=== PATIENT | male | born 1970 | race Caucasian/White ===

== ENCOUNTER 2019-07-12 15:47 | Emergency (ER) | payer OTHER, SELFPAY ==
[2019-07-12 15:49] VITALS: BP 149/89; PULSE 68; RESP 16; TEMP 36.1; O2SAT 98; BMI 36.6
--- NOTE | 2019-07-12 16:02 | CT_ITS ---
STUDY: CT ABDOMEN AND PELVIS WITH CONTRAST REASON FOR EXAM: Male, 48 years old. RLQ pain x 3 days, nausea. No prior surgery, diabetes or hypertension. RADIATION DOSAGE (If Supplied By Facility): CTDIvol = ( 18.63 ) mGy, DLP = ( 1395.07 ) mGycm TECHNIQUE: Transaxial images were obtained from the dome of the diaphragm to the symphysis pubis without oral contrast. Oral and IV Gastrografin and 100mL Isovue-300 was administered. Sagittal and coronal images were reconstructed. Individualized dose optimization techniques were used for this CT. COMPARISON: None. FINDINGS: The visualized lung bases are unremarkable. The visualized portions of the heart are within normal limits. Normal liver. Normal gallbladder and extrahepatic biliary system. Normal spleen. Normal pancreas. Normal bilateral adrenal glands. Normal right kidney. Normal left kidney. Normal visualized stomach. Normal small intestine. There are multiple colonic diverticula consistent with diverticulosis. The appendix is visualized and appears normal. Normal abdominal aorta. Normal inferior vena cava. Normal retroperitoneum. Normal urinary bladder. Normal visualized prostate gland. There is a small umbilical hernia containing fat. Normal osseous structures. CT/Abdomen/Pelvis WITH Contrast IMPRESSION: No acute process identified. Diverticulosis. Electronically Signed: Flako Tomlin, at 19:08 EST Tel , Service support ,
--- NOTE | 2019-07-12 16:03 | ED.DCSUM_ITS ---
History of Present Illness Chief Complaint: Abd Pain Informant: Patient Onset: Days - 4 days Context: Gradual Onset Current Severity: Mild Maximum Severity: Moderate Narrative: Patient presents with a 4-day history of pain to the right lower quadrant. He is able to tolerate p.o. without difficulty. He has had increased diarrhea over the past week. He is urinating normally. He states today he feels nauseated and queasy. He has had no vomiting. He has not noted fever or chills. - Past Medical History (1) Depression Status: Chronic (2) Anxiety Status: Chronic Past Medical History - Allergies and Home Meds Allergies/Adverse Reactions: Allergies No Known Allergies Allergy (Verified 07/12/19 15:48) Primary Care Physician: Irvin Guan MD [Primary Care Provider] - Prior records reviewed: Yes Lives: Spouse/ Significant Other Smoking Status: Never smoker Review of Systems General: Denies: Chills, Fever Eyes: Denies: Visual changes - bilaterally ENT: Denies: Bilateral ear pain Cardiovascular: Denies: Chest pain Respiratory: Denies: Dyspnea Gastrointestinal: Reports: Abdominal pain, Nausea, Diarrhea. Denies: Vomiting Genitourinary: Denies: Dysuria Musculoskeletal: Denies: Myalgias Skin: Denies: Rash Neurological: Denies: Headache Physical Exam Vital Signs/Narrative: Vital Signs Temp Pulse Resp BP Pulse Ox 07/12/19 15:49 96.9 F L 68 16 149/89 H 98 Inital Vital Signs reviewed: Yes General: Well nourished, Well developed Head: Normocephalic ENT: Moist mucous membranes Neck: Supple Cardiovascular: Regular rate, Regular rhythm Respiratory: No distress, CTA bilaterally Abdomen: Soft, Tender - Focal tenderness of the right lower quadrant., Hypoactive bowel sounds. Negative for: Guarding Skin: Normal color Neurological: Alert, Oriented x3 Psychological: Normal affect Diagnostic/Tx/Re-eval Impressions Abdomen/Pelvis CT 07/12/19 16:02 IMPRESSION: No acute process identified. Diverticulosis. Electronically Signed: Flako Tomlin, at 19:08 EST Tel , Service support , 07/12/19 16:02 Abdomen/Pelvis WITH Contrast [CT] Stat Laboratory Results 0107/12/19 07/12/19 16:16 16:16 16:19 WBC 9.6 RBC 5.45 Hgb 14.8 Hct 44.3 MCV 81.3 MCH 27.2 MCHC 33.4 RDW Std Deviation 41.4 RDW Coeff of Brock 14.3 Plt Count 261 MPV 9.7 Immature Gran % (Auto) 0.300 Neut % (Auto) 59.5 Lymph % (Auto) 25.2 [place] % (Auto) 10.0 Eos % (Auto) 4.3 Baso % (Auto) 0.7 Absolute Neuts (auto) 5.7 Absolute Lymphs (auto) 2.43 Nucleated RBC % 0 Sodium 139 Potassium 4.3 Chloride 106 Carbon Dioxide 28.0 Anion Gap 5 BUN 23 H Creatinine 1.42 H Estim Creat Clear Calc 76.86 Est GFR (MDRD) Af Amer 69 Est GFR (MDRD) Non-Af 57 L BUN/Creatinine Ratio 16.2 Glucose 84 Calcium 9.0 Total Bilirubin 0.50 Direct Bilirubin 0.11 AST 14 L ALT 27 Alkaline Phosphatase 62 Total Protein 7.5 Albumin 3.9 Globulin 3.6 Urine Color Yellow Urine Clarity Clear Urine pH 7.0 Ur Specific [place] 1.010 Urine Protein Negative Urine Glucose (UA) Normal Urine Ketones Negative Urine Occult Blood Negative Urine Nitrite Negative Urine Bilirubin Negative Urine Urobilinogen Normal Ur Leukocyte Esterase Negative Urine RBC 0 SEEN Urine WBC 0 SEEN Ur Squamous Epith Cells 0 SEEN Urine Bacteria 0 SEEN Urine Mucus 0 SEEN - Medical Decision Making Patient declined anything for pain or nausea while in the emergency room. Test results are discussed with patient and at bedside. He is reassured with these findings. If symptoms worsen he is to return for repeat evaluation. ED Disposition - Plan for ED Patient: Disposition: Home or Assisted Living Diagnosis: Abdominal pain Instructions: ABDOMINAL PAIN, Unkown Cause, (Male) Referrals: Irvin Guan MD [Primary Care Provider] - 1 Week if not improving
[2019-07-12] MEDS: 0.9% Normal Saline 1,000 ML 150 ML IV (16:20)
[2019-07-12 16:26] LABS: Bacteria 0 SEEN /hpf (None Seen); Mucous, Urine 0 SEEN /hpf (<or=2+); Red Blood Cells-Urine 0 SEEN /hpf (0-5); Squamous Epithelial Cells - UA 0 SEEN /hpf (0-5); White Blood Cells 0 SEEN /hpf (0-5)
[2019-07-12 16:30] LABS: Color, Urine Yellow (Yellow); Glucose, Dipstick Normal (Normal); Ketone-Dipstick Negative (Negative); Leukocyte Esterase-Dipstick Negative /ul (Negative); Nitrite-Dipstick Negative (Negative); Occult Blood-Urine Negative /ul (Negative); Protein-Dipstick Negative (Negative); Urine Bilirubin Dipstick Negative (Negative); Urine Clarity Clear (Clear); Urine Urobilinogen Normal (Normal)
[2019-07-12 16:31] LABS: Absolute Lymphocyte Count 2.43 X10^3/uL (0.83-4.51); Absolute Neutrophil Count 5.7 X10^3/uL (2.0-7.7); Basophil# 0.07 X10^3/uL; Basophil% 0.7 % (0-1); Eosinophil# 0.41 X10^3/uL; Eosinophils% 4.3 % (0-5); Hematocrit 44.3 % (40-54); Hemoglobin 14.8 g/dL (13.0-16.5); Lymphocyte # 2.43 X10^3/ul (4.0); Lymphocyte % 25.2 % (19-41); Mean Corp Hgb Conc 33.4 g/dL (32-36); Mean Corpuscular Hgb 27.2 pg (27.0-32.0); Mean Corpuscular Volume 81.3 fL (80-94); Mean Platelet Vol. 9.7 fl (6.2-12.0); Monocyte# 0.96 X10^3/uL; NRBC Flagged by Analyzer 0 % (0-5); Neutrophil # 5.74 X10^3/uL (2.7-7.7); Neutrophil % 59.5 % (47-70); Platelet Count 261 K/mm3 (150-450); RBC Distribution Width CV 14.3 % (11.6-14.6); RBC Distribution Width SD 41.4 fl (35.1-43.9); Red Blood Count 5.45 M/mm3 (4.6-6.2); White Blood Count 9.6 K/mm3 (4.4-11.0)
[2019-07-12 16:50] LABS: AST(SGOT) 14 U/L (15-37); Alanine Aminotransfer ALT/SGPT 27 U/L (16-61); Albumin, Serum 3.9 g/dL (3.2-5.0); Alkaline Phosphatase 62 U/L (45-117); Anion Gap 5 (5-15); BUN 23 mg/dL (7-18); BUN/Creat Ratio 16.2 RATIO (10-20); Bilirubin, Direct 0.11 mg/dL (0.00-0.30); Chloride 106 mmol/L (98-107); Creatinine, Serum 1.42 mg/dL (0.70-1.30); EST Glomerular Filtration Rate 57 mL/min (>60); Est Glom Filt Rate - Afr Amer 69 mL/min (>60); Estimated Creatinine Clearance 76.86 ml/min; Globulin 3.6 g/dL (2.2-4.2); Glucose 84 mg/dL (74-106); Potassium 4.3 mmol/L (3.5-5.1); Protein, Total 7.5 g/dL (6.4-8.2); Sodium Level 139 mmol/L (136-145)
[2019-07-12 18:03] VITALS: BP 131/85; PULSE 59; RESP 16; O2SAT 97
[2019-07-12] MEDS: 0.9% Normal Saline 1,000 ML 999 ML IV (18:04)
== END 2019-07-12 19:47 | disposition home or self-care (01) ==
PROVIDERS: Emergency Provider Emergency Medicine; PCP Family Medicine
DX: R10.31 Right lower quadrant pain (principal); R19.7 Diarrhea, unspecified; R11.0 Nausea; F32.9 Major depressive disorder, single episode, unspecified; F41.9 Anxiety disorder, unspecified
CPT/HCPCS: 74177; 80048; 80076; 81001; 85025; 96360; 96361; 99283; J7030; Q9967; A4216

== ENCOUNTER 2020-01-09 21:19 | Emergency (ER) | payer OTHER, SELFPAY ==
[2020-01-09 21:20] VITALS: BP 125/62; PULSE 91; RESP 18; TEMP 36.4; O2SAT 96; BMI 37.3
--- NOTE | 2020-01-09 22:08 | CT_ITS ---
HISTORY: RLQ PAIN,FEVER,NAUSEA AND VOMITING PRIOR RECTUM SURGERY SINCE SATURDAY TECHNIQUE: Helically acquired images were obtained of the abdomen and pelvis without oral or IV contrast. A radiation dose optimization technique was used for this scan. COMPARISON: CT scan of the abdomen and pelvis from July 12, 2019 FINDINGS: # of images incl. paperwork: 548 LUNG BASES: clear. CT abdomen: Bones are unremarkable. The gallbladder remains. Hepatosplenomegaly persists. The liver measures 22.3 cm in craniocaudal dimensions. The spleen measures 17.3 cm in craniocaudal dimensions. The pancreas, and adrenal glands are normal. The kidneys are normal. Small periumbilical hernia contains only fat. The aorta is normal. There is no intra-or extrahepatic biliary ductal dilatation. CT pelvis: No ascites is present. The prostate gland is not enlarged. The appendix is normal. Series 2 image 154. The bladder is decompressed. Bowel gas pattern is normal. CT/Abdomen/Pelvis without Cont IMPRESSION: No acute intra-abdominal or pelvic disease. No change hepatosplenomegaly. Individualized dose optimization techniques were used for this CT. at 2342 Reported and signed by: Mariano Love MD Electronically Signed: Mariano Love MD at 23:41 EDT Tel , Service support ,
[2020-01-09] MEDS: Ondansetron 4 MG/2 ML Vial IV (22:23)
[2020-01-09] MEDS: 0.9% Normal Saline 1,000 ML 1000 ML IV (22:23)
[2020-01-09 22:27] LABS: Absolute Lymphocyte Count 0.34 X10^3/uL (0.83-4.51); Absolute Neutrophil Count 3.7 X10^3/uL (2.0-7.7); Basophil# 0.03 X10^3/uL; Basophil% 0.7 % (0-1); Differential Indicated SCAN CRITERIA MET; Eosinophil# 0.06 X10^3/uL; Eosinophils% 1.3 % (0-5); Hematocrit 42.4 % (40-54); Hemoglobin 14.6 g/dL (13.0-16.5); Lymphocyte # 0.34 X10^3/ul (4.0); Lymphocyte % 7.4 % (19-41); Mean Corp Hgb Conc 34.4 g/dL (32-36); Mean Corpuscular Hgb 27.7 pg (27.0-32.0); Mean Corpuscular Volume 80.5 fL (80-94); Mean Platelet Vol. 10.7 fl (6.2-12.0); Monocyte# 0.42 X10^3/uL; Monocyte% 9.2 % (0-10); NRBC Flagged by Analyzer 0 % (0-5); POSITIVE DIFFERENTIAL YES; Platelet Count 149 K/mm3 (150-450); RBC Distribution Width CV 13.8 % (11.6-14.6); RBC Distribution Width SD 40.4 fl (35.1-43.9); Red Blood Count 5.27 M/mm3 (4.6-6.2); White Blood Count 4.6 K/mm3 (4.4-11.0)
[2020-01-09 22:31] LABS: AST(SGOT) 21 U/L (15-37); Alanine Aminotransfer ALT/SGPT 28 U/L (16-61); Albumin, Serum 3.6 g/dL (3.2-5.0); Alkaline Phosphatase 61 U/L (45-117); Anion Gap 5 (5-15); BUN 18 mg/dL (7-18); BUN/Creat Ratio 14.1 RATIO (10-20); Calcium,Total 8.6 mg/dL (8.5-10.1); Chloride 108 mmol/L (98-107); Creatinine, Serum 1.28 mg/dL (0.70-1.30); EST Glomerular Filtration Rate 64 mL/min (>60); Est Glom Filt Rate - Afr Amer 77 mL/min (>60); Estimated Creatinine Clearance 84.35 ml/min; Globulin 3.7 g/dL (2.2-4.2); Glucose 120 mg/dL (74-106); Lipase 74 U/L (73-393); Potassium 3.5 mmol/L (3.5-5.1); Protein, Total 7.3 g/dL (6.4-8.2); Sodium Level 136 mmol/L (136-145)
[2020-01-09 22:59] LABS: Bacteria 0 SEEN /hpf (None Seen)
--- NOTE | 2020-01-09 22:59 | ED.VISSUMM ---
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 He reports that he has abdominal pain that began 2 days ago. Some intermittent pain lasts hours at a time. Describes it as aching. Zeta 10 at worst and 4-10 currently. Is worsened by vomiting. He does get relief after vomiting. Patient reports that he is vomited 7 times. No blood in his emesis. No diarrhea. His last bowel was today. No melena medic easy. Patient denies sick contacts. Has not been camping out of the country. No possible bad food exposure. Does not drink well water. No recent antibiotic use. Patient reports he had a fever to 103 degrees. He is had chills and sweats. He complains of bilateral ear pain. Denies any sore throat. He has mild cough that is nonproductive. Complains of a headache that is 7 out of 10 in severity. He has a history of similar headaches. He also complains of generalized weakness. Patient denies any known sick contacts. 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 He reports that he wears a shield, but no mask at work. Physical Examination: Vitals: Stable. Afebrile. General: Well-nourished and well-developed. Head: Normocephalic atraumatic. HEENT: Serous effusion behind his TMs bilaterally. No evidence of a purulent otitis media. Pharyngeal erythema. No tonsillar exudate or enlargement. No cervical lymphadenopathy. Neck: Supple, no lymphadenopathy. No JVD. Nontender. Cardiovascular: Regular rate and rhythm. No murmurs. Respiratory: No respiratory distress. Clear to auscultation bilaterally. Abdominal: Soft, mild right lower quadrant tenderness palpation, nondistended, normal bowel sounds. No guarding, rebound, or peritoneal signs. Back: Nontender. Extremities: Nontender, no edema. Skin: Normal color, no rash. Neurologic: Alert and oriented ?3. Cranial nerves II through XII are intact. Normal strength and sensation. Psych: Normal affect. Test Results: CBC shows platelets 149, segment neutrophils 81, etc. 7. Chem-7 shows a chloride of 108 and glucose 120. LFTs are normal. Lipase is normal. UA is negative. COVID is negative. Clinical Impression(s) from Imaging Studies Abdomen/Pelvis CT 01/09/20 22:08 IMPRESSION: No acute intra-abdominal or pelvic disease. No change hepatosplenomegaly. Individualized dose optimization techniques were used for this CT. at 2342 Reported and signed by: Mariano Love MD Electronically Signed: Mariano Love MD at 23:41 EDT Tel , Service support , Emergency Department Course and Treatment: Patient was given a liter of normal saline. He was given morphine and Zofran IV. He said no further vomiting while here. He is resting comfortably. Treatment Plan: Patient will be discharged with Zofran. Instructed to follow-up his primary care physician 1 to 2 days if not improving. Return to the emergency department for any worsening symptoms. Disposition: To home in improved and stable condition. Impression: 1. Abdominal pain. 2. Vomiting. This note was generated with [employer] dictation software. It may contain incorrect words, spelling, and punctuation that were not noted in review of the chart prior to signing ED Disposition - Plan for ED Patient: Disposition: Home or Assisted Living Instructions: ED Nausea Vomiting Adult Prescriptions: Ondansetron [Zofran Odt] 4 mg PO Q8H PRN PRN #10 tab PRN Reason: Nausea Prescription Printed Referrals: Irvin Guan MD [Primary Care Provider] - 1-2 Days if not improving
[2020-01-09 23:02] LABS: Color, Urine Yellow (Yellow); Glucose, Dipstick Normal (Normal); Ketone-Dipstick 15 mg/dl (Negative); Leukocyte Esterase-Dipstick 25 /ul (Negative); Nitrite-Dipstick Negative (Negative); Occult Blood-Urine 10 /ul (Negative); Protein-Dipstick 30 mg/dl (Negative); Urine Bilirubin Dipstick 1 mg/dL (Negative); Urine Clarity Sl. Cloudy (Clear); Urine Urobilinogen 1 mg/dl (Normal)
[2020-01-09 23:14] LABS: Hyaline Cast 0-5 SEEN /lpf (0-5); Mucous, Urine 3+ /hpf (<or=2+); Red Blood Cells-Urine 0-5 SEEN /hpf (0-5); Squamous Epithelial Cells - UA 0-5 SEEN /hpf (0-5); White Blood Cells 0-5 SEEN /hpf (0-5)
[2020-01-09 23:48] LABS: Red Cell Morphology NORM C+C NORMAL (NORM C&C)
[2020-01-09 23:49] LABS: Platelet Estimate SLT DEC (ADEQ)
[2020-01-10 00:20] LABS: Probe Check PASS; Specimen Processing Control PASS
[2020-01-10 00:53] VITALS: BP 116/59; PULSE 78; RESP 18; TEMP 36.8; O2SAT 98
== END 2020-01-10 00:55 | disposition home or self-care (01) ==
PROVIDERS: Emergency Provider Emergency Medicine; PCP Family Medicine
DX: R10.9 Unspecified abdominal pain (principal); R11.2 Nausea with vomiting, unspecified; H92.03 Otalgia, bilateral; R05 Cough; R51 Headache; R53.1 Weakness
CPT/HCPCS: 74176; 80053; 81001; 83690; 85025; 87635; 94799; 96361; 96374; 99282; J7030; A4216; J2405; U0003

== ENCOUNTER 2020-12-17 09:47 | Emergency (ER) | payer OTHER, SELFPAY ==
[2020-12-17 09:48] VITALS: BP 150/92; PULSE 70; RESP 18; TEMP 36.3; O2SAT 99; BMI 40.1
--- NOTE | 2020-12-17 10:23 | EDS_ITS ---
HPI History of Present Illness Chief Complaint: Back Informant: patient and spouse/S.O. Onset/Context/Timing Onset: Weeks Injury: lifting, twisting and bending Timing: Continuous Quality: Sharp Location: Lumbar Current Severity: Mild Maximum Severity: Moderate Worsened by: improves with Movement, Bending and Lifting Relieved by: Remaining Still and Medications Associated Symptoms Associated Symptoms: Negative for Numbness, Tingling, Radiation to Right Leg, Radiation to Left Leg, Fever, Dysuria, Unable to Ambulate, Urinary Retention and Urinary Incontinence Narrative Narrative: Four 10-year-old male no seen in past medical history. Currently on no medications other than ibuprofen. Said he tweaked his back 1 to 2 weeks ago. Had intermittent pain but improved with ibuprofen. Is recently began swinging golf club again and took a 2-hour car ride each way. He has developed more pain in his right lower buttock he denies any radiation to his right leg. There is no weakness. No bowel or bladder incontinence. No fever. No prior back surgery. Prior similar symptoms: Yes and With Prior Back Pain Recent Illness/Hospitalization: No PFSH PFSH no medical history Home Medications NK 12/17/20 [History Last Taken Unknown] Allergy/AdvReac Type Severity Reaction Status Date / Time No Known Allergies Allergy Verified 12/17/20 09:47 Surgical History History of orthopedic surgery Social History Smoking Status: Never smoker ROS ROS ED ROS Narrative Denies any recent illness. Review of Systems ROS Unobtainable: Denies due to encephalopathy Constitutional Constitutional ED: Denies fever(s) Eyes Eyes: Denies change in vision ENT ENT ED: Denies ear pain Cardiovascular Cardiovascular: Denies chest pain Respiratory/Chest Respiratory/Chest: Denies dyspnea Gastrointestinal Gastrointestinal: Denies abdominal pain, diarrhea or nausea Genitourinary Genitourinary ED: Denies dysuria Musculoskeletal Musculoskeletal: Denies myalgias Integumentary Denies rash Neurologic Neurologic: Denies headache(s) Psychiatric Psychiatric: Denies depression Endocrine Endocrinology: Denies polyuria Hematologic/Lymphatic Hematologic/Lymphatic: Denies easy bruising Allergic/Immunologic Allergic/Immunologic ED: Denies urticaria EXAM Physical Exam Narrative Exam Narrative: Middle-age male no acute distress. at bedside. Vital signs stable afebrile. HEENT exam normal. Lungs are clear. Heart regular rhythm. Abdomen soft. Nondistended. Normal bowel sounds. Patient does have an incidental finding in his right lower abdomen I believe he may have a abdominal wall hernia. It is currently reduced. It does appear to come out when he is bears down. I do not feel anything in his inguinal canal. His testicles are nontender nonswollen. The left side is unremarkable. He is moving all 4 extremities. Neurovascular intact. Negative straight leg raise bilaterally. Back exam spine completely nontender. Tenderness on his right SI joint. Worsening pain with straight leg raise on the right but it does not go down his leg. Neurologic exam normal. Normal strength and sensation in both lower extremities. No cauda equina Const Vital Signs: 12/17/20 09:48 Temperature 97.4 F L Temperature Source Temporal Pulse Rate 70 Respiratory Rate 18 Blood Pressure 150/92 H Blood Pressure Mean 111 Pulse Ox 99 Oxygen Delivery Method Room Air HEENT Reports moist mucous membranes Negative for trauma or tenderness Eyes PERRL and EOMs intact bilaterally Neck no lymphadenopathy, supple and no JVD General: Negative for tenderness Resp normal respiratory effort and clear to auscultation bilaterally Cardio regular rate, regular rhythm, S1 normal heart sound, S2 normal heart sound and no murmurs GI normal to inspection, nondistended, normoactive bowel sounds, soft to palpation, non-distended and no masses GI Narrative: Right lower abdominal wall hernia with bearing down. Reduces spontaneously. Back/Spine no thoracic nor lumbar tenderness Back/Spine Narrative: Tenderness right SI joint. No redness or warmth. No bruising. General Back: Negative for CVA tenderness or scar(s) Cervical Spine: Negative for cervical spine tenderness and Negative for paracervical muscle tenderness Thoracic Spine / Upper Back: Negative for paraspinal muscle tenderness Extremity normal to inspection Extremity Narrative: Both upper and lower extremities are neurovascular intact. General Extremety ED: Negative for edema or tenderness General Extremity: Negative for edema Neuro oriented x3 and no sensory deficits noted Sensorium / Orientation: alert; Negative for confused, lethargic or stuporous Motor Exam: strength 5/5 throughout Psych mental status grossly normal Skin no rashes or lesions noted and no wounds MDM MDM MDM Narrative Medical decision making narrative: Patient with what appears to be a right sciatica. He does not want any narcotics for pain. He will continue on anti- inflammatories at home. Will be given a work excuse for the next several days and light duty for a week. Follow-up with his primary care physician not improving. Also follow-up for referral to a surgeon for possible hernia repair. Discharge Plan Triage Chief Complaint: Back ED Provider: Reagan Cabrera Dx/Rx/DC Orders Clinical Impression: Acute right-sided back pain with sciatica, Abdominal wall hernia Instructions: ED Sciatica Prescriptions: No Action NK RF: 0 Primary Care Provider: Irvin Guan Referrals: Irvin Guan MD [Primary Care Provider] - 1 Week if not improving Activity Restrictions/Additional Instructions: Motrin, Advil or ibuprofen 800 mg 3 times a day with food up to 1 week. Also Tylenol for pain. Ice to the area. Hot shower warm bath to relax the muscles. Massage. This should progressively improve over the next week. Avoid aggravating acti vities such as lifting, carrying, bending or long drives. If not improving follow-up with your physician. I suspect you have a right abdominal wall hernia. You can follow-up with a general surgeon discussed with him about having that repaired. Disposition Disposition: Home, Self Care
[2020-12-17 10:37] VITALS: BP 142/67; PULSE 79; RESP 15; O2SAT 96
== END 2020-12-17 10:38 | disposition home or self-care (01) ==
LOC: ED 10:33
PROVIDERS: Emergency Provider Emergency Medicine; PCP Family Medicine
DX: M54.41 Lumbago with sciatica, right side (principal); K43.9 Ventral hernia without obstruction or gangrene
CPT/HCPCS: 99282

== ENCOUNTER → 2021-02-09 16:22 | Outpatient (CLI) | payer OTHER, SELFPAY ==
[2021-02-09 17:57] LABS: Cholesterol 162 mg/dL (200); High Density Lipoprotein 32 mg/dL; Triglycerides 156 mg/dL; Very Low Density Lipoprotein 31 mg/dL (5-40)
[2021-02-10 18:36] LABS: Absolute Lymphocyte Count 2.25 X10^3/uL (0.83-4.51); Absolute Neutrophil Count 5.8 X10^3/uL (2.0-7.7); Basophil# 0.11 X10^3/uL; Basophil% 1.2 % (0-1); Eosinophil# 0.32 X10^3/uL; Eosinophils% 3.5 % (0-5); Hematocrit 44.6 % (40-54); Hemoglobin 14.6 g/dL (13.0-16.5); Lymphocyte # 2.25 X10^3/ul (0.83-4.51); Lymphocyte % 24.4 % (19-41); Mean Corp Hgb Conc 32.7 g/dL (32-36); Mean Corpuscular Hgb 27.4 pg (27.0-32.0); Mean Corpuscular Volume 83.8 fL (80-94); Monocyte# 0.67 X10^3/uL; Monocyte% 7.3 % (0-10); NRBC Flagged by Analyzer 0 % (0-5); Neutrophil # 5.81 X10^3/uL (2.7-7.7); Neutrophil % 63.1 % (47-70); Platelet Count 324 K/mm3 (150-450); RBC Distribution Width CV 13.9 % (11.6-14.6); Red Blood Count 5.32 M/mm3 (4.6-6.2); White Blood Count 9.2 K/mm3 (4.4-11.0)
[2021-02-10 18:58] LABS: ALB/GLOB Ratio 1.1 RATIO (0.9-2.4); AST(SGOT) 22 U/L (15-37); Alanine Aminotransfer ALT/SGPT 34 U/L (16-61); Albumin, Serum 4.1 g/dL (3.2-5.0); Alkaline Phosphatase 66 U/L (45-117); Anion Gap 6 (5-15); BUN 17 mg/dL (7-18); BUN/Creat Ratio 13.6 RATIO (10-20); Calcium,Total 9.2 mg/dL (8.5-10.1); Chloride 109 mmol/L (98-107); Creatinine, Serum 1.25 mg/dL (0.70-1.30); EST Glomerular Filtration Rate 65 mL/min (>60); Est Glom Filt Rate - Afr Amer 79 mL/min (>60); Globulin 3.8 g/dL (2.2-4.2); Glucose 83 mg/dL (74-106); PSA,Total - Annual Screen 0.65 ng/mL (0.00-4.00); Potassium 4.2 mmol/L (3.5-5.1); Protein, Total 7.9 g/dL (6.4-8.2); Sodium Level 141 mmol/L (136-145); T4 Free Direct 0.79 ng/dL (0.76-1.46); Thyroid Stim Hormone (TSH) 2.03 uIU/mL (0.358-3.74)
[2021-02-10 19:03] LABS: Vitamin B12 396 pg/mL (211-911); Vitamin D,25 Hydroxy 24.1 ng/mL
== END ==
PROVIDERS: PCP Family Medicine; Visit Provider Family Medicine
DX: E66.01 Morbid (severe) obesity due to excess calories (principal); R53.83 Other fatigue; Z80.42 Family history of malignant neoplasm of prostate
CPT/HCPCS: 36415; 80053; 80061; 82306; 82607; 84153; 84439; 84443; 85025; G0103

== ENCOUNTER → 2021-02-13 17:59 | Outpatient (CLI) | payer OTHER, SELFPAY ==
--- NOTE | 2021-02-13 18:30 | US_ITS ---
INDICATION: GROIN MASS EXAMINATION: Right groin ultrasound. HISTORY: 50-year-old with a palpable lump in the right groin. TECHNIQUE: Routine and color duplex imaging of the right groin. FINDINGS: WOODS scale sonographic evaluation of the right groin region demonstrates a somewhat circumscribed area of the echogenicity similar to that of fat measuring approximately 5.7 x 1.3 cm that corresponds to the patient''s area of palpable mass, an underlying wall defect is seen measuring approximately 1.2 cm, the visualized mass demonstrates alteration in shape with compression and VALSALVA suggestive of herniated fat. US/Ext Non Vasc Limited/Soft Tiss IMPRESSION: Right groin hernia defect with herniation of peritoneal fat. Electronically Signed: Evnagelist Dykes MD at 9:32 EDT Tel , Service support ,
== END ==
PROVIDERS: PCP Family Medicine; Visit Provider Family Medicine
DX: R19.09 Other intra-abdominal and pelvic swelling, mass and lump (principal)
CPT/HCPCS: 76882

== ENCOUNTER → 2021-02-21 09:35 | Outpatient (CLI) | payer OTHER, SELFPAY ==
--- NOTE | 2021-02-21 09:40 | ECHOD_ITS ---
Reason For Study: SOB Procedure This was a 2D Doppler, Color Flow transthoracic echocardiogram. The study was technically difficult. Due to body habitus. Exam performed in department. Left Ventricle Normal LV size. Left ventricular systolic function is normal. The estimated ejection fraction is 65 %. Transmitral doppler flow suggestive of impaired relaxation of left ventricle. No regional wall motion abnormalities noted. Right Ventricle Normal RV size. Normal systolic function. Atria Normal left atrium. Normal right atrium. No doppler evidence for ASD. Mitral Valve There is no mitral annular calcification. Normal mitral valve. Trivial mitral valve insufficiency. Tricuspid Valve Normal tricuspid valve. Trivial tricuspid valve insufficiency. Unable to estimate RV systolic pressure due to insufficient tricuspid regurgitant envelope. Aortic Valve Trisinus/trileaflet aortic valve. Mild focal aortic valve calcification. Pulmonic Valve The pulmonic valve is not well visualized. Great Vessels Normal sized aortic root. Pericardium/Pleural No pericardial effusion. MMode/2D Measurements & Calculations LVIDd: 5.6 cm IVSd: 1.0 cm Ao root diam: 3.6 cm LVIDs: 3.9 cm LVPWd: 1.1 cm FS: 29.3 % LAV(MOD-bp): 55.7 ml LVAd ap4: 30.7 cm2 LVAd ap2: 32.7 cm2 LAV(MOD-bp) Indexed: 20.7 ml/m2 LVLd ap4: 8.0 cm LVLd ap2: 8.6 cm LAV(MOD-sp2): 50.8 ml EDV(MOD-sp4): 98.0 ml EDV(MOD-sp2): 106.6 ml LAV(MOD-sp4): 65.9 ml EDV(sp4-el): 99.9 ml EDV(sp2-el): 105.9 ml LVAs ap4: 17.8 cm2 LVAs ap2: 18.5 cm2 LVLs ap4: 6.8 cm LVLs ap2: 7.0 cm ESV(MOD-sp4): 41.6 ml ESV(MOD-sp2): 44.3 ml ESV(sp4-el): 39.8 ml ESV(sp2-el): 41.2 ml EF(MOD-sp4): 57.5 % EF(MOD-sp2): 58.5 % EF(sp4-el): 60.1 % SV(MOD-sp4): 56.4 ml SV(MOD-sp2): 62.3 ml SV(sp4-el): 60.1 ml LA dimension(2D): 4.3 cm LA A4 area: 21.0 cm2 Time Measurements MV dec time: 0.22 sec Doppler Measurements & Calculations MV E max david: 59.0 cm/sec Lat Peak E' David: 9.0 cm/sec Med Peak E' David: 7.5 cm/sec MV A max david: 66.8 cm/sec E/E' lat: 6.5 E/E' med: 7.9 MV E/A: 0.88 Ao V2 max: 90.8 cm/sec LV V1 max: 79.4 cm/sec PA V2 max: 114.4 cm/sec Ao max P.3 mmHg LV V1 max P.5 mmHg ECHO/Echo Complete Interpretation Summary Left ventricular systolic function is normal. The estimated ejection fraction is 65 %. Trivial mitral valve insufficiency. Trivial tricuspid valve insufficiency. Mild focal aortic valve calcification. Unable to estimate RV systolic pressure due to insufficient tricuspid regurgita nt envelope. Transmitral doppler flow suggestive of impaired relaxation of left ventricle Ordering Physician: Dewey Luis Referring Physician: Dewey Luis Performed By: Clemencia Zaragoza, KANDY, RVT
== END ==
PROVIDERS: PCP Family Medicine; Referring Provider Family Medicine; Visit Provider Family Medicine
DX: R06.02 Shortness of breath (principal)
CPT/HCPCS: 93306

== ENCOUNTER → 2021-03-01 07:47 | Outpatient (CLI) | payer OTHER, SELFPAY ==
--- NOTE | 2021-03-01 08:25 | US_ITS ---
STUDY: ABDOMINAL ULTRASOUND - RIGHT UPPER QUADRANT REASON FOR VISIT: Male, 50 years old RUQ LIVER PAIN TECHNIQUE: Ultrasound evaluation of the right upper quadrant was performed with real-time and static cruz-scale imaging. TECHNICAL QUALITY: Adequate. COMPARISON: None. FINDINGS: Liver: The liver is enlarged and measures 22 cm. There is increased echogenicity consistent with fatty infiltration. The bile ducts are within normal limits. There is hepatic color flow. The direction of portal flow is hepatopetal. There is no demonstrated mass lesion. Gallbladder: Normal distended gallbladder. The gallbladder wall measures 2.8 mm. There is a negative sonographic Ramírez''s sign. There is no pericholecystic fluid. There are no gallstones. Common Bile Duct (C.B.D.): The common bile duct measures 5.4 mm. Pancreas: Normal size of the head, body and tail of the pancreas. There is no demonstrated pancreatic mass or cyst. Right Kidney: Normal size of the right kidney. The right kidney measures 14 cm x 5.9 cm x 5.1 cm. Normal renal cortex. The right cortex measures 2.1 cm. There is no demonstrated renal mass or cyst. There is no right hydronephrosis. US/Abdomen Limited IMPRESSION: Hepatomegaly and fatty infiltration of the liver. Electronically Signed: Shaheen Garcia MD at 10:20 EDT , Service support ,
== END ==
PROVIDERS: PCP Family Medicine; Referring Provider Family Medicine; Visit Provider Family Medicine
DX: R10.11 Right upper quadrant pain (principal)
CPT/HCPCS: 76705

== ENCOUNTER → 2021-03-10 09:53 | Outpatient (CLI) | payer OTHER, SELFPAY ==
--- NOTE | 2021-03-10 09:55 | NM_ITS ---
STUDY: HEPATOBILARY SCINTGRAPHY REASON FOR EXAM: Male, 50 years old. Abdominal pain COMPARISON STUDIES : NM - None. CR - Not available for review at this time. CT - Not available for review at this time. MR - Not available for review at this time. Ultrasound 03/01/2021 Technique: After the administration of 5.2 mCi of technetium 99m Choletec intravenously, multiple scintigraphic images of the abdomen were obtained. After the administration of 8 ounces of nutritional drink orally, a gallbladder ejection fraction was capped later. Findings: Homogeneous uptake of radiopharmaceutical throughout the hepatic parenchyma. Prompt excretion into the biliary tree first seen on the 15 minute image. Prompt visualization of the gallbladder first seen on the 45 minute image. Passage of radiopharmaceutical from the biliary tree into the small bowel ensuring patency of the common bile duct. After the administration of nutritional drink orally, gallbladder ejection fraction is calculated. The gallbladder ejection fraction is 5% which is decreased consistent with chronic cholecystitis. NM/Hepatobilliary Img w/Pharm Int IMPRESSION: Chronic cholecystitis with a gallbladder ejection fraction of 5%. Electronically Signed: Twin Saldivar MD at 12:35 EDT Tel , Service support ,
== END ==
PROVIDERS: PCP Family Medicine; Referring Provider Family Medicine; Visit Provider Family Medicine
DX: K76.0 Fatty (change of) liver, not elsewhere classified (principal)
CPT/HCPCS: 78227; A9537

== ENCOUNTER → 2021-03-15 16:49 | Outpatient (CLI) | payer OTHER, SELFPAY ==
--- NOTE | 2021-03-15 16:51 | RAD_ITS ---
STUDY: X-RAY CHEST REASON FOR EXAM: Male, 50 years old. Acute bronchitis. TECHNIQUE: PA and lateral views of the chest. COMPARISON: None. FINDINGS: The lungs are clear and expanded. There is no demonstrated pleural abnormality. Normal size heart. Normal mediastinum and petrona. Normal visualized pulmonary arteries. Normal visualized aortic arch and descending thoracic aorta. Normal visualized thoracic spine. Normal visualized ribs, clavicles, and shoulders. There is no demonstrated abnormality of the visualized soft tissue structures of the upper abdomen. RAD/Chest PA and Lateral IMPRESSION: No acute cardiopulmonary disease. Electronically Signed: Kevin Cerna DO at 20:46 EDT Tel [phone], Service support ,
== END ==
PROVIDERS: PCP Family Medicine; Referring Provider Family Medicine; Visit Provider Family Medicine
DX: U07.1 COVID-19 (principal); J20.8 Acute bronchitis due to other specified organisms
CPT/HCPCS: 71046; 87635; U0005; U0003

== ENCOUNTER 2021-03-17 13:01 | Outpatient (CLI) | payer OTHER, SELFPAY ==
[2021-03-17 13:14] VITALS: BP 118/83; PULSE 69; RESP 18; TEMP 36.9; O2SAT 97; BMI 39.7
[2021-03-17] MEDS: 0.9% Saline Lock 10 ML Syringe IV (13:20)
[2021-03-17 14:00] VITALS: BP 121/73; PULSE 66; RESP 16; TEMP 37.1; O2SAT 96
[2021-03-17 15:00] VITALS: BP 119/68; PULSE 69; RESP 16; TEMP 36.8; O2SAT 97
== END 2021-03-17 15:00 | disposition home or self-care (01) ==
LOC: MS3OUT 13:01 → MS3 13:02
PROVIDERS: PCP Family Medicine; Referring Provider Nurse Practitioner Adult Health; Visit Provider Nurse Practitioner Adult Health
DX: Z23 Encounter for immunization (principal); U07.1 COVID-19
CPT/HCPCS: J7050; M0243; A4216; Q0244

== ENCOUNTER → 2021-03-28 16:33 | Outpatient (CLI) | payer OTHER, SELFPAY ==
--- NOTE | 2021-03-28 16:35 | RAD_ITS ---
STUDY: X-RAY - SACRUM/COCCYX REASON FOR EXAM: Male, 50 years old. TAILBONE PAIN TECHNIQUE: 3 view(s) of the sacrum and coccyx were obtained. COMPARISON: None. FINDINGS: There is degenerative arthrosis of the bilateral sacroiliac joints. Normal visualized sacral ala and fused sacral bodies. Normal sacrococcygeal junction with a normal angulation. Normal coccygeal segments. The presacral soft tissue structures are unremarkable. RAD/Sacrum-Coccyx min 2 Views IMPRESSION: Degenerative changes of the sacroiliac joint. Disc space narrowing at the L4-L5 and L5-S1 levels. Electronically Signed: Shaheen Garcia MD at 10:34 EDT , Service support ,
== END ==
PROVIDERS: PCP Family Medicine; Referring Provider Family Medicine; Visit Provider Family Medicine
DX: M53.3 Sacrococcygeal disorders, not elsewhere classified (principal)
CPT/HCPCS: 72220

== ENCOUNTER 2021-05-09 07:06 | Day surgery (SDC) | payer OTHER, SELFPAY ==
--- NOTE | 2021-05-05 16:04 | EKG12_ITS ---
Test Reason : PREOP Blood Pressure : / mmHG Vent. Rate : 068 BPM Atrial Rate : 068 BPM P-R Int : 168 ms QRS Dur : 098 ms QT Int : 420 ms P-R-T Axes : 025 020 013 degrees QTc Int : 446 ms Normal sinus rhythm Normal ECG No previous ECGs available Confirmed by KOBI LO, JC ([id number]), associate entertainment editor MICHELLE VYAS ([id number]) on 05/09/2021 1:27:28 PM Referred By: Lester Salamanca Confirmed By:JC PEACE MD
[2021-05-05 16:55] LABS: Hematocrit 41.9 % (40-54); Hemoglobin 14.4 g/dL (13.0-16.5); Mean Corp Hgb Conc 34.4 g/dL (32-36); Mean Corpuscular Hgb 27.9 pg (27.0-32.0); Mean Platelet Vol. 9.8 fl (6.2-12.0); Platelet Count 274 K/mm3 (150-450); RBC Distribution Width CV 14.5 % (11.6-14.6); RBC Distribution Width SD 42.3 fl (35.1-43.9); Red Blood Count 5.17 M/mm3 (4.6-6.2); White Blood Count 9.9 K/mm3 (4.4-11.0)
[2021-05-05 18:02] LABS: Anion Gap 6 (5-15); BUN 20 mg/dL (7-18); BUN/Creat Ratio 16.8 RATIO (10-20); Calcium,Total 9.4 mg/dL (8.5-10.1); Chloride 104 mmol/L (98-107); Creatinine, Serum 1.19 mg/dL (0.70-1.30); EST Glomerular Filtration Rate 69 mL/min (>60); Est Glom Filt Rate - Afr Amer 83 mL/min (>60); Glucose 79 mg/dL (74-106); Potassium 4.2 mmol/L (3.5-5.1); Sodium Level 138 mmol/L (136-145)
[2021-05-09] VITALS (8 sets, daily range): BP systolic 122–150; BP diastolic 70–94; PULSE 59–78; RESP 16; TEMP 36.1–36.6; O2SAT 93–98; BMI 40.9
--- NOTE | 2021-05-09 | HERN_PTH ---
PATIENT: JUDITH CARLTON [place] [facility] [place][id number] AGE/SX: 50/M ROOM: RE05/09/[address]: Dr. Lester Salamanca MD : 1970 BED: DIS: 05/09/2021 SPEC #: [id number] RECD: 05/09/21 11:46 STATUS: DEIRDRE WINTERS #: [id number] XIOMARA: 05/09/21 00:[address]: Lester Salamanca DEPT: SURGICAL PATHOLOGY RECD BY: Bairon Razo ENTERED: 05/09/21 11:46 SP TYPE: Hernia OTHR DR: Dr. Dewey Luis MD Tissues: A - HERNIA B - Gallbladder, NOS Procedures: Surgery Specimen Level II Surgery Specimen Level III HEADER OPERATION: Laparoscopic cholecystectomy with IOC PRE-OP DIAGNOSIS: Biliary dyskinesia, umbilical hernia TISSUE SUBMITTED: A ? Hernia sac and contents, B - Gallbladder MICROSCOPIC DIAGNOSIS .A. Hernia sac and contents: Pieces of fibroadipose and fibroconnective tissue, clinically hernia sac and contents. B. Gallbladder, cholecystectomy: Mild chronic cholecystitis. See comment. SHABBIR 05/10/21 COMMENT No stones are identified in the container or in the gallbladder. MICROSCOPIC DESCRIPTION Slides are reviewed. GROSS DESCRIPTION A - Received in fixative is one container labeled with the patient's name and designated hernia sac and contents. The specimen consists of three variable sized pieces of soft tissue measuring in aggregate 6 x 4 x 2 cm. No mass lesion is identified. Inspector Aide sections are submitted in one cassette. B -Received is one container labeled with the patient's name and designated gallbladder. The specimen consists of a gallbladder measuring 11 cm in length and up to 4 cm in diameter. The external surface is pink-donahue, smooth and glistening for the most part. Focally it is granular, hemorrhagic and contains cautery artifact. The gallbladder contains green-yellow mucoid bile. No stones are identified in the container or in the gallbladder. The mucosa is bile-stained and without any mass lesions. The gallbladder wall measures 0.1 cm in thickness. Inspector Aide sections from the gallbladder and the cystic duct are submitted in one cassette. / SJ:michelle 05/09/2021 TC:3 CPT: 86119, 39929
--- NOTE | 2021-05-09 07:40 | PCM.HP.BLA ---
History and Physical Date of Admission: 05/09/21 Intake Visit Reasons: DISCUSS GALLBLADDER SURGERY Chief Complaint: Discuss hernia and gallbladder surgery Regional Marketing Manager Required: No Is patient in pain?: No Allergies escitalopram [From Lexapro] Adverse Reaction (Intermediate, Verified 05/04/21 07:26) Other Medications zbmphdq-jhdhbwgrszmyt-syojlcsi 250 mg-250 mg-65 mg tablet 1 tab PO ONCE 03/09/21 [History Confirmed 05/04/21] [facility] Medical History (Updated 05/04/21 @ 07:[address] Lester Salamanca MD) Acute right-sided back pain with sciatica Anxiety Biliary dyskinesia BMI 39.0-39.9,adult COVID-19 Depression Inguinal hernia of right side without obstruction or gangrene Migraines Umbilical hernia without obstruction or gangrene Venous (peripheral) insufficiency Surgical History History of orthopedic surgery History of rectal surgery S/P ACL surgery Family History Mother Breast cancer Thyroid disorder Father Diabetes Cancer Social History Smoking Status: Never smoker alcohol intake: never HPI HPI HPI: JUDITH CARLTON, is a 50 M who presents to the office today for surgical consultation regarding biliary dyskinesia and umbilical hernia and right inguinal hernia and bilateral lower extremity venous insufficiency and recent COVID-19 infection. So an ultrasound of the right groin showing herniation of preperitoneal fat. Consider right upper quadrant ultrasound demonstrating steatosis of liver. February 09, 2021 he had normal liver function tests. He has been having problems with right upper quadrant flank pain. Body habitus is 326 pounds. He has bilateral lower extremity venous insufficiency stasis dermatitis. Support hose have been prescribed and recommended to him. At the time that the patient saw me in the office on March 10, 2021 I had recommended to him Covid 19 vaccination. He subsequently developed Covid-19 and underwent monoclonal antibody treatment. A hepatobiliary scan had been performed on March 10, 2021 demonstrating an ejection fraction of 5%. Considerations as to how to approach these disease processes. Considering a laparoscopic cholecystectomy. Then considering a umbilical herniorrhaphy and laparoscopic right inguinal herniorrhaphy with mesh. His medical comorbidities complicate this approach. Fortunately with his Covid-19 he did not experience respiratory problems. He is feeling well now. It is of note that when he saw me in the office he did proceed on and got the COVID-19 vaccination first dose. But he admits that already the day or 2 before he was started to feel unwell. He is wanting to get his gallbladder out and his hernia fixed this year if possible. ROS General General: Yes fatigue; No weight change, appetite, colon cancer, breast cancer or weakness HEENT HEENT: No difficulty swallowing, eye injury, eye surgery, swollen glands or hoarseness Endo Endocrine: No thyroid disease, diabetes mellitus, thyroid cancer, Hair loss, heat intolerance or cold intolerance Skin Skin: Yes rash; No changing moles Breast Breast: No left breast lump, right breast lump, nipple discharge, breast pain, abnormal mammogram, abnormal US or breast enlargement Musc Musculoskeletal: Yes back problems; No arthritis, rheumatoid arthritis, gout or joint pain Cardio Cardiovascular: No murmur, pacemaker, heart disease, atrial fibrillation, high blood pressure, heart attack, heart stent, palpitations, shortness of breat with exertion or chest pain Psych Psychiatric: Yes depression and anxiety; No hearing voices Resp Respiratory: Yes shortness of breath, Yes sleep apnea, No cough, No COPD, No asthma, No emphysema and No wheezing Gastro Gastrointestinal: No abdominal pain, No nausea or vomiting, No diarrhea, No constipation, No blood in stool, No acid reflux, No hemorrhoids, No ulcers, Yes gallbladder problem and No black,tarry stools Inder Hematologic: No blood thinners, No blood disorders, No bleeding, No anemia and No blood clots Neuro Neurologic: No system reviewed and no additional complaints, except as documented, No as per HPI, No abnormal gait, No abnormal hearing, No abnormal movements, No abnormal speech, No behavioral changes, No burning sensations, No confusion, No convulsions, No disequilibrium, No dizziness, No localized weakness, No frequent falls, No headache(s), No lack of coordination, No loss of vision, No memory loss, No numbness, No other visual disturbances, No radicular pain, No restless legs, No sensory deficit, No syncope, No tingling, No tremor(s), No weakness and No other Exam Const General: cooperative, comfortable and no acute distress Nutritional Appearance: obese Orientation: alert and awake [facility] Head: normal to inspection Chest Chest palpation & inspection: normal inspection of the chest Resp Effort & Inspection: normal respiratory effort Auscultation: clear to auscultation bilaterally Cardio Rate: regular rate Rhythm: regular rhythm GI Palpation: soft and no hepatosplenomegaly Other: Umbilical hernia slightly tender but reducible Other: Superficial lipomas right groin. More deep-seated right inguinal hernia immediately placed. Cannot exclude femoral hernia. No distinct hernia on the left Skin General: no rashes or lesions noted Neuro General: patient alert and patient awake Extrem General: no calf tenderness Psych Appearance: grossly normal Assessment and Plan Assessment and Plan (1) Sleep apnea: Status: Acute Qualifiers: Sleep apnea type: unspecified type Qualified Code(s): G47.30 - Sleep apnea, unspecified (2) COVID-19: Status: Acute (3) Inguinal hernia of right side without obstruction or gangrene: Status: Acute (4) Umbilical hernia without obstruction or gangrene: Status: Acute Plan - Dr. Lester Salamanca MD: Biliary dyskinesia. I recommend the patient laparoscopic cholecystectomy with selective angiography. He has an umbilical hernia. We would simply do a suture closure at that time. I then anticipate 3 weeks in the future pursuing a laparoscopic right inguinal hernia repair with mesh. We would also add mesh to his umbilical hernia site at that setting as well. The patient has experienced Covid-19 but appears to be making a strong recovery. He anticipates that Dr Dewey Luis will assist him with the timing of the second dosing of vaccination as the patient experienced Covid-19 essentially at the same time that he received his first vaccination His bilateral extremity venous stasis disease will need to be managed conservatively. He has newly diagnosed sleep apnea and will be pursuing medical treatment for that. He has had an opportunity to ask and have questions answered. We will try to achieve these test during the calendar year at his request. Copy: Dr Dewey Salamanca M.D., F.A.C.S. I have re-examined the patient. There are no clinical changes since date of exam.
--- NOTE | 2021-05-09 07:41 | EX.PCM.DISCH ---
Discharge Instructions Procedure General Surgery Diet Discharge Diet: Light diet - advance as tolerated (if you have questions about your diet instructions, please talk to you doctor.) Activity Discharge Activity: May Not Drive (for 3-5 days or while taking narcotic pain medicine.) May shower in (days): 1 Lifting Restrictions: 10 pounds Dressing / Incision Call your doctor if your incision/area has: Continuous Slow Oozing, Sudden Increased Bleeding, Increased Pain/ Swelling, Increased Redness and Foul Smelling Discharge Call your doctor if you observe: Fever of 101 or Higher Suture Line Care: Avoid Pulling/Pushing and Avoid Pinching/Bending Additional Dressing/Incision Instructions:: Change or remove dressing in 4 days. Leave steri-strips in place for 1 week. Follow Up Care Please Follow Up With: Lester Salamanca MD When: Call [phone] to make an appointment to be seen in about 10 days. Test Results: Test results from this visit will be discussed in further detail at your follow-up appointment, if applicable. Discharge Plan Admission Primary Reason for Your Visit: Chronic cholecystitis cholelithiasis Attending Provider: Lester Salamanca Primary Care Provider: Dewey Luis Discharge Orders/Prescriptions Prescriptions: New hydrocodone-acetaminophen 5-325 mg tablet 1 tab PO Q6H PRN (Reason: pain) 2 Days Qty: 10 RF: 0 Continued Excedrin Migraine 250-250-65 mg tablet 1 tab PO PRN PRN (Reason: Headache) RF: 0 Referrals / Follow Up: Dewey Luis MD [Primary Care Provider] - Disposition Disposition (needs filled in before D/C Order can be placed): Home, Self Care
[2021-05-09] MEDS: Lactated Ringers 1,000 ML 15 ML IV (07:45)
--- NOTE | 2021-05-09 08:30 | RAD_ITS ---
PROCEDURE: INTRAOPERATIVE CHOLANGIOGRAM DATE OF EXAMINATION: 05/09/2021 INDICATION: Male, 50 years old. Following a laparoscopic cholecystectomy an intraoperative cholangiogram was performed by the surgeon. 133 fluoroscopic images. 19.7 seconds of fluoroscopy time. TECHNIQUE: Under fluoroscopic guidance an intraoperative cholangiogram was performed with serial digital images obtained. FINDINGS: There is normal opacification of the common bile duct, hepatic duct, right and left hepatic ducts. The ducts are normal in size. There is no mucosal irregularity or intraluminal filling defects. The contrast flows into the second portion of the duodenum. RAD/Cholangiogram/ O R,Initial IMPRESSION: Normal intraoperative cholangiogram. Electronically Signed: Dmitriy Quintana MD ([place]) at 14:55 EST , Service support ,
[2021-05-09] MEDS: Bupivacaine Mpf 0.5% 30 ML VIAL (09:48)
--- NOTE | 2021-05-09 09:49 | OP.PCM_ITS ---
Problems Associated Problem List Diagnoses (1) Biliary dyskinesia: Report of Operation Date of Procedure: 05/09/21 Pre-Operative Diagnosis: Biliary dyskinesia Post-Operative Diagnosis: Same Surgery/Procedure Performed:: Laparoscopic cholecystectomy with cholangiograms Description of Surgical Findings:: Timeout informed consent was obtained. 50-year-old gentleman was taken to the operating place to find the table underwent general endotracheal intubation esthesia Ancef 3 g were given intravenously preoperatively the abdomen was sterilely prepped and draped. 0.5% Marcaine was used as a local anesthetic. Throughout the procedure a total of 30 cc was used. Skin sites were preanesthetized. A curvilinear incision was made at the inferior portion of the umbilicus sharp dissection carried down through the subtenons tissue the hernia sac was identified it was dissected free electrocautery was used to transected some preperitoneal fatty tissue was additionally taken. Then I placed a 10 mm trocar and the abdomen was insufflated with CO2 to a pressure of 12 mmHg pressure. The abdomen is inspected the right inguinal hernia was identified significant amount of fatty tissue was abundant the gallbladder was encased in fibrofatty tissue. 5 mm trocar was placed in the epigastrium midabdomen and right upper quadrant. The gallbladder was distracted tedious dissection was used to dissect free the abundant fibrofatty adherence. There was an unusual amount of fibrofatty vascularity. Electrocautery dissection was performed hemolock clips were placed. The cystic duct lymph node area was somewhat inflamed it was dissected free. The cystic artery was clearly identified and was clipped proximally and distally prior to transecting it. The cystic duct and critical view was achieved with extensive blunt dissection. Having clearly identified the cystic duct and incision was made on the cystic duct and then a through a 14-gauge Angiocath a cholangiogram catheter was inserted and inserted in the cystic duct and fluoroscopically controlled cholangiograms were obtained demonstrating normal ductal anatomy and free flow into the small bowel. The cholangiogram catheter was removed and additional hemolock clip was placed on the cystic duct stump prior to transecting it. A posterior cystic artery was secured with hemolock clip. The gallbladder was then tediously dissected free from the liver bed. No spillage. The gallbladder was completely released. A piece of fibrillar was placed in the liver bed to further assist with hemostasis. The right upper quadrant was irrigated and aspirated free of excess fluid. The gallbladder was placed in a retrieval bag and exited the umbilicus after the pneumoperitoneum was deflated through an antiviral valve. The umbilical area was approximated with a hacoyc-tg-scyih 0 Vicryl. It is anticipated the patient will undergo a repeat operation for a laparoscopic right inguinal hernia repair and at that point anticipate likely a mesh repair at the umbilical area because of the hernia found today. The wounds were closed with interrupted 4-0 Monocryl subdermal stitches. Steri- Strips Telfa OpSite dressings applied. Sponge and instrument and needle counts were reported to the surgeon be correct. Specimen hernia sac and contents. Gallbladder. Drains none. Blood loss 50 cc. The patient was taken to the recovery room in satisfactory addition without apparent complication Lester Salamanca M.D., F.A.C.S. Surgeon: Lester Salamanca Type of Anesthesia: General and Local Anesthesiologist: Diego Mcdonald
[2021-05-09] MEDS: HYDROcodone Bitartrate/Apap 5/325 Tablet PO (11:29)
== END 2021-05-09 12:29 | disposition home or self-care (01) ==
LOC: SDC 07:06 → AC 07:06
PROVIDERS: Anesthesiology; PCP Family Medicine; Referring Provider Surgery; Visit Provider Surgery
PROC: (CPT 47610; principal; 2021-05-09 08:10)
DX: K81.1 Chronic cholecystitis (principal); K42.9 Umbilical hernia without obstruction or gangrene; K40.90 Unilateral inguinal hernia, without obstruction or gangrene, not specified as recurrent; G47.30 Sleep apnea, unspecified; Z86.16 Personal history of COVID-19
CPT/HCPCS: 47563; 49585; 36415; 74300; 76000; 80048; 85027; 88302; 88304; 93005; J7120; J2405

== ENCOUNTER → 2021-05-15 09:27 | Outpatient (CLI) | payer OTHER, SELFPAY ==
--- NOTE | 2021-05-15 09:30 | VDLE_ITS ---
Reason For Study: Pain RIGHT LEFT GSV is normal. GSV is normal. CFV is compressible, spontaneous, phasic, CFV is compressible, spontaneous, phasic, competent and demonstrates normal competent, and demonstrates normal augmentation. augmentation. FV is compressible, spontaneous, phasic, FV is compressible, spontaneous, phasic, competent and demonstrates normal competent and demonstrates normal augmentation. augmentation. POP V is compressible, spontaneous, phasic, POP V is compressible, spontaneous, phasic, competent and demonstrates normal competent and demonstrates normal augmentation. augmentation. T/P Trunk is compressible. T/P Trunk is compressible. PTV is compressible. PTV is compressible. RT PerV is compressible. LT PerV is compressible. Procedure This is a venous duplex using B-mode, color flow and spectral Doppler. Exam performed in department. A preliminary report was called and/or faxed to Shira OLVERA. VL/Venous Duplex US - Anupam Extrem Interpretation Summary No evidence for acute deep venous thrombosis bilateral lower extremities with p atent and compressible bilateral great saphenous veins. Ordering Physician: Shira Calero Referring Physician: Dewey Luis Performed By: Patricia Xie, KANDY, RVT
== END ==
PROVIDERS: PCP Family Medicine; Referring Provider Physician Assistant; Visit Provider Physician Assistant
DX: M79.605 Pain in left leg (principal); M79.604 Pain in right leg
CPT/HCPCS: 93970

== ENCOUNTER 2021-06-14 08:06 | Day surgery (SDC) | payer OTHER, SELFPAY ==
[2021-06-14] VITALS (10 sets, daily range): BP systolic 108–128; BP diastolic 72–93; PULSE 64–77; RESP 16–17; TEMP 36.1–36.7; O2SAT 92–98; BMI 39.0
[2021-06-14] MEDS: Lactated Ringers 1,000 ML 15 ML IV (08:20)
--- NOTE | 2021-06-14 09:51 | PCM.HP.BLA ---
History and Physical Date of Admission: 06/14/21 [facility] Complaint: Discuss hernia and gallbladder surgery Allergies escitalopram [From Lexapro] Adverse Reaction (Intermediate, Verified 05/19/21 14:44) Other Medications wxwbrkn-mnibcuahnqaqu-wrgxeqpc 250 mg-250 mg-65 mg tablet 1 tab PO PRN PRN 03/09/21 [History Confirmed 05/19/21] PFS Medical History Acute right-sided back pain with sciatica Alcohol use Anxiety Back pain Bilateral leg pain Biliary dyskinesia BMI 39.0-39.9,adult COVID-19 CPAP (continuous positive airway pressure) dependence Depression History of echocardiogram History of pain when walking History of ulceration Inguinal hernia of right side without obstruction or gangrene Migraines Non-smoker Restless legs Shortness of breath on exertion Umbilical hernia without obstruction or gangrene Wears glasses Surgical History History of laparoscopic cholecystectomy History of lateral meniscus repair of left knee History of rectal surgery Hx of hemorrhoidectomy Hx of thumb surgery S/P ACL surgery Family History Mother Breast cancer Thyroid disorder Father Diabetes Cancer Social History Smoking Status: Never smoker alcohol intake: never HPI HPI HPI: JUDITH CARLTON, is a 50 M who presents to the office today for ongoing surgical consultation. He presented with a symptomatic right inguinal hernia and a umbilical hernia and biliary dyskinesia. On May 09, 2021 I performed a laparoscopic cholecystectomy with cholangiograms. His body habitus did make this challenging. Cholangiograms were normal. Pathology demonstrated some pieces of fibroadipose and fibroconnective tissue from the umbilical hernia sac which I resected at the time of his cholecystectomy. It showed mild chronic cholecystitis as well. The patient was seen back on May 15, 2021 complaining of bilateral leg pain. He was seen by physician assistant paralegal Shira Calero and his concerns at that time of bilateral calf discomfort. He had bilateral extremity venous duplex imaging which was negative for DVT. In addition to his current findings he has a symptomatic right inguinal hernia. The anticipated plan is to do a laparoscopic repair of that hernia and at that time bolster the umbilical hernia repair with mesh. He states that his leg problem is dramatically improved. He is wearing support hose now. As noted his DVT study was negative. He has really no particular complaints regarding his gallbladder surgery. He is feeling improved Exam Const General: cooperative, comfortable and no acute distress Nutritional Appearance: obese HENMT Head: normal to inspection Eyes General: appearance normal, both eyes and all related structures Resp Effort & Inspection: normal respiratory effort Auscultation: clear to auscultation bilaterally Cardio Rate: regular rate Rhythm: regular rhythm GI Palpation: soft Other: Healing curvilinear umbilical incision Other: Deep-seated right groin hernia palpable. Superficial lipomas noted right groin as well. Skin Other: Abdomen is healing laparoscopic port site incisions Neuro General: patient alert and patient awake Extrem General: no calf tenderness Psych Appearance: grossly normal Assessment and Plan Assessment and Plan (1) Inguinal hernia of right side without obstruction or gangrene: Status: Acute (2) Umbilical hernia without obstruction or gangrene: Status: Acute Plan - Dr. Lester Salamanca MD: Plan to proceed with reopening the umbilical incision and then laparoscopically with mesh repairing his right inguinal hernia. He is aware of the technique, benefit, risk of alternatives. I anticipate then supported the umbilical site with mesh prior to completion. He has had an opportunity to ask and have questions answered. We will schedule and proceed at his discretion. Copy: Dr Dewey Salamanca M.D., F.A.C.S. The patient has recently had some increased discomfort in the right groin. He took yesterday off of work to allow for the discomfort to improve. Otherwise his presentation remains unchanged. Plan to proceed with the Gao approach to the umbilicus will repair with subsequent mesh repair at the completion as well as a laparoscopic right inguinal hernia repair. He has had an opportunity to ask and have questions answered. We will proceed as noted. Lester Salamanca M.D., F.A.C.S.
--- NOTE | 2021-06-14 10:32 | EX.PCM.DISCH ---
Discharge Instructions Procedure General Surgery Diet Discharge Diet: Light diet - advance as tolerated (if you have questions about your diet instructions, please talk to you doctor.) Activity Discharge Activity: May Not Drive (for 3-5 days or while taking narcotic pain medicine.) May shower in (days): 1 Lifting Restrictions: 10 pounds Dressing / Incision Call your doctor if your incision/area has: Continuous Slow Oozing, Sudden Increased Bleeding, Increased Pain/ Swelling, Increased Redness and Foul Smelling Discharge Call your doctor if you observe: Fever of 101 or Higher Suture Line Care: Avoid Pulling/Pushing and Avoid Pinching/Bending Additional Dressing/Incision Instructions:: Change or remove dressing in 4 days. Leave steri-strips in place for 1 week. Follow Up Care Please Follow Up With: Lester Salamanca MD When: Call [phone] to make an appointment to be seen in about 10 days. Test Results: Test results from this visit will be discussed in further detail at your follow-up appointment, if applicable. Discharge Plan Admission Primary Reason for Your Visit: Right inguinal hernia and umbilical hernia Attending Provider: Lester Salamanca Primary Care Provider: Dewey Luis Discharge Orders/Prescriptions Prescriptions: Continued Excedrin Migraine 250-250-65 mg tablet 1 tab PO PRN PRN (Reason: Headache) RF: 0 ibuprofen 200 mg Tablet 200 mg PO Q6H PRN (Reason: Pain) RF: 0 cholecalciferol (vitamin D3) [Vitamin D3] 25 mcg (1,000 unit) Capsule 25 mcg PO DAILY RF: 0 seeyktbsilkk-yuityhjr-vkdqyt Tablet 1 tab PO DAILY RF: 0 Referrals / Follow Up: Dewey Luis MD [Primary Care Provider] - Disposition Disposition (needs filled in before D/C Order can be placed): Home, Self Care
[2021-06-14] MEDS: Lidocaine 1% (30 ml sdv) 30 ML Vial (11:30)
[2021-06-14] MEDS: Bupivacaine Mpf 0.5% 30 ML VIAL (11:30)
--- NOTE | 2021-06-14 12:23 | PCM.OPRPT ---
Problems Associated Problem List Diagnoses (1) Umbilical hernia without obstruction or gangrene: (2) Inguinal hernia of right side without obstruction or gangrene: Report of Operation Date of Procedure: 06/14/21 Pre-Operative Diagnosis: Symptomatic indirect right inguinal hernia, suture repaired umbilical hernia Post-Operative Diagnosis: Same Surgery/Procedure Performed:: Laparoscopic right inguinal herniorrhaphy; Bard 3D max extra-large mesh, lot [id number], reference [id number], expiry date 01/11/2026 Bolstering of the previous umbilical hernia repair with 6.[address] hernia patch. Lot number [id number], reference [id number], expiry date 02/11/2023 Description of Surgical Findings:: Timeout informed consent was obtained. 50-year-old gentleman was taken to the operating placed on the table underwent general tracheal ovation esthesia. Based upon body weight he received 3 g of Ancef intravenously. The abdomen was sterilely prepped and draped. 0.5% Marcaine 30 cc and 1% lidocaine 30 cc was used throughout the procedure. Local was instilled at the umbilicus a curvilinear incision was made in the inferior portion like us at the site of the previous incision sharp dissection carried down through the subcutaneous tissue. His previous hernia at the time was laparoscopic cholecystectomy was closed with 0 Vicryl. Unfortunately could not find the exact opening. So then in the left periumbilical area I used a 5 mm Visiport technology to gain access to the abdomen. The abdomen was insufflated with CO2 to a pressure of 12 mmHg pressure. At the umbilicus then a 10 mm trocar was inserted. A 5 mm trocar was placed in the right lower quadrant. Inspection revealed multiple adhesions of colon in the left lower quadrant precluding any view to the left groin. I did not release those adhesions. There is evidence of an indirect right inguinal hernia. I did an ilioinguinal nerve block on the right with the Marcaine. The peritoneum superior lateral to the internal ring was incised carried medially. The peritoneum was completely dissected free until I had view of the direct indirect and femoral space. A Bard 3D max extra-large right mesh was placed so as to cover the defect area as well as the direct and indirect area. It was secured in place laterally superiorly and medially with secure strap. Excellent positioning and coverage was felt to have been achieved. The peritoneum was then approximated to itself using secure strap and several Hem-o-charleen clips. Complete obliteration to the mesh was achieved. The abdomen was then deflated. A 6.4 cm Ventralex mesh was placed in the umbilicus and then the tails were secured in place with 0 Nurolon. The fascia was approximated with simple sutures of 0 nylon. Repeat laparoscopy demonstrated the mesh was in good position I was able to place a single secure strap staple. I made sure the omentum was lying low in the abdomen. The abdomen was then again deflated of the CO2. Skin edges were approximated opted for Monocryl subdermal stitches and then Dermabond. Telfa OpSite dressings were applied. Sponge and instrument and needle counts were reported to the surgeon be correct. Specimens none. Drains none. Blood loss minimal. The patient was taken to the recovery area in satisfactory addition without apparent complication Letser Salamanca M.D., F.A.C.S. Type of Anesthesia: General and Local Anesthesiologist: Jn Cervantes
[2021-06-14] MEDS: HYDROcodone Bitartrate/Apap 5/325 Tablet PO (14:10)
[2021-06-14] MEDS: Ketorolac 30 MG/ML Syringe IV (15:57)
== END 2021-06-14 16:37 | disposition home or self-care (01) ==
LOC: SDC 08:07 → AC 08:09
PROVIDERS: PCP Family Medicine; Referring Provider Surgery; Visit Provider Surgery
PROC: (CPT 49650; principal; 2021-06-14 10:10)
DX: K42.9 Umbilical hernia without obstruction or gangrene (principal); K40.90 Unilateral inguinal hernia, without obstruction or gangrene, not specified as recurrent; Z20.822 Contact with and (suspected) exposure to COVID-19; G47.30 Sleep apnea, unspecified; F32.A Depression, unspecified; Z86.16 Personal history of COVID-19
CPT/HCPCS: 49585; 49650; 87426; C1781; J7120; J2405

== ENCOUNTER 2021-07-04 16:25 | Outpatient (CLI) | payer OTHER, SELFPAY ==
[2021-07-04 17:32] LABS: Absolute Lymphocyte Count 2.33 X10^3/uL (0.83-4.51); Absolute Neutrophil Count 7.1 X10^3/uL (2.0-7.7); Basophil# 0.11 X10^3/uL; Eosinophil# 0.35 X10^3/uL; Eosinophils% 3.2 % (0-5); Hemoglobin 14.2 g/dL (13.0-16.5); Lymphocyte # 2.33 X10^3/ul (0.83-4.51); Lymphocyte % 21.3 % (19-41); Mean Corp Hgb Conc 34.6 g/dL (32-36); Mean Corpuscular Hgb 27.7 pg (27.0-32.0); Mean Corpuscular Volume 80.1 fL (80-94); Mean Platelet Vol. 9.9 fl (6.2-12.0); Monocyte# 0.93 X10^3/uL; Monocyte% 8.5 % (0-10); NRBC Flagged by Analyzer 0 % (0-5); Neutrophil # 7.09 X10^3/uL (2.7-7.7); Neutrophil % 64.7 % (47-70); Platelet Count 321 K/mm3 (150-450); RBC Distribution Width CV 14.2 % (11.6-14.6); RBC Distribution Width SD 40.6 fl (35.1-43.9); Red Blood Count 5.12 M/mm3 (4.6-6.2)
[2021-07-04 18:42] LABS: Vitamin D,25 Hydroxy 24.4 ng/mL
[2021-07-04 18:43] LABS: AST(SGOT) 15 U/L (15-37); Alanine Aminotransfer ALT/SGPT 30 U/L (16-61); Albumin, Serum 3.7 g/dL (3.2-5.0); Alkaline Phosphatase 72 U/L (45-117); Anion Gap 7 (5-15); BUN 22 mg/dL (7-18); BUN/Creat Ratio 19.5 RATIO (10-20); Calcium,Total 8.9 mg/dL (8.5-10.1); Chloride 103 mmol/L (98-107); Cholesterol 146 mg/dL (200); Creatinine, Serum 1.13 mg/dL (0.70-1.30); EST Glomerular Filtration Rate 73 mL/min (>60); Est Glom Filt Rate - Afr Amer 89 mL/min (>60); Globulin 3.8 g/dL (2.2-4.2); Glucose 116 mg/dL (74-106); High Density Lipoprotein 23 mg/dL; Potassium 3.8 mmol/L (3.5-5.1); Protein, Total 7.5 g/dL (6.4-8.2); Sodium Level 137 mmol/L (136-145); Triglycerides 640 mg/dL
== END 2021-07-04 23:59 | disposition short-term general hospital (02) ==
LOC: MFPLAB 16:28
PROVIDERS: PCP Family Medicine; Referring Provider Family Medicine; Visit Provider Family Medicine
DX: E66.01 Morbid (severe) obesity due to excess calories (principal); E55.9 Vitamin D deficiency, unspecified
CPT/HCPCS: 36415; 80053; 80061; 82306; 85025

== ENCOUNTER 2021-07-11 10:54 | Outpatient (CLI) | payer OTHER, SELFPAY ==
--- NOTE | 2021-07-11 10:54 | RAD_ITS ---
STUDY: X-RAY - LUMBAR SPINE REASON FOR EXAM: Male, 50 years old. Pain TECHNIQUE: 2 view(s) of the lumbar spine were obtained. COMPARISON: None FINDINGS: Normal lumbar lordosis. There is no substantial scoliosis. There is a normal alignment of the vertebrae. Mild degree of the anterior spondylosis at the T11-T12, T12-L1 and L1-L2 levels. Normal disc space heights. The soft tissue structures are unremarkable. RAD/Lumbar Spine 2 or 3 Views IMPRESSION: Degenerative changes of the spine, as detailed above. Electronically Signed: Shaheen Garcia MD at 14:32 EST ,
[2021-07-11 13:05] LABS: Cholesterol 154 mg/dL (200); High Density Lipoprotein 28 mg/dL; Triglycerides 368 mg/dL; Very Low Density Lipoprotein 74 mg/dL (5-40)
[2021-07-11 14:29] LABS: Hemoglobin A1c 5.3 % (3.8-5.6)
== END 2021-07-11 23:59 | disposition short-term general hospital (02) ==
LOC: MTRAD 10:54
PROVIDERS: PCP Family Medicine; Referring Provider Family Medicine; Visit Provider Family Medicine
DX: M47.814 Spondylosis without myelopathy or radiculopathy, thoracic region (principal); M47.815 Spondylosis without myelopathy or radiculopathy, thoracolumbar region; E78.1 Pure hyperglyceridemia; R73.09 Other abnormal glucose
CPT/HCPCS: 36415; 72100; 80061; 83036

== ENCOUNTER 2021-07-17 09:08 | Outpatient (CLI) | payer OTHER, SELFPAY ==
--- NOTE | 2021-07-17 09:11 | BI_ITS ---
MAMMOGRAPHY - BILATERAL DIAGNOSTIC REASON FOR EXAM: Male, 50 years old. Left breast lump. PERTINENT HISTORY: Non-contributory. TECHNIQUE: Digital bilateral breast jazzy (3D mammographic acquisition) in the CC and MLO projections. 2-D mediolateral oblique (MLO) and craniocaudad (CC) views of both breasts were obtained. CAD: Full Field Digital Mammography with Computer Added Detection was performed. COMPARISON: None. FINDINGS: Breast Composition: The breasts are almost entirely fatty. There are no dominant masses or suspicious calcifications. No other significant abnormalities are identified. BI/DIAG MAMM W/CAD, BILAT IMPRESSION: Negative diagnostic mammogram. With the patient''s history of a left breast lump, correlation with ultrasound is recommended. ASSESSMENT CATEGORY: BIRADS Category 0: Incomplete. Need additional imaging evaluation. A letter regarding these results will be sent to the patient by the facility within 30 days. Approximately 10% of breast cancers are not detected by mammography. A normal mammogram should not delay biopsy of a clinically suspicious abnormality. Electronically Signed: Shaheen Garcia MD at 10:56 EST ,
--- NOTE | 2021-07-17 09:11 | US_ITS ---
STUDY: ULTRASOUND BREAST - LEFT REASON FOR EXAM: Male, 50 years old. Palpable lump left breast. TECHNIQUE: Axial and longitudinal images of the LEFT breast were performed with a high resolution ultrasound transducer. # OF IMAGES: 13 COMPARISON: Comparison is made with prior mammogram done earlier in the day. Comparison is also made with prior outside sonogram dated 07/02/2018. FINDINGS: LEFT Breast: The palpable abnormality corresponds to a 1.1 cm by 1.5 cm x 0.9 cm slightly echogenic nodule at the 8 o''clock position of the breast at 5 cm from the nipple. This most likely represents a small lipoma. US/Breast Limited Unilateral IMPRESSION: The abnormality corresponds to a 1.1 cm x 1.5 cm x 0.9 cm slightly echogenic nodule at the 8 o''clock position of the breast at 5 cm from nipple. This has increased in size as compared to prior study. This most likely represents a lipoma although a biopsy may be indicated at this time. ASSESSMENT CATEGORY: BIRADS Category 4: Suspicious - Biopsy Should Be Considered. A letter regarding these results will be sent to the patient by the facility within 30 days. Electronically Signed: Shaheen Garcia MD at 10:35 EST ,
== END 2021-07-17 23:59 | disposition short-term general hospital (02) ==
LOC: OPBI 09:09
PROVIDERS: PCP Family Medicine; Referring Provider Family Medicine; Visit Provider Family Medicine
DX: N63.0 Unspecified lump in unspecified breast (principal)
CPT/HCPCS: 76642; 77062; 77066; G0279

== ENCOUNTER 2021-09-12 15:35 | Outpatient (CLI) | payer OTHER, SELFPAY ==
[2021-09-12 17:48] LABS: Absolute Lymphocyte Count 2.07 X10^3/uL (0.83-4.51); Absolute Neutrophil Count 7.7 X10^3/uL (2.0-7.7); Basophil# 0.08 X10^3/uL; Basophil% 0.7 % (0-1); Eosinophils% 1.8 % (0-5); Hematocrit 43.6 % (40-54); Hemoglobin 14.7 g/dL (13.0-16.5); Lymphocyte # 2.07 X10^3/ul (0.83-4.51); Lymphocyte % 18.8 % (19-41); Mean Corp Hgb Conc 33.7 g/dL (32-36); Mean Corpuscular Hgb 28.1 pg (27.0-32.0); Mean Corpuscular Volume 83.2 fL (80-94); Mean Platelet Vol. 9.6 fl (6.2-12.0); Monocyte# 0.88 X10^3/uL; NRBC Flagged by Analyzer 0 % (0-5); Neutrophil # 7.66 X10^3/uL (2.7-7.7); Neutrophil % 69.6 % (47-70); Platelet Count 293 K/mm3 (150-450); RBC Distribution Width CV 15.6 % (11.6-14.6); RBC Distribution Width SD 46.7 fl (35.1-43.9); Red Blood Count 5.24 M/mm3 (4.6-6.2)
[2021-09-12 18:01] LABS: AST(SGOT) 20 U/L (15-37); Alanine Aminotransfer ALT/SGPT 29 U/L (16-61); Albumin, Serum 3.8 g/dL (3.2-5.0); Alkaline Phosphatase 73 U/L (45-117); Anion Gap 5 (5-15); BUN 20 mg/dL (7-18); BUN/Creat Ratio 17.7 RATIO (10-20); Calcium,Total 8.8 mg/dL (8.5-10.1); Chloride 107 mmol/L (98-107); Cholesterol 167 mg/dL (200); Creatinine, Serum 1.13 mg/dL (0.70-1.30); EST Glomerular Filtration Rate 73 mL/min (>60); Est Glom Filt Rate - Afr Amer 88 mL/min (>60); Globulin 3.8 g/dL (2.2-4.2); Glucose 89 mg/dL (74-106); High Density Lipoprotein 30 mg/dL; Protein, Total 7.6 g/dL (6.4-8.2); Sodium Level 138 mmol/L (136-145); Triglycerides 246 mg/dL; Very Low Density Lipoprotein 49 mg/dL (5-40)
[2021-09-12 18:17] LABS: Vitamin D,25 Hydroxy 34.3 ng/mL
== END 2021-09-12 23:59 | disposition home or self-care (01) ==
LOC: MFPLAB 15:38
PROVIDERS: PCP Family Medicine; Referring Provider Family Medicine; Visit Provider Family Medicine
DX: E66.01 Morbid (severe) obesity due to excess calories (principal); E78.1 Pure hyperglyceridemia; E55.9 Vitamin D deficiency, unspecified
CPT/HCPCS: 36415; 80053; 80061; 82306; 85025

== ENCOUNTER → 2021-11-28 | Outpatient (CLI) | payer OTHER, SELFPAY ==
--- NOTE | 2021-11-28 09:02 | RAD_ITS ---
STUDY: X-RAY - LUMBOSACRAL SPINE REASON FOR EXAM: Male, 50 years old. Back pain and spasms. TECHNIQUE: 6 view(s) of the lumbosacral spine were obtained including oblique views and flexion and extension views.. COMPARISON: Comparison is made with prior study dated 07/11/2021. FINDINGS: Normal lumbar lordosis. There is no substantial scoliosis. There is normal alignment of the vertebrae. Endplate spondylosis at the L1-L2 and L2-L3 levels. Disc space narrowing at the L1-L2 level. Normal bilateral sacral ala, sacroiliac joints, and visualized sacrum. Normal visualized soft tissue structures. RAD/L/S Spine w Bend Min 6 Vw IMPRESSION: Degenerative changes of the spine, as detailed above. Electronically Signed: Shaheen Garcia MD at 12:41 EDT ,
== END | disposition home or self-care (01) ==
LOC: MTRAD 09:01
PROVIDERS: PCP Family Medicine; Referring Provider Family Medicine; Visit Provider Family Medicine
DX: M54.9 Dorsalgia, unspecified (principal)
CPT/HCPCS: 72114

== ENCOUNTER 2021-12-15 10:11 | Emergency (ER) | payer OTHER, SELFPAY ==
[2021-12-15 10:11] VITALS: BP 148/89; PULSE 90; RESP 18; TEMP 36.2; O2SAT 96; BMI 42.0
--- NOTE | 2021-12-15 10:56 | EDS_ITS ---
HPI History of Present Illness Chief Complaint: Back Informant: patient Onset/Context/Timing Onset: Month(s) Context: Gradual Onset Timing: Intermittent Quality: Sharp and Aching Location: Lumbar Current Severity: Mild Maximum Severity: Moderate Worsened by: improves with Movement, Bending and Lifting Relieved by: Remaining Still Associated Symptoms Associated Symptoms: Negative for Numbness, Tingling, Radiation to Right Leg, Radiation to Left Leg, Fever, Abdominal Pain, Dysuria, Unable to Ambulate, Unable to Transfer, Urinary Retention, Urinary Incontinence, Constipation or Fecal Incontinence Narrative Narrative: 51-year-old male history of back pain for last 6 months. Intermittently his primary care physician will put him on steroids and anti-inflammatories. He had plain films but no MRI. He has never had back surgery. States that it is recurred today. He did go see his chiropractor this morning. Had it adjusted. He denies any bowel or bladder incontinence. No retention. No fever. No leg weakness. No radiculopathy. No numbness. Prior similar symptoms: Yes and With Prior Back Pain Recent Illness/Hospitalization: No [facility] Medical History Acute right-sided back pain with sciatica Alcohol use Anxiety Back pain Bilateral leg pain Biliary dyskinesia BMI 39.0-39.9,adult COVID-19 CPAP (continuous positive airway pressure) dependence Depression History of echocardiogram History of pain when walking History of ulceration Inguinal hernia of right side without obstruction or gangrene Migraines Non-smoker Restless legs Shortness of breath on exertion Umbilical hernia without obstruction or gangrene Wears glasses Home Medications aqmfahm-gusmfcboberpr-qhgsevdz 250 mg-250 mg-65 mg tablet (Excedrin Migraine) 1 tab PO PRN PRN Headache 03/09/21 [History Last Taken Unknown] cholecalciferol (vitamin D3) 25 mcg (1,000 unit) capsule (Vitamin D3) 25 mcg PO DAILY 06/07/21 [History Last Taken Unknown] ibuprofen 200 mg tablet 200 mg PO Q6H PRN Pain 06/07/21 [History Last Taken Unknown] fagcznubaocs-wazgscnu-rtjihk tablet 1 tab PO DAILY 06/07/21 [History Last Taken Unknown] prednisone 20 mg tablet 40 mg PO DAILY 10 days #20 tabs 12/15/21 [Rx Last Taken Unknown] Allergy/AdvReac Type Severity Reaction Status Date / Time escitalopram [From Lexapro] AdvReac Intermediate Other Verified 12/15/21 10:12 Family History Mother Breast cancer Thyroid disorder Father Diabetes Cancer Surgical History History of hernia repair History of laparoscopic cholecystectomy History of lateral meniscus repair of left knee History of left breast biopsy (~07/2021) History of rectal surgery Hx of hemorrhoidectomy Hx of thumb surgery S/P ACL surgery Social History Smoking Status: Never smoker alcohol intake: never ROS ROS ED ROS Narrative Back pain. Review of Systems ROS Unobtainable: Denies due to encephalopathy Constitutional Constitutional ED: Denies chills Eyes Eyes: Denies blurry vision ENT ENT ED: Denies ear pain Cardiovascular Cardiovascular: Denies chest pain Respiratory/Chest Respiratory/Chest: Denies dyspnea Gastrointestinal Gastrointestinal: Denies abdominal pain or constipation Genitourinary Genitourinary ED: Denies dysuria Musculoskeletal Musculoskeletal: Reports back pain; Denies arthralgias Integumentary Denies abscess Neurologic Neurologic: Denies headache(s) Psychiatric Psychiatric: Denies anxiety Endocrine Endocrinology: Denies cold intolerance Hematologic/Lymphatic Hematologic/Lymphatic: Denies easy bleeding Allergic/Immunologic Allergic/Immunologic ED: Denies mouth swelling EXAM Physical Exam Narrative Exam Narrative: 51-year-old male no acute distress. Vital signs are stable afebrile. H EENT exam unremarkable. Neck nontender. Lungs clear to auscultation bilaterally. Heart regular rhythm no murmur. Abdomen soft nontender. Nondistended normal bowel sounds no peritoneal signs. Moving all 4 extremities. 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 Dorsi plantarflexion intact. No cauda equina. No saddle anesthesia. Back only area was tender at all in his lower lumbar spine both SI joints. Negative straight leg raise. Neurologic exam normal. No cauda equina. No saddle anesthesia. Const Vital Signs: 12/15/21 10:11 Temperature 97.1 F L Temperature Source Temporal Pulse Rate 90 Respiratory Rate 18 Blood Pressure 148/89 H Blood Pressure Mean 108 Pulse Ox 96 Oxygen Delivery Method Room Air Positive well nourished, well developed and obese; Negative for cachectic, contractures or unkempt General Appearance ED: well developed; Negative for unkempt, cachectic or contractures Nutritional Appearance: obese; Negative for cachectic HEENT Reports moist mucous membranes; Denies dry mucous membranes Negative for trauma or tenderness Mouth ED: No dry mucous membranes Mouth: No dry mucous membranes Eyes PERRL and EOMs intact bilaterally General Eye ED: Negative for pale conjunctiva Neck no lymphadenopathy, supple and no JVD General: Negative for tenderness Resp normal respiratory effort and clear to auscultation bilaterally Effort and Inspection: Negative for pain with movement Auscultation: Negative for rales, rhonchi or wheezes Cardio regular rate, regular rhythm, S1 normal heart sound, S2 normal heart sound and no murmurs Palpation: Negative for palpable S3 Rate: Negative for bradycardia Rhythm: Negative for abnormal rhythm Bruits: Negative for other GI normal to inspection, nondistended, normoactive bowel sounds, soft to palpation, non-tender, non-distended and no masses Inspection: Negative for abdominal distention Auscultation: Negative for hyperactive bowel sounds Palpation: Negative for tender, guarding, hepatomegaly, splenomegaly or mass Back/Spine normal to inspection; Negative for no thoracic nor lumbar tenderness General Back: Negative for CVA tenderness Cervical Spine: Negative for cervical spine tenderness and Negative for paracervical muscle tenderness Extremity normal to inspection and no clubbing, cyanosis or edema General Extremety ED: Negative for edema General Extremity: Negative for edema Neuro oriented x3 Sensorium / Orientation: alert; Negative for confused, lethargic or stuporous Sensory Exam: No other Motor Exam: strength 5/5 throughout; Negative for strength abnormal Psych mental status grossly normal Appearance: Negative for unkempt Skin no rashes or lesions noted and no wounds General Skin Exam: Negative for jaundice Rashes: No rashes noted Trauma: Negative for abrasion Wounds: Negative for wounds noted MDM MDM MDM Narrative Medical decision making narrative: 51-year-old with acute on chronic back pain. He and I discussed MRI explained to him that would be an outpatient test. He would have to get precertified by his insurance. He does not have any weakness or signs of cauda equina. No fever. He does not need emergent MRI but he probably will need 1 of follow-up. Will be given an IM injection of Toradol. Placed on prednisone 40 mg a day for 1 week. And follow-up with his primary care physician. I did review his most recent LS spine film done 2+ weeks ago. Showed chronic changes. No acute process. Discharge Plan Triage Chief Complaint: Back ED Provider: Reagan Cabrera Dx/Rx/DC Orders Clinical Impression: Back pain Instructions: ED Back Pain (Acute or Chronic) Prescriptions: New prednisone 20 mg tablet 40 mg PO DAILY 10 Days Qty: 20 0RF No Action Excedrin Migraine 250-250-65 mg tablet 1 tab PO PRN PRN (Reason: Headache) ibuprofen 200 mg Tablet 200 mg PO Q6H PRN (Reason: Pain) cholecalciferol (vitamin D3) [Vitamin D3] 25 mcg (1,000 unit) Capsule 25 mcg PO DAILY bcejwqkkbfqa-rjbdmghh-xdgbpz Tablet 1 tab PO DAILY Primary Care Provider: Dewey Luis Referrals: Dewey Luis MD [Primary Care Provider] - 1 Week Activity Restrictions/Additional Instructions: Prednisone daily for the next 10 days. Motrin and Tylenol for pain. Follow-up with your primary care physician this is not improving your creatinine MRI of your lumbar spine. Disposition Disposition: Home, Self Care
[2021-12-15] MEDS: Ketorolac 60 MG/2 ML Vial IM (11:02)
== END 2021-12-15 11:35 | disposition home or self-care (01) ==
PROVIDERS: Emergency Provider Emergency Medicine; PCP Family Medicine; Visit Provider Emergency Medicine
DX: M54.9 Dorsalgia, unspecified (principal); G89.29 Other chronic pain; E66.9 Obesity, unspecified
CPT/HCPCS: 96372; 99282

== ENCOUNTER → 2021-12-26 | Outpatient (CLI) | payer OTHER, SELFPAY ==
--- NOTE | 2021-12-26 12:58 | VDLE_ITS ---
Reason For Study: Pain RIGHT GSV is normal. CFV is compressible, spontaneous, phasic, competent and demonstrates normal augmentation. FV is compressible, spontaneous, phasic, competent and demonstrates normal augmentation. POP V is compressible, spontaneous, phasic, competent and demonstrates normal augmentation. T/P Trunk is compressible. PTV is compressible. RT PerV is compressible. Thrombus filled varicose veins noted in the right posterior distal thigh to prox calf. Procedure This is a venous duplex using B-mode, color flow and spectral Doppler. Exam performed in department. A preliminary report was called and/or faxed to ARABELLA and Toby. VL/Venous Duplex US, Unilateral Interpretation Summary There is no evidence of right lower extremity deep vein thrombosis. Right great saphenous vein appears patent and compressible segmentally. Superficial thrombophlebitis varic osities right posterior distal thigh to the proximal calf Ordering Physician: Vinicius Morrissey Referring Physician: Dewey Luis Performed By: Rox Monteiro RVT
== END | disposition home or self-care (01) ==
LOC: CVS 12:56
PROVIDERS: PCP Family Medicine; Referring Provider Family Medicine; Visit Provider Family Medicine
DX: M79.604 Pain in right leg (principal)
CPT/HCPCS: 93971

== ENCOUNTER 2022-01-12 15:58 | Outpatient (CLI) | payer OTHER, SELFPAY ==
[2022-01-12 18:48] LABS: PSA,Total - Annual Screen 0.67 ng/mL (0.00-4.00)
== END 2022-01-12 23:59 | disposition home or self-care (01) ==
LOC: MFPLAB 16:01
PROVIDERS: PCP Family Medicine; Referring Provider Family Medicine; Visit Provider Family Medicine
DX: Z12.5 Encounter for screening for malignant neoplasm of prostate (principal)
CPT/HCPCS: 36415; 84153; G0103

== ENCOUNTER → 2022-03-23 | Outpatient (CLI) | payer OTHER, SELFPAY ==
--- NOTE | 2022-03-23 07:14 | US_ITS ---
STUDY: SUPERFICIAL ULTRASOUND - RIGHT GROIN REASON FOR EXAM: Male, 51 years old. Right groin pain -- insurance req US, denied CT TECHNIQUE: A superficial ultrasound was performed with real-time and static cruz-scale imaging. COMPARISON: None. FINDINGS: Targeted sonographic imaging was obtained. There is a 2.6 cm x 2.5 cm x 1.2 cm hypoechoic well-defined nodule just deep to the skin surface. This corresponds to the palpable abnormality. There is also evidence of a 4.1 cm x 3.8 cm x 0.7 cm nodular density with a central fatty hilum. This may represent a lymph node. US/Ext Non Vasc Limited/Soft Tiss IMPRESSION: 2.6 cm x 2.5 cm x 1.2 cm hypoechoic well-defined solid nodule just deep to the skin surface. This corresponds to the palpable abnormality. Targeted ultrasound is recommended. Electronically Signed: Shaheen Garcia MD at 12:40 EDT ,
== END | disposition home or self-care (01) ==
PROVIDERS: PCP Family Medicine; Referring Provider Physician Assistant; Visit Provider Physician Assistant
DX: R10.31 Right lower quadrant pain (principal)
CPT/HCPCS: 76882

== ENCOUNTER → 2022-03-29 | Outpatient (CLI) | payer OTHER, SELFPAY ==
--- NOTE | 2022-03-29 12:36 | RAD_ITS ---
STUDY: X-RAY CHEST REASON FOR EXAM: Male, 51 years old. BRONCHITIS TECHNIQUE: PA or AP and lateral COMPARISON: 03/15/2021 FINDINGS: The lungs are clear and expanded. There is no demonstrated pleural abnormality. Normal size heart. Normal mediastinum and petrona. Normal visualized pulmonary arteries. Normal visualized aortic arch and descending thoracic aorta. Normal visualized thoracic spine. Normal visualized ribs, clavicles, and shoulders. There is no demonstrated abnormality of the visualized soft tissue structures of the upper abdomen. Stable exam. RAD/Chest PA and Lateral IMPRESSION: Normal x-ray examination of the chest. Electronically Signed: Yohan Bowen MD, DUNCAN at 14:09 EDT ,
== END | disposition home or self-care (01) ==
LOC: MTRAD 12:35
PROVIDERS: PCP Family Medicine; Referring Provider Family Medicine; Visit Provider Family Medicine
DX: J20.9 Acute bronchitis, unspecified (principal)
CPT/HCPCS: 71046

== ENCOUNTER → 2022-04-06 | Outpatient (CLI) | payer OTHER, SELFPAY ==
--- NOTE | 2022-04-06 06:44 | CT_ITS ---
STUDY: CT PELVIS WITH CONTRAST REASON FOR EXAM: Male, 51 years old. Groin pain s/p bilateral hernia repair in may 2021 RADIATION DOSAGE (If Supplied By Facility): CTDIvol = ( 28.21 ) mGy, DLP = ( 1273.67 ) mGycm TECHNIQUE: Transaxial imaging of the pelvis was performed without oral contrast. IV 100mL Isovue-370 was administered intravenously. Individualized dose optimization techniques were used for this CT. COMPARISON: 01/09/2020 FINDINGS: Normal urinary bladder. Normal visualized small intestine. There are multiple colonic diverticula of the sigmoid colon consistent with chronic diverticulosis. There is no pelvic fluid. There is no pelvic lymphadenopathy or mass lesion. Normal visualized pelvic arteries. There are prominent vessels within the inguinal canals, right greater than left. There are diffuse degenerative changes of the visualized lumbar spine. CT/Pelvis WITH IV Contrast IMPRESSION: Prominent vessels within the inguinal canals, right greater than left, may reflect varicoceles, consider testicular ultrasound for further characterization. Colonic diverticulosis. Electronically Signed: Katina Gaytan MD at 9:45 EDT ,
== END | disposition home or self-care (01) ==
LOC: CT 06:41
PROVIDERS: PCP Family Medicine; Referring Provider Surgery; Visit Provider Surgery
DX: R10.31 Right lower quadrant pain (principal); Z98.890 Other specified postprocedural states; Z87.19 Personal history of other diseases of the digestive system
CPT/HCPCS: 72193; Q9967

== ENCOUNTER → 2022-04-12 | Outpatient (CLI) | payer OTHER, SELFPAY ==
--- NOTE | 2022-04-12 18:15 | US_ITS ---
STUDY: SCROTUM ULTRASOUND REASON FOR EXAM: Male, 51 years old. VARICOCELE TECHNIQUE: Ultrasound evaluation of the scrotum was performed with color Doppler and static cruz-scale imaging. COMPARISON: ct Apr 06 2022 6:52am FINDINGS: Right inguinal nodule measures 35 x 23 mm. This may be a lymph node. RIGHT TESTICLE INTRATESTICULAR: There is a normal size of the right testicle. The right testicle measures 4.8 cm. There is a homogenous echotexture. There is normal arterial and normal venous vascularity. There is no demonstrated right testicular mass or cyst. EXTRATESTICULAR: The epididymis is normal in size. The epididymis head measures 1.7 cm. There is normal vascularity of the epididymis. There is no demonstrated epididymal cystic structure. There is no demonstrated hydrocele. There are prominent extratesticular veins consistent with a varicocele. There is no demonstrated extratesticular mass or cyst. LEFT TESTICLE INTRATESTICULAR: There is a normal size of the left testicle. The left testicle measures 4.5 cm. There is a homogenous echotexture. There is normal arterial and normal venous vascularity. There is no demonstrated left testicular mass or cyst. EXTRATESTICULAR: The epididymis is normal in size. The epididymis head measures 1.5 cm. There is normal vascularity of the epididymis. There is a well-defined cystic structure within the epididymis, without internal echoes, consistent with an epididymal cyst. This measures 5 mm. There is a small hydrocele. There is no demonstrated varicocele. There is no demonstrated extratesticular mass or cyst. US/Testicular with Arterial Flow IMPRESSION: Bilateral varicocele. Varicoceles are usually identified on the left side. It is abnormal to visualize a right varicocele. Pelvic adenopathy or restrictive clothing can be a cause of a right varicocele. CT of the abdomen and pelvis can investigate. There are no acute findings of the bilateral testicles without evidence for torsion. Left small hydrocele. Left small epididymal cyst. Right inguinal nodule measures 35 x 23 mm. This may be a lymph node. Electronically Signed: Christopher Thornton MD at 19:42 EDT ,
== END | disposition home or self-care (01) ==
LOC: US 18:06
PROVIDERS: PCP Family Medicine; Visit Provider Surgery
DX: I86.1 Scrotal varices (principal)
CPT/HCPCS: 76870; 93976

== ENCOUNTER → 2022-04-26 | Outpatient (CLI) | payer OTHER, SELFPAY ==
--- NOTE | 2022-04-26 06:38 | CT_ITS ---
STUDY: CT ABDOMEN AND PELVIS WITH CONTRAST REASON FOR EXAM: Male, 51 years old. Hx hernia repair, varicoceles, pain RADIATION DOSAGE (If Supplied By Facility): CTDIvol = ( 15.40 ) mGy, DLP = ( 1429.56 ) mGycm TECHNIQUE: Transaxial images were obtained from the dome of the diaphragm to the symphysis pubis with oral contrast. Oral and amp; IV Readi-CAT and amp; 100mL Isovue-300 was administered. Sagittal and coronal images were reconstructed. Individualized dose optimization techniques were used for this CT. COMPARISON: None. FINDINGS: The visualized lung bases are unremarkable. Minimal degree of anterior pericardial thickening. Coronary artery calcification. Normal liver. The patient is status post cholecystectomy. Normal spleen. Normal pancreas. Normal bilateral adrenal glands. Normal right kidney. Normal left kidney. A stent noted is made of a left retroaortic renal vein. Normal visualized stomach. Normal small intestine. There are scattered colonic diverticula consistent with diverticulosis. The appendix is visualized and appears normal. Normal abdominal aorta. Normal inferior vena cava. Normal retroperitoneum. Normal urinary bladder. Bilateral inguinal hernias containing fat more prominent on the right side. Once again, multiple vessels are seen within the inguinal canals suggestive of possible varicoceles. Disc space narrowing and spondylosis at the L1-L2 level. CT/Abdomen/Pelvis WITH Contrast IMPRESSION: Status post cholecystectomy. Bilateral inguinal hernias containing fat and vessels worse on the right side. Sigmoid diverticulosis. Electronically Signed: Shaheen Garcia MD at 9:18 EST ,
== END | disposition home or self-care (01) ==
PROVIDERS: PCP Family Medicine; Visit Provider Surgery
DX: I86.1 Scrotal varices (principal); Z87.19 Personal history of other diseases of the digestive system; Z98.890 Other specified postprocedural states
CPT/HCPCS: 74177; Q9967

== ENCOUNTER 2022-05-03 14:09 | Emergency (ER) | payer OTHER, SELFPAY ==
[2022-05-03 14:10] VITALS: BP 152/103; PULSE 87; RESP 15; TEMP 36.4; O2SAT 95; BMI 41.0
[2022-05-03 14:29] VITALS: BP 127/85; PULSE 77; RESP 16; O2SAT 97
--- NOTE | 2022-05-03 14:48 | EDS_ITS ---
HPI History of Present Illness Chief Complaint: Shortness of Breath Narrative Narrative: 51-year-old male presenting with shortness of breath. He states he was at work and walked across his job site and walked upstairs where he started to feel short of breath acutely. He states he did not have any chest pain. He felt like things were going dark and he felt weird. He states he went and sat down and rested. Somebody from his work asked him if he needed an ambulance and he stated no because he wanted to come to [place]. He had a friend pick him up and bring him here. He states he feels better now but still feels a little bit off. He still denies any chest pain. He still feels dyspneic. He denies any cardiac history. He does state that he recently was on prednisone for back pain and had discontinued this. He also states he uses NSAIDs. He states he has been eating and drinking normally. He is making normal urine and stool. He felt well up until today. [facility] Medical History Acute right-sided back pain with sciatica Alcohol use Anxiety Back pain Bilateral leg pain Biliary dyskinesia BMI 39.0-39.9,adult Clot COVID-19 CPAP (continuous positive airway pressure) dependence Depression History of echocardiogram History of pain when walking History of ulceration Inguinal hernia of right side without obstruction or gangrene Migraines Non-smoker Restless legs Shortness of breath on exertion Umbilical hernia without obstruction or gangrene Wears glasses Home Medications [id number] 250 mg-250 mg-65 mg tablet (Excedrin Migraine) 1 tab PO PRN PRN Headache 03/09/21 [History Last Taken Unknown] albuterol sulfate 90 mcg/actuation aerosol inhaler 1 inh inhalation DAILY PRN Wheezing 05/03/22 [History Last Taken Unknown] aspirin 81 mg capsule 81 mg PO DAILY 05/03/22 [History Last Taken Unknown] azithromycin 250 mg tablet 250 mg PO DAILY #4 tabs 05/03/22 [Rx Last Taken Unknown] naproxen sodium BID 05/03/22 [History Last Taken Unknown] Allergy/AdvReac Type Severity Reaction Status Date / Time escitalopram [From Lexapro] AdvReac Intermediate Other Verified 05/03/22 14:13 Family History Mother Breast cancer Thyroid disorder Father Diabetes Cancer Surgical History History of hernia repair History of laparoscopic cholecystectomy History of lateral meniscus repair of left knee History of left breast biopsy (~07/2021) History of rectal surgery Hx of hemorrhoidectomy Hx of thumb surgery S/P ACL surgery Social History Smoking Status: Never smoker alcohol intake: never ROS ROS ED Constitutional Constitutional ED: Denies chills or fever(s) Eyes Eyes: Denies change in vision or diplopia Cardiovascular Cardiovascular: Denies chest pain Respiratory/Chest Respiratory/Chest: Reports dyspnea Gastrointestinal Gastrointestinal: Denies abdominal pain, constipation, nausea or vomiting Genitourinary Genitourinary ED: Denies dysuria or hematuria Musculoskeletal Musculoskeletal: Denies arthralgias Integumentary Denies abscess Neurologic Neurologic: Denies headache(s) or paresthesias Psychiatric Psychiatric: Denies anxiety or depression EXAM Physical Exam Const Vital Signs: 05/03/22 14:10 05/03/22 14:29 05/03/22 14:30 Temperature 97.5 F L Temperature Source Temporal Pulse Rate 87 77 Respiratory Rate 15 16 Respiratory Effort Normal Non-Labored Respiratory Depth Normal Respiratory Pattern Normal Blood Pressure 152/103 H 127/85 H Blood Pressure Mean 119 99 Pulse Ox 95 97 Oxygen Delivery Method Room Air Room Air 05/03/22 15:29 Temperature Temperature Source Pulse Rate 72 Respiratory Rate 16 Respiratory Effort Respiratory Depth Respiratory Pattern Blood Pressure 128/85 H Blood Pressure Mean 99 Pulse Ox 95 Oxygen Delivery Method Room Air Positive well nourished and obese General Appearance ED: NAD; Negative for pallor Nutritional Appearance: obese HEENT Reports moist mucous membranes Eyes PERRL and EOMs intact bilaterally Resp normal respiratory effort and clear to auscultation bilaterally Auscultation: Negative for rales, rhonchi or wheezes Cardio regular rate and regular rhythm GI non-tender Neuro oriented x3 and CN's II-XII intact bilaterally Sensorium / Orientation: alert Psych mental status grossly normal Skin no wounds and skin turgor normal General Skin Exam: Negative for jaundice or pallor MDM MDM MDM Narrative Medical decision making narrative: 51-year-old male presenting with shortness of breath which started acutely. He is feeling otherwise well prior to this. He is not having any chest pain. He is describing near syncope almost with things going dark in the periphery of his vision and tingling in his hands and feet. He feels improved now. Has not had fever or chills. EKG was obtained and on my interpretation shows a normal sinus rhythm with a ventricular rate of 73 bpm without sign of ischemic change or dysrhythmia. Chest x-ray on my interpretation shows a right lower lobe infiltrate. Patient CBC shows a leukocytosis of 17,000. Hemoglobin hematocrit are stable. High-sensitivity troponin is normal at 6. I will suspect this is cardiac in nature. Patient will be treated for community-acquired pneumonia. He started on azithromycin. First dose was given in the ED. Return precautions discussed. Impression: 1. Community-acquired pneumonia 2. Generalized weakness 3. Leukocytosis Lab Data Labs: Laboratory Results - last 24 hr 05/03/22 05/03/22 14:30 14:30 WBC 17.0 H RBC 5.68 Hgb 15.7 Hct 46.9 MCV 82.6 MCH 27.6 MCHC 33.5 RDW Std Deviation 43.2 RDW Coeff of Brock 14.4 Plt Count 307 MPV 9.5 Immature Gran % (Auto) 1.500 H Neut % (Auto) 75.6 H Lymph % (Auto) 12.7 L [place] % (Auto) 8.5 Eos % (Auto) 1.3 Baso % (Auto) 0.4 Absolute Neuts (auto) 12.8 H Absolute Lymphs (auto) 2.16 Nucleated RBC % 0 Sodium 138 Potassium 4.3 Chloride 105 Carbon Dioxide 25.0 Anion Gap 8 BUN 27 H Creatinine 1.29 Estim Creat Clear Calc 81.88 Est GFR (MDRD) Af Amer 76 Est GFR (MDRD) Non-Af 63 BUN/Creatinine Ratio 20.9 H Glucose 102 Calcium 9.2 Troponin I High Sens 6 Radiography Diagnostic Testing: Clinical Impression(s) from Imaging Studies Chest X-Ray 05/03/22 14:50 IMPRESSION: Mild increased markings at the right lung base suggestive of either linear atelectasis and/or early infiltrate. Electronically Signed: Shaheen Garcia MD at 15:10 EST , Discharge Plan Triage Chief Complaint: Shortness of Breath ED Provider: Scot Moore Dx/Rx/DC Orders Instructions: ED Pneumonia (Adult) Prescriptions: New azithromycin 250 mg tablet 250 mg PO DAILY Qty: 4 0RF No Action Excedrin Migraine 250-250-65 mg tablet 1 tab PO PRN PRN (Reason: Headache) albuterol sulfate 90 mcg/actuation HFA aerosol inhaler 1 inh INHALATION DAILY PRN (Reason: Wheezing) Label Comments: inhale 2 puffs by mouth and INTO THE LUNGS every 4 hours if neede... (REFER TO PRESCRIPTION NOTES). aspirin 81 mg Capsule 81 mg PO DAILY naproxen sodium BID Primary Care Provider: Dewey Luis Referrals: Dewey Luis MD [Primary Care Provider] - Disposition Disposition: Home, Self Care
--- NOTE | 2022-05-03 14:50 | RAD_ITS ---
STUDY: X-RAY CHEST REASON FOR EXAM: Male, 51 years old. Chest pain and tachycardia. TECHNIQUE: Single AP portable view of the chest. COMPARISON: Comparison is made with prior study 03/29/2022. FINDINGS: EKG electrodes are seen. Mild increased markings at the right lung base suggestive of either early infiltrate and/or atelectasis. There is no demonstrated pleural abnormality. Normal size heart. Normal mediastinum and petrona. Normal visualized pulmonary arteries. Normal visualized aortic arch and descending thoracic aorta. Normal visualized thoracic spine. Normal visualized ribs, clavicles, and shoulders. There is no demonstrated abnormality of the visualized soft tissue structures of the upper abdomen. RAD/Chest 1 View (Portable) IMPRESSION: Mild increased markings at the right lung base suggestive of either linear atelectasis and/or early infiltrate. Electronically Signed: Shaheen Garcia MD at 15:10 EST ,
[2022-05-03] MEDS: 0.9% Normal Saline 1,000 ML 1000 ML IV (14:52)
[2022-05-03 14:58] LABS: Absolute Lymphocyte Count 2.16 X10^3/uL (0.83-4.51); Absolute Neutrophil Count 12.8 X10^3/uL (2.0-7.7); Basophil# 0.06 X10^3/uL; Basophil% 0.4 % (0-1); Eosinophil# 0.22 X10^3/uL; Eosinophils% 1.3 % (0-5); Hematocrit 46.9 % (40-54); Hemoglobin 15.7 g/dL (13.0-16.5); Lymphocyte # 2.16 X10^3/ul (0.83-4.51); Lymphocyte % 12.7 % (19-41); Mean Corp Hgb Conc 33.5 g/dL (32-36); Mean Corpuscular Hgb 27.6 pg (27.0-32.0); Mean Corpuscular Volume 82.6 fL (80-94); Mean Platelet Vol. 9.5 fl (6.2-12.0); Monocyte# 1.45 X10^3/uL; Monocyte% 8.5 % (0-10); NRBC Flagged by Analyzer 0 % (0-5); Neutrophil # 12.81 X10^3/uL (2.7-7.7); Neutrophil % 75.6 % (47-70); Platelet Count 307 K/mm3 (150-450); RBC Distribution Width CV 14.4 % (11.6-14.6); RBC Distribution Width SD 43.2 fl (35.1-43.9); Red Blood Count 5.68 M/mm3 (4.6-6.2)
[2022-05-03 15:17] LABS: Anion Gap 8 (5-15); BUN 27 mg/dL (7-18); BUN/Creat Ratio 20.9 RATIO (10-20); Calcium,Total 9.2 mg/dL (8.5-10.1); Chloride 105 mmol/L (98-107); Creatinine, Serum 1.29 mg/dL (0.70-1.30); EST Glomerular Filtration Rate 63 mL/min (>60); Est Glom Filt Rate - Afr Amer 76 mL/min (>60); Estimated Creatinine Clearance 81.88 ml/min; Glucose 102 mg/dL (74-106); Potassium 4.3 mmol/L (3.5-5.1); Sodium Level 138 mmol/L (136-145); Troponin-I HS 6 pg/mL (3.0-78.0)
[2022-05-03 15:29] VITALS: BP 128/85; PULSE 72; RESP 16; O2SAT 95
[2022-05-03] MEDS: Azithromycin 250 MG Tablet 500 MG PO (15:35)
[2022-05-03 15:36] VITALS: BP 128/85; PULSE 63; RESP 14; O2SAT 97
== END 2022-05-03 15:41 | disposition home or self-care (01) ==
PROVIDERS: Emergency Provider Student in an Organized Health Care Education/Training Program; PCP Family Medicine; Visit Provider Student in an Organized Health Care Education/Training Program
DX: J18.9 Pneumonia, unspecified organism (principal); Z79.82 Long term (current) use of aspirin; Z79.899 Other long term (current) drug therapy; D72.829 Elevated white blood cell count, unspecified; R53.1 Weakness
CPT/HCPCS: 71045; 80048; 84484; 85025; 93005; 99285; J7030; A4216

== ENCOUNTER → 2022-06-05 | Outpatient (CLI) | payer OTHER, SELFPAY ==
--- NOTE | 2022-06-05 10:45 | RAD_ITS ---
STUDY: X-RAY CHEST REASON FOR EXAM: Male, 51 years old. Shortness of breath. TECHNIQUE: Frontal and lateral views of the chest. COMPARISON: May 03, 2022. FINDINGS: Stable low volume inspiration. There is no demonstrated pleural abnormality. Normal size heart. Normal mediastinum and petrona. Normal visualized pulmonary arteries. Normal visualized aortic arch and descending thoracic aorta. Normal visualized thoracic spine. Normal visualized ribs, clavicles, and shoulders. There is no demonstrated abnormality of the visualized soft tissue structures of the upper abdomen. RAD/Chest PA and Lateral IMPRESSION: No active or acute cardiopulmonary disease. Electronically Signed: Sukh Stewart, at 13:57 EST ,
== END | disposition home or self-care (01) ==
LOC: MTRAD 10:40
PROVIDERS: PCP Family Medicine; Referring Provider Family Medicine; Visit Provider Family Medicine
DX: R06.02 Shortness of breath (principal)
CPT/HCPCS: 71046

== ENCOUNTER → 2022-06-06 | Outpatient (CLI) | payer OTHER, SELFPAY ==
--- NOTE | 2022-06-06 10:25 | STRESSREP ---
Stress Test Report Date: 06-06-2022 Procedure: Exercise tolerance test Indications: Chest pain Consent: Per the patient Procedure: The patient exercised on a Hector protocol for 6 minutes completing 155 achieving a peak heart rate of 91 bpm (91% predicted maximal heart rate) with a resting blood pressure of 138/88 mmHg and a peak blood pressure 220/92 mmHg and a peak MET capacity of approximately 7 MET's. The baseline ECG demonstrated normal sinus rhythm. The peak exercise ECG demonstrated no obvious ECG change. There were no cardiac dysrhythmias pretest, during exercise, or recovery. The blood pressure response: Resting hypertension: Exaggerated response The functional capacity was considered average. The patient had no complaint of chest discomfort during exercise or recovery. The examination was discontinued secondary to dyspnea and exaggerated blood pressure response. Impression: 1. Technically adequate (percent predicted maximal heart rate greater than 85%) exercise tolerance test 2. Peak exercise ECG with with no obvious ECG changes 3. There were no cardiac dysrhythmias during exercise or recovery 4. The blood pressure response: Resting hypertension: Exaggerated response This note was generated with Lelongation software. It may contain incorrect words, spelling, and punctuation that were not noted in checking the note before signing.
== END | disposition home or self-care (01) ==
LOC: CVS 09:02
PROVIDERS: PCP Family Medicine; Visit Provider Family Medicine
DX: R07.89 Other chest pain (principal); R06.00 Dyspnea, unspecified
CPT/HCPCS: 93017

== ENCOUNTER → 2022-07-10 | Outpatient (CLI) | payer OTHER, SELFPAY ==
[2022-07-10 17:58] LABS: Absolute Lymphocyte Count 2.51 X10^3/uL (0.83-4.51); Basophil% 0.8 % (0-1); Eosinophil# 0.27 X10^3/uL; Eosinophils% 2.1 % (0-5); Hemoglobin 15.4 g/dL (13.0-16.5); Lymphocyte # 2.51 X10^3/ul (0.83-4.51); Lymphocyte % 19.3 % (19-41); Mean Corp Hgb Conc 32.8 g/dL (32-36); Mean Corpuscular Hgb 27.1 pg (27.0-32.0); Mean Corpuscular Volume 82.6 fL (80-94); Mean Platelet Vol. 9.9 fl (6.2-12.0); Monocyte# 0.97 X10^3/uL; Monocyte% 7.5 % (0-10); NRBC Flagged by Analyzer 0 % (0-5); Neutrophil # 9.02 X10^3/uL (2.7-7.7); Neutrophil % 69.4 % (47-70); Platelet Count 334 K/mm3 (150-450); RBC Distribution Width CV 14.6 % (11.6-14.6); RBC Distribution Width SD 43.2 fl (35.1-43.9); Red Blood Count 5.69 M/mm3 (4.6-6.2)
[2022-07-10 18:46] LABS: ALB/GLOB Ratio 1.1 RATIO (0.9-2.4); AST(SGOT) 12 U/L (15-37); Alanine Aminotransfer ALT/SGPT 24 U/L (16-61); Alkaline Phosphatase 73 U/L (45-117); Anion Gap 9 (5-15); BUN 20 mg/dL (7-18); BUN/Creat Ratio 17.1 RATIO (10-20); Calcium,Total 9.1 mg/dL (8.5-10.1); Chloride 104 mmol/L (98-107); Cholesterol 190 mg/dL (200); Creatinine, Serum 1.17 mg/dL (0.70-1.30); EST Glomerular Filtration Rate 70 mL/min (>60); Est Glom Filt Rate - Afr Amer 85 mL/min (>60); Globulin 3.5 g/dL (2.2-4.2); Glucose 79 mg/dL (74-106); High Density Lipoprotein 36 mg/dL; Potassium 4.3 mmol/L (3.5-5.1); Protein, Total 7.5 g/dL (6.4-8.2); Sodium Level 139 mmol/L (136-145); Triglycerides 249 mg/dL; Very Low Density Lipoprotein 50 mg/dL (5-40)
[2022-07-10 18:59] LABS: Vitamin D,25 Hydroxy 23.2 ng/mL
== END | disposition home or self-care (01) ==
LOC: MFPLAB 16:16
PROVIDERS: PCP Family Medicine; Referring Provider Family Medicine; Visit Provider Family Medicine
DX: E66.01 Morbid (severe) obesity due to excess calories (principal); E55.9 Vitamin D deficiency, unspecified
CPT/HCPCS: 36415; 80053; 80061; 82306; 85025

== ENCOUNTER → 2022-08-16 | Outpatient (CLI) | payer OTHER, SELFPAY ==
--- NOTE | 2022-08-16 15:10 | VDLE_ITS ---
Reason For Study: Hx DVT bilateral lower extremity RIGHT LEFT GSV is normal. GSV is normal. CFV is compressible, spontaneous, phasic, CFV is compressible, spontaneous, phasic, competent and demonstrates normal competent, and demonstrates normal augmentation. augmentation. FV is compressible, spontaneous, phasic, FV is compressible, spontaneous, phasic, competent and demonstrates normal competent and demonstrates normal augmentation. augmentation. POP V is compressible, spontaneous, phasic, POP V is compressible, spontaneous, phasic, competent and demonstrates normal competent and demonstrates normal augmentation. augmentation. T/P Trunk is compressible. T/P Trunk is compressible. PTV is compressible. PTV is compressible. RT PerV is compressible. LT PerV is compressible. Procedure This is a venous duplex using B-mode, color flow and spectral Doppler. Exam performed in department. A preliminary report was called and/or faxed to [facility]. VL/Venous Duplex US - Anupam Extrem Interpretation Summary Deep veins of the lower extremities are bilaterally patent and compressible seg mentally. There is no evidence of deep vein thrombosis on either side. Valvular competence appears in tact within the proximal deep venous systems bilaterally. The great saphenous veins appear bila terally patent and compressible segmentally. Ordering Physician: Lester Witt V Referring Physician: Dewey Luis Performed By: Rox Monteiro RVT
== END | disposition home or self-care (01) ==
PROVIDERS: PCP Family Medicine; Visit Provider Internal Medicine Pulmonary Disease
DX: R06.00 Dyspnea, unspecified (principal); R06.02 Shortness of breath; Z86.718 Personal history of other venous thrombosis and embolism
CPT/HCPCS: 93970

== ENCOUNTER → 2023-01-15 | Outpatient (CLI) | payer OTHER, SELFPAY ==
[2023-01-15 18:18] LABS: ALB/GLOB Ratio 0.9 RATIO (0.9-2.4); AST(SGOT) 20 U/L (15-37); Alanine Aminotransfer ALT/SGPT 27 U/L (16-61); Albumin, Serum 3.5 g/dL (3.2-5.0); Alkaline Phosphatase 71 U/L (45-117); Anion Gap 5 (5-15); BUN 17 mg/dL (7-18); BUN/Creat Ratio 14.9 RATIO (10-20); Calcium,Total 8.5 mg/dL (8.5-10.1); Chloride 108 mmol/L (98-107); Creatinine, Serum 1.14 mg/dL (0.70-1.30); EST Glomerular Filtration Rate 72 mL/min (>60); Est Glom Filt Rate - Afr Amer 87 mL/min (>60); Globulin 3.8 g/dL (2.2-4.2); Glucose 88 mg/dL (74-106); PSA,Total - Annual Screen 0.83 ng/mL (0.00-4.00); Potassium 4.1 mmol/L (3.5-5.1); Protein, Total 7.3 g/dL (6.4-8.2); Sodium Level 136 mmol/L (136-145)
[2023-01-15 18:20] LABS: Vitamin D,25 Hydroxy 32.7 ng/mL
== END | disposition home or self-care (01) ==
PROVIDERS: PCP Family Medicine; Visit Provider Family Medicine
DX: E55.9 Vitamin D deficiency, unspecified (principal); Z80.42 Family history of malignant neoplasm of prostate
CPT/HCPCS: 36415; 80053; 82306; 84153; G0103

== ENCOUNTER → 2023-02-27 | Outpatient (CLI) | payer OTHER, SELFPAY ==
[2023-02-27 10:48] LABS: Cholesterol 146 mg/dL (200); High Density Lipoprotein 25 mg/dL; Triglycerides 230 mg/dL; Very Low Density Lipoprotein 46 mg/dL (5-40)
== END | disposition home or self-care (01) ==
LOC: MFPLAB 08:20
PROVIDERS: PCP Family Medicine; Visit Provider Family Medicine
DX: E78.1 Pure hyperglyceridemia (principal)
CPT/HCPCS: 36415; 80061

== ENCOUNTER 2023-08-16 08:31 | Emergency (ER) | payer OTHER, SELFPAY ==
[2023-08-16 08:32] VITALS: BP 169/106; PULSE 74; RESP 14; TEMP 36.2; O2SAT 96; BMI 39.9
--- NOTE | 2023-08-16 08:35 | EKG12_ITS ---
Test Reason : CP Blood Pressure : / mmHG Vent. Rate : 071 BPM Atrial Rate : 071 BPM P-R Int : 144 ms QRS Dur : 094 ms QT Int : 398 ms P-R-T Axes : 030 041 020 degrees QTc Int : 432 ms Normal sinus rhythm Normal ECG Confirmed by YSABEL LO, KELVIN ([id number]), medical transcription editor HANNA SCHMIDT ([id number]) on 08/19/2023 7:02:29 AM Referred By: Confirmed By:TISHA GRADY MD
[2023-08-16 08:44] VITALS: BP 150/105; PULSE 70; RESP 16; O2SAT 97
--- NOTE | 2023-08-16 08:44 | ED.VIS.CHEST ---
HPI History of Present Illness Chief Complaint: Chest Pain Informant: patient Onset/Context/Timing Onset: Yesterday Quality: Positive for Dull Location: Left Chest Current Severity: Mild Maximum Severity: Mild Worsened By: Nothing Relieved By: Nothing Associated Symptoms: Negative for Nausea, Vomiting, Diaphoresis, Dyspnea, Cough, Fever, Lightheadedness, Acid Reflux or Palpitations Narrative Narrative: 52-year-old male no prior cardiac history. States yesterday while seated at work at his desk he got dull left-sided chest discomfort. Denies any nausea, diaphoresis or shortness of breath. It did radiate Into his left shoulder blade area. He has had no recent exertional dyspnea nor any exertional shortness of breath. No pleuritic pain. No hemoptysis. No recent travel, surgery or immobilization. He had a negative stress test little over a year ago. In 2021. Prior Similar Symptoms: Yes Recent Illness/Hospitalization: No CVD Risk Factors: Negative for Hypertension, Diabetes, Hypercholesterolemia, Family History 1' </=55 or Smoking PE Risk Factors: Negative for Recent Travel/Surgery, Recent Immobilization, Prior DVT or PE, Cancer or OCP + Smoking + >/=35 TAD Risk Factors: Negative for Marfan's Syndrome, Hypertension or Family History [facility] Medical History Acute right-sided back pain with sciatica Alcohol use Anxiety Back pain Bilateral leg pain Biliary dyskinesia BMI 39.0-39.9,adult Clot COVID-19 CPAP (continuous positive airway pressure) dependence Depression History of echocardiogram History of pain when walking History of ulceration Inguinal hernia of right side without obstruction or gangrene Migraines Non-smoker Restless legs Shortness of breath on exertion Umbilical hernia without obstruction or gangrene Wears glasses Home Medications [id number] 250 mg-250 mg-65 mg tablet (Excedrin Migraine) 1 tab PO PRN PRN Headache 03/09/21 [History Last Taken Unknown] aspirin 81 mg capsule 81 mg PO DAILY 05/03/22 [History Last Taken Unknown] naproxen sodium BID 05/03/22 [History Last Taken Unknown] Allergy/AdvReac Type Severity Reaction Status Date / Time escitalopram [From Lexapro] AdvReac Intermediate Other Verified 08/16/23 08:32 Family History Mother Breast cancer Thyroid disorder Father Diabetes Cancer Surgical History History of hernia repair History of laparoscopic cholecystectomy History of lateral meniscus repair of left knee History of left breast biopsy (~07/2021) History of rectal surgery Hx of hemorrhoidectomy Hx of thumb surgery S/P ACL surgery Social History Smoking Status: Never smoker alcohol intake: never ROS ROS ED ROS Narrative Denies recent illness. Review of Systems ROS Unobtainable: Denies due to encephalopathy Constitutional Constitutional ED: Reports fever(s); Denies chills Eyes Eyes: Reports none ENT ENT ED: Denies ear pain Cardiovascular Cardiovascular: Reports as per HPI and chest pain; Denies palpitations or racing heartbeat Respiratory/Chest Respiratory/Chest: Denies cough or dyspnea Gastrointestinal Gastrointestinal: Denies abdominal pain, constipation, diarrhea, melena, nausea or vomiting Genitourinary Genitourinary ED: Denies dysuria or hematuria Musculoskeletal Musculoskeletal: Denies arthralgias Integumentary Denies abscess Neurologic Neurologic: Denies headache(s) Psychiatric Psychiatric: Denies anxiety or depression Endocrine Endocrinology: Denies cold intolerance Hematologic/Lymphatic Hematologic/Lymphatic: Denies easy bleeding, easy bruising or lymphadenopathy Allergic/Immunologic Allergic/Immunologic ED: Denies mouth swelling, tongue swelling or urticaria EXAM Physical Exam Narrative Exam Narrative: Well-appearing 52-year-old male. Vital signs are stable afebrile. Pulse ox 96% on room air no signs hypoxia. HEENT exam normal. Neck nontender no lymphadenopathy. Lungs clear to auscultation bilaterally. Heart regular rhythm no murmur. Chest wall nontender. No reproducible pain. Abdomen soft nontender. Patient is moving all 4 extremities. Calves are nontender without edema or cords. Is equal symmetrical radial pulses. 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 Dorsi plantarflexion intact. Back nontender. Neurologically is awake and alert with no focal motor deficits. Const Vital Signs: 08/16/23 08:32 08/16/23 08:44 08/16/23 08:44 Temperature 97.2 F L Temperature Source Temporal Pulse Rate 74 70 Respiratory Rate 14 16 Respiratory Effort Normal Respiratory Pattern Normal Blood Pressure 169/106 H 150/105 H Blood Pressure Mean 127 120 Pulse Ox 96 97 Oxygen Delivery Method Room Air Room Air 08/16/23 08:45 Temperature Temperature Source Pulse Rate Respiratory Rate Respiratory Effort Respiratory Pattern Blood Pressure Blood Pressure Mean Pulse Ox 97 Oxygen Delivery Method Room Air Positive well nourished and well developed; Negative for cachectic, contractures or unkempt General Appearance ED: well developed and NAD; Negative for unkempt, cachectic, contractures or pallor Nutritional Appearance: Negative for cachectic HEENT Reports moist mucous membranes normocephalic and atraumatic; Negative for trauma or tenderness Eyes PERRL General Eye ED: Negative for pale conjunctiva or scleral icterus Neck no lymphadenopathy, supple and no JVD General: Negative for tenderness Chest Wall inspection of chest normal and palpation of chest normal Chest: Negative for tenderness Resp normal respiratory effort and clear to auscultation bilaterally Effort and Inspection: Negative for respiratory distress Auscultation: Negative for rales, rhonchi or wheezes Cardio regular rate, regular rhythm, S1 normal heart sound, S2 normal heart sound and no murmurs Rate: Negative for bradycardia Rhythm: Negative for abnormal rhythm Peripheral Pulses: Negative for radial pulses present GI normal to inspection, nondistended, normoactive bowel sounds, soft to palpation, non-tender, non-distended and no masses Back/Spine no CVA tenderness and no thoracic nor lumbar tenderness General Back: Negative for CVA tenderness Cervical Spine: Negative for cervical spine tenderness Extremity normal to inspection General Extremety ED: Negative for edema, pulses abnormal or tenderness General Extremity: Negative for edema or pulses abnormal Neuro oriented x3, CN's II-XII intact bilaterally, no sensory deficits noted and gait normal Sensorium / Orientation: awake, alert, oriented to person, oriented to place and oriented to time; Negative for confused, lethargic or stuporous Motor Exam: strength 5/5 throughout Psych mental status grossly normal Appearance: Negative for unkempt Attitude: No agitated Mood & Affect: Negative for depressed, anxious or tearful Skin no rashes or lesions noted and no wounds General Skin Exam: Negative for jaundice or pallor Rashes: No rashes noted Trauma: Negative for abrasion, laceration or puncture Heart Score History: Slightly/Non-Suspicious ECG: Normal Age: >45 - <65 years Risk Factors: No Risk Factors Troponin: </= Normal Limit Score: 1 MDM MDM MDM Narrative Medical decision making narrative: 52-year-old male with atypical chest discomfort. He has a completely normal exam. EKG and is unremarkable. Patient had a stress test in late 2021 that was normal. Repeat exam patient is doing well at 10:12 AM. We discussed all his test results. He is not having any back pain. No interscapular pain. He is comfortable being discharged home with outpatient follow-up. Patient is comfortable being discharged home. History & Record Review Discussion w/independent historian: Patient Additional record(s) reviewed:: Prior inpatient record, Prior outpatient record, Prior ED visit and Prior labs Lab Data Attestation: I reviewed the patient's lab results. Lab results narrative: CBC normal. White count 8. H&H of 15 and 45. Chemistries normal gap 3. Normal BUN and creatinine. Glucose 105. Troponin is 5. Patient's had this pain since yesterday at noon. I do not think he needs a second troponin. Chest x-ray normal. Normal mediastinum. Labs: Laboratory Results - last 24 hr 08/16/23 08:55 WBC 8.3 RBC 5.60 Hgb 15.6 Hct 45.4 MCV 81.1 MCH 27.9 MCHC 34.4 RDW Std Deviation 42.1 RDW Coeff of Brock 14.6 Plt Count 265 MPV 9.5 Immature Gran % (Auto) 0.500 Neut % (Auto) 63.5 Lymph % (Auto) 23.5 [place] % (Auto) 8.3 Eos % (Auto) 3.2 Baso % (Auto) 1.0 Absolute Neuts (auto) 5.3 Absolute Lymphs (auto) 1.96 Nucleated RBC % 0 Sodium 138 Potassium 4.1 Chloride 107 Carbon Dioxide 28.0 Anion Gap 3 L BUN 16 Creatinine 1.13 Estim Creat Clear Calc 118.78 Est GFR (MDRD) Af Amer 88 Est GFR (MDRD) Non-Af 73 BUN/Creatinine Ratio 14.2 Glucose 105 Calcium 8.9 Troponin I High Sens 5 Radiography Chest X-Ray - ED: 1 View, Read by ED Physician, Read by Radiologist, Heart, Lungs, Mediastinum, Bony Structures, No Acute Disease and Chronic Changes Diagnostic Testing: Clinical Impression(s) from Imaging Studies Chest X-Ray 08/16/23 08:45 IMPRESSION: No acute abnormality is seen. Electronically Signed: Shaheen Garcia MD at 8:57 EST , Rhythm Strip Rhythm Strip: Sinus Rhythm Rate: 71 Ectopy: None EKG Initial EKG: Attestation: I personally reviewed and interpreted this EKG as follows: Interpretation: Sinus Rhythm and No Acute Injury Pattern Comments: Normal sinus rhythm rate of 71 no acute signs of ME nor ischemia. No [id number]. Discharge Plan Triage Chief Complaint: Chest Pain ED Provider: Reagan Cabrera Dx/Rx/DC Orders Clinical Impression: Chest pain Instructions: ED Chest Pain, Uncertain Cause Prescriptions: No Action Excedrin Migraine 250-250-65 mg tablet 1 tab PO PRN PRN (Reason: Headache) aspirin 81 mg Capsule 81 mg PO DAILY naproxen sodium BID Primary Care Provider: Dewey Luis Referrals: Dewey Luis MD [Primary Care Provider] - 3-5 Days if not improving Activity Restrictions/Additional Instructions: Follow-up with your primary care physician. All your labs, EKG and chest x-ray were unremarkable today. Return to the ER if you are feeling a lot worse. Disposition Disposition: Home, Self Care
[2023-08-16 08:45] VITALS: O2SAT 97
--- NOTE | 2023-08-16 08:45 | RAD_ITS ---
STUDY: X-RAY CHEST REASON FOR EXAM: Male, 52 years old. Chest pain TECHNIQUE: Single AP portable view of the chest. COMPARISON: Comparison is made with prior study dated June 05, 2022. FINDINGS: EKG electrodes are seen. The lungs are clear and expanded. There is no demonstrated pleural abnormality. Normal size heart. Normal mediastinum and petrona. Normal visualized pulmonary arteries. Normal visualized aortic arch and descending thoracic aorta. There are degenerative changes of the visualized thoracic spine. Normal visualized ribs, clavicles, and shoulders. There is no demonstrated abnormality of the visualized soft tissue structures of the upper abdomen. RAD/Chest 1 View (Portable) IMPRESSION: No acute abnormality is seen. Electronically Signed: Shaheen Garcia MD at 8:57 EST ,
[2023-08-16 09:12] LABS: Absolute Lymphocyte Count 1.96 X10^3/uL (0.83-4.51); Absolute Neutrophil Count 5.3 X10^3/uL (2.0-7.7); Basophil# 0.08 X10^3/uL; Eosinophil# 0.27 X10^3/uL; Eosinophils% 3.2 % (0-5); Hematocrit 45.4 % (40-54); Hemoglobin 15.6 g/dL (13.0-16.5); Lymphocyte # 1.96 X10^3/ul (0.83-4.51); Lymphocyte % 23.5 % (19-41); Mean Corp Hgb Conc 34.4 g/dL (32-36); Mean Corpuscular Hgb 27.9 pg (27.0-32.0); Mean Corpuscular Volume 81.1 fL (80-94); Mean Platelet Vol. 9.5 fl (6.2-12.0); Monocyte# 0.69 X10^3/uL; Monocyte% 8.3 % (0-10); NRBC Flagged by Analyzer 0 % (0-5); Neutrophil # 5.29 X10^3/uL (2.7-7.7); Neutrophil % 63.5 % (47-70); Platelet Count 265 K/mm3 (150-450); RBC Distribution Width CV 14.6 % (11.6-14.6); RBC Distribution Width SD 42.1 fl (35.1-43.9); White Blood Count 8.3 K/mm3 (4.4-11.0)
[2023-08-16 09:31] LABS: Anion Gap 3 (5-15); BUN 16 mg/dL (7-18); BUN/Creat Ratio 14.2 RATIO (10-20); Calcium,Total 8.9 mg/dL (8.5-10.1); Chloride 107 mmol/L (98-107); Creatinine, Serum 1.13 mg/dL (0.70-1.30); EST Glomerular Filtration Rate 73 mL/min (>60); Est Glom Filt Rate - Afr Amer 88 mL/min (>60); Estimated Creatinine Clearance 118.78 ml/min; Glucose 105 mg/dL (74-106); Potassium 4.1 mmol/L (3.5-5.1); Sodium Level 138 mmol/L (136-145); Troponin-I HS 5 pg/mL (3.0-78.0)
[2023-08-16 10:00] VITALS: BP 126/78; PULSE 61; RESP 12; O2SAT 99
[2023-08-16 11:00] VITALS: BP 130/85; PULSE 64; RESP 19; O2SAT 97
[2023-08-16 11:10] VITALS: BP 142/83; PULSE 63; RESP 12; TEMP 36.1; O2SAT 99
== END 2023-08-16 11:15 | disposition home or self-care (01) ==
PROVIDERS: Emergency Provider Emergency Medicine; PCP Family Medicine; Visit Provider Emergency Medicine
DX: R07.9 Chest pain, unspecified (principal); Z79.82 Long term (current) use of aspirin
CPT/HCPCS: 71045; 80048; 84484; 85025; 93005; 99283; A4216

== ENCOUNTER → 2023-08-28 | Outpatient (CLI) | payer OTHER, SELFPAY ==
[2023-08-28 17:43] LABS: Absolute Lymphocyte Count 2.32 X10^3/uL (0.83-4.51); Absolute Neutrophil Count 5.9 X10^3/uL (2.0-7.7); Basophil# 0.11 X10^3/uL; Basophil% 1.1 % (0-1); Eosinophil# 0.36 X10^3/uL; Eosinophils% 3.8 % (0-5); Hematocrit 43.9 % (40-54); Hemoglobin 14.6 g/dL (13.0-16.5); Lymphocyte # 2.32 X10^3/ul (0.83-4.51); Lymphocyte % 24.2 % (19-41); Mean Corp Hgb Conc 33.3 g/dL (32-36); Mean Corpuscular Hgb 26.8 pg (27.0-32.0); Mean Corpuscular Volume 80.7 fL (80-94); Mean Platelet Vol. 9.8 fl (6.2-12.0); Monocyte# 0.86 X10^3/uL; NRBC Flagged by Analyzer 0 % (0-5); Neutrophil # 5.89 X10^3/uL (2.7-7.7); Neutrophil % 61.3 % (47-70); Platelet Count 277 K/mm3 (150-450); RBC Distribution Width CV 14.6 % (11.6-14.6); RBC Distribution Width SD 41.9 fl (35.1-43.9); Red Blood Count 5.44 M/mm3 (4.6-6.2); White Blood Count 9.6 K/mm3 (4.4-11.0)
[2023-08-28 18:03] LABS: Vitamin D,25 Hydroxy 31.2 ng/mL
[2023-08-28 18:04] LABS: ALB/GLOB Ratio 1.1 RATIO (0.9-2.4); AST(SGOT) 19 U/L (15-37); Alanine Aminotransfer ALT/SGPT 28 U/L (16-61); Albumin, Serum 3.9 g/dL (3.2-5.0); Alkaline Phosphatase 71 U/L (45-117); Anion Gap 6 (5-15); BUN 15 mg/dL (7-18); BUN/Creat Ratio 13.3 RATIO (10-20); Chloride 105 mmol/L (98-107); Cholesterol 157 mg/dL (200); Creatinine, Serum 1.13 mg/dL (0.70-1.30); EST Glomerular Filtration Rate 73 mL/min (>60); Est Glom Filt Rate - Afr Amer 88 mL/min (>60); Globulin 3.6 g/dL (2.2-4.2); Glucose 87 mg/dL (74-106); High Density Lipoprotein 33 mg/dL; Protein, Total 7.5 g/dL (6.4-8.2); Sodium Level 136 mmol/L (136-145); Triglycerides 127 mg/dL; Very Low Density Lipoprotein 25 mg/dL (5-40)
--- OUTSIDE RECORDS SUMMARY | 2023-08-28 22:49 | XMS RPT_ITS | CCD ---
Author Name Unknown Address [id number] [place] [address] Organization [facility] Care Team Providers Care Motor Polarizer Name Role Phone AREN PENA Referring Unavailable PROVIDER, UNKNOWN Attending Unavailable PROVIDER, UNKNOWN Admitting Unavailable DIMITRIOS SINCLAIR Referring Unavailable DIMITRIOS SINCLAIR Attending Unavailable Vesta Guan MD Primary Care Provider HELEN PAUL Attending Unavailable VESTA GUAN Primary Care UnavailDANIELA Baugh Referring Unavailable VESTA GUAN Primary Care Unavailab DANIELA Padilla Referring Unavailable VESTA GUAN Primary Care Unavailab DANIELA Padilla Referring Unavailable VESTA GUAN Primary Care UnavailDANIELA Baugh Attending Unavailable VESTA GUAN Primary Care Unavailab medina Allergies Allergy Classification Reported Allergen(s) Allergy Type Date of Onset Reaction(s) Facility (2 sources) Escitalopram; Translations: [ESCITALOPRAM OXALATE] Drug Allergy 06-18-2017 Other: See Comments [facility] Work Phone: Medications Completed/Discontinued Medications Medication Drug Class(es) Dates Sig (Normalized) Sig (Original) busPIRone hydrochloride 10 mg oral tablet (1 source) Start: 08-08-2017 take 1 tablet by mouth every eight hours as needed for anxiety and anxiety busPIRone (BUSPAR) 10 mg tablet Indications: Anxiety Take 1 tablet by mouth three times daily as needed. 90 tablet 0 08/08/2017 Active Problems Active Problems Problem Classification Problem Date Documented Da te Episodic/Chronic Anxiety disorders (1 source) Anxiety; Translations: [Anxiety disorder, unspecified] 06-18-2017 Chronic Disorders of lipid metabolism (1 source) Hypertriglyceridemia; Translations: [Pure hyperglyceridemia] 06-19-2017 Chronic Noninfectious gastroenteritis (1 source) Noninfective gastroenteritis and colitis, unspecified; Translations: [Inflammatory bowel disease] Onset: 06-25-2023 Episodic Other bone disease and musculoskeletal deformities (1 source) Segmental and somatic dysfunction of lumbar region; Translations: [Segmental and somatic dysfunction of lumbar region] Onset: 03-21-2022 Episodic Other bone disease and musculoskeletal deformities (1 source) Segmental and somatic dysfunction of sacral region; Translations: [Segmental and somatic dysfunction of sacral region] Onset: 03-21-2022 Episodic Other gastrointestinal disorders (1 source) Constipation; Translations: [Constipation, unspecified] 04-30-2023 Episodic Other gastrointestinal disorders (1 source) Constipation, unspecified; Translations: [Constipation, unspecified constipation type] Onset: 06-19-2023 Episodic Other nutritional; endocrine; and metabolic disorders (1 source) Body mass index 30+ - obesity; Translations: [Obesity, unspecified] 06-18-2017 Chronic Residual codes; unclassified (1 source) Family history of prostate cancer; Translations: [Family history of malignant neoplasm of prostate] 06-18-2017 Episodic Spondylosis; intervertebral disc disorders; other back problems (3 sources) Other intervertebral disc degeneration, lumbosacral region; Translations: [Spondylosis without myelopathy or radiculopathy, lumbar region] Onset: 03-21-2022 Chronic Unclassified (1 source) Low back pain, unspecified; Translations: [Low back pain, unspecified] Onset: 05-23-2022 Past or Other Problems Problem Classification Problem Date Documented Da te Episodic/Chronic Unclassified (1 source) Low back pain, unspecified; Translations: [Low back pain, unspecified] Onset: 05-23-2022 Results Test Name Value Interpretation Reference Range Facil ity Vital Signs Date Time Vital Sign Value Performing Clinician Faci lity 04-30-2023 08:20-0500 Body height 188 cm Helen Paul MD Work Phone: [facility] 04-30-2023 08:20-0500 Body temperature 96.91 [degF] Helen Paul MD Work Phone: [facility] 04-30-2023 08:20-0500 Body weight 139.25 kg Helen Paul MD Work Phone: [facility] 04-30-2023 08:20-0500 Diastolic blood pressure 90 mm[Hg] Helen Paul MD Work Phone: [facility] 04-30-2023 08:20-0500 Heart rate 82 /min Helen Paul MD Work Phone: [facility] 04-30-2023 08:20-0500 SaO2% (BldA) [Mass fraction] 95 % Helen Paul MD Work Phone: [facility] 04-30-2023 08:20-0500 Systolic blood pressure 132 mm[Hg] Helen Paul MD Work Phone: [facility] Encounters Encounter Date Encounter Type Care Provider Facility Start: 06-25-2023 End: 06-25-2023 ambulatory [facility] Facility:[facility] Start: 06-19-2023 End: 06-20-2023 ambulatory [facility] Facility:[facility] Start: 06-19-2023 End: 06-20-2023 ambulatory [facility] Facility:[facility] Start: 04-30-2023 End: 04-30-2023 ambulatory HELEN PAUL Facility:[facility] Start: 04-30-2023 End: 04-30-2023 Patient encounter procedure Helen Paul MD Work Phone: General Surgery Procedures Date Procedure Procedure Detail Performing Clinician Start: 03-29-2020 Colonoscopy Helen Paul MD Work Phone: Start: 06-18-2017 Lipid 1996 panel - S david or Plasma Helen Paul MD Work Phone: Plan of Treatment Date Care Activity Detail Author Start: 07-10-2032 Urine microalbumin profile DTaP,Tdap,Td Vaccine (2 - Td or Tdap) [facility] Start: 03-29-2025 Colonoscopy Colonoscopy [facility] Start: 03-29-2025 Colorectal Cancer Screening Colorectal Cancer Screening [facility] Start: 02-15-2023 Covid-19 Vaccine () Covid-19 Vaccine () [facility] Start: 02-15-2023 Influenza vaccination Influ[facility] (#[facility] Start: 01-19-2023 Diabetes Screening Diabetes Screening [facility] Start: 09-04-2022 Shingrix Vaccine (2 of 2) Shingrix Vaccine (2 of 2) [facility] Start: 06-18-2022 Lipid 1996 panel - Serum or Plasma Lipid Screening [facility] Start: 06-17-2022 Depression Assessment Depression Assessment [facility] Start: 01-19-2021 Fecal Occult Blood Fecal Occult Blood [facility] Start: 12-09-2016 Cologuard (FIT-DNA) Cologuard (FIT-DNA) [facility] Start: 12-09-[address] Colonography [facility] Start: 12-09-2016 Sigmoidoscopy Sigmoidoscopy [facility] Start: 12-09-1989 Hepatitis C Screening Hepatitis C Screening [facility] Start: 12-09-1989 HIV Screening HIV Screening [facility] Start: 1970 Hepatitis B Vaccine (1 of 3 - 3-dose series) Hepatitis B Vaccine (1 of 3 - 3-dose series) [facility] End: 04-30-2024 COLONOSCOPY DIAGNOSTIC COLONOSCOPY DIAGNOSTIC Endoscopy Routine Constipation, unspecified constipation type 1 Occurrences starting 04/30/2023 until 04/30/2024 [facility] Work Phone: Immunizations Immunization Date Immunization Notes Care Provider Mariela baron 06-18-2017 influenza virus vacc ine, unspecified formulation Helen Paul MD Work Phone: [facility] Payers Date Payer Category Payer Unknown [facility] [employer] [id number] 2023-Present [phone] [address] [place] [address] PPO [id number] 2023 Unknown [id number] 2021 Unknown [id number] 1970 Unknown [id number] Social History Date Type Detail Facility Start: 06-18-2017 Tobacco smoking stat us ALIS Never smoked tobacco [facility] Start: 06-18-2017 Tobacco use and exposure Smoke less tobacco non-user [facility] Start: 04-30-2023 Alcohol intake Current drinke r of alcohol (finding) [facility] Start: 04-30-2023 History of Social function [facility] Start: 04-30-2023 Tobacco use panel [facility] National Score (1-10 0), lower number is lower risk 99 [facility] Start: 06-18-2017 Alcohol Comment rarely [facility] Start: 1970 Sex Assigned At Not on file [facility] Start: 01-25-2020 Gender identity Identifies as male gender (finding) [facility] Start: 01-25-2020 Sexual orientation Heterosexual (fin ding) [facility] Progress note 06-25-2023 Note Date & Type Note Facility 06-25-2023 Note HNO ID: [id number] Author: BAKARI ROBLEDO RT(R) Service: ? Author Type: Revival Clerk Type: Progress Notes Filed: 06/25/2023 09:53 Note Text: Radiology Service Progress Note PATIENT NAME: Aram Carlton DATE OF SERVICE: June 25, 2023 TIME: 9:52 AM PATIENT IDENTITY VERIFICATION COMPLETED USING TWO (2) IDENTIFIERS: Name and Date of confirmed by patient verbally. FALL SCREENING: Has the patient had 2 falls in the last year or 1 fall with injury or currently using an Ambulatory Assistive Device (Walker, Cane, Wheelchair, Crutches, etc.)? No PATIENT GENDER DATA: Male PATIENT RELEVANT IMPLANT DATA REVIEWED: Yes RADIOLOGY DEPARTMENT: CT; Exam(s) Completed: Abdomen/Pelvis enterography PERIPHERAL IV DATA: Site assessment: Clean,Dry and Intact, Site disposition Discontinued SIGNED BY: RT Valentina(R) June 25, 2023 9:52 AM [facility] Progress note 06-25-2023 Note Date & Type Note Facility 06-25-2023 Note HNO ID: [id number] Author: MANDO RIVERA RN Service: Nursing Author Type: Registered Nurse Type: Progress Notes Filed: 06/25/2023 08:16 Note Text: Radiology Service Progress Note DATE OF SERVICE: June 25, 2023 TIME: 8:15 AM PATIENT WEIGHT: 305LBS PATIENT IDENTITY VERIFICATION COMPLETED USING TWO (2) STANDARD IDENTIFIERS: Name and Date of confirmed by patient verbally. FALL SCREENING: Has the patient had 2 falls in the last year or 1 fall with injury or currently using an Ambulatory Assistive Device (Walker, Cane, Wheelchair, Crutches, etc.)? No PATIENT GENDER DATA: Male ALLERGIES: Reviewed and unchanged CONTRAST ALLERGY: No EXAM: CT -CONTRAST INDUCED NEPHROPATHY RISK FACTORS: Not applicable CREATININE: Creatinine Date Value Ref Range Status 06/19/2023 1.07 0.73 - 1.22 mg/dL Final 01/20/2020 0.99 0.73 - 1.22 mg/dL Final 06/18/2017 1.07 0.73 - 1.22 mg/dL Final Estimated Glomerular Filtration Rate Date Value Ref Range Status 06/19/2023 84 >=60 mL/min/1.73m? Final Comment: Estimated Glomerular Filtration Rate (eGFR) is calculated using the 2020 CKD-EPI creatinine equation. This equation utilizes serum creatinine, sex, and age as parameters. The creatinine assay has traceable calibration to isotope dilution-mass spectrometry. Refer to KDIGO guidelines for clinical interpretation. In patients with unstable renal function, e.g. those with acute kidney injury, the eGFR may not accurately reflect actual GFR. eGFR- Date Value Ref Range Status 01/20/2020 >60 Final P.O.C.T. RESULTS: POC done: Yes, See Lab Tab June 25, 2023 TREATMENT: N/A IV SITE: Ambulatory: A peripheral IV was started in the Right antecubital site with a Angio cath: 20 gauge. IV SITE APPEARANCE: Clean,Dry and Intact SIGNATURE: Mando Rivera RN PATIENT NAME: Aram Carlton DATE: June 25, 2023 TIME: 8:15 AM [facility] Progress note 06-19-2023 Note Date & Type Note Facility 06-19-2023 Note HNO ID: [id number] Author: Daniela Ugalde MD Service: ? Author Type: Physician Type: Progress Notes Filed: 06/19/2023 4:08 PM Note Text: DEPARTMENT OF GASTROENTEROLOGY - NEW PATIENT/CONSULT REASON FOR VISIT Aram Carlton is a 52 year old male who is scheduled at the request of Dr Guan for New Patient (Constipation) and Constipation. My final recommendations will be communicated back to the requesting physician by the way of the shared medical record, fax, or via US Mail HISTORY OF PRESENT ILLNESS Aram Carlton is a 52 year old male who presents today for an evaluation of constipation. PAST MEDICAL HISTORY Diagnosis Date Abnormal colonoscopy 2014 Anxiety Family history of prostate cancer Hypertriglyceridemia Obesity (BMI 30-39.9) PAST SURGICAL HISTORY Procedure Laterality Date COLONOSCOPY 2014 COLONOSCOPY FLX DX W/COLLJ SPEC WHEN PFRMD 03/29/2020 Colonoscopy HEMORRHOID;BAND LIGAT, SNGL/MUL 2011 PAST SURGICAL HISTORY OF Left ACL replair, meniscus repair REMOVAL GALLBLADDER 2020 REPAIR INCISIONAL HERNIA,REDUCIBLE 2020 Current Outpatient Medications Medication Sig Dispense Refill polyethylene glycol 3350 (MIRALAX) 17 gram/dose powder Take by mouth once daily. Dissolve dose in 4 - 8 ounces of liquid and take as directed. inulin (FIBER GUMMIES ORAL) Take by mouth. sertraline (ZOLOFT) 100 mg tablet Take 1 tablet by mouth once daily. 30 tablet 3 busPIRone (BUSPAR) 10 mg tablet Take 1 tablet by mouth three times daily as needed. 90 tablet 0 fluticasone (FLONASE) 50 mcg/actuation nasal spray Use 2 Sprays in each nostril once daily. Rinse mouth after use. 1 Bottle 1 No current facility-administered medications for this visit. ALLERGIES Allergen Reactions Lexapro [Escitalopr* Other: See Comments Worsened anxiety Social History Tobacco Use Smoking status: Never Smokeless tobacco: Never Vaping Use Vaping Use: Never used Substance Use Topics Alcohol use: Yes Comment: rarely Drug use: No PHYSICAL EXAMINATION General Appearance: Well appearing, alert, in no acute distress, well-hydrated, well nourished. RECENT LABS CBC: WBC (k/uL) Date Value 01/20/2020 7.67 06/18/2017 12.22 (H) Hematocrit (%) Date Value 01/20/2020 45.2 MCV (fL) Date Value 01/20/2020 84.8 Platelet Count (k/uL) Date Value 01/20/2020 338 Lymph% (%) Date Value 01/20/2020 21.9 Comprehensive Metabolic Panel: Glucose (mg/dL) Date Value 01/20/2020 87 BUN (mg/dL) Date Value 01/20/2020 16 Creatinine (mg/dL) Date Value 01/20/2020 0.99 Sodium (mmol/L) Date Value 01/20/2020 136 Potassium (mmol/L) Date Value 01/20/2020 4.7 Chloride (mmol/L) Date Value 01/20/2020 103 CO2 (mmol/L) Date Value 01/20/2020 22 Protein, Total (g/dL) Date Value 01/20/2020 6.9 Albumin (g/dL) Date Value 01/20/2020 4.3 Calcium (mg/dL) Date Value 01/20/2020 9.3 Alkaline Phosphatase (U/L) Date Value 01/20/2020 53 Bilirubin, Total (mg/dL) Date Value 01/20/2020 0.6 AST (U/L) Date Value 01/20/2020 22 ALT (U/L) Date Value 01/20/[address] ABD/PEL 01/09/2020 CT ABD/PEL 07/12/19 Colon 03/2020 Impression: - A single (solitary) ulcer in the terminal ileum. Biopsied. - The entire examined colon is normal. Biopsied. - Three medium polyps in the sigmoid colon and in the descending colon, removed with a cold snare. Resected and retrieved. Clip (MR conditional) was placed. - Diverticulosis in the left colon. - The distal rectum and anal verge are normal on retroflexion view. CONVERTED FINAL DIAGNOSIS 1. Terminal ileum, biopsy (A) - Active enteritis with ulcer (see comment). 2. Colon, random, biopsy (B) - Colonic mucosa with no diagnostic alteration. 3. Colon, transverse, polypectomy (C) - Tubular adenoma. 4. Colon, distal sigmoid, polypectomy (D) - Tubular adenoma. SHEKHAR/gricelda 03/30/2020 CONVERTED DIAGNOSIS COMMENT Histologic sections from the terminal ileum biopsy specimen show fragments of small bowel mucosa with acute, neutrophil-mediated epithelial injury in the form of cryptitis. This active inflammation is associated with areas of granulation tissue, consistent with ulcer. Pyloric gland metaplasia, indicative of ongoing, chronic mucosal injury, is not appreciated. Granulomas, viral inclusions and pathogenic organisms are not seen. Overall, the histologic findings demonstrate an active enteritis with ulcer. Diagnostic considerations broadly include infection, medication-induced injury (particularly NSAIDs), and ischemia. Although features of chronic injury are not appreciated, an early, evolving form of idiopathic inflammatory bowel disease (Crohn's disease) cannot be excluded. IMPRESSION The patient is a 52-year-old male seeking second opinion for constipation. The patient has had a difficult history over the last few years. He states that he was told that his gallbladder was not work (more content not included)... [facility] Progress note 04-30-2023 Note Date & Type Note Facility 04-30-2023 Note HNO ID: [id number] Author: Helen Paul MD Service: ? Author Type: Physician Type: Progress Notes Filed: 05/01/2023 2:00 PM Note Text: Aram Carlton 1970 REFERRING PHYSICIAN: No ref. provider found CHIEF COMPLAINT: Consult (constipation) HPI: The patient is a 52 year old male referred for endoscopy. Aram notes problems with constipation. He has been trying all methods - increased fiber, increased water intake, etc. He notes hard stools and straining for bowel movements. He notes occasional blood on toilet paper. He recently had a colonoscopy in 2019. Findings of tubular adenomas. He notes no colon cancer in family His main concern is his constipation, he tried to get an appointment in [place] and was unable to. PAST MEDICAL HISTORY Diagnosis Date Abnormal colonoscopy 2014 Anxiety Family history of prostate cancer Hypertriglyceridemia Obesity (BMI 30-39.9) PAST SURGICAL HISTORY Procedure Laterality Date COLONOSCOPY 2014 COLONOSCOPY FLX DX W/COLLJ SPEC WHEN PFRMD 03/29/2020 Colonoscopy HEMORRHOID;BAND LIGAT, SNGL/MUL 2011 PAST SURGICAL HISTORY OF Left ACL replair, meniscus repair REMOVAL GALLBLADDER 2020 REPAIR INCISIONAL HERNIA,REDUCIBLE 2020 Current Outpatient Medications Medication Sig polyethylene glycol 3350 (MIRALAX) 17 gram/dose powder Take by mouth once daily. Dissolve dose in 4 - 8 ounces of liquid and take as directed. inulin (FIBER GUMMIES ORAL) Take by mouth. peg 3350-Electrolytes (GOLYTELY) 236-22.74-6.74 -5.86 gram suspension Take 4,000 mL by mouth one time only for 1 dose. Refer to printed prep instructions from your provider. sertraline (ZOLOFT) 100 mg tablet Take 1 tablet by mouth once daily. busPIRone (BUSPAR) 10 mg tablet Take 1 tablet by mouth three times daily as needed. fluticasone (FLONASE) 50 mcg/actuation nasal spray Use 2 Sprays in each nostril once daily. Rinse mouth after use. No current facility-administered medications for this visit. ALLERGIES: Lexapro [Escitalopram Oxalate] PERSONAL HISTORY: Social History Tobacco Use Smoking status: Never Smokeless tobacco: Never Vaping Use Vaping Use: Never used Substance Use Topics Alcohol use: Yes Comment: rarely Drug use: No FAMILY HISTORY Problem Relation Age of Onset Breast Cancer Mother uterine as well Prostate Cancer Father age 50s Hypertension Father Prostate Cancer Brother 46 Prostate Cancer Paternal Grandfather The review of systems data was entered by the nurse and reviewed by ut Nursing Notes: Constance Garcia RN 04/30/2023 8:20 AM Signed REVIEW OF SYSTEMS: General: The patient denies fatigue, denies weight loss, denies weight gain, denies feeling hot, and denies feelings of cold. Eyes: The patient denies glaucoma, denies eye injury/surgery, wears glasses or contacts. Ear/Nose/Throat: The patient denies allergies, denies hayfever, denies ear infections, and denies bloody noses. Cardiovascular: The patient NOTES chest pain, denies heart disease, denies high blood pressure,denies cardiac stent, denies prior heart attack, denies irregular heart beat, denies high cholesterol, denies poor circulation, denies heart failure, other cardiac issues, NOTES claudication, denies cold feet, denies peripheral arterial stent. Respiratory: The patient denies tuberculosis, denies pneumonia, denies frequent cough, denies pulmonary embolism, denies shortness of breath, and denies coughing up blood. Gastrointestinal: The patient denies difficulty swallowing, denies acid reflux, denies ulcers, denies vomiting, denies jaundice/hepatitis, NOTES gallbladder problems, denies black or tarry stools, NOTES hemorrhoids, denies bleeding from rectum, denies diverticulitis, NOTES constipation, denies diarrhea, denies loss of stool control, and NOTES hernias. Kidney/Bladder: The patient denies kidney stones, denies urine infections, and denies bloody urine. Skin: The patient denies a history of skin cancer, denies bleeding/changing moles, and denies a history of skin rash. Neurologic: The patient denies a history of epilepsy/convulsions, denies headaches, denies head/spinal injuries, and denies stroke/TIA. Psychiatric: The patient denies psychiatric medications, NOTES depression, and denies voices, denies substance abuse. Endocrine: The patient denies thyroid disorders, denies diabetes, and denies hormonal problems. Hematologic: The patient denies a history of bruising, denies bleeding, and denies anemia, denies blood clots. Infections: The patient denies a history of measles and mumps, denies rheumatic fever, and denies sexually transmitted diseases. Musculoskeletal: The patient NOTES back pain/injury, NOTES back problems, denies sciatica, denies knee/foot trouble, denies arthritis, or denies gout. When was patient's last Mammogram screening? N/A Last Colonoscopy: 03/29/2020 Constance Garcia RN PHYSICAL EXAMINATION: (more content not included)... [facility] Instructions 04-30-2023 Patient Instructions Note Date & Type Note Facility 04-30-2023 Instructions Helen Paul MD - 04/30/2023 8:30 AM EST Images from the original note were not included. Bowel Preparation Instructions for: Golytely, Nulytely, Trilyte or Colyte (polyethylene glycol 3350 and electrolytes) IF YOU DO NOT FOLLOW THESE DIRECTIONS, YOUR COLONOSCOPY WILL BE CANCELLED. [place] Instructions: Your bowel must be empty so that your doctor can clearly view your colon. Follow all of the instructions in this handout EXACTLY as they are written. Do NOT eat any solid food the ENTIRE day before your colonoscopy. Drink only clear liquids. Buy your bowel preparation at least 5 days before your colonoscopy. TRANSPORTATION on the Day of Your Exam A responsible person MUST be present with you at Check In prior to your colonoscopy and REMAIN in the endoscopy area until you are discharged. You are NOT ALLOWED to drive, take a taxi or bus, or leave the Endoscopy Center ALONE. If you do not have a responsible wheelchair driver (family member or friend) with you to take you home, your exam cannot be done with sedation and will be cancelled. Please bring a list of all of your current medications, including any Over-the Counter medications with you. Medications If you take insulin, diabetic medications or blood thinners such as Coumadin (warfarin), Plavix (clopidogrel), Ticlid (ticlopidine hydrochloride), Agrylin (anagrelide), Xarelto (Rivaroxaban), Pradaxa (Dabigatran), Eliquis (Apixaban), and Effient (Prasugrel). You MUST call the doctors who orders those medicines for instructions on altering the dosage before your colonoscopy. All other medications should be taken the day of the exam with a sip of water including ASPIRIN. Five (5) Days Before Your Colonoscopy Do NOT take medicines that stop diarrhea - such as Imodium, Kaopectate, or Pepto Bismol. Do NOT take fiber supplements - such as Metamucil, Citrucel, or Perdiem. Do NOT take products that contain iron - such as multi-vitamins (the label lists what is in the products). Do NOT take Vitamin E. Buy the prescription bowel preparation solution at your local pharmacy or drugstore pharmacy. 05/2019 Bowel Preparation Instructions for: Golytely, Nulytely, Trilyte or Colyte (polyethylene glycol 3350 and electrolytes) Three (3) Days Before Your Colonoscopy Do NOT eat high-fiber foods - such as popcorn, beans, seeds (flax, sunflower, quinoa), multigrain bread, nuts, salad/vegetables, or fresh and dried fruit. One (1) Day Before Your Colonoscopy Only drink clear liquids the ENTIRE DAY before your colonoscopy. Do NOT eat any solid foods. Drink at least 8 ounces of clear liquids every hour after waking up. The clear liquids you can drink include: Clear Liquid (NO RED LIQUIDS) DO NOT DRINK Gatorade, Pedialyte or Powerade Clear broth or bouillon Coffee or tea (no milk or non-dairy creamer) Carbonated and non-carbonated soft drinks Andrew-Aid or other fruit flavored drinks Strained fruit juices (no pulp) Jell-O, popsicles, hard candy Water Alcohol Milk or non-dairy creamers Noodles or vegetables in soup Juice with pulp Liquid you cannot see through Do not use tobacco/vaping products The bowel preparation solution will be consumed in two parts. Mix the solution the evening before your colonoscopy and refrigerate before drinking. You may add the flavor pack that came with the bowel preparation. Do NOT add ice, sugar or any other flavorings to the solution. Part 1 At 6:00 PM - Evening before your colonoscopy Drink an 8-oz glass of bowel preparation every 10 minutes for a total of 8 glasses. You may continue to drink clear liquids until midnight. Part 2 On the day of your colonoscopy you may drink clear liquids up to (three) 3 hours before your procedure. 4 1/2 hours before your colonoscopy Drink an 8-oz glass of bowel preparation every 10 minutes for a total of 8 glasses. Fifteen (15) minutes later, drink an 8-oz glass of clear liquids every 15 minutes for a total of 2 glasses. You may continue to drink clear liquids up to (three) 3 hours before your exam. 2 05/2019 documented in this encounter [facility] History of Present illness Narrative 04-30-2023 Helen Paul MD - 04/30/2023 8:18 AM EST Note Date & Type Note Facility 04-30-2023 History of Presen t illness Narrative Aram Carlton 1970 REFERRING PHYSICIAN: No ref. provider found CHIEF COMPLAINT: Consult (constipation) HPI: The patient is a 52 year old male referred for endoscopy. Aram notes problems with constipation. He has been trying all methods - increased fiber, increased water intake, etc. He notes hard stools and straining for bowel movements. He notes occasional blood on toilet paper. He recently had a colonoscopy in 2019. Findings of tubular adenomas. He notes no colon cancer in family His main concern is his constipation, he tried to get an appointment in [place] and was unable to. PAST MEDICAL HISTORY Diagnosis Date Abnormal colonoscopy 2014 Anxiety Family history of prostate cancer Hypertriglyceridemia Obesity (BMI 30-39.9) PAST SURGICAL HISTORY Procedure Laterality Date COLONOSCOPY 2015 COLONOSCOPY FLX DX W/COLLJ SPEC WHEN PFRMD 03/29/2020 Colonoscopy HEMORRHOID;BAND LIGAT, SNGL/MUL 2011 PAST SURGICAL HISTORY OF Left ACL replair, meniscus repair REMOVAL GALLBLADDER 2020 REPAIR INCISIONAL HERNIA,REDUCIBLE 2020 Current Outpatient Medications Medication Sig polyethylene glycol 3350 (MIRALAX) 17 gram/dose powder Take by mouth once daily. Dissolve dose in 4 - 8 ounces of liquid and take as directed. inulin (FIBER GUMMIES ORAL) Take by mouth. peg 3350-Electrolytes (GOLYTELY) 236-22.74-6.74 -5.86 gram suspension Take 4,000 mL by mouth one time only for 1 dose. Refer to printed prep instructions from your provider. sertraline (ZOLOFT) 100 mg tablet Take 1 tablet by mouth once daily. busPIRone (BUSPAR) 10 mg tablet Take 1 tablet by mouth three times daily as needed. fluticasone (FLONASE) 50 mcg/actuation nasal spray Use 2 Sprays in each nostril once daily. Rinse mouth after use. No current facility-administered medications for this visit. ALLERGIES: Lexapro [Escitalopram Oxalate] PERSONAL HISTORY: Social History Tobacco Use Smoking status: Never Smokeless tobacco: Never Vaping Use Vaping Use: Never used Substance Use Topics Alcohol use: Yes Comment: rarely Drug use: No FAMILY HISTORY Problem Relation Age of Onset Breast Cancer Mother uterine as well Prostate Cancer Father age 50s Hypertension Father Prostate Cancer Brother 46 Prostate Cancer Paternal Grandfather The review of systems data was entered by the nurse and reviewed by ut Nursing Notes: Constance Garcia RN 04/30/2023 8:20 AM Signed REVIEW OF SYSTEMS: General: The patient denies fatigue, denies weight loss, denies weight gain, denies feeling hot, and denies feelings of cold. Eyes: The patient denies glaucoma, denies eye injury/surgery, wears glasses or contacts. Ear/Nose/Throat: The patient denies allergies, denies hayfever, denies ear infections, and denies bloody noses. Cardiovascular: The patient NOTES chest pain, denies heart disease, denies high blood pressure,denies cardiac stent, denies prior heart attack, denies irregular heart beat, denies high cholesterol, denies poor circulation, denies heart failure, other cardiac issues, NOTES claudication, denies cold feet, denies peripheral arterial stent. Respiratory: The patient denies tuberculosis, denies pneumonia, denies frequent cough, denies pulmonary embolism, denies shortness of breath, and denies coughing up blood. Gastrointestinal: The patient denies difficulty swallowing, denies acid reflux, denies ulcers, denies vomiting, denies jaundice/hepatitis, NOTES gallbladder problems, denies black or tarry stools, NOTES hemorrhoids, denies bleeding from rectum, denies diverticulitis, NOTES constipation, denies diarrhea, denies loss of stool control, and NOTES hernias. Kidney/Bladder: The patient denies kidney stones, denies urine infections, and denies bloody urine. Skin: The patient denies a history of skin cancer, denies bleeding/changing moles, and denies a history of skin rash. Neurologic: The patient denies a history of epilepsy/convulsions, denies headaches, denies head/spinal injuries, and denies stroke/TIA. Psychiatric: The patient denies psychiatric medications, NOTES depression, and denies voices, denies substance abuse. Endocrine: The patient denies thyroid disorders, denies diabetes, and denies hormonal problems. Hematologic: The patient denies a history of bruising, denies bleeding, and denies anemia, denies blood clots. Infections: The patient denies a history of measles and mumps, denies rheumatic fever, and denies sexually transmitted diseases. Musculoskeletal: The patient NOTES back pain/injury, NOTES back problems, denies sciatica, denies knee/foot trouble, denies arthritis, or denies gout. When was patient's last Mammogram screening? N/A Last Colonoscopy: 03/29/2020 Constance Garcia RN PHYSICAL EXAMINATION: General: The patient is 52 year old male, well nourished, well hydrated in no acute distress. The patient is oriented to time, place, and person. VITALS: Blood pressure 132/90, pulse 82, temperature 36.1 C (96.9 F), height 188 cm (6' 2 ), weight (!) 139.3 kg (307 lb), SpO2 95 %. Body mass index is 39.42 kg/m . Head: Normal cephalic, atraumatic Eyes: pupils are equally round, sclera are clear/anicteric Neck is supple with no tracheal deviation Respiratory: Normal respiratory excursion and pattern. Abdominal exam: benign Extremities: no clubbing, cyanosis or edema. Neuro: non focal Psych: normal mood Assessment IMPRESSION: constipation, history of colon polyps PLAN: I have offered patient evaluation with colonoscopy. However, I suspect patient will require medication treatment for his constipation, possibly Linzess. I have told patient that it is best to be seen by a water regulator and valve repairer for this. He has [employer] insurance, he will contact his health primary care physician for gastroenterology evaluation. I have counseled patient that he can return to this clinic if any worsening signs/symptoms. Patient acknowledges above. Diagnoses: (K59.00) Constipation, unspecified constipation type (primary encounter diagnosis) I have confirmed and edited as necessary, the PFSH and ROS obtained by others. Medical Decision Making: Problems: Low: Acute, uncomplicated illness or injury Medical Decision Making Level: 2 - Straightforward Helen Paul MD documented in this encounter [facility] Nurse Note 04-30-2023 Constance Garcia RN - 04/30/2023 8:18 AM EST Note Date & Type Note Facility 04-30-2023 Nurse Note REVIEW OF SYSTEMS: General: The patient denies fatigue, denies weight loss, denies weight gain, denies feeling hot, and denies feelings of cold. Eyes: The patient denies glaucoma, denies eye injury/surgery, wears glasses or contacts. Ear/Nose/Throat: The patient denies allergies, denies hayfever, denies ear infections, and denies bloody noses. Cardiovascular: The patient NOTES chest pain, denies heart disease, denies high blood pressure,denies cardiac stent, denies prior heart attack, denies irregular heart beat, denies high cholesterol, denies poor circulation, denies heart failure, other cardiac issues, NOTES claudication, denies cold feet, denies peripheral arterial stent. Respiratory: The patient denies tuberculosis, denies pneumonia, denies frequent cough, denies pulmonary embolism, denies shortness of breath, and denies coughing up blood. Gastrointestinal: The patient denies difficulty swallowing, denies acid reflux, denies ulcers, denies vomiting, denies jaundice/hepatitis, NOTES gallbladder problems, denies black or tarry stools, NOTES hemorrhoids, denies bleeding from rectum, denies diverticulitis, NOTES constipation, denies diarrhea, denies loss of stool control, and NOTES hernias. Kidney/Bladder: The patient denies kidney stones, denies urine infections, and denies bloody urine. Skin: The patient denies a history of skin cancer, denies bleeding/changing moles, and denies a history of skin rash. Neurologic: The patient denies a history of epilepsy/convulsions, denies headaches, denies head/spinal injuries, and denies stroke/TIA. Psychiatric: The patient denies psychiatric medications, NOTES depression, and denies voices, denies substance abuse. Endocrine: The patient denies thyroid disorders, denies diabetes, and denies hormonal problems. Hematologic: The patient denies a history of bruising, denies bleeding, and denies anemia, denies blood clots. Infections: The patient denies a history of measles and mumps, denies rheumatic fever, and denies sexually transmitted diseases. Musculoskeletal: The patient NOTES back pain/injury, NOTES back problems, denies sciatica, denies knee/foot trouble, denies arthritis, or denies gout. When was patient's last Mammogram screening? N/A Last Colonoscopy: 03/29/2020 Constance Garcia RN documented in this encounter [facility] Clinical Note 05-21-2022 Note Date & Type Note Facility 05-21-2022 Note Called patient and i nformed them that we received referral [facility] Evaluation note Note Date & Type Note Facility documented in this encounter [facility] Summary Purpose Family History No Family History Records FoundNo Family History Records FoundNo Family History Records Found Advance Directives No Advanced Directives Records FoundNo Advanced Directives Records FoundNo Advanced Directives Records Found Reason for Referral Specialty Diagnoses / Procedures Referred By Nadya shah Referred To Contact Gastroenterology Diagnoses Constipation, unspecified constipation type Procedures CONSULT TO GASTROENTEROLOGY OFFICE/OUTPATIENT [facility] 60-74 MINUTES Helen Paul MD [address] [place] [address] Referral ID Status Reason Start Date Expiration Date Visits Requested Visits Authorized [id number] Authorized PCP Requested Referral 3 04/29/2024 1 1 Specialty Diagnoses / Procedures Referred By Nadya shah Referred To Contact [facility] Diagnoses Constipation, unspecified constipation type Procedures COLONOSCOPY DIAGNOSTIC COLONOSCOPY FLX DX W/COLLJ SPEC WHEN PFRMD Helen Paul MD [address] [place] [address] [facility] [address] [place] [address] Referral ID Status Reason Start Date Expiration Date Visits Requested Visits Authorized [id number] Pending Review Auto-Generat ed Referral 3 04/30/2024 1 1 Additional Source Comments (unrecognized sect ion and content) No Status Records FoundNo Status Records FoundNo Status Records Found INFORMATION SOURCE (unrecogn ized section and content) DATE CREATED AUTHOR AUTHOR'S ORGANIZ ATION 05/25/2022 [facility] DATE CREATED AUTHOR AUTHOR'S ORGANIZ ATION 07/14/2023 [facility] Source Comments (unrecognize d section and content) In the event this informatio n is protected by the Federal Confidentiality of Alcohol and Drug Abuse Patient Records regulations: The Federal rules restrict any use of the information to criminally investigate or prosecute any alcohol or drug abuse patient.[facility] Reason for Visit (unrecogniz ed section and content) Care Teams (unrecognized sec tion and content) FOR RECORDS PERTAINING TO PATIENTS WHO ARE OR HAVE BEEN ENROLLED IN A CHEMICAL DEPENDENCY/SUBSTANCEABUSE PROGRAM, SOME INFORMATION MAY BE OMITTED. This clinical summary was aggregated from multiple sources. Caution should be exercised in using it in the provision of clinical care. This summary normalizes information from multiple sources, and as a consequence, information in this document may materially change the coding, format and clinical context of patient data. In addition, data may be omitted in some cases. CLINICAL DECISIONS SHOULD BE BASED ON THE PRIMARY CLINICAL RECORDS. [employer] provides no warranty or guarantee of the accuracy or completeness of information in this document.
== END | disposition home or self-care (01) ==
LOC: MFPLAB 16:47
PROVIDERS: PCP Family Medicine; Visit Provider Family Medicine
DX: E78.1 Pure hyperglyceridemia (principal); E55.9 Vitamin D deficiency, unspecified
CPT/HCPCS: 36415; 80053; 80061; 82306; 85025

== ENCOUNTER → 2024-01-10 | Outpatient (CLI) | payer OTHER, SELFPAY ==
--- NOTE | 2024-01-10 08:25 | RAD_ITS ---
STUDY: X-RAY - RIGHT FOOT CLINICAL: Male, 53 years old. heel pain TECHNIQUE: 3 view(s) of the foot. COMPARISON: None. FINDINGS: There is a plantar calcaneal spur. Normal visualized subtalar, talonavicular, calcaneocuboid, tarsal and tarsometatarsal articulations. Normal metatarsi. There is degenerative arthrosis of the metatarsophalangeal joint of the hallux . Normal tibial and fibular sesamoid bones. Normal interphalangeal joint of the great toe. Normal phalanges of the great toe. Normal second through fifth metatarsophalangeal joints. Normal interphalangeal joints and phalanges of the lesser toes. The soft tissue structures are unremarkable. RAD/Foot min 3 Views IMPRESSION: Mild degenerative changes, as above. Electronically Signed: Dmitriy Quintana MD ([place]) at 12:50 EDT ,
== END | disposition home or self-care (01) ==
LOC: MTRAD 08:25
PROVIDERS: PCP Family Medicine; Referring Provider Family Medicine; Visit Provider Family Medicine
DX: M79.673 Pain in unspecified foot (principal)
CPT/HCPCS: 73630

== ENCOUNTER 2024-02-15 14:17 | Emergency (ER) | payer OTHER, SELFPAY ==
[2024-02-15 14:18] VITALS: BP 155/96; PULSE 79; RESP 18; TEMP 35.7; O2SAT 97
[2024-02-15 14:35] VITALS: BMI 39.7
[2024-02-15 15:12] VITALS: BP 124/78; PULSE 62; RESP 18; O2SAT 98
--- NOTE | 2024-02-15 15:25 | EKG12_ITS ---
Test Reason : CP Blood Pressure : / mmHG Vent. Rate : 070 BPM Atrial Rate : 070 BPM P-R Int : 166 ms QRS Dur : 094 ms QT Int : 420 ms P-R-T Axes : 026 038 021 degrees QTc Int : 453 ms Normal sinus rhythm Normal ECG Confirmed by KOBI LO, JC ([id number]), editor magazine HANNA SCHMIDT ([id number]) on 02/18/2024 8:11:57 AM Referred By: LALITA/ONUR Confirmed By:JC PEACE MD
--- NOTE | 2024-02-15 15:32 | ED.VIS.CHEST ---
HPI History of Present Illness Chief Complaint: Chest Pain Informant: patient Onset/Context/Timing Onset: Days Timing: Intermittent Quality: Positive for Aching Location: Left Chest Current Severity: Mild Maximum Severity: Mild Worsened By: Nothing Relieved By: Nothing Associated Symptoms: Positive for Lightheadedness; Negative for Nausea, Vomiting, Diaphoresis, Cough, Fever, Acid Reflux or Palpitations Narrative Narrative: 53-year-old male prior DVT years ago when he had COVID. No history of PE. For the last week he has had atypical nonexertional chest pain. He describes it as tense pain. At times he gets short of breath with it. Is not pleuritic. He has no hemoptysis. He has no leg swelling. He denies any sweating, or nausea with it. Is not exertional. He did get lightheaded with it 1 day. Has never had any cardiac history. He did have a negative stress test 2 to 3 years ago he believes. Prior Similar Symptoms: Yes Recent Illness/Hospitalization: No CVD Risk Factors: Negative for Hypertension or Hypercholesterolemia PE Risk Factors: Positive for Prior DVT or PE; Negative for Recent Travel/Surgery, Recent Immobilization, Cancer or OCP + Smoking + >/=35 TAD Risk Factors: Negative for Marfan's Syndrome [facility] Medical History Clot Bilateral leg pain Wears glasses Alcohol use Restless legs Back pain History of ulceration Non-smoker CPAP (continuous positive airway pressure) dependence Shortness of breath on exertion History of pain when walking History of echocardiogram Biliary dyskinesia BMI 39.0-39.9,adult COVID-19 Umbilical hernia without obstruction or gangrene Inguinal hernia of right side without obstruction or gangrene Migraines Acute right-sided back pain with sciatica Anxiety Depression Home Medications ?Medication ?Instructions ?Recorded ?Last Taken ?Type blvgnkh-nscuxtrlmbwtg-rmcvpsna 250 1 tab PO PRN PRN Headache 03/09/21 Unknown History mg-250 mg-65 mg tablet (Excedrin Migraine) aspirin 81 mg capsule 81 mg PO DAILY 05/03/22 Unknown History naproxen sodium BID 05/03/22 Unknown History Allergy/AdvReac Type Severity Reaction Status Date / Time escitalopram (From Lexapro) AdvReac Intermediate Other Verified 02/15/24 14:18 Family History Mother Breast cancer Thyroid disorder Father Diabetes Cancer Surgical History History of left breast biopsy (~07/2021) History of hernia repair History of laparoscopic cholecystectomy Hx of thumb surgery History of lateral meniscus repair of left knee Hx of hemorrhoidectomy History of rectal surgery S/P ACL surgery Social History Smoking Status: Never smoker alcohol intake: never ROS ROS ED ROS Narrative Denies recent illness. Constitutional Constitutional ED: Denies chills or fever(s) Eyes Eyes: Reports none ENT ENT ED: Denies ear pain Cardiovascular Cardiovascular: Reports as per HPI and chest pain Respiratory/Chest Respiratory/Chest: Denies cough or dyspnea Gastrointestinal Gastrointestinal: Denies abdominal pain Genitourinary Genitourinary ED: Denies dysuria or hematuria Musculoskeletal Musculoskeletal: Denies arthralgias or back pain Integumentary Denies abscess or Abrasions Neurologic Neurologic: Denies headache(s) Psychiatric Psychiatric: Denies anxiety Endocrine Endocrinology: Denies cold intolerance Hematologic/Lymphatic Hematologic/Lymphatic: Denies easy bleeding, easy bruising, lymphadenopathy or other Allergic/Immunologic Allergic/Immunologic ED: Denies mouth swelling, tongue swelling or urticaria EXAM Physical Exam Narrative Exam Narrative: Well-appearing 53-year-old male. Vital signs stable afebrile. Pulse ox 97% on room air no hypoxia. He is no distress. at bedside. H EENT exam unremarkable. Lungs clear. Heart regular rate and rhythm rate about 75. Chest wall and ribs are nontender. No reproducible pain. No signs of trauma. Abdomen soft nontender. Normal bowel sounds without peritoneal signs. Moving all 4 extremities. Calves are nontender without edema or cords. Neurologically is awake alert with no focal motor deficits. Answering questions and following commands. Const Vital Signs: 02/15/24 14:18 02/15/24 14:35 02/15/24 15:12 Temperature 96.3 F L Temperature Source Temporal Pulse Rate 79 62 Respiratory Rate 18 18 Respiratory Effort Normal Non-Labored Respiratory Pattern Normal Blood Pressure 155/96 H 124/78 H Blood Pressure Mean 115 93 Pulse Ox 97 98 Oxygen Delivery Method Room Air Room Air 02/15/24 15:28 02/15/24 15:45 02/15/24 15:48 Temperature Temperature Source Pulse Rate 73 70 Respiratory Rate 20 H 18 Respiratory Effort Respiratory Pattern Blood Pressure 132/77 H 132/77 H Blood Pressure Mean 91 95 Pulse Ox 96 95 Oxygen Delivery Method Room Air Room Air 02/15/24 17:00 Temperature Temperature Source Pulse Rate 59 L Respiratory Rate 19 H Respiratory Effort Respiratory Pattern Blood Pressure 131/88 H Blood Pressure Mean 98 Pulse Ox 94 Oxygen Delivery Method Positive well nourished and well developed; Negative for cachectic, contractures or unkempt General Appearance ED: well developed and NAD; Negative for unkempt, cachectic, contractures or pallor Nutritional Appearance: Negative for cachectic HEENT Reports moist mucous membranes normocephalic and atraumatic; Negative for trauma or tenderness Eyes PERRL and EOMs intact bilaterally General Eye ED: Negative for pale conjunctiva or scleral icterus Neck no lymphadenopathy, supple and no JVD Chest Wall inspection of chest normal and palpation of chest normal Chest: Negative for tenderness Resp normal respiratory effort and clear to auscultation bilaterally Effort and Inspection: Negative for respiratory distress Auscultation: Negative for rales, rhonchi, wheezes or diminished lung sounds Cardio regular rate, regular rhythm, S1 normal heart sound, S2 normal heart sound and no murmurs Rate: Negative for bradycardia or tachycardic Rhythm: Negative for abnormal rhythm Peripheral Pulses: pulses 2+ throughout GI normal to inspection, nondistended, normoactive bowel sounds, soft to palpation, non-tender, non-distended and no masses Auscultation: Negative for hyperactive bowel sounds Palpation: Negative for splenomegaly or mass Back/Spine no CVA tenderness and no thoracic nor lumbar tenderness General Back: Negative for CVA tenderness Cervical Spine: Negative for cervical spine tenderness Extremity normal to inspection General Extremety ED: Negative for edema, pulses abnormal or tenderness General Extremity: Negative for edema or pulses abnormal Neuro oriented x3 and CN's II-XII intact bilaterally Sensorium / Orientation: awake, alert, oriented to person, oriented to place and oriented to time; Negative for confused, lethargic or stuporous Motor Exam: strength 5/5 throughout Psych mental status grossly normal Appearance: Negative for unkempt Attitude: No agitated Mood & Affect: Negative for depressed Skin no rashes or lesions noted and no wounds General Skin Exam: Negative for jaundice or pallor Rashes: No rashes noted Trauma: Negative for abrasion, laceration or puncture Heart Score History: Slightly/Non-Suspicious ECG: Normal Age: >45 - <65 years Risk Factors: 1 or 2 Risk Factors Troponin: </= Normal Limit Score: 2 MDM MDM MDM Narrative Medical decision making narrative: 53-year-old male with atypical nonexertional chest pain. He will undergo a cardiac workup. It is not really reproducible. Exam benign. He has had a prior DVT years ago. I will also do a D-dimer. But really does not sound like pulmonary emboli chest pain. Repeat exam patient is doing well at 5:10 PM. Went over all of his test results. Given he is headed for a week and I will think he needs a second troponin. His D-dimer is negative so no begets PE. Patient will follow-up with his primary care physician. Given his age range I do think it would be a good idea to have an outpatient stress test. He and his are comfortable with the plan. History & Record Review Discussion w/independent historian: Patient Additional record(s) reviewed:: Prior inpatient record, Prior outpatient record, Prior ED visit and Prior labs Lab Data Attestation: I reviewed the patient's lab results. Lab results narrative: CBC normal. Chemistries unremarkable. Gap 6. Normal BUN and creatinine. Glucose 115. Troponin normal at 5. D-dimer normal at 0.3 Chest x-ray and EKG unremarkable. Labs: Laboratory Results - last 24 hr 02/15/24 14:25 WBC 9.2 RBC 5.24 Hgb 14.6 Hct 42.7 MCV 81.5 MCH 27.9 MCHC 34.2 RDW Std Deviation 41.5 RDW Coeff of Brock 14.1 Plt Count 278 MPV 9.8 Immature Gran % (Auto) 0.400 Neut % (Auto) 62.5 Lymph % (Auto) 25.1 Todd % (Auto) 7.4 Eos % (Auto) 3.6 Baso % (Auto) 1.0 Absolute Neuts (auto) 5.7 Absolute Lymphs (auto) 2.31 Nucleated RBC % 0 D-Dimer Quant (PE/DVT) 0.33 Sodium 140 Potassium 3.9 Chloride 108 H Carbon Dioxide 26.0 Anion Gap 6 BUN 17 Creatinine 1.24 Estim Creat Clear Calc 107.20 Est GFR (MDRD) Af Amer 79 Est GFR (MDRD) Non-Af 65 BUN/Creatinine Ratio 13.7 Glucose 115 H Calcium 8.7 Troponin I High Sens 5 Radiography Chest X-Ray - ED: 1 View, Read by ED Physician, Read by Radiologist, Lungs, Mediastinum, Bony Structures, No Acute Disease and Chronic Changes Diagnostic Testing: Clinical Impression(s) from Imaging Studies Chest X-Ray 02/15/24 15:38 IMPRESSION: No acute thoracic pathology. Electronically Signed: Tyler Charles MD at 16:09 EDT , Chest x-ray portable, single view, interpreted myself shows no acute abnormality. Normal cardiac silhouette. Normal lung barreto. Also read by the radiologist and agrees. Rhythm Strip Rhythm Strip: Sinus Rhythm Rate: 70 Ectopy: None EKG Initial EKG: Attestation: I personally reviewed and interpreted this EKG as follows: Interpretation: Sinus Rhythm and No Acute Injury Pattern Comments: Normal sinus rhythm rate of 70 no acute signs of KS or ischemia. Discharge Plan Triage Chief Complaint: Chest Pain ED Provider: Reagan Cabrera Dx/Rx/DC Orders Clinical Impression: Chest pain Instructions: ED Chest Pain, Uncertain Cause Prescriptions: No Action Excedrin Migraine 250-250-65 mg tablet 1 tab PO PRN PRN (Reason: Headache) aspirin 81 mg Capsule 81 mg PO DAILY naproxen sodium BID Primary Care Provider: Dewey Luis Referrals: Dewey Luis MD [Primary Care Provider] - 3-5 Days Activity Restrictions/Additional Instructions: Your labs, chest x-ray, EKG are unremarkable. Your exam is unremarkable. You are having chest pain we do not have a specific cause. You have not had a heart attack by your labs. Call and follow-up your primary care physician. Safest thing to do would be an outpatient stress test. Return to emergency department if you are feeling worse. If you would develop exertional chest pain or shortness of breath. Print Language: Yoruba Disposition Disposition: Home, Self Care
[2024-02-15 15:36] LABS: Absolute Lymphocyte Count 2.31 X10^3/uL (0.83-4.51); Absolute Neutrophil Count 5.7 X10^3/uL (2.0-7.7); Basophil# 0.09 X10^3/uL; Eosinophil# 0.33 X10^3/uL; Eosinophils% 3.6 % (0-5); Hematocrit 42.7 % (40-54); Hemoglobin 14.6 g/dL (13.0-16.5); Lymphocyte # 2.31 X10^3/ul (0.83-4.51); Lymphocyte % 25.1 % (19-41); Mean Corp Hgb Conc 34.2 g/dL (32-36); Mean Corpuscular Hgb 27.9 pg (27.0-32.0); Mean Corpuscular Volume 81.5 fL (80-94); Mean Platelet Vol. 9.8 fl (6.2-12.0); Monocyte# 0.68 X10^3/uL; Monocyte% 7.4 % (0-10); NRBC Flagged by Analyzer 0 % (0-5); Neutrophil # 5.74 X10^3/uL (2.7-7.7); Neutrophil % 62.5 % (47-70); Platelet Count 278 K/mm3 (150-450); RBC Distribution Width CV 14.1 % (11.6-14.6); RBC Distribution Width SD 41.5 fl (35.1-43.9); Red Blood Count 5.24 M/mm3 (4.6-6.2); White Blood Count 9.2 K/mm3 (4.4-11.0)
--- NOTE | 2024-02-15 15:38 | RAD_ITS ---
STUDY: X-RAY CHEST REASON FOR EXAM: Male, 53 years old. Chest pain TECHNIQUE: Frontal view of the chest COMPARISON: 08/16/2023 FINDINGS: The lungs are clear. There are no pleural effusions. There is no pneumothorax. The heart is normal in size. The visualized osseous structures are within normal limits. RAD/Chest 1 View (Portable) IMPRESSION: No acute thoracic pathology. Electronically Signed: Tyler Charles MD at 16:09 EDT ,
[2024-02-15 15:45] VITALS: BP 132/77; PULSE 73; RESP 20; O2SAT 96
[2024-02-15 15:48] VITALS: BP 132/77; PULSE 70; RESP 18; O2SAT 95
[2024-02-15 16:01] LABS: D-Dimer Quantitative (DVT/PE) 0.33 FEU/ug/m (0.27-0.49)
[2024-02-15 16:02] LABS: Anion Gap 6 (5-15); BUN 17 mg/dL (7-18); BUN/Creat Ratio 13.7 RATIO (10-20); Calcium,Total 8.7 mg/dL (8.5-10.1); Chloride 108 mmol/L (98-107); Creatinine, Serum 1.24 mg/dL (0.70-1.30); EST Glomerular Filtration Rate 65 mL/min (>60); Est Glom Filt Rate - Afr Amer 79 mL/min (>60); Glucose 115 mg/dL (74-106); Potassium 3.9 mmol/L (3.5-5.1); Sodium Level 140 mmol/L (136-145); Troponin-I HS (w/2H Reflex) 5 pg/mL (3.0-78.0)
[2024-02-15 17:00] VITALS: BP 131/88; PULSE 59; RESP 19; O2SAT 94
[2024-02-15 17:21] VITALS: BP 125/86; PULSE 65; RESP 14; TEMP 36.9; O2SAT 99
[2024-02-15 17:33] LABS: Reflex Troponin-HS? (from REC) Y
== END 2024-02-15 17:22 | disposition home or self-care (01) ==
PROVIDERS: Emergency Provider Emergency Medicine; PCP Family Medicine; Visit Provider Emergency Medicine
DX: R07.89 Other chest pain (principal); R42 Dizziness and giddiness; Z79.82 Long term (current) use of aspirin; Z86.718 Personal history of other venous thrombosis and embolism; Z86.16 Personal history of COVID-19
CPT/HCPCS: 71045; 80048; 84484; 85025; 85379; 93005; 99284; A4216

== ENCOUNTER → 2024-06-29 | Outpatient (CLI) | payer OTHER, SELFPAY ==
--- NOTE | 2024-06-29 08:36 | US_ITS ---
STUDY: ULTRASOUND BREAST - LEFT REASON FOR EXAM: Male, 53 years old. Palpable lump left breast. TECHNIQUE: Axial and longitudinal images of the LEFT breast were performed with a high resolution ultrasound transducer. # OF IMAGES: 28 COMPARISON: Comparison is made with prior mammogram done earlier today as well as prior sonogram of the left breast dated July 17, 2021. FINDINGS: LEFT Breast: The upper-outer quadrant of the left breast was examined with ultrasound. No sonographic abnormality is seen. US/Breast Limited Unilateral IMPRESSION: No sonographic abnormality is seen. ASSESSMENT CATEGORY: BIRADS Category 1: Negative. A letter regarding these results will be sent to the patient by the facility within 30 days. Electronically Signed: Shaheen Garcia MD at 10:50 EST ,
--- NOTE | 2024-06-29 08:36 | BI_ITS ---
MAMMOGRAPHY - BILATERAL DIAGNOSTIC REASON FOR EXAM: Male, 53 years old. Left breast lump. Gynecomastia. PERTINENT HISTORY: Mother with breast cancer. TECHNIQUE: Digital bilateral breast jazzy (3D mammographic acquisition) in the CC and MLO projections. 2-D mediolateral oblique (MLO) and craniocaudad (CC) views of both breasts were obtained. CAD: Full Field Digital Mammography with Computer Added Detection was performed. COMPARISON: Comparison made with prior study dated July 17, 2021. FINDINGS: Breast Composition: The breasts are almost entirely fatty. There are no dominant masses or suspicious calcifications. Stable Fat-containing bilateral axillary lymph nodes. No other significant abnormalities are identified. There has been no significant change since the prior study. BI/DIAG MAMM W/CAD, BILAT IMPRESSION: Negative diagnostic mammogram. With the patient''s history of a palpable lump in the left breast, targeted sonographic correlation recommended. ASSESSMENT CATEGORY: BIRADS Category 0: Incomplete. Need additional imaging evaluation. A letter regarding these results will be sent to the patient by the facility within 30 days. Approximately 10% of breast cancers are not detected by mammography. A normal mammogram should not delay biopsy of a clinically suspicious abnormality. Electronically Signed: Shaheen Garcia MD at 9:58 EST ,
== END | disposition home or self-care (01) ==
PROVIDERS: PCP Family Medicine
DX: N62 Hypertrophy of breast (principal)
CPT/HCPCS: 76642; 77062; 77066; G0279

== ENCOUNTER → 2024-07-17 | Outpatient (CLI) | payer OTHER, SELFPAY ==
[2024-07-17 18:03] LABS: Absolute Lymphocyte Count 2.46 X10^3/uL (0.83-4.51); Absolute Neutrophil Count 5.9 X10^3/uL (2.0-7.7); Basophil# 0.12 X10^3/uL; Basophil% 1.2 % (0-1); Eosinophil# 0.33 X10^3/uL; Eosinophils% 3.4 % (0-5); Hematocrit 43.3 % (40-54); Lymphocyte # 2.46 X10^3/ul (0.83-4.51); Lymphocyte % 25.1 % (19-41); Mean Corp Hgb Conc 34.6 g/dL (32-36); Mean Corpuscular Hgb 27.8 pg (27.0-32.0); Mean Corpuscular Volume 80.3 fL (80-94); Mean Platelet Vol. 9.8 fl (6.2-12.0); Monocyte# 0.87 X10^3/uL; Monocyte% 8.9 % (0-10); NRBC Flagged by Analyzer 0 % (0-5); Neutrophil # 5.93 X10^3/uL (2.7-7.7); Neutrophil % 60.6 % (47-70); Platelet Count 270 K/mm3 (150-450); RBC Distribution Width CV 14.6 % (11.6-14.6); Red Blood Count 5.39 M/mm3 (4.6-6.2); White Blood Count 9.8 K/mm3 (4.4-11.0)
[2024-07-17 18:39] LABS: AST(SGOT) 21 U/L (15-37); Alanine Aminotransfer ALT/SGPT 42 U/L (16-61); Albumin, Serum 3.8 g/dL (3.2-5.0); Alkaline Phosphatase 70 U/L (45-117); Anion Gap 8 (5-15); BUN 20 mg/dL (7-18); Calcium,Total 9.3 mg/dL (8.5-10.1); Chloride 105 mmol/L (98-107); Cholesterol 149 mg/dL (200); Creatinine, Serum 1.11 mg/dL (0.70-1.30); EST Glomerular Filtration Rate 74 mL/min (>60); Est Glom Filt Rate - Afr Amer 89 mL/min (>60); Globulin 3.9 g/dL (2.2-4.2); Glucose 86 mg/dL (74-106); High Density Lipoprotein 31 mg/dL; PSA,Total - Annual Screen 0.84 ng/mL (0.00-4.00); Protein, Total 7.7 g/dL (6.4-8.2); Sodium Level 136 mmol/L (136-145); Triglycerides 184 mg/dL; Very Low Density Lipoprotein 37 mg/dL (5-40)
== END | disposition home or self-care (01) ==
LOC: MFPLAB 16:43
PROVIDERS: PCP Family Medicine; Referring Provider Family Medicine; Visit Provider Family Medicine
DX: R07.9 Chest pain, unspecified (principal); Z12.5 Encounter for screening for malignant neoplasm of prostate; Z80.42 Family history of malignant neoplasm of prostate
CPT/HCPCS: 36415; 80053; 80061; 84153; 85025; G0103

== ENCOUNTER → 2024-10-13 | Outpatient (CLI) | payer OTHER, SELFPAY ==
[2024-10-13 18:00] LABS: Absolute Lymphocyte Count 2.25 X10^3/uL (0.83-4.51); Absolute Neutrophil Count 6.3 X10^3/uL (2.0-7.7); Basophil# 0.08 X10^3/uL; Basophil% 0.8 % (0-1); Eosinophil# 0.25 X10^3/uL; Eosinophils% 2.6 % (0-5); Hematocrit 43.7 % (40-54); Hemoglobin 15.1 g/dL (13.0-16.5); Lymphocyte # 2.25 X10^3/ul (0.83-4.51); Lymphocyte % 23.1 % (19-41); Mean Corp Hgb Conc 34.6 g/dL (32-36); Mean Corpuscular Hgb 28.1 pg (27.0-32.0); Mean Corpuscular Volume 81.2 fL (80-94); Mean Platelet Vol. 9.8 fl (6.2-12.0); Monocyte# 0.77 X10^3/uL; Monocyte% 7.9 % (0-10); NRBC Flagged by Analyzer 0 % (0-5); Neutrophil # 6.34 X10^3/uL (2.7-7.7); Neutrophil % 65.1 % (47-70); Platelet Count 291 K/mm3 (150-450); RBC Distribution Width CV 14.4 % (11.6-14.6); RBC Distribution Width SD 42.3 fl (35.1-43.9); Red Blood Count 5.38 M/mm3 (4.6-6.2); White Blood Count 9.7 K/mm3 (4.4-11.0)
[2024-10-13 18:34] LABS: ALB/GLOB Ratio 1.4 RATIO (0.9-2.4); AST(SGOT) 19 U/L (<=37); Alanine Aminotransfer ALT/SGPT 21 U/L (<=46); Albumin, Serum 4.4 g/dL (3.5-5.0); Alkaline Phosphatase 73 U/L (40-129); Anion Gap 12 (5-15); BUN 18 mg/dL (4-19); BUN/Creat Ratio 15.3 RATIO (10-20); Calcium,Total 9.4 mg/dL (7.6-11.0); Carbon Dioxide 22.3 mmol/L (21.0-32.0); Chloride 104 mmol/L (98-108); EST Glomerular Filtration Rate 73 (>60); Glucose 90 mg/dL (70-99); Potassium 4.1 mmol/L (3.3-5.1); Protein, Total 7.4 g/dL (5.9-8.4); Sodium Level 139 mmol/L (133-145); Total Bilirubin 0.68 mg/dL (0.00-1.30)
[2024-10-13 18:36] LABS: Vitamin D,25 Hydroxy 16.7 ng/mL (30-100)
== END | disposition home or self-care (01) ==
LOC: MFPLAB 16:37
PROVIDERS: PCP Family Medicine; Referring Provider Family Medicine; Visit Provider Family Medicine
DX: E55.9 Vitamin D deficiency, unspecified (principal)
CPT/HCPCS: 36415; 80053; 82306; 85025

== ENCOUNTER → 2024-11-16 | Outpatient (CLI) | payer OTHER, SELFPAY ==
--- NOTE | 2024-11-16 15:13 | RAD_ITS ---
PROCEDURE: LUMBAR SPINE 2 OR 3 VIEWS 11/16/2024 REASON FOR EXAM: SPONDYLOSIS WITHOUT MYELOPATHY OR RADICULOPATHY, LUMBAR REGION TECHNIQUE: 3 view(s) of the lumbar spine COMPARISON: Lumbar spine radiographs on 07/11/2021 FINDINGS: There are 5 eel-shu-[id number] lumbar-type vertebral bodies. Lumbar vertebral body heights and alignment are maintained. There is anterior calcification at the L1-2 disc space with mild disc space narrowing at this level. Mild facet arthrosis which is worst in the lower lumbar spine. Visualized bowel gas pattern is nonobstructive. RAD/Lumbar Spine 2 or 3 Views IMPRESSION: Mild degenerative changes of the lumbar spine are worst at L1-2 and L5-S1. Reading Location: [facility]
== END | disposition home or self-care (01) ==
PROVIDERS: PCP Family Medicine; Referring Provider Anesthesiology Pain Medicine; Visit Provider Anesthesiology Pain Medicine
DX: M47.816 Spondylosis without myelopathy or radiculopathy, lumbar region (principal)
CPT/HCPCS: 72100

== ENCOUNTER → 2025-03-11 | Outpatient (CLI) | payer OTHER, SELFPAY ==
--- NOTE | 2025-03-11 08:51 | VDLE_ITS ---
Reason For Study Reason For Study: Right leg pain RIGHT LEFT GSV is normal. CFV is compressible, spontaneous, phasic, competent, CFV is compressible, spontaneous, phasic, competent and demonstrates normal augmentation. and demonstrates normal augmentation. FV is compressible, spontaneous, phasic, competent and demonstrates normal augmentation. POP V is compressible, spontaneous, phasic, competent and demonstrates normal augmentation. T/P Trunk is compressible. PTV is compressible. RT PerV is compressible. Procedure This is a venous duplex using B-mode, color flow and spectral Doppler. Exam performed in department. A preliminary report was called and/or faxed to Dr. Luis. VL/Venous Duplex US, Unilateral Interpretation Summary Deep veins of the right lower extremity are patent and compressible segmentally . There is no evidence of right lower extremity deep vein thrombosis. Valvular competence appears intact within the p roximal deep venous system on the right . The right great saphenous vein appears patent and compressible segmentally. The left common femoral vein is patent and compressible . Ordering Physician: Dewey Lusi Referring Physician: Dewey Luis Performed By: Rox Monteiro RVT
--- NOTE | 2025-03-11 08:51 | RAD_ITS ---
PROCEDURE: ANKLE MIN 3 VIEWS 03/11/2025 REASON FOR EXAM: PAIN TECHNIQUE: Procedure Code: RADANK Modality: DX Procedure: ANKLE MIN 3 VIEWS Laterality: Right COMPARISON: Right foot series of 01/10/2024. RAD/Ankle min 3 Views IMPRESSION: Stable inferior and posterior calcaneal spurring. Normal contour of the Achilles tendon is seen in the lateral view. No ankle joint effusion is noted. Mature nonunited ossicle seen of the tip of the medial malleolus. Satisfactory alignment of the ankle mortise. No evidence of talar dome osteonecrosis or osteochondral fracture. No acute fracture or dislocation is seen. Reading Location: [id number]
== END | disposition home or self-care (01) ==
LOC: CVS 08:50
PROVIDERS: PCP Family Medicine; Referring Provider Family Medicine; Visit Provider Family Medicine
DX: M79.605 Pain in left leg (principal); M77.31 Calcaneal spur, right foot
CPT/HCPCS: 73610; 93971

== ENCOUNTER 2025-04-15 08:06 | Outpatient (CLI) | payer OTHER, SELFPAY ==
[2025-04-15 10:27] LABS: Hematocrit 42.5 % (40-54); Hemoglobin 14.6 g/dL (13.0-16.5); Immature Granulocytes Count 0.080 X10^3/uL (0.0-0.0); Mean Corp Hgb Conc 34.4 g/dL (32-36); Mean Corpuscular Volume 81.0 fL (80-94); Mean Platelet Vol. 9.3 fl (6.2-12.0); NRBC Flagged by Analyzer 0 % (0-5); Platelet Count 237 K/mm3 (150-450); RBC Distribution Width CV 15.0 % (11.6-14.6); RBC Distribution Width SD 43.9 fl (35.1-43.9); Red Blood Count 5.25 M/mm3 (4.6-6.2); White Blood Count 8.6 K/mm3 (4.4-11.0)
[2025-04-15 11:11] LABS: AST(SGOT) 18 U/L (<=37); Alanine Aminotransfer ALT/SGPT 16 U/L (<=46); Albumin, Serum 4.1 g/dL (3.5-5.0); Alkaline Phosphatase 62 U/L (40-129); Anion Gap 11 (5-15); BUN 22 mg/dL (4-19); BUN/Creat Ratio 20.4 RATIO (10-20); Calcium,Total 9.1 mg/dL (7.6-11.0); Carbon Dioxide 23.4 mmol/L (21.0-32.0); Chloride 105 mmol/L (98-108); Cholesterol 169 mg/dL (<=200); Globulin 2.9 g/dL (2.2-4.2); Glucose 91 mg/dL (70-99); Low Density Lipoprotein Calc. 107 mg/dL; Potassium 4.2 mmol/L (3.3-5.1); Triglycerides 182 mg/dL; Very Low Density Lipoprotein 36 mg/dL (5-40); Vitamin D,25 Hydroxy 33.6 ng/mL (30-100); cholesterol:hdl ratio screen 5.56
== END 2025-04-15 23:59 | disposition home or self-care (01) ==
LOC: MTLAB 08:07
PROVIDERS: PCP Family Medicine; Referring Provider Family Medicine; Visit Provider Family Medicine
DX: E87.1 Hypo-osmolality and hyponatremia (principal)
CPT/HCPCS: 36415; 80053; 80061; 82306; 85025

== ENCOUNTER 2025-04-28 18:50 | Emergency (ER) | payer OTHER, SELFPAY ==
[2025-04-28 18:51] VITALS: BP 166/94; PULSE 79; RESP 16; TEMP 36.4; O2SAT 98; BMI 42.5
--- NOTE | 2025-04-28 18:52 | EKG12_ITS ---
Test Reason : CP Blood Pressure : */* mmHG Vent. Rate : 75 BPM Atrial Rate : 75 BPM P-R Int : 158 ms QRS Dur : 96 ms QT Int : 390 ms P-R-T Axes : 44 16 10 degrees QTcB Int : 435 ms Normal sinus rhythm Normal ECG Confirmed by YSABEL LO, KELVIN ([id number]), copy editor HANNA SCHMIDT ([id number]) on 05/03/2025 8:26:23 AM Referred By: Confirmed By: KELVIN GRADY MD
--- NOTE | 2025-04-28 19:04 | ED.VIS.CHEST ---
HPI History of Present Illness Chief Complaint: Chest Pain Narrative Narrative: 54-year-old male who denies significant past medical history presents as with his because of chest pain and left arm tightness that he has had for the last week or longer but worse over the last 4 days. He states previously has been intermittent. He attributes his chest discomfort from being out of shape. He thought it was weight related. There are times when he becomes more flushed but denies diaphoresis, no nausea or vomiting. No leg swelling. He denies any DVT or PE risk factors. Non-smoker. States his grandmother had a heart attack at age 68. He became concerned because it is worsening over the last 4 days. He states that today at work the left side of his neck was painful, and he always feels tightness in his left arm. No exacerbating or alleviating factors otherwise. No recent fevers or chills or cough. [facility] Medical History Clot Bilateral leg pain Wears glasses Alcohol use Restless legs Back pain History of ulceration Non-smoker CPAP (continuous positive airway pressure) dependence Shortness of breath on exertion History of pain when walking History of echocardiogram Biliary dyskinesia BMI 39.0-39.9,adult COVID-19 Umbilical hernia without obstruction or gangrene Inguinal hernia of right side without obstruction or gangrene Migraines Acute right-sided back pain with sciatica Anxiety Depression Home Medications Medication Instructions Recorded Last Taken Type frxobft-iueeohjpsskvo-yuemwbtm 250 1 tab PO PRN PRN Headache 03/09/21 Unknown History mg-250 mg-65 mg tablet (Excedrin Migraine) aspirin 81 mg capsule 81 mg PO DAILY 05/03/22 Unknown History naproxen sodium BID 05/03/22 Unknown History Allergy/AdvReac Type Severity Reaction Status Date / Time escitalopram (From Lexapro) AdvReac Intermediate Other Verified 04/28/25 18:51 Family History Mother Breast cancer Thyroid disorder Father Diabetes Cancer Surgical History History of left breast biopsy (~07/2021) History of hernia repair History of laparoscopic cholecystectomy Hx of thumb surgery History of lateral meniscus repair of left knee Hx of hemorrhoidectomy History of rectal surgery S/P ACL surgery Social History Smoking Status: Never smoker alcohol intake: never ROS ROS ED ROS Narrative Review of systems positive for chest discomfort, midsternal, left arm tightness. Today experienced left neck pain. No nausea or vomiting, no diaphoresis. Denies DVT or PE risk factors, no leg swelling. Non-smoker. EXAM Physical Exam Narrative Exam Narrative: Afebrile. Vital signs noted. Nontoxic-appearing. Cardiovascular examination feels regular rate and rhythm. Lungs are clear to auscultation bilaterally. Abdomen is soft and nontender with positive bowel sounds. No guarding or rebound. Neurological examination nonfocal, nonlateralizing. Awake, alert, oriented. No pedal edema appreciated. Const Vital Signs: 04/28/25 18:51 04/28/25 19:08 04/28/25 19:18 Temperature 97.5 F L Temperature Source Oral Pulse Rate 79 71 Respiratory Rate 16 17 Respiratory Effort Blood Pressure 166/94 H 144/74 H Blood Pressure Mean 118 97 Pulse Ox 98 96 Oxygen Delivery Method Room Air Room Air 04/28/25 19:18 04/28/25 20:00 04/28/25 21:00 Temperature Temperature Source Pulse Rate 67 66 Respiratory Rate 20 H 15 Respiratory Effort Normal Non-Labored Blood Pressure 123/76 H 121/76 H Blood Pressure Mean 89 88 Pulse Ox 94 96 Oxygen Delivery Method MDM MDM MDM Narrative Medical decision making narrative: The differential diagnosis includes but not limited to ACS versus pulmonary embolism versus aortic dissection versus pneumonia versus pneumothorax. History and physical does not support aortic dissection. He has low risk factors for pulmonary embolism. He is not hypoxic, nor is he tachycardic. Chest pain workup was pursued per protocol. I did add a D-dimer as well as aspirin prophylactically. EKG was obtained and interpreted by myself independently as normal sinus rhythm at 75 bpm without ectopy or acute ST changes. No STEMI. I reviewed his laboratory work and he has normal white count at 10.3 with hemoglobin 14.6, hematocrit 42.7, platelet count normal at 254. BMP is grossly unremarkable with a normal BUN of 14 and creatinine 1.15, glucose slightly elevated at 121 but normal anion gap of 11. D-dimer is negative at less than 0.27, when compared to prior, it was slightly higher in the 30s. However, I still doubt pulmonary embolism and do not find CTA indicated. Initial high-sensitivity troponin is 13. Chest x-ray interpreted by myself independently shows no evidence of pneumonia or pneumothorax. I do not feel antibiotics are indicated. I reviewed the radiology report which confirms my independent interpretation. Upon repeat examination, he states he feels the same, but his blood pressure has lowered to 132 systolic on the monitor. As well as his repeat troponin shows an acceptable delta troponin, I do feel that he could be discharged to follow-up with his primary care provider. I do not feel that he requires an aerosol treatment as he had no overt wheezing and was moving a good amount of air and had normal pulse ox. Repeat troponin at 2 hours is 14 for a negative delta troponin. Repeat examination at approximately 2130 shows he may be slightly improved. At this point in time given his negative workup, I do feel that he can be discharged to follow-up with his primary care provider. He was told he may need outpatient stress testing. Return instructions to the emergency department were reviewed. Disposition is discharged home in stable condition. History & Record Review Discussion w/independent historian: Patient Lab Data Attestation: I reviewed the patient's lab results. Labs: Laboratory Results - last 24 hr 04/28/25 04/28/25 18:58 20:55 WBC 10.3 RBC 5.25 Hgb 14.6 Hct 42.7 MCV 81.3 MCH 27.8 MCHC 34.2 RDW Std Deviation 43.2 RDW Coeff of Brock 14.9 H Plt Count 254 MPV 9.8 Immature Gran % (Auto) 0.500 Neut % (Auto) 66.0 Lymph % (Auto) 23.2 Meade % (Auto) 6.7 Eos % (Auto) 2.8 Baso % (Auto) 0.8 Absolute Neuts (auto) 6.8 Absolute Lymphs (auto) 2.39 Nucleated RBC % 0 D-Dimer Quant (PE/DVT) < 0.27 L Sodium 138 Potassium 4.3 Chloride 104 Carbon Dioxide 23.5 Anion Gap 11 BUN 14 Creatinine 1.15 Estim Creat Clear Calc 114.96 Est GFR (MDRD) Non-Af 76 BUN/Creatinine Ratio 12.0 Glucose 121 H Calcium 9.3 Troponin T High Sens 13 Troponin T Hi Sens 2 Hr 14 Radiography Diagnostic Testing: Clinical Impression(s) from Imaging Studies Chest X-Ray 04/28/25 19:05 IMPRESSION: No acute cardiopulmonary process. [facility] T[facility] Chief Complaint: Chest Pain ED Provider: Eulalio Adams Dx/Rx/DC Orders Clinical Impression: Chest discomfort, Arm pain, Neck pain Instructions: ED Chest Pain, Uncertain Cause, ED Neck Pain Prescriptions: No Action Excedrin Migraine 250-250-65 mg tablet 1 tab PO PRN PRN (Reason: Headache) aspirin 81 mg Capsule 81 mg PO DAILY naproxen sodium BID Primary Care Provider: Dewey Luis Referrals: Dewey Luis MD [Primary Care Provider, Family Practice] - 3-5 Days Activity Restrictions/Additional Instructions: Your workup was negative today in the emergency department. Follow-up with your primary care provider in the next 3 to 5 days. You may require outpatient stress testing. Return with increased chest discomfort, new or worsening symptoms. Keep a track of your blood pressure as well. Print Language: Turkmen Disposition Disposition: Home, Self Care
--- NOTE | 2025-04-28 19:05 | RAD_ITS ---
EXAM: XR Chest, 1 View CLINICAL INDICATION: CHEST PAIN TECHNIQUE: Frontal view of the chest. COMPARISON: No relevant prior studies available. FINDINGS: LUNGS AND PLEURAL SPACES: Unremarkable. No consolidation. No pneumothorax. HEART: Unremarkable. No cardiomegaly. MEDIASTINUM: Unremarkable. Normal mediastinal contour. BONES/JOINTS: Unremarkable. No acute fracture. RAD/Chest PA and Lateral IMPRESSION: No acute cardiopulmonary process. Reading Location: [id number]
[2025-04-28 19:12] LABS: Hematocrit 42.7 % (40-54); Hemoglobin 14.6 g/dL (13.0-16.5); Immature Granulocytes Count 0.050 X10^3/uL (0.0-0.0); Mean Corp Hgb Conc 34.2 g/dL (32-36); Mean Corpuscular Volume 81.3 fL (80-94); Mean Platelet Vol. 9.8 fl (6.2-12.0); NRBC Flagged by Analyzer 0 % (0-5); Platelet Count 254 K/mm3 (150-450); RBC Distribution Width CV 14.9 % (11.6-14.6); RBC Distribution Width SD 43.2 fl (35.1-43.9); Red Blood Count 5.25 M/mm3 (4.6-6.2); White Blood Count 10.3 K/mm3 (4.4-11.0)
[2025-04-28 19:18] VITALS: BP 144/74; PULSE 71; RESP 17; O2SAT 96
[2025-04-28 19:30] LABS: Anion Gap 11 (5-15); BUN 14 mg/dL (4-19); BUN/Creat Ratio 12.0 RATIO (10-20); Calcium,Total 9.3 mg/dL (7.6-11.0); Carbon Dioxide 23.5 mmol/L (21.0-32.0); Chloride 104 mmol/L (98-108); Estimated Creatinine Clearance 114.96 ml/min (50-250); Glucose 121 mg/dL (70-99); Potassium 4.3 mmol/L (3.3-5.1); Troponin T High Sensitivity 13 ng/L (<=22)
[2025-04-28 19:44] LABS: D-Dimer Quantitative (DVT/PE) < 0.27 FEU/ug/m (0.27-0.49)
[2025-04-28 20:00] VITALS: BP 123/76; PULSE 67; RESP 20; O2SAT 94
--- OUTSIDE RECORDS SUMMARY | 2025-04-28 20:19 | XMS RPT_ITS | CCD ---
Author Organization [facility] Care Team Providers Care Pipeline Controller Name Role Phone Dr. Janay Luis Primary Care Provider [phone] Dr. Aren Salamanca Attending Provider Dr. Aren Salamanca Referring Provider Dr. Aren Salamanca Other Provider Dr. Janay Luis Referring Provider MARY ALICE Eduardo Attending Provider Dr. Janay Luis Primary Care Provider Dr. Aren Salamanca Attending Provider AREN PENA Referring Unavailable PROVIDER, UNKNOWN Attending Unavailable PROVIDER, UNKNOWN Admitting Unavailable Dr. Vinicius Morrissey Referring Provider Dr. Janay Luis Referring Provider MARY ALICE Eduardo Attending Provider Dr. Janay Luis Primary Care Provider Dr. Janay Luis Referring Provider MARY ALICE Eduardo Attending Provider DIMITRIOS SINCLAIR Referring Unavailable DIMITRIOS SINCLAIR Attending Unavailable Dr. Janay Luis Other Provider Dr. Vinicius Oconnell Attending Provider Dr. Janay Luis Primary Care Provider [phone] Andrey Guan MD Primary Care Provider Andrey Guan MD Primary Care Provider Toby LO, Janay Blandon Primary Care Provider MATILDE LOVE Attending Unavailable JANAY LUIS Primary Care Unavailabl JANAY Gonzalez Primary Care Unavailabl e HUMA PATRICIA Attending Unavailable Bagdustintt, Jaswinder Referring Unavailable BURSLEY, CHRISTOPHER B Primary Care Unavailab le Baggott, Jaswinder Referring Unavailable AKIL, CHRISTOPHER B Primary Care Unavailab le BURSLEY, CHRISTOPHER B Primary Care Unavailab le Baggott, Jaswinder Attending Unavailable Baggott, Jaswinder Referring Unavailable Jaron CUELLAR Attending Unavailable MELVIN GUANER B Primary Care Unavailab le Baggott, Jaswinder Referring Unavailable Baggott, Jaswinder Attending Unavailable SHARLEY, ANDRESOPHER B Primary Care Unavailab le Baggott, Jaswinder Referring Unavailable SYLVIA CALVERT Attending Unavailabl e AKIL, MELVINER B Primary Care Unavailab le Baggott, Jaswinder Referring Unavailable SHARLEY, CHRISTOPHER B Primary Care Unavailab le Podlogar PARTY DIRECTOR.PUBLIC TRANSPORTATION INSPECTOR, Sophia Unavailable Dr. Janay Luis MD Primary Care Provider Toby LO, Dr. Janay Alvarado Attending Provider Dr. Janay Luis MD Referring Provider [phone] Dr. Surjit Cervantes MD Attending Provider Dr. Surjit Cervantes MD Referring Provider Dr. Aren Victor MD Attending Provider Dr. Janay Luis MD Primary Care Physician Dr. Aren Victor MD Attending Physician Dr. Veronika Villanueva MD Referring Provider Dr. Janay Luis MD Attending Physician [phone] Dr. Janay Luis MD Referring Provider [phone] Janay Luis Attending Unavailable Janay Luis Referring Unavailable Janay Luis Primary Care Unavailable Janay Luis Attending Unavailable Janay Luis Referring Unavailable Janay Luis Primary Care Unavailable Janay Luis Primary Care Unavailable Surjit Cervantes Attending Unavailable Surjit Cervantes Referring Unavailable Janay Luis Primary Care Unavailable Janay Luis Attending Unavailable Janay Luis Referring Unavailable Aren Victor Attending Unavailable Veronika Villanueva Referring Unavailable Janay Luis Primary Care Unavailable Janay Luis Primary Care Unavailable Janay Luis Attending Unavailable Janay Luis Referring Unavailable Sherrie MAIL SORTING SUPERVISORDevika Attending Unavailable Sherrie MAIL SORTING SUPERVISOR, Devika Referring Unavailable Janay Luis Primary Care Unavailable Allergies Allergy Classification Reported Allergen(s) Allergy Type Date of Onset Reaction(s) Facility (20 sources) Escitalopram; Translations: [ESCITALOPRAM] Drug Allergy 1 Other [facility] (14 sources) Escitalopram; Translations: [ESCITALOPRAM OXALATE] Drug Allergy 8 Other: See Comments [facility] Work Phone: (1 source) Escitalopram Drug Allergy 5 [facility] Repository Medications Current Medications Medication Drug Class(es) Dates Sig (Normalized) Sig (Original) acetaminophen 250 mg / aspirin 250 mg / caffeine 65 mg oral tablet (18 sources) Platelet Aggregation Inhibitor, Nonsteroidal Anti-inflammatory Drug, Central Nervous System Stimulant, Methylxanthine Start: 03-09-2021 aspirin 81 mg oral tablet (11 sources) Platelet Aggregation Inhibitor, Nonsteroidal Anti-inflammatory Drug Start: 05-03-2022 take 1 capsule by mouth once daily busPIRone hydrochloride 10 mg oral tablet (13 sources) Start: 08-08-2017 take 1 tablet by mouth every eight hours as needed for anxiety and anxiety busPIRone (BUSPAR) 10 mg tablet Indications: Anxiety Take 1 tablet by mouth three times daily as needed. 90 tablet 08/08/2017 Active Comment on above: Take 1 tablet by paulino three times daily as needed. cefadroxil 500 mg oral capsule (1 source) Cephalosporin Antibacterial Start: 04-02-2024 cefadroxil (Duricef) 500 mg capsule Indications: Cellulitis, unspecified cellulitis site Take 2 cap(s) orally to start, then 1 capsule 2 times a day x 10 days. Take with a meal. 21 capsule 04/02/2024 Active cholecalciferol 0.025 mg oral capsule (7 sources) Vitamin D Start: 06-07-2021 take 1 capsule by mouth once daily Cholecalciferol (Vitamin D3) (Vitamin D3) 25 mcg (1,000 unit) Capsule Active 25 MCG PO DAILY June 07, 2021 1:00am famotidine 20 mg oral tablet (12 sources) Histamine-2 Receptor Antagonist take 1 tablet by mouth twice daily famotidine (PEPCID) 20 mg tablet Take 20 mg by mouth two times a day. Active Comment on above: Take 20 mg by mouth two times a day. fluticasone propionate 0.05 mg/actuat metered dose nasal spray (13 sources) Corticosteroid Start: 08-08-2017 take 2 spray(s) by mouth once daily fluticasone (FLONASE) 50 mcg/actuation nasal spray Indications: Acute otitis media, unspecified otitis media type Use 2 Sprays in each nostril once daily. Rinse mouth after use. 1 Bottle 1 08/08/2017 Active Comment on above: Use 2 Sprays in each nostril once daily. Rinse mouth after use. ibuprofen 200 mg oral tablet (7 sources) Nonsteroidal Anti-inflammatory Drug Start: 06-07-2021 take 200 mg by mouth every six hours Ibuprofen Active 200 MG PO EVERY 6 HOURS June 07, 2021 1:00am Inulin (13 sources) inulin (FIBER GUMMIES ORAL) Take by mouth. Active inulin (FIBER MMIES ORAL) Take by mouth. 0 Active Comment on above: Take by mouth. Multivitamin-Mineral s-Lutein (7 sources) Start: 06-07-2021 take 1 tablet by mouth once daily Multivitamin-Mineral s-Lutein Active 1 TABLET PO DAILY June 07, 2021 9:49am Start: 06-07-2021 take 1 tablet by paulino th once daily Qgksgiphpxtl-Uriotile-Hbhsbs Active 1 TA BLET PO DAILY June 07, 2021 1:00am Naproxen (11 sources) Nonsteroidal Anti-inflammatory Drug Start: 05-03-2022 Start: 05-03-2022 naproxen sodiu m Active TWICE A DAY May 03, 2022 1:00am Start: 05-03-2022 naproxen sodiu m Active TWICE A DAY May 03, 2022 12:00am polyethylene glycol 3350 82124 mg powder for oral solution (13 sources) Osmotic Laxative polyethylene gl ycol 3350 (MIRALAX) 17 gram/dose powder Take by mouth once daily. Dissolve dose in 4 - 8 ounces of liquid and take as directed. Active Comment on above: Take by mouth once d aily. Dissolve dose in 4 - 8 ounces of liquid and take as directed. predniSONE 20 mg oral tablet (6 sources) Start: 2 take 40 mg by mouth once daily Prednisone Active 40 MG PO DAILY 20 December 15, 2021 12:00am sertraline 100 mg oral tablet (13 sources) Serotonin Reuptake Inhibitor Start: 8 take 1 tablet by mouth once daily sertraline (ZOLOFT) 100 mg tablet Indications: Anxiety Take 1 tablet by mouth once daily. 30 tablet 3 08/08/2017 Active Comment on above: Take 1 tablet by paulino th once daily. Completed/Discontinued Medications Medication Drug Class(es) Dates Sig (Normalized) Sig (Original) acetaminophen 325 mg / HYDROcodone bitartrate 5 mg oral tablet (18 sources) Opioid Agonist Start: 05-09-2021 End: 05-19-2021 Hydrocodone-Acetami nophen 5-325 mg tablet Discontinued 1 {tbl} PO EVERY 6 HOURS as needed for pain 10 2 0 May 09, 2021 May 19, 2021 3:44pm Biliary dyskinesia Other specified diseases of gallbladder Start: 05-09-2021 End: 05-19-2021 take 1 tablet by mouth every six hours Hydrocodone-Acetaminophen Discontinued 1 TABLET PO EVERY 6 HOURS 10 2 May 09, 2021 May 19, 2021 3:44pm [id number] 200 actuat albuterol 0.09 mg/actuat metered dose inhaler (11 sources) beta2-Adrenergic Agonist Start: 05-03-2022 End: 08-16-2023 Albuterol Sulfate 90 mcg/actuation HFA aerosol inhaler Discontinued 1 NMA INHALATION DAILY as needed for Wheezing May 03, 2022 1:00am August 16, 2023 9:46am Start: 05-03-2022 End: 08-16-2023 Albuterol Sulfate Discontinu ed 1 INH INHALATION DAILY May 03, 2022 1:00am August 16, 2023 9:46am azithromycin 250 mg oral tablet (11 sources) Macrolide Antimicrobial Start: 05-03-2022 End: 08-16-2023 take 1 tablet by mouth once daily Azithromycin 250 mg tablet Discontinued 250 mg PO DAILY 4 0 May 03, 2022 1:00am August 16, 2023 9:46am ondansetron 4 mg oral tablet (18 sources) Serotonin-3 Receptor Antagonist Start: 05-09-2021 End: 05-12-2021 take 1 tablet by mouth every eight hours as needed for nausea and vomiting Ondansetron Hcl (Zofran) 4 mg tablet Discontinued 4 mg PO Q8H as needed for nausea and vomiting 9 3 0 May 09, 2021 1:00am May 11, 2021 1:00am May 12, 2021 1:01am polyethylene glycol 3350 [id number] mg / potassium chloride 2970 mg / sodium bicarbonate 6740 mg / sodium chloride 5860 mg / sodium sulfate 37878 mg powder for oral solution (1 source) Osmotic Laxative Start: 04-30-2023 End: 04-30-2023 peg 3350-Electrolytes (GOLYTELY) 236-22.74-6.74 -5.86 gram suspension Indications: Constipation, unspecified constipation type Take 4,000 mL by mouth one time only for 1 dose. Refer to printed prep instructions from your provider. 4000 mL 0 04/30/2023 04/30/2023 Comment on above: Take 4,000 mL by paulino th one time only for 1 dose. Refer to printed prep instructions from your provider. Problems Active Problems Problem Classification Problem Date Documented Da te Episodic/Chronic Abdominal hernia (20 sources) Umbilical hernia; Translations: [Umbilical hernia without obstruction or gangrene] Episodic Abdominal pain (20 sources) Abdominal pain; Translations: [Unspecified abdominal pain] Episodic Anxiety disorders (20 sources) Anxiety; Translations: [Anxiety disorder, unspecified] 05-04-2021 Chronic Biliary tract disease (18 sources) Biliary dyskinesia; Translations: [Other specified diseases of gallbladder] 05-04-2021 Episodic Disorders of lipid metabolism (14 sources) Hypertriglyceridemia ; Translations: [Pure hyperglyceridemia] Onset: 04-24-2025 06-19-2017 Chronic Headache; including migraine (18 sources) Migraine; Translations: [Migraine, unspecified, not intractable, without status migrainosus] 05-04-2021 Chronic Mood disorders (18 sources) Depressive disorder; Translations: [Depression] 05-04-2021 Chronic Nutritional deficiencies (1 source) Vitamin D deficiency, unspecified; Translations: [Vitamin D deficiency, unspecified] Onset: 10-19-2024 Chronic Open wounds of extremities (1 source) Laceration of finger without foreign body; Translations: [Laceration without foreign body of right index finger without damage to nail, initial encounter] 03-19-2024 Episodic Other aftercare (1 source) Removal of sutures done; Translations: [Encounter for removal of sutures] 04-02-2024 Episodic Other aftercare (2 sources) Encounter for removal of sutures; Translations: [Encounter for removal of sutures] Onset: 04-02-2024 Episodic Other and unspecified benign neoplasm (18 sources) Lipoma of breast; Translations: [Benign lipomatous neoplasm of skin and subcutaneous tissue of trunk] 07-24-2021 Episodic Other and unspecified benign neoplasm (1 source) Benign lipomatous neoplasm of skin and subcutaneous tissue of trunk; Translations: [Lipoma of other specified sites] Episodic Other and unspecified benign neoplasm (1 source) History of polyp of colon; Translations: [Personal history of colonic polyps] 12-18-2023 Episodic Other bone disease and musculoskeletal deformities (1 source) Segmental and somatic dysfunction of lumbar region; Translations: [Segmental and somatic dysfunction of lumbar region] Onset: 03-21-2022 Episodic Other bone disease and musculoskeletal deformities (1 source) Segmental and somatic dysfunction of sacral region; Translations: [Segmental and somatic dysfunction of sacral region] Onset: 03-21-2022 Episodic Other connective tissue disease (18 sources) Neuralgia; Translations: [Neuralgia and neuritis, unspecified] 07-24-2021 Episodic Other connective tissue disease (17 sources) Pain in lower limb; Translations: [Pain in right leg] 05-15-2021 Episodic Other connective tissue disease (6 sources) Neuralgia and neuritis, unspecified; Translations: [Neuralgia, neuritis, and radiculitis, unspecified] Episodic Other connective tissue disease (1 source) Pain in bilateral legs; Translations: [Pain in right leg] 05-15-2021 Episodic Other connective tissue disease (1 source) Pain in left leg; Translations: [Pain in left leg] Onset: 03-16-2025 Episodic Other diseases of veins and lymphatics (18 sources) Peripheral venous insufficiency; Translations: [Venous insufficiency (chronic) (peripheral)] 05-15-2021 Episodic Other diseases of veins and lymphatics (13 sources) Varicocele; Translations: [Scrotal varices] 04-13-2022 Episodic Other eye disorders (2 sources) Xanthoma of bilateral eyelids; Translations: [Xanthelasma of right eye, unspecified eyelid] 11-21-2024 Episodic Other gastrointestinal disorders (2 sources) Constipation; Translations: [Constipation, unspecified] 04-30-2023 Episodic Other gastrointestinal disorders (1 source) Diarrhea; Translations: [Diarrhea, unspecified] 02-28-2024 Episodic Other gastrointestinal disorders (2 sources) Ulceration of colon; Translations: [Ulcer of intestine] 02-28-2024 Episodic Other gastrointestinal disorders (1 source) Diarrhea, unspecified; Translations: [Diarrhea, unspecified type] Onset: 02-28-2024 Episodic Other gastrointestinal disorders (1 source) Ulcer of intestine; Translations: [Ulceration of colon] Onset: 02-28-2024 Episodic Other injuries and conditions due to external causes (2 sources) Laceration - injury; Translations: [Laceration] Onset: 03-19-2024 Episodic Other nutritional; endocrine; and metabolic disorders (20 sources) Body mass index 30+ - obesity; Translations: [Body mass index (BMI) 39.0-39.9, adult] 05-04-2021 Chronic Residual codes; unclassified (18 sources) Sleep apnea; Translations: [Sleep apnea, unspecified] 05-04-2021 Chronic Residual codes; unclassified (14 sources) History of hernia repair; Translations: [Other specified postprocedural states] 03-26-2022 Episodic Residual codes; unclassified (13 sources) Family history of prostate cancer; Translations: [Family history of malignant neoplasm of prostate] 06-18-2017 Episodic Skin and subcutaneous tissue infections (3 sources) Cellulitis; Translations: [Cellulitis, unspecified] Onset: 04-02-2024 04-02-2024 Episodic Spondylosis; intervertebral disc disorders; other back problems (4 sources) Other intervertebral disc degeneration, lumbosacral region; Translations: [Spondylosis without myelopathy or radiculopathy, lumbar region] Onset: 03-21-2022 Chronic Spondylosis; intervertebral disc disorders; other back problems (20 sources) Acute back pain with sciatica; Translations: [Lumbago with sciatica, right side] 12-23-2021 Episodic Unclassified (1 source) Low back pain, unspecified; Translations: [Low back pain, unspecified] Onset: 05-23-2022 Viral infection (18 sources) Disease caused by 2019-nCoV; Translations: [COVID-19] 05-05-2021 Episodic Comment on above: 03/13/21 Past or Other Problems Problem Classification Problem Date Documented Da te Episodic/Chronic Noninfectious gastroenteritis (3 sources) Inflammatory bowel disease; Translations: [Noninfective gastroenteritis and colitis, unspecified] Onset: 06-19-2023 09-06-2023 Episodic Nonmalignant breast conditions (1 source) Hypertrophy of breast; Translations: [Hypertrophy of breast] Onset: 07-20-2024 Episodic Nonspecific chest pain (9 sources) Chest pain; Translations: [Chest pain, unspecified] Onset: 08-02-2024 08-16-2023 Episodic Other eye disorders (1 source) Xanthelasma of right eye, unspecified eyelid; Translations: [Xanthelasma of right eye, unspecified eyelid] Onset: 12-25-2024 Episodic Other eye disorders (1 source) Xanthelasma of left eye, unspecified eyelid; Translations: [Xanthelasma of left eye, unspecified eyelid] Onset: 12-25-2024 Episodic Other gastrointestinal disorders (1 source) Constipation, unspecified; Translations: [Constipation, unspecified constipation type] Onset: 06-19-2023 Episodic Other screening for suspected conditions (not mental disorders or infectious disease) (2 sources) Patient encounter status; Translations: [Encounter for screening for malignant neoplasm of colon] Onset: 09-06-2023 09-06-2023 Episodic Unclassified (1 source) Low back pain, unspecified; Translations: [Low back pain, unspecified] Onset: 05-23-2022 Results Test Name Value Interpretation Reference Range Facility CBC W/Diff, Automatedon 10-3 Absolute Lymph 2.32 X10 3/uL Normal 0.83-4.51 [facility] Comment on above: Order Comment: Order Date: 04/14/25 Order Info: [id number] - CBCD Performed By: #### L 500.4100, L500.4050, L100.0100 #### [facility] [address] [place], [address] Absolute Neut 5.0 X10 3/uL Normal 2.0-7.7 [facility] Comment on above: Order Comment: Order Date: 04/14/25 Order Info: [id number] - CBCD Performed By: #### L 500.4100, L500.4050, L100.0100 #### [facility] [address] [place], [address] Basophils/100 WBC (Bld) 1.1 % High 0-1 [facility] Comment on above: Order Comment: Order Date: 04/14/25 Order Info: [id number] - CBCD Performed By: #### L 500.4100, L500.4050, L100.0100 #### [facility] [address] [place], [address] Eosinophils/100 WBC (Bld) 2.7 % Normal 0-5 [facility] Comment on above: Order Comment: Order Date: 04/14/25 Order Info: [id number] - CBCD Performed By: #### L 500.4100, L500.4050, L100.0100 #### [facility] [address] [place], [address] Erythrocyte distribution width (RBC) [Ratio] 15.0 % High 11.6-14.6 [facility] Comment on above: Order Comment: Order Date: 04/14/25 Order Info: [id number] - CBCD Performed By: #### L 500.4100, L500.4050, L100.0100 #### [facility] [address] [place], [address] Hematocrit (Bld) [Volume fraction] 42.5 % Normal 40-54 [facility] Comment on above: Order Comment: Order Date: 04/14/25 Order Info: [id number]- - CBCD Performed By: #### L 500.4100, L500.4050, L100.0100 #### [facility] [address] [place], [address] Hemoglobin (Bld) [Mass/Vol] 14.6 g/dL Normal 13.0-16.5 [facility] Comment on above: Order Comment: Order Date: 04/14/25 Order Info: [id number] - CBCD Performed By: #### L 500.4100, L500.4050, L100.0100 #### [facility] [address] [place], [address] IG% 0.900 Normal 0.0-0.9 [facility] Comment on above: Order Comment: Order Date: 04/14/25 Order Info: [id number] - CBCD Result Comment: IG% - Immature Granulocytes (promyelocytes, myelocytes and metamyelocytes) > 1% indicates that a LEFT SHIFT is Present. Performed By: #### L 500.4100, L500.4050, L100.0100 #### [facility] [address] [place], [address] Lymphocytes/100 WBC (Bld) 27.1 % Normal 19-41 [facility] Comment on above: Order Comment: Order Date: 04/14/25 Order Info: [id number] - CBCD Performed By: #### L 500.4100, L500.4050, L100.0100 #### [facility] [address] [place], [address] MCH (RBC) [Entitic mass] 27.8 pg Normal 27.0-32.0 [facility] Comment on above: Order Comment: Order Date: 04/14/25 Order Info: [id number]- - CBCD Performed By: #### L 500.4100, L500.4050, L100.0100 #### [facility] [address] [place], [address] MCHC (RBC) [Mass/Vol] 34.4 g/dL Normal 32-36 [facility] Comment on above: Order Comment: Order Date: 04/14/25 Order Info: [id number] - CBCD Performed By: #### L 500.4100, L500.4050, L100.0100 #### [facility] [address] [place], [address] MCV (RBC) [Entitic vol] 81.0 fL Normal 80-94 [facility] Comment on above: Order Comment: Order Date: 04/14/25 Order Info: [id number] - CBCD Performed By: #### L 500.4100, [id number], L100.0100 #### [facility] [address] [place], [address] Monocytes/100 WBC (Bld) 9.8 % Normal 0-10 [facility] Comment on above: Order Comment: Order Date: 04/14/25 Order Info: [id number] - CBCD Performed By: #### L 500.4100, L500.4050, L100.0100 #### [facility] [address] [place], [address] Neutrophils/100 WBC (Bld) 58.4 % Normal 47-70 [facility] Comment on above: Order Comment: Order Date: 04/14/25 Order Info: [id number] - CBCD Performed By: #### L 500.4100, L500.4050, L100.0100 #### [facility] [address] [place], [address] Nucleated RBC (Bld) [#/Vol] 0 10*3/uL Normal 0-5 [facility] Comment on above: Order Comment: Order Date: 04/14/25 Order Info: [id number] - CBCD Performed By: #### L 500.4100, L500.4050, L100.0100 #### [facility] [address] [place], [address] Platelet mean volume (Bld) [Entitic vol] 9.3 fL Normal 6.2-12.0 [facility] Comment on above: Order Comment: Order Date: 04/14/25 Order Info: [id number]- - CBCD Performed By: #### L 500.4100, L500.4050, L100.0100 #### [facility] [address] [place], [address] Platelets (Bld) [#/Vol] 237 10*3/uL Normal 150-450 [facility] Comment on above: Order Comment: Order Date: 04/14/25 Order Info: [id number]- - CBCD Performed By: #### L 500.4100, L500.4050, L100.0100 #### [facility] [address] [place], [address] RBC (Bld) [#/Vol] 5.25 10*6/uL Normal 4.6-6.2 [facility] Comment on above: Order Comment: Order Date: 04/14/25 Order Info: [id number]- - CBCD Performed By: #### L 500.4100, L500.4050, L100.0100 #### [facility] [address] [place], [address] RDW SD 43.9 fl Normal 35.1-43.9 [facility] Comment on above: Order Comment: Order Date: 04/14/25 Order Info: [id number] - CBCD Performed By: #### L 500.4100, [id number], L100.0100 #### [facility] [address] [place], [address] WBC (Bld) [#/Vol] 8.6 10*3/uL Normal 4.4-11.0 [facility] Comment on above: Order Comment: Order Date: 04/14/25 Order Info: [id number] - CBCD Performed By: #### L 500.4100, L500.4050, L100.0100 #### [facility] [address] [place], [address] Comprehensive Metabolic Prof ilon 04-15-2025 Albumin [Mass/Vol] 4.1 g/dL Normal 3.5-5.0 [facility] Comment on above: Order Comment: Order Date: 04/14/25 Order Info: [id number] - CMP Order Info: [id number] - LIPID Performed By: #### L 500.4100, L500.4050, L100.0100 #### [facility] [address] [place], [address] Albumin/Globulin [Mass ratio] 1.4 {ratio} Normal 0.9-2.4 [facility] Comment on above: Order Comment: Order Date: 04/14/25 Order Info: [id number]- - CMP Order Info: [id number] - LIPID Performed By: #### L 500.4100, L500.4050, L100.0100 #### [facility] [address] [place], [address] ALK PHOS 62 U/L Normal 40-129 [facility] Comment on above: Order Comment: Order Date: 04/14/25 Order Info: [id number] - CMP Order Info: [id number] - LIPID Performed By: #### L 500.4100, L500.4050, L100.0100 #### [facility] [address] [place], [address] ALT [Catalytic activity/Vol] 16 U/L Normal <=46 [facility] Comment on above: Order Comment: Order Date: 04/14/25 Order Info: [id number] - CMP Order Info: [id number] - LIPID Performed By: #### L 500.4100, L500.4050, L100.0100 #### [facility] [address] [place], [address] AST [Catalytic activity/Vol] 18 U/L Normal <=37 [facility] [facility] Comment on above: Order Comment: Order Date: 04/14/25 Order Info: 0786-1 - CMP Order Info: [id number] - LIPID Performed By: #### L 500.4100, L500.4050, L100.0100 #### [facility] [address] [place], [address] Bilirubin [Mass/Vol] 0.68 mg/dL Normal 0.00-1.30 [facility] Comment on above: Order Comment: Order Date: 04/14/25 Order Info: 0786-1 - CMP Order Info: [id number] - LIPID Performed By: #### L 500.4100, L500.4050, L100.0100 #### [facility] [address] [place], [address] BUN/CRE 20.4 RATIO High 10-20 [facility] Comment on above: Order Comment: Order Date: 04/14/25 Order Info: 0786-1 - CMP Order Info: [id number] - LIPID Performed By: #### L 500.4100, L500.4050, L100.0100 #### [facility] [address] [place], [address] Calcium [Mass/Vol] 9.1 mg/dL Normal 7.6-11.0 [facility] Comment on above: Order Comment: Order Date: 04/14/25 Order Info: 0786-1 - CMP Order Info: [id number] - LIPID Performed By: #### L 500.4100, L500.4050, L100.0100 #### [facility] [address] [place], [address] Chloride [Moles/Vol] 105 mmol/L Normal 98-108 [facility] Comment on above: Order Comment: Order Date: 04/14/25 Order Info: 0786-1 - CMP Order Info: [id number] - LIPID Performed By: #### L 500.4100, L500.4050, L100.0100 #### [facility] [address] [place], [address] CO2 [Moles/Vol] 23.4 mmol/L Normal 21.0-32.0 [facility] Comment on above: Order Comment: Order Date: 04/14/25 Order Info: 0786-1 - CMP Order Info: [id number] - LIPID Performed By: #### L 500.4100, L500.4050, L100.0100 #### [facility] [address] [place], [address] Creatinine [Mass/Vol] 1.10 mg/dL Normal 0.70-1.20 [facility] Comment on above: Order Comment: Order Date: 04/14/25 Order Info: 0786- - CMP Order Info: [id number] - LIPID Performed By: #### L 500.4100, L500.4050, L100.0100 #### [facility] [address] [place], [address] GAP 11 Normal 5-15 [facility] Comment on above: Order Comment: Order Date: 04/14/25 Order Info: 0786- - CMP Order Info: [id number] - LIPID Performed By: #### L 500.4100, L500.4050, L100.0100 #### [facility] [address] [place], [address] GFR/1.73 sq M.predicted among non-blacks MDRD (S/P/Bld) [Vol rate/Area] 80 mL/min/{1.73_m2} Normal >60 [facility] Comment on above: Order Comment: Order Date: 04/14/25 Order Info: 0786-1 - CMP Order Info: [id number] - LIPID Result Comment: mL/m in/1.73m2 CKD-EPI Creatinine Equation (2020) Performed By: #### L 500.4100, L500.4050, L100.0100 #### [facility] [address] [place], [address] Globulin (S) [Mass/Vol] 2.9 g/dL Normal 2.2-4.2 [facility] Comment on above: Order Comment: Order Date: 04/14/25 Order Info: 0786- - CMP Order Info: [id number] - LIPID Performed By: #### L 500.4100, L500.4050, L100.0100 #### [facility] [address] [place], [address] Glucose [Mass/Vol] 91 mg/dL Normal 70-99 [facility] Comment on above: Order Comment: Order Date: 04/14/25 Order Info: 0786- - CMP Order Info: [id number] - LIPID Performed By: #### L 500.4100, L500.4050, L100.0100 #### [facility] [address] [place], [address] Potassium [Moles/Vol] 4.2 mmol/L Normal 3.3-5.1 [facility] Comment on above: Order Comment: Order Date: 04/14/25 Order Info: 0786- - CMP Order Info: [id number] - LIPID Performed By: #### L 500.4100, L500.4050, L100.0100 #### [facility] [address] [place], [address] Sodium [Moles/Vol] 139 mmol/L Normal 133-145 [facility] Comment on above: Order Comment: Order Date: 04/14/25 Order Info: 0786-1 - CMP Order Info: [id number] - LIPID Performed By: #### L 500.4100, L500.4050, L100.0100 #### [facility] [address] [place], [address] T PROT 7.0 g/dL Normal 5.9-8.4 [facility] Comment on above: Order Comment: Order Date: 04/14/25 Order Info: 0786-1 - CMP Order Info: [id number] - LIPID Performed By: #### L 500.4100, L500.4050, L100.0100 #### [facility] [address] [place], [address] Urea nitrogen [Mass/Vol] 22 mg/dL High 4-19 [facility] Comment on above: Order Comment: Order Date: 04/14/25 Order Info: 0786- - CMP Order Info: [id number] - LIPID Performed By: #### L 500.4100, L500.4050, L100.0100 #### [facility] [address] [place], [address] Lipid Profileon 04-15-2025 CHOL:HDL 5.56 Normal [facility] Comment on above: Order Comment: Order Date: 04/14/25 Order Info: 0786- - CMP Order Info: [id number] - LIPID Performed By: #### L 500.4100, L500.4050, L100.0100 #### [facility] [address] [place], [address] Cholesterol [Mass/Vol] 169 mg/dL Normal <=200 [facility] Comment on above: Order Comment: Order Date: 04/14/25 Order Info: 0786-1 - CMP Order Info: [id number] - LIPID Result Comment: Chol esterol level, Desirable <200 mg/dL Borderline high cholesterol 200-239 mg/dL High cholesterol >=240 mg/dL Recommendations of the NCEP Adult Treatment Panel for the following risk-cutoff thresholds for the [place] population. Performed By: #### L 500.4100, L500.4050, L100.0100 #### [facility] [address] [place], [address] Cholesterol in HDL [Mass/Vol] 30 mg/dL Low [facility] Comment on above: Order Comment: Order Date: 04/14/25 Order Info: 0786-1 - CMP Order Info: [id number] - LIPID Result Comment: [place] onal Cholesterol Education Program (NCEP) guidelines: <40 mg/dL: Low HDL-cholesterol (major risk factor for CHD) >= 60 mg/dL: High HDL-cholesterol (negative risk factor for CHD) HDL-cholesterol is affected by a number of factors, e.g. smoking, exercise, hormones, sex and age. Performed By: #### L 500.4100, L500.4050, L100.0100 #### [facility] [address] [place], [address] Cholesterol in LDL [Mass/Vol] 107 mg/dL Normal [facility] Comment on above: Order Comment: Order Date: 04/14/25 Order Info: 0786- - CMP Order Info: [id number] - LIPID Result Comment: Bord xcbdep=071-159 mg/dL Higher Wues=946 mg/dL or greater Simms Equation 2020 for LDL-C Performed By: #### L 500.4100, L500.4050, L100.0100 #### [facility] [address] [place], [address] Cholesterol in VLDL [Mass/Vol] 36 mg/dL Normal 5-40 [facility] Comment on above: Order Comment: Order Date: 04/14/25 Order Info: 0786-1 - CMP Order Info: [id number] - LIPID Performed By: #### L 500.4100, L500.4050, L100.0100 #### [facility] [address] [place], [address] Triglyceride [Mass/Vol] 182 mg/dL Normal [facility] Comment on above: Order Comment: Order Date: 04/14/25 Order Info: 0786- - CMP Order Info: [id number] - LIPID Result Comment: The drugs N-Acetylcysteine and Metamizole may falsely depress this assay. Normal range: <150 mg/dL Borderline High: 150-199 mg/dL High: 200-499 mg/dL Very High: >500 mg/dL Performed By: #### L 500.4100, L500.4050, L100.0100 #### [facility] [address] [place], [address] Vitamin D,25 Hydroxyon 04-15 Vitamin D 25-OH 33.6 ng/mL Normal 30-100 [facility] Comment on above: Order Comment: Order Date: 04/14/25 Order Info: 0786-1 - CMP Order Info: [id number] - LIPID Result Comment: Chelsie min D Status Deficiency: <20 ng/mL (50nmol/L) Insufficiency: 20-30 ng/mL (50-75 nmol/L) Sufficiency: 30-100 ng/mL (75-250 nmol/L) Toxicity: >100 ng/mL (>250 nmol/L) Performed By: #### L 500.4100, L500.4050, L100.0100 #### [facility] [address] [place], [address] Ankle min 3 Viewson 03-11-20 Ankle min 3 Views [facility] Imaging Services [address] [place] [address] Ankle min 3 Views MR#: [id number] Acct: [id number] Name: ARAM CARLTON Rep #: [id number] : 1970 M 54 From: Kermit Westbrook PCP: Dr. Janay Luis MD Status: REG CLI Study: Ankle min 3 Views Date of Exam: 03/11/25 Exam# [id number] Ordering Dr: Janay Luis MD PROCEDURE: ANKLE MIN 3 VIEWS 03/11/2025 REASON FOR EXAM: PAIN TECHNIQUE: Procedure Code: RADANK Modality: DX Procedure: ANKLE MIN 3 VIEWS Laterality: Right COMPARISON: Right foot series of 01/10/2024. RAD/Ankle min 3 Views IMPRESSION: Stable inferior and posterior calcaneal spurring. Normal contour of the Achilles tendon is seen in the lateral view. No ankle joint effusion is noted. Mature nonunited ossicle seen of the tip of the medial malleolus. Satisfactory alignment of the ankle mortise. No evidence of talar dome osteonecrosis or osteochondral fracture. No acute fracture or dislocation is seen. Reading Location: [id number] CC: Dr. Janay Luis MD Combination Technician: Signed Normal [facility] Venous Duplex US, Unilateral on 03-11-2025 Venous Duplex US, Unilateral [facility] [address] [place] [address] Venous Duplex US, Unilateral 03/11/25 09 MR#: [id number] Acct: [id number] Name: ARAM CARLTON Rep #: [id number] : 1970 54 From: Garrett Crook MD Attending Dr: Dr. Janay Luis MD Status: R EG I Ordering Dr: Janay Luis MD Date: 03/11/25 Location: [facility] Sex: M C Admitted: Reason For Study Reason For Study: Right leg pain RIGHT LEFT GSV is normal. CFV is compressible, spontaneous, phasic, competent, CFV is compressible, spontaneous, phasic, competent and demonstrates normal augmentation. and demonstrates normal augmentation. FV is compressible, spontaneous, phasic, competent and demonstrates normal augmentation. POP V is compressible, spontaneous, phasic, competent and demonstrates normal augmentation. T/P Trunk is compressible. PTV is compressible. RT PerV is compressible. Procedure This is a venous duplex using B-mode, color flow and spectral Doppler. Exam performed in department. A preliminary report was called and/or faxed to Dr. Luis. VL/Venous Duplex US, Unilateral Interpretation Summary Deep veins of the right lower extremity are patent and compressible segmentally. There is no evidence of right lower extremity deep vein thrombosis. Valvular competence appears intact within the proximal deep venous system on the right . The right great saphenous vein appears patent and compressible segmentally. The left common femoral vein is patent and compressible . Ordering Physician: Janay Luis Referring Physician: Janay Luis Performed By: Rxo Monteiro RVT 03/11/251922 Date Garrett Crook MD CC: Dr. Janay Luis MD Date Dictated: 03/11/25904 Date Transcribed: 03/11/251922 Combination Technician: Signed Normal [facility] Venous duplex ultrasound rep ortOrdered By: Garrett Crook on 03-11-[address] [facility] [address] [place] [address] Venous Duplex US, Unilateral 03/11/25904 MR#: [id number] Acct: [id number] Name: ARAM CARLTON Rep #:[id number] : 1970 54 From: Garrett Crook MD Attending Dr: Dr. Janay Luis MD Status: REG CLI Ordering Dr: Janay Luis MD Date: 03/11/25 Location: [facility] Sex: M C Admitted: Reason For Study Reason For Study: Right leg pain RIGHT LEFT GSV is normal. CFV is compressible, spontaneous, phasic, competent, CFV is compressible, spontaneous, phasic, competent and demonstrates normal augmentation. and demonstrates normal augmentation. FV is compressible, spontaneous, phasic, competent and demonstrates normal augmentation. POP V is compressible, spontaneous, phasic, competent and demonstrates normal augmentation. T/P Trunk is compressible. PTV is compressible. RT PerV is compressible. Procedure This is a venous duplex using B-mode, color flow and spectral Doppler. Exam performed in department. A preliminary report was called and/or faxed to Dr. Luis. VL/Venous Duplex US, Unilateral Interpretation Summary Deep veins of the right lower extremity are patent and compressible segmentally.There is no evidence of right lower extremity deep vein thrombosis. Valvular competence appears intact within the proximal deep venous system on the right . The right great saphenous vein appears patent and compressible segmentally. The left common femoral vein is patent and compressible . Ordering Physician: Janay Luis Referring Physician: Janay Luis Performed By: Rox Monteiro RVT 03/11/251922 Date _ Garrett Crook MD CC: Dr. Janay Luis MD ~ Date Dictated: 03/11/25904 Date Transcribed: 03/11/251922 Combination Technician: Signed [facility] Other Plastic Surgery Visit Report on 11-20-2024 Plastic Surgery Visit Report [facility] Plastic Reconstructive Surgery [address] [place] [address], [address] [place], [place] [address] OFFICE VISIT Date of Service: 11/20/24 MR#: [id number] Acct: [id number] Name: ARAM CARLTON LILYFLAKO Rep #: [id number] : 1970 Provider: Dr. Aren Victor MD Age/Sex: 53/M Location: [facility] Status: Signed Intake Vital Signs 3 02/15/24 14:18 11/20/24 09:10 Height 6 ft 3 in 6 ft 2 in Weight: 320 lb BMI 41.1 BP 145/84 H Blood Pressure Location Rt brachial Position Sitting Respiration 18 Pulse 84 Pulse Source Monitor Pulse Oximetry (%) 96 Oxygen Delivery Method room air Intake Visit Reasons: EYE LESIONS Chief Complaint: Eye lesions Is patient in pain?: No Allergies escitalopram (From Lexapro) Adverse Reaction (Intermediate, Verified 11/20/24 09:10) Other Medications 3 ???Medication ???Instructions ???Recorded ???Confirmed ???Type aspirin-acetaminophen -caffeine 250 1 tab PO PRN PRN Headache 11/20/24 History mg-250 mg-65 mg tablet (Excedrin Migraine) aspirin 81 mg capsule 81 mg PO DAILY 05/03/22 11/20/24 H istory naproxen sodium BID 05/03/22 11/20/24 History PFSH Medical History Clot Bilateral leg pain Wears glasses Alcohol use Restless legs Back pain History of ulceration Non-smoker CPAP (continuous positive airway pressure) dependence Shortness of breath on exertion History of pain when walking History of echocardiogram Biliary dyskinesia BMI 39.0-39.9,adult COVID-19 Umbilical hernia without obstruction or gangrene Inguinal hernia of right side without obstruction or gangrene Migraines Acute right-sided back pain with sciatica Anxiety Depression Surgical History History of left breast biopsy ( 07/2021) History of hernia repair History of laparoscopic cholecystectomy Hx of thumb surgery History of lateral meniscus repair of left knee Hx of hemorrhoidectomy History of rectal surgery S/P ACL surgery Family History Mother Breast cancer Thyroid disorder Father Diabetes Cancer Social History Smoking Status: Never smoker alcohol intake: never HPI EYE LESIONS Details: Aram Carlton is a delightful 53-year-old male who presents for eyelid xanthelasmas. He was referred here by [facility] dermatology. He reports that he has been worked up for high cholesterol recently by his primary care physician, and his cholesterol levels have not been very high. He also reports that he has visual field obstruction especially in the morning, when he attempts to look up and outward, as he sees some skin from the upper eyelid. Patient is not a smoker. He does not have any personal or family history of bleeding or clotting problems ROS General General: Yes good health; No fatigue, fever(s) or weight loss HENMT HENMT: No rhinitis, sore throat/mouth sore, nasal congestion, contacts or glaucoma Endo Endocrine: No thyroid disease, polydipsia, heat intolerance, cold intolerance, hepatitis or excessive urine Skin Skin: No Bleeding, bruising, changing moles or suspicious lesion Musc Musculoskeletal: No joint pain, joint stiffness, muscle weakness, back pain, osteoarthritis or Muscle aches/ myalgia Neuro Neurological: No headache(s), No lightheadedness and No numbness Cardio Cardiovascular: No chest pain, pacemaker, fatigue or shortness of breat with exertion Psych Psychiatric: Yes depression; No claustrophobia or anxiety Resp Respiratory: No spitting up, shortness of breath, sleep apnea, asthma, emphysema, TB, Cough or Smoker Gastro Gastrointestinal: Yes constipation; No diarrhea, blood in stool, nausea, vomiting or abdominal bloating Inder Hematologic: No anemia, No bleeding and No abnormal bleeding Genitourinary: No urinary frequency, blood in urine or incontinence Exam Details Pupils: PERRL EOM: EOM intact bilaterally Forehead: No chronic frontalis use to overcome dermatochalasis/brow ptosis. Eyebrows: Eyebrows are at the orbital rim bilaterally Eyelids: * MRD 1 was 4 mm * Good levator function (approximately 14 mm) * No lagophthalmos * Snap back test: Slow, greater than 1 cm distraction * Upper lid dermatochalasis bilaterally. * There are yellow lesions consistent with xanthelasmas medially on the upper and lower eyelids which past the puncta and are also on the nasal sidewall Coding Level of Care Code Off vis,new,level 3 Diagnoses Xanthelasma of eyelid, bilateral H02.63; H02.66 Assessment and Plan (No Qualifiers) Assessment and Plan (1) Xanthelasma of eyelid, bilateral: S (more content not included)... Normal [facility] Lumbar Spine 2 or 3 Viewson 11-16-2024 Lumbar Spine 2 or 3 Views [facility] Imaging Services [address] [place] [address] Lumbar Spine 2 or 3 Views MR#: [id number] Acct: [id number] Name: ARAM CARLTON Rep #: [id number] : 1970 M 53 From: Mariano Melendrez MD PCP: Dr. Janay Luis MD Status: REG CLI Study: Lumbar Spine 2 or 3 Views Date of Exam: Exam# [id number] Ordering Dr: Surjit Cervantes MD PROCEDURE: LUMBAR SPINE 2 OR 3 VIEWS 11/16/2024 REASON FOR EXAM: SPONDYLOSIS WITHOUT MYELOPATHY OR RADICULOPATHY, LUMBAR REGION TECHNIQUE: 3 view(s) of the lumbar spine COMPARISON: Lumbar spine radiographs on 07/11/2021 FINDINGS: There are 5 yqk-vuv-kdtojot lumbar-type vertebral bodies. Lumbar vertebral body heights and alignment are maintained. There is anterior calcification at the L1-2 disc space with mild disc space narrowing at this level. Mild facet arthrosis which is worst in the lower lumbar spine. Visualized bowel gas pattern is nonobstructive. RAD/Lumbar Spine 2 or 3 Views IMPRESSION: Mild degenerative changes of the lumbar spine are worst at L1-2 and L5-S1. Reading Location: [facility] CC: Dr. Surjit Cervantes MD; Dr. Janay Luis MD Combination Technician: Signed Normal [facility] Absolute lymphocyte countOrd ered By: Janay Luis on 10-13-2024 Lymphocytes Auto (Unsp spec) [#/Vol] 2.25 10*3/uL 0.83-4.51 [facility] Absolute neutrophil countOrd ered By: Janay Luis on 10-13-2024 Neutrophils (Bld) [#/Vol] 6.3 10*3/uL 2.0-7.7 [facility] Anion gap in Serum or Plasma Ordered By: Janay Luis on 10-13-2024 Anion gap [Moles/Vol] 12 mmol/L 5-15 [facility] Automated blood erythrocyte countOrdered By: Janay Luis on 10-13-2024 RBC (Bld) [#/Vol] 5.38 10*6/uL Normal 4.6-6.2 [facility] Comment on above: Order Comment: Order Date: 04/14/25 Order Info: [id number] - CMP Order Info: [id number] - LIPID Performed By: #### L 500.4100, L500.4050, L100.0100 #### [facility] [address] [place], [place], [address] Automated blood hematocrit ( percentage)Ordered By: Janay Luis on 10-13-2024 Hematocrit (Bld) [Volume fraction] 43.7 % Normal 40-54 [facility] Comment on above: Order Comment: Order Date: 04/14/25 Order Info: 0786- - CMP Order Info: [id number] - LIPID Performed By: #### L 500.4100, L500.4050, L100.0100 #### [facility] [address] [place], [address] Automated lymphocyte count a s percentage of total leukocytesOrdered By: Janay Luis on 10-13-2024 Lymphocytes/100 WBC Auto (Unsp spec) 23.1 % 19- [facility] BUN/creatinine ratioOrdered By: Janay Luis on 10-13-2024 Urea nitrogen/Creatinine [Mass ratio] 15.3 mg/mg 10- [facility] Basophil percentageOrdered B y: Janay Luis on 10-13-2024 Basophils/100 WBC (Bld) 0.8 % Normal 0-1 [facility] Comment on above: Order Comment: Order Date: 04/14/25 Order Info: 0786 - CMP Order Info: [id number] - LIPID Performed By: #### L 500.4100, L500.4050, L100.0100 #### [facility] [address] [place], [place], [address] Bilirubin, totalOrdered By: Janay Luis on 10-13-2024 Bilirubin [Mass/Vol] 0.68 mg/dL 0.00-1.30 [facility] CBC W/Diff, Automatedon 09-16 Absolute Lymph 2.25 X10 3/uL Normal 0.83-4.51 [facility] Comment on above: Order Comment: Order Date: 04/14/25 Order Info: 0786- - CMP Order Info: [id number] - LIPID Performed By: #### L 500.4100, L500.4050, L100.0100 #### [facility] [address] [place], [address] Absolute Neut 6.3 X10 3/uL Normal 2.0-7.7 [facility] Comment on above: Order Comment: Order Date: 04/14/25 Order Info: 07 - CMP Order Info: [id number] - LIPID Performed By: #### L 500.4100, L500.4050, L100.0100 #### [facility] [address] [place], [address] IG% 0.500 Normal 0.0-0.9 [facility] Comment on above: Order Comment: Order Date: 04/14/25 Order Info: [id number] - CMP Order Info: [id number] - LIPID Result Comment: IG% - Immature Granulocytes (promyelocytes, myelocytes and metamyelocytes) > 1% indicates that a LEFT SHIFT is Present. Performed By: #### L 500.4100, L500.4050, L100.0100 #### [facility] [address] [place], [address] Lymphocytes/100 WBC (Bld) 23.1 % Normal 19-41 [facility] Comment on above: Order Comment: Order Date: 04/14/25 Order Info: 0786 - CMP Order Info: [id number] - LIPID Performed By: #### L 500.4100, L500.4050, L100.0100 #### [facility] [address] [place], [address] Nucleated RBC (Bld) [#/Vol] 0 10*3/uL Normal 0-5 [facility] Comment on above: Order Comment: Order Date: 04/14/25 Order Info: 0786 - CMP Order Info: [id number] - LIPID Performed By: #### L 500.4100, L500.4050, L100.0100 #### [facility] [address] [place], [address] RDW SD 42.3 fl Normal 35.1-43.9 [facility] Comment on above: Order Comment: Order Date: 04/14/25 Order Info: 0786-1 - CMP Order Info: [id number] - LIPID Performed By: #### L 500.4100, L500.4050, L100.0100 #### [facility] [address] [place], [address] Carbon dioxide, total [Moles /volume] in Central venous bloodOrdered By: Janay Luis on 10-13-2024 CO2 [Moles/Vol] 22.3 mmol/L 21.0-32.0 [facility] Chloride assayOrdered By: Moriah Luis on 10-13-2024 Chloride [Moles/Vol] 104 mmol/L 98-108 [facility] Comprehensive Metabolic Prof ilon 10-13-2024 Albumin [Mass/Vol] 4.4 g/dL Normal 3.5-5.0 [facility] Comment on above: Order Comment: Order Date: 04/14/25 Order Info: 0786- - CMP Order Info: [id number] - LIPID Performed By: #### L 500.4100, L500.4050, L100.0100 #### [facility] [address] [place], [address] Albumin/Globulin [Mass ratio] 1.4 {ratio} Normal 0.9-2.4 [facility] Comment on above: Order Comment: Order Date: 04/14/25 Order Info: [id number] - CMP Order Info: [id number] - LIPID Performed By: #### L 500.4100, L500.4050, L100.0100 #### [facility] [address] [place], [address] ALK PHOS 73 U/L Normal 40-129 [facility] Comment on above: Order Comment: Order Date: 04/14/25 Order Info: [id number] - CMP Order Info: [id number] - LIPID Performed By: #### L 500.4100, L500.4050, L100.0100 #### [facility] [address] [place], [address] ALT [Catalytic activity/Vol] 21 U/L Normal <=46 [facility] Comment on above: Order Comment: Order Date: 04/14/25 Order Info: 0786- - CMP Order Info: [id number] - LIPID Performed By: #### L 500.4100, L500.4050, L100.0100 #### [facility] [address] [place], [address] AST [Catalytic activity/Vol] 19 U/L Normal <=37 [facility] Comment on above: Order Comment: Order Date: 04/14/25 Order Info: 07- - CMP Order Info: [id number] - LIPID Performed By: #### L 500.4100, L500.4050, L100.0100 #### [facility] [address] [place], [address] Bilirubin [Mass/Vol] 0.68 mg/dL Normal 0.00-1.30 [facility] Comment on above: Order Comment: Order Date: 04/14/25 Order Info: 0786- - CMP Order Info: [id number] - LIPID Performed By: #### L 500.4100, L500.4050, L100.0100 #### [facility] [address] [place], [address] BUN/CRE 15.3 RATIO Normal 10-20 [facility] Comment on above: Order Comment: Order Date: 04/14/25 Order Info: [id number] - CMP Order Info: [id number] - LIPID Performed By: #### L 500.4100, L500.4050, L100.0100 #### [facility] [address] [place], [address] Calcium [Mass/Vol] 9.4 mg/dL Normal 7.6-11.0 [facility] Comment on above: Order Comment: Order Date: 04/14/25 Order Info: [id number] - CMP Order Info: [id number] - LIPID Performed By: #### L 500.4100, L500.4050, L100.0100 #### [facility] [address] [place], [address] Chloride [Moles/Vol] 104 mmol/L Normal 98-108 [facility] Comment on above: Order Comment: Order Date: 04/14/25 Order Info: 07-1 - CMP Order Info: [id number] - LIPID Performed By: #### L 500.4100, L500.4050, L100.0100 #### [facility] [address] [place], [address] CO2 [Moles/Vol] 22.3 mmol/L Normal 21.0-32.0 [facility] Comment on above: Order Comment: Order Date: 04/14/25 Order Info: 07- - CMP Order Info: [id number] - LIPID Performed By: #### L 500.4100, L500.4050, L100.0100 #### [facility] [address] [place], [address] Creatinine [Mass/Vol] 1.20 mg/dL Normal 0.70-1.20 [facility] Comment on above: Order Comment: Order Date: 04/14/25 Order Info: 0786- - CMP Order Info: [id number] - LIPID Performed By: #### L 500.4100, L500.4050, L100.0100 #### [facility] [address] [place], [address] GAP 12 Normal 5-15 [facility] Comment on above: Order Comment: Order Date: 04/14/25 Order Info: [id number] - CMP Order Info: [id number] - LIPID Performed By: #### L 500.4100, L500.4050, L100.0100 #### [facility] [address] [place], [address] GFR/1.73 sq M.predicted among non-blacks MDRD (S/P/Bld) [Vol rate/Area] 73 mL/min/{1.73_m2} Normal >60 [facility] Comment on above: Order Comment: Order Date: 04/14/25 Order Info: [id number] - CMP Order Info: [id number] - LIPID Result Comment: mL/m in/1.73m2 CKD-EPI Creatinine Equation (2020) Performed By: #### L 500.4100, L500.4050, L100.0100 #### [facility] [address] [place], [address] Globulin (S) [Mass/Vol] 3.0 g/dL Normal 2.2-4.2 [facility] Comment on above: Order Comment: Order Date: 04/14/25 Order Info: 0786- - CMP Order Info: [id number] - LIPID Performed By: #### L 500.4100, L500.4050, L100.0100 #### [facility] [address] [place], [address] Glucose [Mass/Vol] 90 mg/dL Normal 70-99 [facility] Comment on above: Order Comment: Order Date: 04/14/25 Order Info: 0786-1 - CMP Order Info: [id number] - LIPID Performed By: #### L 500.4100, L500.4050, L100.0100 #### [facility] [address] [place], [address] Potassium [Moles/Vol] 4.1 mmol/L Normal 3.3-5.1 [facility] Comment on above: Order Comment: Order Date: 04/14/25 Order Info: [id number] - CMP Order Info: [id number] - LIPID Performed By: #### L 500.4100, L500.4050, L100.0100 #### [facility] [address] [place], [address] Sodium [Moles/Vol] 139 mmol/L Normal 133-145 [facility] Comment on above: Order Comment: Order Date: 04/14/25 Order Info: 0786-1 - CMP Order Info: [id number] - LIPID Performed By: #### L 500.4100, L500.4050, L100.0100 #### [facility] [address] [place], [address] T PROT 7.4 g/dL Normal 5.9-8.4 [facility] Comment on above: Order Comment: Order Date: 04/14/25 Order Info: 07- - CMP Order Info: [id number] - LIPID Performed By: #### L 500.4100, L500.4050, L100.0100 #### [facility] [address] [place], [address] Urea nitrogen [Mass/Vol] 18 mg/dL Normal 4-19 [facility] Comment on above: Order Comment: Order Date: 04/14/25 Order Info: 0786 - CMP Order Info: [id number] - LIPID Performed By: #### L 500.4100, L500.4050, L100.0100 #### [facility] [address] [place], [address] Eosinophil percentageOrdered By: Janay Luis on 10-13-2024 Eosinophils/100 WBC (Bld) 2.6 % Normal 0-5 [facility] Comment on above: Order Comment: Order Date: 04/14/25 Order Info: [id number] - CMP Order Info: [id number] - LIPID Performed By: #### L 500.4100, L500.4050, L100.0100 #### [facility] [address] [place], [address] Erythrocyte distribution wid th ratioOrdered By: Janay Luis on 10-13-2024 Erythrocyte distribution width (RBC) [Ratio] 14.4 % Normal 11.6-14.6 [facility] Comment on above: Order Comment: Order Date: 04/14/25 Order Info: [id number] - CMP Order Info: [id number] - LIPID Performed By: #### L 500.4100, L500.4050, L100.0100 #### [facility] [address] [place], [place], [id number] Erythrocyte distribution wid th standard deviationOrdered By: Janay Luis on 10-13-2024 Erythrocyte distribution width (RBC) [Ratio] 42.3 fl 35.1-43.9 [facility] Glomerular filtration rate ( GFR) estimation/1.73 sq m using serum, plasma, or whole bOrdered By: Janay Luis on 10-13-2024 GFR/1.73 sq M.predicted among non-blacks MDRD (S/P/Bld) [Vol rate/Area] 73 mL/min/{1.73_m2} >60 [facility] Comment on above: mL/min/1.73m2 CKD-EP I Creatinine Equation (2020) Hemoglobin measurementOrdere d By: Janay Luis on 10-13-2024 Hemoglobin (Bld) [Mass/Vol] 15.1 g/dL Normal 13.0-16.5 [facility] Comment on above: Order Comment: Order Date: 04/14/25 Order Info: 0786-1 - CMP Order Info: [id number] - LIPID Performed By: #### L 500.4100, L500.4050, L100.0100 #### [facility] [address] [place], [place], [address] Immature granulocytes/100 WB C Auto (Bld)Ordered By: Janay Luis on 10-13-2024 Immature granulocytes/100 WBC (Bld) 0.500 % 0.0-0.9 [facility] Comment on above: IG% - Immature Granu locytes (promyelocytes, myelocytes and metamyelocytes) > 1% indicates that a LEFT SHIFT is Present. Laboratory - Chemistry and C hemistry - challengeOrdered By: Janay Luis on 10-13-2024 AST [Catalytic activity/Vol] 19 U/L <38 [facility] MCV (mean corpuscular volume ) determinationOrdered By: Janay Luis on 10-13-2024 MCV (RBC) [Entitic vol] 81.2 fL Normal 80-94 [facility] Comment on above: Order Comment: Order Date: 04/14/25 Order Info: 0786-1 - CMP Order Info: [id number] - LIPID Performed By: #### L 500.4100, L500.4050, L100.0100 #### [facility] [address] [place], [address] Mean corpuscular hemoglobin (MCH) determinationOrdered By: Janay Luis on 10-13-2024 MCH (RBC) [Entitic mass] 28.1 pg Normal 27.0-32.0 [facility] Comment on above: Order Comment: Order Date: 04/14/25 Order Info: 0786-1 - CMP Order Info: [id number] - LIPID Performed By: #### L 500.4100, L500.4050, L100.0100 #### [facility] [address] [place], [address] Mean corpuscular hemoglobin concentration (MCHC) determinationOrdered By: Janay Luis on 10-13-2024 MCHC (RBC) [Mass/Vol] 34.6 g/dL Normal 32-36 [facility] Comment on above: Order Comment: Order Date: 04/14/25 Order Info: 0786-1 - CMP Order Info: [id number] - LIPID Performed By: #### L 500.4100, L500.4050, L100.0100 #### [facility] [address] [place], [address] Mean platelet volume determi nationOrdered By: Janay Luis on 10-13-2024 Platelet mean volume (Bld) [Entitic vol] 9.8 fL Normal 6.2-12.0 [facility] Comment on above: Order Comment: Order Date: 04/14/25 Order Info: 0786-1 - CMP Order Info: [id number] - LIPID Performed By: #### L 500.4100, L500.4050, L100.0100 #### [facility] [address] [place], [address] Monocyte percentageOrdered B y: Janay Luis on 10-13-2024 Monocytes/100 WBC (Bld) 7.9 % Normal 0-10 [facility] Comment on above: Order Comment: Order Date: 04/14/25 Order Info: 0786-1 - CMP Order Info: [id number] - LIPID Performed By: #### L 500.4100, L500.4050, L100.0100 #### [facility] [address] [place], [address] Neutrophil percentageOrdered By: Janay Luis on 10-13-2024 Neutrophils/100 WBC (Bld) 65.1 % Normal 47-70 [facility] Comment on above: Order Comment: Order Date: 04/14/25 Order Info: 0786-1 - CMP Order Info: [id number] - LIPID Performed By: #### L 500.4100, L500.4050, L100.0100 #### [facility] [address] [place], [address] Nucleated red blood cell per centageOrdered By: Janay Luis on 10-13-2024 Nucleated RBC/100 WBC (Bld) [Ratio] 0 % 0-5 [facility] Platelet countOrdered By: Moriah Luis on 10-13-2024 Platelets (Bld) [#/Vol] 291 10*3/uL Normal 150-450 [facility] Comment on above: Order Comment: Order Date: 04/14/25 Order Info: 0786-1 - CMP Order Info: [id number] - LIPID Performed By: #### L 500.4100, L500.4050, L100.0100 #### [facility] [address] [place], [address] Potassium measurement (mass/ volume)Ordered By: Janay Luis on 10-13-2024 Potassium (Unsp spec) [Mass/Vol] 4.1 mmol/L 3.3-5.1 [facility] Serum creatinine measurement (mass/volume)Ordered By: Janay Luis on 10-13-2024 Creatinine [Mass/Vol] 1.20 mg/dL 0.70-1.20 [facility] Serum globulin measurementOr dered By: Janay Luis on 10-13-2024 Globulin (S) [Mass/Vol] 3.0 g/dL 2.2-4.2 [facility] Serum glucose measurement (m ass/volume)Ordered By: Janay Luis on 10-13-2024 Glucose [Mass/Vol] 90 mg/dL 70-99 [facility] Serum or plasma alanine aiken otransferase (ALT) measurementOrdered By: Janay Luis on 10-13-2024 ALT [Catalytic activity/Vol] 21 U/L <47 [facility] Serum or plasma albumin maryann urement (mass/volume)Ordered By: Janay Luis on 10-13-2024 Albumin [Mass/Vol] 4.4 g/dL 3.5-5.0 [facility] Serum or plasma albumin/glob ulin mass ratioOrdered By: Janay Luis on 10-13-2024 Albumin/Globulin [Mass ratio] 1.4 {ratio} 0.9-2.4 [facility] Serum or plasma alkaline zuly sphatase measurementOrdered By: Janay Luis on 10-13-2024 ALP [Catalytic activity/Vol] 73 U/L 40-129 [facility] Serum or plasma calcium maryann urement (mass/volume)Ordered By: Janay Luis on 10-13-2024 Calcium [Mass/Vol] 9.4 mg/dL 7.6-11.0 [facility] Serum or plasma urea nitroge n measurement (mass/volume)Ordered By: Janay Luis on 10-13-2024 Urea nitrogen [Mass/Vol] 18 mg/dL 4-19 [facility] Sodium levelOrdered By: Janay Luis on 10-13-2024 Sodium [Moles/Vol] 139 mmol/L 133-145 [facility] Total proteinOrdered By: Román Luis on 10-13-2024 Protein [Mass/Vol] 7.4 g/dL 5.9-8.4 [facility] Vitamin D,25 Hydroxyon 10-13 Vitamin D 25-OH 16.7 ng/mL Low 30-100 [facility] Comment on above: Order Comment: Order Date: 10/13/24 Order Info: [id number] - CMP Result Comment: Chelsie min D Status Deficiency: <20 ng/mL (50nmol/L) Insufficiency: 20-30 ng/mL (50-75 nmol/L) Sufficiency: 30-100 ng/mL (75-250 nmol/L) Toxicity: >100 ng/mL (>250 nmol/L) Performed By: #### L 506.1001 #### [facility] [address] [place], [address] White blood cell (WBC) count Ordered By: Janay Luis on 10-13-2024 WBC (Bld) [#/Vol] 9.7 10*3/uL Normal 4.4-11.0 [facility] Comment on above: Order Comment: Order Date: 04/14/25 Order Info: [id number] - CMP Order Info: [id number] - LIPID Performed By: #### L 500.4100, L500.4050, L100.0100 #### [facility] [address] [place], [address] CBC W/Diff, Automatedon 01-3 Absolute Lymph 2.46 X10 3/uL Normal 0.83-4.51 [facility] Comment on above: Order Comment: Order Date: 04/14/25 Order Info: [id number] - CMP Order Info: [id number] - LIPID Performed By: #### L 500.4100, L500.4050, L100.0100 #### [facility] [address] [place], [address] Absolute Neut 5.9 X10 3/uL Normal 2.0-7.7 [facility] Comment on above: Order Comment: Order Date: 04/14/25 Order Info: [id number] - CMP Order Info: [id number] - LIPID Performed By: #### L 500.4100, L500.4050, L100.0100 #### [facility] [address] [place], [address] Basophils/100 WBC (Bld) 1.2 % High 0-1 [facility] Comment on above: Order Comment: Order Date: 04/14/25 Order Info: 07- - CMP Order Info: [id number] - LIPID Performed By: #### L 500.4100, L500.4050, L100.0100 #### [facility] [address] [place], [address] Eosinophils/100 WBC (Bld) 3.4 % Normal 0-5 [facility] Comment on above: Order Comment: Order Date: 04/14/25 Order Info: [id number] - CMP Order Info: [id number] - LIPID Performed By: #### L 500.4100, L500.4050, L100.0100 #### [facility] [address] [place], [address] Erythrocyte distribution width (RBC) [Ratio] 14.6 % Normal 11.6-14.6 [facility] Comment on above: Order Comment: Order Date: 04/14/25 Order Info: 0786- - CMP Order Info: [id number] - LIPID Performed By: #### L 500.4100, L500.4050, L100.0100 #### [facility] [address] [place], [address] Hematocrit (Bld) [Volume fraction] 43.3 % Normal 40-54 [facility] Comment on above: Order Comment: Order Date: 04/14/25 Order Info: [id number] - CMP Order Info: [id number] - LIPID Performed By: #### L 500.4100, L500.4050, L100.0100 #### [facility] [address] [place], [address] Hemoglobin (Bld) [Mass/Vol] 15.0 g/dL Normal 13.0-16.5 [facility] Comment on above: Order Comment: Order Date: 04/14/25 Order Info: 0786- - CMP Order Info: [id number] - LIPID Performed By: #### L 500.4100, L500.4050, L100.0100 #### [facility] [address] [place], [address] IG% 0.800 Normal 0.0-0.9 [facility] Comment on above: Order Comment: Order Date: 04/14/25 Order Info: 0786 - CMP Order Info: [id number] - LIPID Result Comment: IG% - Immature Granulocytes (promyelocytes, myelocytes and metamyelocytes) > 1% indicates that a LEFT SHIFT is Present. Performed By: #### L 500.4100, L500.4050, L100.0100 #### [facility] [address] [place], [address] Lymphocytes/100 WBC (Bld) 25.1 % Normal 19-41 [facility] Comment on above: Order Comment: Order Date: 04/14/25 Order Info: 0786- - CMP Order Info: [id number] - LIPID Performed By: #### L 500.4100, L500.4050, L100.0100 #### [facility] [address] [place], [address] MCH (RBC) [Entitic mass] 27.8 pg Normal 27.0-32.0 [facility] Comment on above: Order Comment: Order Date: 04/14/25 Order Info: 0786- - CMP Order Info: [id number] - LIPID Performed By: #### L 500.4100, L500.4050, L100.0100 #### [facility] [address] [place], [address] MCHC (RBC) [Mass/Vol] 34.6 g/dL Normal 32-36 [facility] Comment on above: Order Comment: Order Date: 04/14/25 Order Info: 0786-1 - CMP Order Info: [id number] - LIPID Performed By: #### L 500.4100, L500.4050, L100.0100 #### [facility] [address] [place], [address] MCV (RBC) [Entitic vol] 80.3 fL Normal 80-94 [facility] Comment on above: Order Comment: Order Date: 04/14/25 Order Info: 0786- - CMP Order Info: [id number] - LIPID Performed By: #### L 500.4100, L500.4050, L100.0100 #### [facility] [address] [place], [address] Monocytes/100 WBC (Bld) 8.9 % Normal 0-10 [facility] Comment on above: Order Comment: Order Date: 04/14/25 Order Info: 0786- - CMP Order Info: [id number] - LIPID Performed By: #### L 500.4100, L500.4050, L100.0100 #### [facility] [address] [place], [address] Neutrophils/100 WBC (Bld) 60.6 % Normal 47-70 [facility] Comment on above: Order Comment: Order Date: 04/14/25 Order Info: 0786- - CMP Order Info: [id number] - LIPID Performed By: #### L 500.4100, L500.4050, L100.0100 #### [facility] [address] [place], [address] Nucleated RBC (Bld) [#/Vol] 0 10*3/uL Normal 0-5 [facility] Comment on above: Order Comment: Order Date: 04/14/25 Order Info: [id number] - CMP Order Info: [id number] - LIPID Performed By: #### L 500.4100, L500.4050, L100.0100 #### [facility] [address] [place], [address] Platelet mean volume (Bld) [Entitic vol] 9.8 fL Normal 6.2-12.0 [facility] Comment on above: Order Comment: Order Date: 04/14/25 Order Info: 0786 - CMP Order Info: [id number] - LIPID Performed By: #### L 500.4100, L500.4050, L100.0100 #### [facility] [address] [place], [address] Platelets (Bld) [#/Vol] 270 10*3/uL Normal 150-450 [facility] Comment on above: Order Comment: Order Date: 04/14/25 Order Info: [id number] - CMP Order Info: [id number] - LIPID Performed By: #### L 500.4100, L500.4050, L100.0100 #### [facility] [address] [place], [address] RBC (Bld) [#/Vol] 5.39 10*6/uL Normal 4.6-6.2 [facility] Comment on above: Order Comment: Order Date: 04/14/25 Order Info: 0786 - CMP Order Info: [id number] - LIPID Performed By: #### L 500.4100, L500.4050, L100.0100 #### [facility] [address] [place], [address] RDW SD 42.0 fl Normal 35.1-43.9 [facility] Comment on above: Order Comment: Order Date: 04/14/25 Order Info: 0786 - CMP Order Info: [id number] - LIPID Performed By: #### L 500.4100, L500.4050, L100.0100 #### [facility] [address] [place], [address] WBC (Bld) [#/Vol] 9.8 10*3/uL Normal 4.4-11.0 [facility] Comment on above: Order Comment: Order Date: 04/14/25 Order Info: 0786-1 - CMP Order Info: [id number] - LIPID Performed By: #### L 500.4100, L500.4050, L100.0100 #### [facility] [address] [place], [address] Comprehensive Metabolic Prof ilon 07-17-2024 Albumin [Mass/Vol] 3.8 g/dL Normal 3.2-5.0 [facility] Comment on above: Order Comment: Order Date: 04/14/25 Order Info: 0786- - CMP Order Info: [id number] - LIPID Performed By: #### L 500.4100, L500.4050, L100.0100 #### [facility] [address] [place], [address] Albumin/Globulin [Mass ratio] 1.0 {ratio} Normal 0.9-2.4 [facility] Comment on above: Order Comment: Order Date: 04/14/25 Order Info: 0786- - CMP Order Info: [id number] - LIPID Performed By: #### L 500.4100, L500.4050, L100.0100 #### [facility] [address] [place], [address] ALK P 70 U/L Normal 45-117 [facility] Comment on above: Order Comment: Order Date: 04/14/25 Order Info: 0786-1 - CMP Order Info: [id number] - LIPID Performed By: #### L 500.4100, L500.4050, L100.0100 #### [facility] [address] [place], [address] ALT [Catalytic activity/Vol] 42 U/L Normal 16-61 [facility] Comment on above: Order Comment: Order Date: 04/14/25 Order Info: 0786-1 - CMP Order Info: [id number] - LIPID Performed By: #### L 500.4100, L500.4050, L100.0100 #### [facility] [address] [place], [address] AST [Catalytic activity/Vol] 21 U/L Normal 15-37 [facility] Comment on above: Order Comment: Order Date: 04/14/25 Order Info: [id number] - CMP Order Info: [id number] - LIPID Performed By: #### L 500.4100, L500.4050, L100.0100 #### [facility] [address] [place], [address] Bilirubin [Mass/Vol] 0.70 mg/dL Normal 0.20-1.00 [facility] Comment on above: Order Comment: Order Date: 04/14/25 Order Info: [id number] - CMP Order Info: [id number] - LIPID Result Comment: For patients on eltrombopag therapy, use of Dimension [place] TBIL is not recommended. Performed By: #### L 500.4100, L500.4050, L100.0100 #### [facility] [address] [place], [address] BUN/CRE 18.0 RATIO Normal 10-20 [facility] Comment on above: Order Comment: Order Date: 04/14/25 Order Info: 07 - CMP Order Info: [id number] - LIPID Performed By: #### L 500.4100, L500.4050, L100.0100 #### [facility] [address] [place], [address] CA,Total 9.3 mg/dL Normal 8.5-10.1 [facility] Comment on above: Order Comment: Order Date: 04/14/25 Order Info: 07 - CMP Order Info: [id number] - LIPID Performed By: #### L 500.4100, L500.4050, L100.0100 #### [facility] [address] [place], [address] Chloride [Moles/Vol] 105 mmol/L Normal 98-107 [facility] Comment on above: Order Comment: Order Date: 04/14/25 Order Info: 0786- - CMP Order Info: [id number] - LIPID Performed By: #### L 500.4100, L500.4050, L100.0100 #### [facility] [address] [place], [address] CO2 [Moles/Vol] 23.0 mmol/L Normal 21.0-32.0 [facility] Comment on above: Order Comment: Order Date: 04/14/25 Order Info: 07 - CMP Order Info: [id number] - LIPID Performed By: #### L 500.4100, L500.4050, L100.0100 #### [facility] [address] [place], [address] Creatinine [Mass/Vol] 1.11 mg/dL Normal 0.70-1.30 [facility] Comment on above: Order Comment: Order Date: 04/14/25 Order Info: 0786 - CMP Order Info: [id number] - LIPID Result Comment: The validity of the calculated GFR GFRAA in patients over 70 years has not been determined. Clinical correlation is essential. Performed By: #### L 500.4100, L500.4050, L100.0100 #### [facility] [address] [place], [address] EST GFR - AA 89 mL/min Normal >60 [facility] Comment on above: Order Comment: Order Date: 04/14/25 Order Info: 0786 - CMP Order Info: [id number] - LIPID Result Comment: Afri can [place] GFR Calc Performed By: #### L 500.4100, L500.4050, L100.0100 #### [facility] [address] [place], [address] GAP 8 Normal 5-15 [facility] Comment on above: Order Comment: Order Date: 04/14/25 Order Info: [id number] - CMP Order Info: [id number] - LIPID Performed By: #### L 500.4100, L500.4050, L100.0100 #### [facility] [address] [place], [address] GFR/1.73 sq M.predicted among non-blacks MDRD (S/P/Bld) [Vol rate/Area] 74 mL/min/{1.73_m2} Normal >60 [facility] Comment on above: Order Comment: Order Date: 04/14/25 Order Info: 0786- - CMP Order Info: [id number] - LIPID Result Comment: Non- GFR Calc Performed By: #### L 500.4100, L500.4050, L100.0100 #### [facility] [address] [place], [address] Globulin (S) [Mass/Vol] 3.9 g/dL Normal 2.2-4.2 [facility] Comment on above: Order Comment: Order Date: 04/14/25 Order Info: 0786- - CMP Order Info: [id number] - LIPID Performed By: #### L 500.4100, L500.4050, L100.0100 #### [facility] [address] [place], [address] Glucose [Mass/Vol] 86 mg/dL Normal 74-106 [facility] Comment on above: Order Comment: Order Date: 04/14/25 Order Info: 0786-1 - CMP Order Info: [id number] - LIPID Performed By: #### L 500.4100, L500.4050, L100.0100 #### [facility] [address] [place], [address] Potassium [Moles/Vol] 4.0 mmol/L Normal 3.5-5.1 [facility] Comment on above: Order Comment: Order Date: 04/14/25 Order Info: 0786-1 - CMP Order Info: [id number] - LIPID Performed By: #### L 500.4100, L500.4050, L100.0100 #### [facility] [address] [place], [address] Sodium [Moles/Vol] 136 mmol/L Normal 136-145 [facility] Comment on above: Order Comment: Order Date: 04/14/25 Order Info: 0786- - CMP Order Info: [id number] - LIPID Performed By: #### L 500.4100, L500.4050, L100.0100 #### [facility] [address] [place], [address] T PROT 7.7 g/dL Normal 6.4-8.2 [facility] Comment on above: Order Comment: Order Date: 04/14/25 Order Info: 0786- - CMP Order Info: [id number] - LIPID Performed By: #### L 500.4100, L500.4050, L100.0100 #### [facility] [address] [place], [address] Urea nitrogen [Mass/Vol] 20 mg/dL High 7-18 [facility] Comment on above: Order Comment: Order Date: 04/14/25 Order Info: 0786- - CMP Order Info: [id number] - LIPID Performed By: #### L 500.4100, L500.4050, L100.0100 #### [facility] [address] [place], [address] Lipid Profileon 07-17-2024 Cholesterol [Mass/Vol] 149 mg/dL Normal 200 [facility] Comment on above: Order Comment: Order Date: 04/14/25 Order Info: 0786-1 - CMP Order Info: [id number] - LIPID Result Comment: <200 mg/dL Desirable 200-240 mg/dL Borderline >240 mg/dL High Risk Performed By: #### L 500.4100, L500.4050, L100.0100 #### [facility] [address] [place], [address] Cholesterol in HDL [Mass/Vol] 31 mg/dL Low [facility] Comment on above: Order Comment: Order Date: 04/14/25 Order Info: 0786- - CMP Order Info: [id number] - LIPID Result Comment: The drugs N-Acetylcysteine and Metamizole may falsely depress this assay. Reference Range HDL <40 mg/dL Low HDL Cholesterol HDL >or= 60 mg/dL High HDL Cholesterol Performed By: #### L 500.4100, L500.4050, L100.0100 #### [facility] [address] [place], [address] Cholesterol in LDL [Mass/Vol] 81 mg/dL Normal 0-130 [facility] Comment on above: Order Comment: Order Date: 04/14/25 Order Info: 0786 - CMP Order Info: [id number] - LIPID Performed By: #### L 500.4100, L500.4050, L100.0100 #### [facility] [address] [place], [address] Cholesterol in VLDL [Mass/Vol] 37 mg/dL Normal 5-40 [facility] Comment on above: Order Comment: Order Date: 04/14/25 Order Info: 0786- - CMP Order Info: [id number] - LIPID Performed By: #### L 500.4100, L500.4050, L100.0100 #### [facility] [address] [place], [address] Triglyceride [Mass/Vol] 184 mg/dL Normal [facility] Comment on above: Order Comment: Order Date: 04/14/25 Order Info: 0786- - CMP Order Info: [id number] - LIPID Result Comment: The drugs N-Acetylcysteine and Metamizole may falsely depress this assay. Serum Triglycerides Reference Interval Normal <150 mg/dL Borderline high 150 - 199 mg/dL High 200 - 499 mg/dL Very High > or = 500 mg/dL Performed By: #### L 500.4100, L500.4050, L100.0100 #### [facility] [address] [place], [address] PSA,Total - Annual Screenon 07-17-2024 PSA,TOT SCREEN 0.84 ng/mL Normal 0.00-4.00 [facility] Comment on above: Order Comment: Order Date: 04/14/25 Order Info: 0786-1 - CMP Order Info: [id number] - LIPID Result Comment: This test was performed using the TPSA assay method for the [employer] chemistry system. Values obtained with different assay methods cannot be used interchangably. When changing PSA assays in the course of monitoring a patient, additional sequential testing should be carried out to confirm baseline values. Performed By: #### L 500.4100, L500.4050, L100.0100 #### [facility] [address] [facility] [place], [address] Breast Limited Unilateralon 06-29-2024 Breast Limited Unilateral [facility] Imaging Services [address] [place] [address] Breast Limited Unilateral MR#: [id number] Acct: [id number] Name: ARAM CARLTON Rep #: [id number] : 1970 M 53 From: Shaheen swenson MD PCP: Dr. 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 Palpable lump left breast. TECHNIQUE: Axial and longitudinal images of the LEFT breast were performed with a high resolution ultrasound transducer. # OF IMAGES: 28 COMPARISON: Comparison is made with prior mammogram done earlier today as well as prior sonogram of the left breast dated July 17, 2021. FINDINGS: LEFT Breast: The upper-outer quadrant of the left breast was examined with ultrasound. No sonographic abnormality is seen. US/Breast Limited Unilateral IMPRESSION: No sonographic abnormality is seen. ASSESSMENT CATEGORY: BIRADS Category 1: Negative. A letter regarding these results will be sent to the patient by the facility within 30 days. Electronically Signed: Shaheen Garcia MD at 10:50 EST Reading Location ID and State: [facility] / [place] , Service support , CC: Devika Balderas; Dr. Janay Luis MD Combination Technician: Signed [facility] DIAG MAMM W/CAD, BILATon DIAG MAMM W/CAD, [facility] Imaging Services [address] [place], [place] [id number] DIAG MAMM W/CAD, BILAT MR#: [id number] Acct: [id number] Name: ARAM CARLTON Rep #: [id number] : 1970 M 53 From: Shaheen swenson MD PCP: Dr. Janay Luis MD Status: [facility] Study: DIAG MAMM W/CAD, BILAT Date of Exam: 06/29/24 Exam# [id number] Ordering Dr: Devika Balderas NP, [place] [id number] MAMMOGRAPHY - BILATERAL DIAGNOSTIC REASON FOR EXAM: Male, 53 years old. Left breast lump. Gynecomastia. PERTINENT HISTORY: Mother with breast cancer. TECHNIQUE: Digital bilateral breast jazzy (3D mammographic acquisition) in the CC and MLO projections. 2-D mediolateral oblique (MLO) and craniocaudad (CC) views of both breasts were obtained. CAD: Full Field Digital Mammography with Computer Added Detection was performed. COMPARISON: Comparison made with prior study dated July 17, 2021. FINDINGS: Breast Composition: The breasts are almost entirely fatty. There are no dominant masses or suspicious calcifications. Stable Fat-containing bilateral axillary lymph nodes. No other significant abnormalities are identified. There has been no significant change since the prior study. BI/DIAG MAMM W/CAD, BILAT IMPRESSION: Negative diagnostic mammogram. With the patient''s history of a palpable lump in the left breast, targeted sonographic correlation recommended. ASSESSMENT CATEGORY: BIRADS Category 0: Incomplete. Need additional imaging evaluation. A letter regarding these results will be sent to the patient by the facility within 30 days. Approximately 10% of breast cancers are not detected by mammography. A normal mammogram should not delay biopsy of a clinically suspicious abnormality. Electronically Signed: Shaheen Garcia MD at 9:58 EST , CC: Devika Balderas; Dr. Janay Luis MD Combination Technician: Signed Normal [facility] ANES POSTPROC EVALon 024 ANES POSTPROC EVAL HNO ID: [id number] Author: Jaron CUELLAR MD Service: ? Author Type: Anesthesiologist Type: Anesthesia Postprocedure Evaluation Filed: 02/28/2024 08:35 Note Text: POST ANESTHESIA EVALUATION NOTE : 1970 Procedure Summary Date: 02/28/24 Room / Location: Gastroenterology Anesthesia Start: 738 Anesthesia Stop: 08 Procedure: SIGMOIDOSCOPY Diagnosis: Ulceration of colon (Follow-up for history of inflammatory polyps in the colon) Scheduled Providers: Jaswinder Ugalde MD; Erma Thapa APRN.CRNA; Jaron Cuellar MD Responsible Provider: Jaron Cuellar MD Anesthesia Type: general, MAC ASA Status: 3 Anesthesia Type: general, MAC Airway Type: supplemental O2 Last Vitals Vitals Value Taken Time BP 141/88 02/28/24 0830 Temp 36.1 ?C (97 ?F) 02/28/24 0802 Pulse 66 02/28/24 0833 Resp 16 02/28/24 0830 SpO2 96 % 02/28/24 08 Vitals shown include unfiled device data. Post Anesthesia Patient Status Patient Evaluation: bedside. Neurological Status: aware and responsive. Pulmonary Status: breathing comfortably on supplemental oxygen Airway Control: returned to baseline unsupported. Cardiovascular Status: stable. Pain Management: clinically adequate Postoperative Hydration: acceptable. Intraoperative Events: no significant anesthesia events Post Operative Nausea/Vomiting Status: no significant post operative nausea or vomiting Recommendation: continue current plan of care. Anesthesia Observations No Documentation SIGNATURE: Jaron Cuellar MD PATIENT NAME: Aram Carlton DATE: February 28, 2024 TIME: 8:35 AM CSN: [id number] Normal [facility] ANES PRE-OPon 02-28-2024 ANES PRE-OP HNO ID: [id number] Author: Jaron CUELLAR MD Service: ? Author Type: Anesthesiologist Type: Anesthesia Preprocedure Evaluation Filed: 02/28/2024 07:34 Note Text: ANESTHESIOLOGY DAY OF SURGERY NOTE : 1970 Procedure Information Date/Time: 02/28/2430 Scheduled providers: Jaswinder Ugalde MD; Erma Thapa APRN.SOFTWARE DEVELOPER MANAGER; Jaron Cuellar MD Procedure: SIGMOIDOSCOPY Location: Gastroenterology Estimated body mass index is 40 kg/m? as calculated from the following: Height as of this encounter: 190.5 cm (6' 3"). Weight as of this encounter: 145.2 kg (320 lb). Most recent hematocrit and potassium results: Hematocrit 45.7 06/19/2023 Potassium 4.6 06/19/2023 Relevant Problems No relevant active problems I - PHYSICAL EVALUATION AIRWAY Patient intubated: No. Tracheostomy tube not present Mallampati: III. TM distance: >3 FB. Neck ROM: full ROM without neurological symptoms. Mouth opening: adequate. Short neck: no. Thick neck: no II - ANESTHESIA PLAN ASA Score: 3 Anesthetic Plan: general and MAC Airway type: supplemental O2 NPO Status: adequate Beta Salo Monitoring Plan Monitoring plan: standard ASA. Post Procedure Analgesic Plan Postoperative analgesic plan: multimodal analgesia. Informed Consent Anesthetic risks, benefits, alternatives, personnel and consent discussed: yes. Patient / Responsible Constitution Party agrees to proceed: yes Patient / Surrogate agrees to blood products: Yes Significant changes in the patient condition since the History and Physical, not otherwise documented in primary service progress note: no. Potential Anesthesia issues that may suggest increased risk of complications or contraindication to planned procedure: none. Vitals Value Taken Time BP 154/98 02/28/24725 Pulse 70 02/28/24725 Resp 18 02/28/24725 Temp 36.5 ?C (97.7 ?F) 02/28/24725 SpO2 97 % 02/28/24725 Outpatient Medications as of 02/28/2024 Medication Sig famotidine (PEPCID) 20 mg tablet Take 20 mg by mouth two times a day. polyethylene glycol 3350 (MIRALAX) 17 gram/dose powder [...] mouth after use. No current facility-administered medications on file as of 02/28/2024. I have interviewed and examined the patient. I have reviewed the medical record and/or the pre-anesthesia evaluation, pertinent labs, and test results. This contains updated information obtained within 48 hours of Surgery/Procedure. SIGNATURE: Jaron Cuellar MD PATIENT NAME: Aram Carlton DATE: February 28, 2024 TIME: 7:33 AM CSN: [id number] Normal [facility] Flexible Sigmoidoscopyon Flexible sigmoidoscopy A31 Gastrointestinal Endoscopy Patient Name: Aram Carlton Procedure Date: 02/28/2024 7:23 AM Date of : 1970 Admit Type: Outpatient Age: 53 Room: [address] Gender: Male Note Status: Finalized Attending MD: Jaswinder Ugalde MD, [id number] Procedure: Flexible Sigmoidoscopy Indications: Follow-up for history of inflammatory polyps in the colon Providers: Jaswinder Ugalde MD Referring Physician: Jaswinder Ugalde MD (Referring MD) Medicines: Propofol per Anesthesia Complications: No immediate complications. Requesting Provider: Procedure: Pre-Anesthesia Assessment: - Prior to the procedure, a History and Physical was performed, and patient medications and allergies were reviewed. The patient is competent. The risks and benefits of the procedure and the sedation options and risks were discussed with the patient. All questions were answered and informed consent was obtained. Patient identification and proposed procedure were verified by the physician in the procedure room. Mental Status Examination: alert and oriented. Airway Examination: normal oropharyngeal airway and neck mobility. Respiratory Examination: clear to auscultation. CV Examination: normal. Prophylactic Antibiotics: The patient does not require prophylactic antibiotics. Prior Anticoagulants: The patient has taken Brilinta (ticagrelor), last dose was 6 days prior to procedure. ASA Grade Assessment: II - A patient with mild systemic disease. After reviewing the risks and benefits, the patient was deemed in satisfactory condition to undergo the procedure. The anesthesia plan was to use moderate sedation / analgesia (conscious sedation). Immediately prior to administration of medications, the patient was re-assessed for adequacy to receive sedatives. The heart rate, respiratory rate, oxygen saturations, blood pressure, adequacy of pulmonary ventilation, and response to care were monitored throughout the procedure. The physical status of the patient was re-assessed after the procedure. After obtaining informed consent, the scope was passed under direct vision. The Endoscope was introduced through the anus and advanced to 50 cm from the anal verge. The flexible sigmoidoscopy was accomplished without difficulty. The patient tolerated the procedure well. The quality of the bowel preparation was good. Moderate Sedation: The administration of moderate sedation was initiated at 07:23 AM. Moderate (conscious) sedation was administered by the nurse and supervised by the endoscopist. The following parameters were monitored: oxygen saturation, heart rate, blood pressure, and response to care. Findings: Two sessile polyps were found at 30 cm and 25cm proximal to the anus. The polyps were 10 mm in size. These were biopsied with a cold forceps for histology. These are in the middle of multiple diverticulum and are right on the cusp of the diverticulum. They endoscopically appear to be inflammatory. Impression: - No specimens collected. Estimated Blood Loss: Estimated blood loss: none. Estimated blood loss: none. Recommendation: - Discharge patient to home (ambulatory). - Resume previous diet. - Continue present medications. - Await pathology results. - Return to primary care physician PRN. - Telephone GI clinic for pathology results in 1 week. Procedure Code(s): --- Professional --- 28190, Sigmoidoscopy, flexible; diagnostic, including collection of specimen(s) by brushing or washing, when performed (separate procedure) CPT copyright 2020 [employer]. All rights reserved. The codes documented in this report are preliminary and upon imaging system administrator review may be revised to meet current compliance requirements. Attending Participation: I personally performed the entire procedure. Scope In: 7:47:22 AM Scope Out: 7:55:41 AM MD Jaswinder Maloney MD 02/28/2024 8:00:40 AM This report has been signed electronically by Jaswinder Ugalde MD Number of Addenda: 0 Note Initiated On: 02/28/2024 7:23 AM Normal [facility] Flexible sigmoidoscopy study on 02-28-2024 A31 Gastrointestinal Endoscopy Patient Name: Aram Carlton Procedure Date: 02/28/2024 7:23 AM Date of : 1970 Admit Type: Outpatient Age: 53 Room: [address] Gender: Male Note Status: Finalized Attending MD: Jaswinder Ugalde MD, [id number] Procedure: Flexible Sigmoidoscopy Indications: Follow-up for history of inflammatory polyps in the colon Providers: Jaswinder Ugalde MD Referring Physician: Jaswinder Ugalde MD (Referring MD) Medicines: Propofol per Anesthesia Complications: No immediate complications. Requesting Provider: Procedure: Pre-Anesthesia Assessment: - Prior to the procedure, a History and Physical was performed, and patient medications and allergies were reviewed. The patient is competent. The risks and benefits of the procedure and the sedation options and risks were discussed with the patient. All questions were answered and informed consent was obtained. Patient identification and proposed procedure were verified by the physician in the procedure room. Mental Status Examination: alert and oriented. Airway Examination: normal oropharyngeal airway and neck mobility. Respiratory Examination: clear to auscultation. CV Examination: normal. Prophylactic Antibiotics: The patient does not require prophylactic antibiotics. Prior Anticoagulants: The patient has taken Brilinta (ticagrelor), last dose was 6 days prior to procedure. ASA Grade Assessment: II - A patient with mild systemic disease. After reviewing the risks and benefits, the patient was deemed in satisfactory condition to undergo the procedure. The anesthesia plan was to use moderate sedation / analgesia (conscious sedation). Immediately prior to administration of medications, the patient was re-assessed for adequacy to receive sedatives. The heart rate, respiratory rate, oxygen saturations, blood pressure, adequacy of pulmonary ventilation, and response to care were monitored throughout the procedure. The physical status of the patient was re-assessed after the procedure. After obtaining informed consent, the scope was passed under direct vision. The Endoscope was introduced through the anus and advanced to 50 cm from the anal verge. The flexible sigmoidoscopy was accomplished without difficulty. The patient tolerated the procedure well. The quality of the bowel preparation was good. Moderate Sedation: The administration of moderate sedation was initiated at 07:23 AM. Moderate (conscious) sedation was administered by the nurse and supervised by the endoscopist. The following parameters were monitored: oxygen saturation, heart rate, blood pressure, and response to care. Findings: Two sessile polyps were found at 30 cm and 25cm proximal to the anus. The polyps were 10 mm in size. These were biopsied with a cold forceps for histology. These are in the middle of multiple diverticulum and are right on the cusp of the diverticulum. They endoscopically appear to be inflammatory. Impression: - No specimens collected. Estimated Blood Loss: Estimated blood loss: none. Estimated blood loss: none. Recommendation: - Discharge patient to home (ambulatory). - Resume previous diet. - Continue present medications. - Await pathology results. - Return to primary care physician PRN. - Telephone GI clinic for pathology results in 1 week. Procedure Code(s): --- Professional --- 28371, Sigmoidoscopy, flexible; diagnostic, including collection of specimen(s) by brushing or washing, when performed (separate procedure) CPT copyright 2020 [employer]. All rights reserved. The codes documented in this report are preliminary and upon imaging system administrator review may be revised to meet current compliance requirements. Attending P (more content not included)... [facility] Radiology [facility]ative[facility] 02-28-2024 NURSING PROG HNO ID: [id number] Author: JANAY WHITE RN Service: ? Author Type: Registered Nurse Type: Nursing Progress Note Filed: 02/28/2024 08:13 Note Text: AMBULATORY PATIENT EDUCATION NOTE TOPIC: GI PROCEDURES: sigmoidoscopy READINESS TO LEARN INSTRUCTION PROVIDED TO: Patient and family member COGNITIVE ABILITY: Alert and oriented PTED MOTIVATION TO LEARN: Interested FAMILY SUPPORT: High - Very involved in pt care IPATIENT LEARNS BEST BY: Individual Instruction Written Instruction - Hand-outs Verbal Instruction FACTORS AFFECTING LEARNING: None PHYSICAL LIMITATIONS AFFECTING LEARNING: None LEARNING RESPONSE METHOD OF INSTRUCTION: Individual instruction PATIENT / FAMILY RESPONSE: Verbalizes understanding of: WORSENING CONDITION-Signs and symptoms of a worsening condition that warrant a call to the physician FOLLOW-UP PLAN: Patient instructed to call with any further issues SUPPLEMENTAL MATERIAL: Procedure Discharge Instructions REFERRAL (RECOMMENDATION): None Electronically Signed By: Janay White RN [facility] NURSING PROG HNO ID: [id number] Author: AMANDA MENDEZ RN Service: ? Author Type: Registered Nurse Type: Nursing Progress Note Filed: 02/28/2024 07:20 Note Text: PRE OP LEARNING ASSESSMENT PROCEDURE/SURGERY: GI PROCEDURES: Flex Sigmoidoscopy READINESS TO LEARN COGNITIVE ABILITY: Alert and oriented MOTIVATION TO LEARN: Interested FAMILY SUPPORT: None - Unavailable/disintere sted PATIENT LEARNS BEST BY: Individual Instruction FACTORS AFFECTING LEARNING: None PHYSICAL LIMITATIONS AFFECTING LEARNING: None Electronically Signed By: Amanda Mendez RN In Department: GASTROENTEROLOGY Normal [facility] SURGICAL PATHOLOGYon 024 ADDENDUM 1: Normal [facility] Comment on above: Order Comment: Speci men Type: TISSUE SPECIMENOrdering Facility: [facility] Address: [address] [place] [address] Result Comment: Due to the presence of ulceration, a CMV immunostain was performed on block B1 and is negative for viral inclusions. Laboratory Developed Test (LDT) Disclaimer: Performance characteristics of immunohistochemical, immunofluorescent and chromogenic in-situ hybridization tests have been determined by the performing laboratory within [facility]'s [facility] Pathology and Laboratory Medicine [place] ([facility], [facility], [facility], [facility], [facility], [facility], or [facility]) in a manner consistent with CLIA requirements. One or more of these tests have not been cleared or approved by the FDA. [facility] is regulated under CLIA as qualified to perform high-complexity testing. These tests are used for clinical purposes. They should not be regarded as investigational or for research. Positive and negative controls stain appropriately. Addendum electronically signed by Oksana Joshua MD on 03/03/2024 at 5:05 PM Performed By: #### S ####[facility] [id number] [place] [address] [place] CASE REPORT Normal [facility] Comment on above: Order Comment: Speci men Type: TISSUE SPECIMENOrdering Facility: [facility] Address: [address] [place] [address] Result Comment: Surg [facility] Pathology Report Case: [id number] Authorizing Provider: Jaswinder Ugalde MD Collected: 02/28/2024 07:54 AM Ordering Location: Gastroenterology Received: 02/28/2024 12:14 PM Pathologist: Oksana Joshua MD Specimens: A) - Colon, Sigmoid, Biopsy, 30 cm, r/o adenoma B) - Colon, Sigmoid, Biopsy, 25 cm, r/o adenoma Performed By: #### S ####[facility] [id number] [place] [address] [place] FINAL DIAGNOSIS Normal [facility] Comment on above: Order Comment: Speci men Type: TISSUE SPECIMENOrdering Facility: [facility] Address: [address] [place] [address] Result Comment: A. S igmoid colon, polyp at 30 cm, biopsy: - Ulcerated inflammatory polyp. - Negative for dysplasia. B. Sigmoid colon, polyp at 25 cm, biopsy: - Fragments of ulcerated inflammatory polyp. - Negative for dysplasia. Performed By: #### S ####[facility] [id number] [address] [place] FINAL PERFORMING LAB Normal [facility] Comment on above: Order Comment: Speci men Type: TISSUE SPECIMENOrdering Facility: [facility] Address: [address] [place] [address] Result Comment: Diag nostic interpretation performed at [facility], [address] [place] [address] CLIA# [id number] Blow Mold Operator: Ike Calderon M.D. Performed By: #### S ####[facility] [id number] [address] [place] GROSS DESCRIPTION Normal [facility] Comment on above: Order Comment: Speci men Type: TISSUE SPECIMENOrdering Facility: [facility] Address: [address] [place] [address] Result Comment: A. C olon, Sigmoid, Biopsy Received in formalin are multiple pieces of donahue, soft tissue aggregating to 1.1 x 0.2 x 0.2 cm. Totally submitted in one cassette. B. Colon, Sigmoid, Biopsy Received in formalin are two pieces of donahue, soft tissue aggregating to 0.5 x 0.2 x 0.2 cm. Totally submitted in one cassette. [facility] February 28, 2024 1:28 PM Gross examination performed at [facility], [address] [place] [address] Performed By: #### S ####[facility] LAB[facility]IA [id number] [address] [place] CNPSheyla 02-21-2024 CNPN Telephone (GAPRA3) ARAM CARLTON ([id number]) 1970 M Date Time Provider Department 02/21/24 SARAY VASQUEZ GAPRA3 During your visit today, we recorded the following information about you: Saray Vasquez, RN 02/21/2024 12:22 PM Signed GI Pre-Procedure Spoke with patient: Yes Confirmed date scheduled and patient report time: Yes Procedure Planned:Percutaneous procedures traversing into an organ or cavity around an organ Is the patient on blood thinners?no Procedure Instructions given to patient: Yes, and they verbalized their understanding of instructions given Patient instructed to take prescribed preparation prior to procedure:Yes, and they verbalized their understanding of instructions given Patient instructed to have family/friend present for procedure 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 and They verbalized their understanding and agree to have a responsible adult accompany the patient to their procedure and remain in the endoscopy area. Any barriers to Patient learning: Patient/Patient Manager Pool responded appropriately on phone. Type of instruction given: Verbal by telephone contact. Saray Vasquez RN Allergies As of Date: 02/21/2024 Noted Allergy Reaction LEXAPRO (ESCITALOPRAM OXALATE) 06/18/2017 14 - Other: See Comments Comments: Worsened anxiety Date Reviewed: 09/06/2023 Reviewed by: Rosie Swift, ARABELLA - Fully Assessed Reason for Visit: Appointment [186] Prescriptions as of 02/21/2024 - famotidine (PEPCID) 20 mg tablet Take 20 mg by mouth two times a day. - polyethylene glycol 3350 (MIRALAX) 17 gram/dose powder Take by mouth once daily. Dissolve dose in 4 - 8 ounces of liquid and take as directed. - inulin (FIBER GUMMIES ORAL) Take by mouth. - sertraline (ZOLOFT) 100 mg tablet Take 1 tablet by mouth once daily. - busPIRone (BUSPAR) 10 mg tablet Take 1 tablet by mouth three times daily as needed. - fluticasone (FLONASE) 50 mcg/actuation nasal spray Use 2 Sprays in each nostril once daily. Rinse mouth after use. Problem List As Of Date 02/21/2024 Noted Resolved Obesity (BMI 30-39.9) [E66.9] Family history of prostate cancer [Z80.42] Anxiety [F41.9] Hypertriglyceridemia [E78.1] Encounter Status:Closed by SARAY VASQUEZ on 02/21/24 Normal [facility] ANES POSTPROC EVALon 024 ANES POSTPROC EVAL HNO ID: [id number] Author: GIORGIO RIVERA MD Service: ? Author Type: Anesthesiologist Type: Anesthesia Postprocedure Evaluation Filed: 09/06/2023 10:14 Note Text: POST ANESTHESIA EVALUATION NOTE : 1970 Procedure Summary Date: 09/06/23 Room / Location: Gastroenterology Anesthesia Start: 909 Anesthesia Stop: 951 Procedure: COLONOSCOPY DIAGNOSTIC Diagnosis: Inflammatory bowel disease (Follow-up for history of adenomatous polyps in the colon) Scheduled Providers: Jaswinder Ugalde MD; Giorgio Rivera MD; Sylvia Berg APRN.SOFTWARE DEVELOPER MANAGER Responsible Provider: Giorgio Rivera MD Anesthesia Type: general ASA Status: 2 Anesthesia Type: general Airway Type: supplemental O2 Last Vitals Vitals Value Taken Time BP 132/81 09/06/23 1010 Temp 36.4 ?C (97.5 ?F) 09/06/23 0952 Pulse 75 09/06/23 1012 Resp 16 09/06/23 1000 SpO2 97 % 09/06/23 1012 Vitals shown include unfiled device data. Post Anesthesia Patient Status Patient Evaluation: bedside. Anticipated Disposition: phase 2 then home. Neurological Status: aware and responsive. Pulmonary Status: breathing comfortably on room air Airway Control: returned to baseline unsupported. Cardiovascular Status: stable. Pain Management: clinically adequate Postoperative Hydration: acceptable. Intraoperative Events: no significant anesthesia events Post Operative Nausea/Vomiting Status: no significant post operative nausea or vomiting Recommendation: continue current plan of care. Anesthesia Observations No notable events were associated with this procedure. Documented by Sylvia Berg APRN.SOFTWARE DEVELOPER MANAGER 09/06/2023 9:53 AM EDT SIGNATURE: Giorgio Grijalva MD PATIENT NAME: Aram Carlton DATE: September 06, 2023 TIME: 10:14 AM CSN: [id number] Normal [facility] ANES PRE-OPon 09-06-2023 ANES PRE-OP HNO ID: [id number] Author: GIORGIO RIVERA MD Service: ? Author Type: Anesthesiologist Type: Anesthesia Preprocedure Evaluation Filed: 09/06/2023 09:06 Note Text: ANESTHESIOLOGY DAY OF SURGERY NOTE : 1970 Procedure Information Date/Time: 09/06/23 1000 Scheduled providers: Jaswinder Ugalde MD; Giorgio Rivera MD; Sylvia Berg APRN.SOFTWARE DEVELOPER MANAGER Procedure: COLONOSCOPY DIAGNOSTIC Location: Gastroenterology Estimated body mass index is 38.38 kg/m? as calculated from the following: Height as of 06/19/23: 189.9 cm (6' 2.75"). Weight as of 06/19/23: 138.3 kg (305 lb). Most recent hematocrit and potassium results: Hematocrit 45.7 06/19/2023 Potassium 4.6 06/19/2023 Relevant Problems No relevant active problems I - PHYSICAL EVALUATION AIRWAY Patient intubated: No. Tracheostomy tube not present Mallampati: II. TM distance: >3 FB. Neck ROM: full ROM without neurological symptoms. Mouth opening: adequate. Short neck: yes. Thick neck: yes Quinn present: yes Lip Bite Test: I Microretrognathia/Sergei ronagthia/Recessed Chin: No DENTAL Dental findings: teeth intact. Additional exam findings: no II - ANESTHESIA PLAN ASA Score: 2 Anesthetic Plan: general Airway type: supplemental O2 The patient is not a current smoker. NPO Status: adequate Beta Salo Administration of chronic beta salo medication not planned. Monitoring Plan Monitoring plan: standard ASA. Post Procedure Analgesic Plan Postoperative analgesic plan: parenteral or oral opioids. Informed Consent Anesthetic risks, benefits, alternatives, personnel and consent discussed: yes. Patient / Responsible Constitution Party agrees to proceed: yes Patient / Surrogate agrees to blood products: Yes DNR status not reviewed with patient and/or family prior to surgery. Significant changes in the patient condition since the History and Physical, not otherwise documented in primary service progress note: no. Potential Anesthesia issues that may suggest increased risk of complications or contraindication to planned procedure: none. No vitals data found for the desired time range. Outpatient Medications as of 09/06/2023 Medication Sig - famotidine (PEPCID) 20 mg tablet Take 20 mg by mouth two times a day. - polyethylene glycol 3350 (MIRALAX) 17 gram/dose powder Take by mouth once daily. Dissolve dose in 4 - 8 ounces of liquid and take as directed. - inulin (FIBER GUMMIES ORAL) Take by mouth. - sertraline (ZOLOFT) 100 mg tablet Take 1 tablet by mouth once daily. - busPIRone (BUSPAR) 10 mg tablet Take 1 tablet by mouth three times daily as needed. - fluticasone (FLONASE) 50 mcg/actuation nasal spray Use 2 Sprays in each nostril once daily. Rinse mouth after use. Facility-Administered Medications as of 09/06/2023 Medication Dose Route Frequency - dextrose 5% in NaCl 0.9% iv infusion 30 mL/hr INTRAVENOUS CONTINUOUS I have interviewed and examined the patient. I have reviewed the medical record and/or the pre-anesthesia evaluation, pertinent labs, and test results. This contains updated information obtained within 48 hours of Surgery/Procedure. SIGNATURE: Giorgio Grijalva MD PATIENT NAME: Aram Carlton DATE: September 06, 2023 TIME: 9:05 AM CSN: [id number] Normal [facility] Colonoscopyon 09-06-2023 Colonoscopy A31 Gastrointestinal Endoscopy Patient Name: Aram Carlton Procedure Date: 09/06/2023 8:59 AM Date of : 1970 Admit Type: Outpatient Age: 52 Room: A3 [facility] 1 Gender: Male Note Status: Finalized Attending MD: Jaswinder Ugalde MD, [id number] Procedure: Colonoscopy Indications: Follow-up for history of adenomatous polyps in the colon//surveillance. Providers: Jaswinder Ugalde MD Patient Profile: Last Colonoscopy: 3 years ago. Referring Physician: Jaswinder Ugalde MD (Referring MD) Medicines: Propofol per Anesthesia Complications: No immediate complications. Requesting Provider: Procedure: Pre-Anesthesia Assessment: - Prior to the procedure, a History and Physical was performed, and patient medications and allergies were reviewed. The patient is competent. The risks and benefits of the procedure and the sedation options and risks were discussed with the patient. All questions were answered and informed consent was obtained. Patient identification and proposed procedure were verified by the physician in the procedure room. Mental Status Examination: alert and oriented. Airway Examination: normal oropharyngeal airway and neck mobility. Respiratory Examination: clear to auscultation. CV Examination: normal. Prophylactic Antibiotics: The patient does not require prophylactic antibiotics. Prior Anticoagulants: The patient has taken Brilinta (ticagrelor), last dose was 6 days prior to procedure. ASA Grade Assessment: II - A patient with mild systemic disease. After reviewing the risks and benefits, the patient was deemed in satisfactory condition to undergo the procedure. The anesthesia plan was to use moderate sedation / analgesia (conscious sedation). Immediately prior to administration of medications, the patient was re-assessed for adequacy to receive sedatives. The heart rate, respiratory rate, oxygen saturations, blood pressure, adequacy of pulmonary ventilation, and response to care were monitored throughout the procedure. The physical status of the patient was re-assessed after the procedure. After I obtained informed consent, the scope was passed under direct vision. Throughout the procedure, the patient's blood pressure, pulse, and oxygen saturations were monitored continuously. The Colonoscope was introduced through the anus and advanced to the terminal ileum. The colonoscopy was performed without difficulty. The patient tolerated the procedure well. The quality of the bowel preparation was fair. The quality of the bowel preparation was evaluated using the BBPS ([place] Bowel Preparation Scale) with scores of: Right Colon = 2 (minor amount of residual staining, small fragments of stool and/or opaque liquid, but mucosa seen well), Transverse Colon = 2 (minor amount of residual staining, small fragments of stool and/or opaque liquid, but mucosa seen well) and Left Colon = 2 (minor amount of residual staining, small fragments of stool and/or opaque liquid, but mucosa seen well). The total BBPS score equals 6. The terminal ileum, ileocecal valve, appendiceal orifice, and rectum were photographed. Moderate Sedation: The administration of moderate sedation was initiated at 09:19 AM. Moderate (conscious) sedation was administered by the nurse and supervised by the endoscopist. The following parameters were monitored: oxygen saturation, heart rate, blood pressure, and response to care. Findings: Multiple large-mouthed diverticula were found in the sigmoid colon and descending colon. A 10 mm polyp was found in the descending colon. The polyp was sessile. The polyp was removed with a cold snare. Resection and retrieval were complete. A 3 mm polyp was found in the proximal ascending colon. The polyp was sessile. The polyp was removed with a cold biopsy forceps. Resection and retrieval were complete. A 25 mm polypoid lesion was found at 25 cm proximal to the anus. The lesion was sessile. This had a broad base. No bleeding was present. Biopsies were taken with a cold forceps for histology. Area was tattooed with an injection of 2 mL of Kerry ink. Check histology, may need ESD. The terminal ileum contained a few four mm ulcers. No bleeding was present. Biopsies were taken with a cold forceps for histology. Impression: - Preparation of the colon was fair. - Diverticulosis in the sigmoid colon and in the descending colon. - One 10 mm polyp in the descending colon, removed with a cold snare. Resected and retrieved. - One 3 mm polyp in the proximal ascending colon, removed with a cold biopsy forceps. Resected and retrieved. - Likely benign polypoid lesion at 25 cm proximal to the anus. Biopsied. Tattooed. - A few ulcers in the terminal ileum. Biopsied. Estimated Blood Loss: Estimated blood loss: none. Recommendation: - Discharge patient to home (ambulatory). - Resume previous diet. - Cont (more content not included)... Normal [facility] Flexible sigmoidoscopy study on 09-06-2023 [facility] NURSING PROGon 09-06-2023 NURSING PROG HNO ID: [id number] Author: ROSIE SWIFT RN Service: ? Author Type: Registered Nurse Type: Nursing Progress Note Filed: 09/06/2023 10:06 Note Text: AMBULATORY PATIENT EDUCATION NOTE TOPIC: GI PROCEDURES: Colonoscopy with or without biopsies based on clinical findings READINESS TO LEARN INSTRUCTION PROVIDED TO: Patient, readness to learn accessed prior to procedure COGNITIVE ABILITY: Alert and oriented PTED MOTIVATION TO LEARN: Eager FAMILY SUPPORT: High - Very involved in pt care IPATIENT LEARNS BEST BY: Individual Instruction FACTORS AFFECTING LEARNING: None PHYSICAL LIMITATIONS AFFECTING LEARNING: None LEARNING RESPONSE METHOD OF INSTRUCTION: Individual instruction PATIENT / FAMILY RESPONSE: Verbalizes understanding of: WORSENING CONDITION-Signs and symptoms of a worsening condition that warrant a call to the physician FOLLOW-UP PLAN: Complete - No need for follow-up SUPPLEMENTAL MATERIAL: Procedure Discharge Instructions REFERRAL (RECOMMENDATION): None Electronically Signed By: Rosie Swift RN Normal [facility] NURSING PROG HNO ID: [id number] Author: AMANDA MENDEZ RN Service: ? Author Type: Registered Nurse Type: Nursing Progress Note Filed: 09/06/2023 08:59 Note Text: PRE OP LEARNING ASSESSMENT PROCEDURE/SURGERY: GI PROCEDURES: Colonoscopy READINESS TO LEARN COGNITIVE ABILITY: Alert and oriented MOTIVATION TO LEARN: Interested FAMILY SUPPORT: None - Unavailable/disintere sted PATIENT LEARNS BEST BY: Individual Instruction FACTORS AFFECTING LEARNING: None PHYSICAL LIMITATIONS AFFECTING LEARNING: None Electronically Signed By: Amanda Mendez RN In Department: GASTROENTEROLOGY Normal [facility] SURGICAL PATHOLOGYon 024 CASE REPORT Normal [facility] Comment on above: Order Comment: Toro jolly Type: TISSUE SPECIMENOrdering Facility: [facility] Address: [address] [place] [address] Result Comment: Surg ical Pathology Report Case: [id number] Authorizing Provider: Jaswinder Ugalde MD Collected: 09/06/2023 09:23 AM Ordering Location: Gastroenterology Received: 09/06/2023 11:46 AM Pathologist: Harjeet Peterson MD Specimens: A) - DESCENDING COLON POLYP B) - TERMINAL ILEUM BIOPSY, r/o crohn's C) - ASCENDING COLON POLYP D) - COLON POLYP, at 30 cm r/o adenoma Performed By: #### S ####[facility]ORATORYIA [id number] [address] STATES OF [facility] FINAL DIAGNOSIS Normal [facility] Comment on above: Order Comment: Toro jolly Type: TISSUE SPECIMENOrdering Facility: [facility] Address: [address] [place] [address] Result Comment: A. D escending colon polyp, biopsy: - Tubular adenoma. B. Terminal ileum, biopsy: - Focal active enteritis, negative for granulomas, pyloric gland metaplasia, or dysplasia. C. Ascending colon polyp, biopsy: - Tubular adenoma. D. Colon polyp at 30 cm, biopsy: - Inflammatory-type polyp, negative for dysplasia. JEL 09/09/2023 Performed By: #### S ####[facility] [facility]ORATORYCLIA [id number] [address] OF [facility] FINAL PERFORMING LAB Normal [facility] Comment on above: Order Comment: Speci men Type: TISSUE SPECIMENOrdering Facility: [facility] Address: [address] [place] [address] Result Comment: Diag nostic interpretation performed at [facility], [address] [place] [address] CLIA# [id number] Blow Mold Operator: Yohan Muñoz M.D. Performed By: #### S ####[facility] LABORATORYCLIA [id number] [address] GROSS DESCRIPTION Normal [facility] Comment on above: Order Comment: Speci men Type: TISSUE SPECIMENOrdering Facility: [facility] Address: [address] [place] [address] Result Comment: A. D ESCENDING COLON POLYP Received in formalin is one piece of donahue, soft tissue measuring 0.3 x 0.2 x 0.2 cm. Totally submitted in one cassette. B. TERMINAL ILEUM BIOPSY Received in formalin are two pieces of donahue, soft tissue aggregating to 0.4 x 0.3 x 0.2 cm. Totally submitted in one cassette. C. ASCENDING COLON POLYP Received in formalin is one piece of donahue, soft tissue measuring 0.3 x 0.2 x 0.1 cm. Totally submitted in one cassette. D. COLON POLYP Received in formalin are two pieces of donahue, soft tissue aggregating to 0.3 x 0.2 x 0.2 cm. Totally submitted in one cassette. JTS September 06, 2023 4:48 PM Gross examination performed at [facility], [address] [place] [address] Performed By: #### S ####[facility] LABORATORYCLIA [id number] [address] [place] 08-30-2023 [facility] Telephone (GAPRA3) ARAM CARLTON ([id number]) 1970 M Date Time Provider Department 08/30/23 SANT[place] RECINOS [facility] During your visit today, we recorded the following information about you: Santa Recinos RN 08/30/2023 4:22 PM Signed GI Pre-Procedure Spoke with patient: Yes Confirmed date scheduled and patient report time: Yes Procedure Planned:Colonoscopy with or without biopsies based on clinical findings Is the patient on blood thinners?no Procedure Instructions given to patient: Yes, and they verbalized their understanding of instructions given Patient instructed to take prescribed preparation prior to procedure:Yes, and they verbalized their understanding of instructions given Patient instructed to have family/friend present for procedure 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 Any barriers to Patient learning: Patient/Patient Manager Pool responded appropriately on phone. Type of instruction given: Verbal by telephone contact. Santa Recinos RN Allergies As of Date: 08/30/2023 Noted Allergy Reaction LEXAPRO (ESCITALOPRAM OXALATE) 06/18/2017 14 - Other: See Comments Comments: Worsened anxiety Date Reviewed: 06/25/2023 Reviewed by: Mando Rivera, ARABELLA - Fully Assessed Reason for Visit: Appointment [186] Prescriptions as of 08/30/2023 - famotidine (PEPCID) 20 mg tablet Take 20 mg by mouth two times a day. - polyethylene glycol 3350 (MIRALAX) 17 gram/dose powder Take by mouth once daily. Dissolve dose in 4 - 8 ounces of liquid and take as directed. - inulin (FIBER GUMMIES ORAL) Take by mouth. - sertraline (ZOLOFT) 100 mg tablet Take 1 tablet by mouth once daily. - busPIRone (BUSPAR) 10 mg tablet Take 1 tablet by mouth three times daily as needed. - fluticasone (FLONASE) 50 mcg/actuation nasal spray Use 2 Sprays in each nostril once daily. Rinse mouth after use. Problem List As Of Date 08/30/2023 Noted Resolved Obesity (BMI 30-39.9) [E66.9] Family history of prostate cancer [Z80.42] Anxiety [F41.9] Hypertriglyceridemia [E78.1] Encounter Status:Closed by SANTA RECINOS on 08/30/23 Normal [facility] Absolute lymphocyte countOrd ered By: Janay Luis on 08-28-2023 Lymphocytes Auto (Unsp spec) [#/Vol] 2.32 10*3/uL 0.83-4.51 [facility] Automated lymphocyte count a s percentage of total leukocytesOrdered By: Janay Luis on 08-28-2023 Lymphocytes/100 WBC Auto (Unsp spec) 24.2 % 19-41 [facility] Basophil percentageOrdered B y: Janay Luis on 08-28-2023 Basophils/100 WBC (Bld) 1.1 % 0-1 [facility] Bilirubin [Mass/Vol] 1.00 mg/dL 0.20-1.00 [facility] Comment on above: For patients on eltr ombopag therapy, use of Dimension [place] TBIL is not recommended. Chloride [Moles/Vol] 105 mmol/L 98-107 [facility] Cholesterol [Mass/Vol] 157 mg/dL <200 [facility] Comment on above: <200 mg/dL Desirable 200-240 mg/dL Borderline >240 mg/dL High Risk Eosinophils/100 WBC (Bld) 3.8 % 0-5 [facility] Glucose [Mass/Vol] 87 mg/dL 74-106 [facility] Hemoglobin (Bld) [Mass/Vol] 14.6 g/dL 13.0-16.5 [facility] Monocytes/100 WBC (Bld) 9.0 % 0-10 [facility] Neutrophils (Bld) [#/Vol] 5.9 10*3/uL 2.0-7.7 [facility] Neutrophils/100 WBC (Bld) 61.3 % 47-70 [facility] Potassium [Moles/Vol] 4.0 mmol/L 3.5-5.1 [facility] Protein [Mass/Vol] 7.5 g/dL 6.4-8.2 [facility] Sodium [Moles/Vol] 136 mmol/L 136-145 [facility] Triglyceride [Mass/Vol] 127 mg/dL <199 [facility] Comment on above: The drugs N-Acetylcy steine and Metamizole may falsely depress this assay.Serum Triglycerides Reference Interval Normal <150 mg/dL Borderline high 150 - 199 mg/dL High 200 - 499 mg/dL Very High > or = 500 mg/dL WBC (Bld) [#/Vol] 9.6 10*3/uL 4.4-11.0 [facility] Determination of erythrocyte mean corpuscular volume (MCV)Ordered By: Janay Luis on 08-28-2023 MCV (RBC) [Entitic vol] 80.7 fL 80-94 [facility] Erythrocyte distribution wid th ratioOrdered By: Janay Luis on 08-28-2023 Erythrocyte distribution width (RBC) [Ratio] 14.6 % 11.6-14.6 [facility] Erythrocyte distribution wid th standard deviationOrdered By: Janay Luis on 08-28-2023 Erythrocyte distribution width (RBC) [Entitic vol] 41.9 fL 35.1-43.9 [facility] Hematocrit Auto (Bld) [Volum e fraction]Ordered By: Janay Luis on 08-28-2023 Hematocrit (Bld) [Volume fraction] 43.9 % 40-54 [facility] Immature granulocytes/100 WB C Auto (Bld)Ordered By: Janay Luis on 08-28-2023 Immature granulocytes/100 WBC (Bld) 0.600 % 0.0-0.9 [facility] Comment on above: IG% - Immature Granu locytes (promyelocytes, myelocytes and metamyelocytes) > 1% indicates that a LEFT SHIFT is Present. Laboratory - Chemistry and C hemistry - challengeOrdered By: Janay Luis on 08-28-2023 Albumin/Globulin [Mass ratio] 1.1 {ratio} 0.9-2.4 [facility] ALP [Catalytic activity/Vol] 71 U/L 45-117 [facility] ALT [Catalytic activity/Vol] 28 U/L 16-61 [facility] Cholesterol in HDL [Mass/Vol] 33 mg/dL >40 [facility] Comment on above: The drugs N-Acetylcy steine and Metamizole may falsely depress this assay. Reference Range HDL <40 mg/dL Low HDL Cholesterol HDL >or= 60 mg/dL High HDL Cholesterol Cholesterol in LDL [Mass/Vol] 99 mg/dL 0-130 [facility] CO2 [Moles/Vol] 25.0 mmol/L 21.0-32.0 [facility] Globulin (S) [Mass/Vol] 3.6 g/dL 2.2-4.2 [facility] Urea nitrogen/Creatinine [Mass ratio] 13.3 mg/mg 10-20 [facility] Laboratory - Hematology and Cell countsOrdered By: Janay Luis on 08-28-2023 MCH (RBC) [Entitic mass] 26.8 pg 27.0-32.0 [facility] MCHC (RBC) [Mass/Vol] 33.3 g/dL 32-36 [facility] Nucleated RBC/100 WBC (Bld) [Ratio] 0 % 0-5 [facility] Platelet mean volume (Bld) [Entitic vol] 9.8 fL 6.2-12.0 [facility] Platelets (Bld) [#/Vol] 277 10*3/uL 150-450 [facility] No Panel InformationOrdered By: Janay Luis on 08-28-2023 Estimated GFR (MDRD) Amer 88 mL/min >60 [facility] Comment on above: GFR Calc Estimated GFR (MDRD) Non-Af Amer 73 mL/min >60 [facility] Comment on above: Non- GFR Calc Vitamin D 25-Hydroxy 31.2 ng/mL [facility] Comment on above: Vitamin D 25(OH) Sta tus Range Deficiency <20 ng/mL (50nmol/L) Insufficiency 20 - 30 ng/mL (50 - 75 nmol/L) Sufficiency 30 - 100 ng/mL (75 - 250 nmol/L) Toxicity >100 ng/mL (>250 nmol/L) VLDL Cholesterol 25 mg/dL 5-40 [facility] RBC Auto (Bld) [#/Vol]Ordere d By: Janay Luis on 08-28-2023 RBC (Bld) [#/Vol] 5.44 10*6/uL 4.6-6.2 [facility] Serum or plasma calcium maryann urement (mass/volume)Ordered By: Janay Luis on 08-28-2023 Calcium [Mass/Vol] 9.0 mg/dL 8.5-10.1 [facility] Serum or plasma creatinine m easurement (mass/volume)Ordered By: Janay Luis on 08-28-2023 Creatinine [Mass/Vol] 1.13 mg/dL 0.70-1.30 [facility] Comment on above: The validity of the calculated GFR & GFRAA in patients over 70 years has not been determined. Clinical correlation is essential. Serum or plasma urea nitroge n measurement (mass/volume)Ordered By: Janay Luis on 08-28-2023 Urea nitrogen [Mass/Vol] 15 mg/dL 7-18 [facility] Thin prep Papanicolaou smear with manual screeningOrdered By: Janay Luis on 08-28-2023 Thin prep Papanicolaou smear with manual screening 3.9 g/dL 3.2-5.0 [facility] Thin prep Papanicolaou smear with manual screening 19 U/L 15-37 [facility] Thin prep Papanicolaou smear with manual screening 6 5-15 [facility] Absolute lymphocyte countOrd ered By: Reagan Cabrera on 08-16-2023 Lymphocytes Auto (Unsp spec) [#/Vol] 1.96 10*3/uL 0.83-4.51 [facility] Automated lymphocyte count a s percentage of total leukocytesOrdered By: Reagan Cabrera on 08-16-2023 Lymphocytes/100 WBC Auto (Unsp spec) 23.5 % 19-41 [facility] Basophil percentageOrdered B y: Reagan Cabrera on 08-16-2023 Basophils/100 WBC (Bld) 1.0 % 0-1 [facility] Chloride [Moles/Vol] 107 mmol/L 98-107 [facility] Eosinophils/100 WBC (Bld) 3.2 % 0-5 [facility] Glucose [Mass/Vol] 105 mg/dL 74-106 [facility] Comment on above: Fasting Glucose resu lt from 100 to 125 mg/dL suggests IMPAIRED HOMEOSTASIS per A.D.A. criteria. Hemoglobin (Bld) [Mass/Vol] 15.6 g/dL 13.0-16.5 [facility] Monocytes/100 WBC (Bld) 8.3 % 0-10 [facility] Neutrophils (Bld) [#/Vol] 5.3 10*3/uL 2.0-7.7 [facility] Neutrophils/100 WBC (Bld) 63.5 % 47-70 [facility] Potassium [Moles/Vol] 4.1 mmol/L 3.5-5.1 [facility] Sodium [Moles/Vol] 138 mmol/L 136-145 [facility] WBC (Bld) [#/Vol] 8.3 10*3/uL 4.4-11.0 [facility] Determination of erythrocyte mean corpuscular volume (MCV)Ordered By: Reagan Cabrera on 08-16-2023 MCV (RBC) [Entitic vol] 81.1 fL 80-94 [facility] Erythrocyte distribution wid th ratioOrdered By: Reagan Cabrera on 08-16-2023 Erythrocyte distribution width (RBC) [Ratio] 14.6 % 11.6-14.6 [facility] Erythrocyte distribution wid th standard deviationOrdered By: Reagan Cabrera on 08-16-2023 Erythrocyte distribution width (RBC) [Entitic vol] 42.1 fL 35.1-43.9 [facility] Hematocrit Auto (Bld) [Volum e fraction]Ordered By: Reagan Cabrera on 08-16-2023 Hematocrit (Bld) [Volume fraction] 45.4 % 40-54 [facility] Immature granulocytes/100 WB C Auto (Bld)Ordered By: Reagan Cabrera on 08-16-2023 Immature granulocytes/100 WBC (Bld) 0.500 % 0.0-0.9 [facility] Comment on above: IG% - Immature Granu locytes (promyelocytes, myelocytes and metamyelocytes) > 1% indicates that a LEFT SHIFT is Present. Laboratory - Chemistry and C hemistry - challengeOrdered By: Reagan Cabrera on 08-16-2023 CO2 [Moles/Vol] 28.0 mmol/L 21.0-32.0 [facility] Urea nitrogen/Creatinine [Mass ratio] 14.2 mg/mg 10-20 [facility] Laboratory - Hematology and Cell countsOrdered By: Reagan Cabrera on 08-16-2023 MCH (RBC) [Entitic mass] 27.9 pg 27.0-32.0 [facility] MCHC (RBC) [Mass/Vol] 34.4 g/dL 32-36 [facility] Nucleated RBC/100 WBC (Bld) [Ratio] 0 % 0-5 [facility] Platelet mean volume (Bld) [Entitic vol] 9.5 fL 6.2-12.0 [facility] Platelets (Bld) [#/Vol] 265 10*3/uL 150-450 [facility] No Panel InformationOrdered By: Reagan Cabrera on 08-16-2023 Estimated Creatinine Clearance Calc 118.78 ml/min [facility] Estimated GFR (MDRD) Amer 88 mL/min >60 [facility] Comment on above: GFR Calc Estimated GFR (MDRD) Non-Af Amer 73 mL/min >60 [facility] Comment on above: Non- GFR Calc Troponin I High Sensitivity 5 pg/mL 3.0-78.0 [facility] Comment on above: Please Note: New [place] t Units and Gender Specific Reference Ranges. For more information see Policy Stat Procedure [place] High Sensitivity Troponin (TNIH) and attachments. RBC Auto (Bld) [#/Vol]Ordere d By: Reagan Cabrera on 08-16-2023 RBC (Bld) [#/Vol] 5.60 10*6/uL 4.6-6.2 [facility] Serum or plasma calcium maryann urement (mass/volume)Ordered By: Reagan Cabrera on 08-16-2023 Calcium [Mass/Vol] 8.9 mg/dL 8.5-10.1 [facility] Serum or plasma creatinine m easurement (mass/volume)Ordered By: Reagan Cabrera on 08-16-2023 Creatinine [Mass/Vol] 1.13 mg/dL 0.70-1.30 [facility] Comment on above: The validity of the calculated GFR & GFRAA in patients over 70 years has not been determined. Clinical correlation is essential. Serum or plasma urea nitroge n measurement (mass/volume)Ordered By: Reagan Cabrera on 08-16-2023 Urea nitrogen [Mass/Vol] 16 mg/dL 7-18 [facility] Thin prep Papanicolaou smear with manual screeningOrdered By: Reagan Cabrera on 08-16-2023 Thin prep Papanicolaou smear with manual screening 3 5-15 [facility] CNPNon 07-12-2023 CNPN Telephone (GAPRA3) ARAM CARLTON ([id number]) 1970 M Date Time Provider Department 07/12/23 [facility] During your visit today, we recorded the following information about you: Brook Linn RN 07/12/2023 1:39 PM Signed GI Pre-Procedure Spoke with patient: Yes Confirmed date scheduled and patient report time: Yes Procedure Planned:Colonoscopy with or without biopsies based on clinical findings Is the patient on blood thinners?no Procedure Instructions given to patient: Yes, and they verbalized their understanding of instructions given Patient instructed to take prescribed preparation prior to procedure:Yes, and they verbalized their understanding of instructions given Patient instructed to have family/friend present for procedure 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 Any barriers to Patient learning: Patient/Patient Manager Pool responded appropriately on phone. All instructions also sent to [facility] per pt request. Type of instruction given: Verbal by telephone contact. Brook Linn RN Allergies As of Date: 07/12/2023 Noted Allergy Reaction LEXAPRO (ESCITALOPRAM OXALATE) 06/18/2017 14 - Other: See Comments Comments: Worsened anxiety Date Reviewed: 06/25/2023 Reviewed by: Mando Rivera RN - Fully Assessed Prescriptions as of 07/12/2023 - famotidine (PEPCID) 20 mg tablet Take 20 mg by mouth two times a day. - polyethylene glycol 3350 (MIRALAX) 17 gram/dose powder Take by mouth once daily. Dissolve dose in 4 - 8 ounces of liquid and take as directed. - inulin (FIBER GUMMIES ORAL) Take by mouth. - sertraline (ZOLOFT) 100 mg tablet Take 1 tablet by mouth once daily. - busPIRone (BUSPAR) 10 mg tablet Take 1 tablet by mouth three times daily as needed. - fluticasone (FLONASE) 50 mcg/actuation nasal spray Use 2 Sprays in each nostril once daily. Rinse mouth after use. Problem List As Of Date 07/12/2023 Noted Resolved Obesity (BMI 30-39.9) [E66.9] Family history of prostate cancer [Z80.42] Anxiety [F41.9] Hypertriglyceridemia [E78.1] Encounter Status:Closed by BROOK LINN on 07/12/23 [facility] 06-29-2023 [facility] Telephone (GASTMN) ARAM CARLTON ([id number]) 1970 M Date Time Provider Department 06/29/23 JASWINDER UGALDE GASTUT During your visit today, we recorded the following information about you: Jaswinder Ugalde MD 06/29/2023 10:22 AM Signed Please inform that the CT does not show any inflammation in the small bowel. There is mild inflammation in the right side of the colon. It will be important to get the ordered colonoscopy. Mae Gibson RN 07/01/2023 2:55 PM Signed Notified via Allergies As of Date: 06/29/2023 Noted Allergy Reaction LEXAPRO (ESCITALOPRAM OXALATE) 06/18/2017 14 - Other: See Comments Comments: Worsened anxiety Date Reviewed: 06/25/2023 Reviewed by: Mando Rivera, RN - Fully Assessed Prescriptions as of 05/06/2024 - famotidine (PEPCID) 20 mg tablet Take 20 mg by mouth two times a day. - polyethylene glycol 3350 (MIRALAX) 17 gram/dose powder Take by mouth once daily. Dissolve dose in 4 - 8 ounces of liquid and take as directed. - inulin (FIBER GUMMIES ORAL) Take by mouth. - sertraline (ZOLOFT) 100 mg tablet Take 1 tablet by mouth once daily. - busPIRone (BUSPAR) 10 mg tablet Take 1 tablet by mouth three times daily as needed. - fluticasone (FLONASE) 50 mcg/actuation nasal spray Use 2 Sprays in each nostril once daily. Rinse mouth after use. Problem List As Of Date 06/29/2023 Noted Resolved Obesity (BMI 30-39.9) [E66.9] Family history of prostate cancer [Z80.42] Anxiety [F41.9] Hypertriglyceridemia [E78.1] Encounter Status:[facility]EE [facility] (GAPRA3[facility] ARAM CARLTON ([id number]) 1970 M Date Time Provider Department 06/25/23 JASWINDER UGALDE During your visit today, we recorded the following information about you: Jaswinder Ugalde MD 06/25/2023 6:11 AM Signed Blood work looks good. Mae Gibson RN 06/27/2023 10:50 AM Signed Notified via Allergies As of Date: 06/25/2023 Noted Allergy Reaction LEXAPRO (ESCITALOPRAM OXALATE) 06/18/2017 14 - Other: See Comments Comments: Worsened anxiety Date Reviewed: 06/25/2023 Reviewed by: Mando Rivera, ARABELLA - Fully Assessed Prescriptions as of 05/06/2024 - famotidine (PEPCID) 20 mg tablet Take 20 mg by mouth two times a day. - polyethylene glycol 3350 (MIRALAX) 17 gram/dose powder Take by mouth once daily. Dissolve dose in 4 - 8 ounces of liquid and take as directed. - inulin (FIBER GUMMIES ORAL) Take by mouth. - sertraline (ZOLOFT) 100 mg tablet Take 1 tablet by mouth once daily. - busPIRone (BUSPAR) 10 mg tablet Take 1 tablet by mouth three times daily as needed. - fluticasone (FLONASE) 50 mcg/actuation nasal spray Use 2 Sprays in each nostril once daily. Rinse mouth after use. Problem List As Of Date 06/25/2023 Noted Resolved Obesity (BMI 30-39.9) [E66.9] Family history of prostate cancer [Z80.42] Anxiety [F41.9] Hypertriglyceridemia [E78.1] Encounter Status:Closed by ALE DEE on 05/06/24 Normal [facility] CT ENTEROGRAPHY W IVCONon CT ENTEROGRAPHY W IVCON * * *Final Repor t* * * DATE OF EXAM: Jun 25 2023 10:13AM [facility] [place] 0545 - CT ENTEROGRAPHY W IVCON / PROCEDURE REASON: Inflammatory bowel disease * * * * Physician Interpretation * * * * EXAMINATION: CT ABDOMEN AND PELVIS WITH INTRAVENOUS CONTRAST AND NEUTRAL ORAL CONTRAST(CT ENTEROGRAPHY) HISTORY: 52-year-old patient being evaluated for constipation. 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 TECHNIQUE: CT of the abdomen and pelvis using single phase Enterography technique CONTRAST: IV: 125 ml of Omnipaque 350 Oral: [address] Radiation dose: Integrated dose-length product (DLP) for this visit = 1354 mGy*cm. CT Dose Reduction Employed: Iterative recon and mAs-kVp adjusted using patient size-age COMPARISON: None RESULT: ... GI Tract: Small bowel: No mural hyperenhancement or wall thickening. Colon and Rectum: Mild wall thickening of the RIGHT and transverse segments of the colon, with mild submucosal fat deposition. No significant hyperemia or pericolonic fat stranding. Mild colonic diverticulosis. Strictures: None Fistulae/Sinus tracts: None Abscess: None Ancillary Findings related to chronic disease: None Abdomen: Liver: No mass. Biliary: No bile duct dilation. Cholecystectomy. Spleen: No mass. No splenomegaly. Pancreas: No mass or duct dilation. Adrenals: No mass. Kidneys: Subcentimeter lesions that are too small to characterize but likely benign. No hydronephrosis. Lymph nodes: No abdominal or pelvic lymphadenopathy. Mesentery/Peritoneum: No ascites or mass. Vasculature: The celiac axis and SMA are patent. The portal vein and branches, splenic vein, SMV, and hepatic veins are patent. No aortic or iliac artery aneurysm. Pelvis: No mass, ascites or fluid collection. Status post RIGHT inguinal hernia repair with mesh. Bones/Soft Tissues: Degenerative changes. Lung Bases: Unremarkable. IMPRESSION: No evidence of active inflammatory changes in the small bowel. Mild colonic wall thickening with submucosal fat deposition in the RIGHT and transverse segments, which could represent sequelae of colitis in the appropriate clinical setting. Colonic diverticulosis. Combination Technician: MOUNA Transcribe Date/Time: Jun 25 2023 10:20A Dictated by : SYDNEY GONCALVES MD This examination was interpreted and the report reviewed and electronically signed by: SYDNEY GONCALVES MD on Jun 25 2023 10:38AM EST [id number] Normal [facility] CT Small bowel W contrast PO and W contrast Keyla 06-25-2023 IMPRESSION: No evidence of active inflammatory changes in the small bowel. Mild colonic wall thickening with submucosal fat deposition in the RIGHT and transverse segments, which could represent sequelae of colitis in the appropriate clinical setting. Colonic diverticulosis. Combination Technician: [facility] Transcribe Date/Time: Jun 25 2023 10:20A Dictated by : SYDNEY GONCALVES MD This examination was interpreted and the report reviewed and electronically signed by: SYDNEY GONCALVES MD on Jun 25 2023 10:38AM EST DIVISION OF RADIOLOGY * * *Final Report* * * DATE OF EXAM: Jun 25 2023 10:13AM [facility] [place] 0545 - CT ENTEROGRAPHY W IVCON / PROCEDURE REASON: Inflammatory bowel disease * * * * Physician Interpretation * * * * EXAMINATION: CT ABDOMEN AND PELVIS WITH INTRAVENOUS CONTRAST AND NEUTRAL ORAL CONTRAST(CT ENTEROGRAPHY) HISTORY: 52-year-old patient being evaluated for constipation. 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 TECHNIQUE: CT of the abdomen and pelvis using single phase Enterography technique CONTRAST: IV: 125 ml of Omnipaque 350 Oral: [address] Radiation dose: Integrated dose-length product (DLP) for this visit = 1354 mGy*cm. CT Dose Reduction Employed: Iterative recon and mAs-kVp adjusted using patient size-age COMPARISON: None RESULT: ... GI Tract: Small bowel: No mural hyperenhancement or wall thickening. Colon and Rectum: Mild wall thickening of the RIGHT and transverse segments of the colon, with mild submucosal fat deposition. No significant hyperemia or pericolonic fat stranding. Mild colonic diverticulosis. Strictures: None Fistulae/Sinus tracts: None Abscess: None Ancillary Findings related to chronic disease: None Abdomen: Liver: No mass. Biliary: No bile duct dilation. Cholecystectomy. Spleen: No mass. No splenomegaly. Pancreas: No mass or duct dilation. Adrenals: No mass. Kidneys: Subcentimeter lesions that are too small to characterize but likely benign. No hydronephrosis. Lymph nodes: No abdominal or pelvic lymphadenopathy. Mesentery/Peritoneum: No ascites or mass. Vasculature: The celiac axis and SMA are patent. The portal vein and branches, splenic vein, SMV, and hepatic veins are patent. No aortic or iliac artery aneurysm. Pelvis: No mass, ascites or fluid collection. Status post RIGHT inguinal hernia repair with mesh. Bones/Soft Tissues: Degenerative changes. Lung Bases: Unremarkable. DIVISION OF RADIOLOGY Provider, [facility] - 06/25/2023 * * *Final Report* * * DATE OF EXAM: Jun 25 2023 10:13AM [facility] [place] 0545 - CT ENTEROGRAPHY W IVCON / PROCEDURE REASON: Inflammatory bowel disease * * * * Physician Interpretation * * * * EXAMINATION: CT ABDOMEN AND PELVIS WITH INTRAVENOUS CONTRAST AND NEUTRAL ORAL CONTRAST(CT ENTEROGRAPHY) HISTORY: 52-year-old patient being evaluated for constipation. 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 TECHNIQUE: CT of the abdomen and pelvis using single phase Enterography technique CONTRAST: IV: 125 ml of Omnipaque 350 Oral: [address] Radiation dose: Integrated dose-length product (DLP) for this visit = 1354 mGy*cm. CT Dose Reduction Employed: Iterative recon and mAs-kVp adjusted using patient size-age COMPARISON: None RESULT: ... GI Tract: Small bowel: No mural hyperenhancement or wall thickening. Colon and Rectum: Mild wall thickening of the RIGHT and transverse segments of the colon, with mild submucosal fat deposition. No significant hyperemia or pericolonic fat stranding. Mild colonic diverticulosis. Strictures: None Fistulae/Sinus tracts: None Abscess: None Ancillary Findings related to chronic disease: None Abdomen: Liver: No mass. Biliary: No bile duct dilation. Cholecystectomy. Spleen: No mass. No splenomegaly. Pancreas: No mass or duct dilation. Adrenals: No mass. Kidneys: Subcentimeter lesions that are too small to characterize but likely benign. No hydronephrosis. Lymph nodes: No abdominal or pelvic lymphadenopathy. Mesentery/Peritoneum: No ascites or mass. Vasculature: The celiac axis and SMA are patent. The portal vein and branches, splenic vein, SMV, and hepatic veins are patent. No aortic or iliac artery aneurysm. Pelvis: No mass, ascites or fluid collection. Status post RIGHT inguinal hernia repair with mesh. Bones/Soft Tissues: Degenerative changes. Lung Bases: Unremarkable. IMPRESSION IMPRESSION: No evidence of active inflammatory changes in the small bowel. Mild colonic wall thickening with submucosal fat deposition in the RIGHT and transverse segments, which could represent sequelae of colitis in the appropriate clinical setting. Colonic diverticulosis. Combination Technician: MOUNA Transcribe Date/Time: Jun 25 2023 10:20A Dictated by : SYDNEY GONCALVES MD This examination was interpreted and the report reviewed and electronically signed by: SYDNEY GONCALVES MD on Jun 25 2023 10:38AM EST [facility] Radiology Study observation (narrative) [facility] Small bowel W contrast PO and W contrast IVOrdered By: Ccf Provider on 06-25-2023 [facility] CBC W Auto Differential pane l (Bld)on 06-19-2023 Basophils (Bld) [#/Vol] 0.10 10*3/uL Normal <0.11 [facility] Comment on above: Order Comment: Speci men Type: BLOOD SPECIMENOrdering Facility: [facility] Address: [address] [place] [address] Performed By: #### 5 7021-8 ####[facility] LABCLIA [id number] [place] [address] [place] Basophils/100 WBC (Bld) 1.0 % Normal [facility] Comment on above: Order Comment: Speci men Type: BLOOD SPECIMENOrdering Facility: [facility] Address: [address] [place] [address] Performed By: #### 5 7021-8 ####[facility] LABCLIA [id number] [place] [address] [place] Differential cell count method Nom (Bld) Auto Normal [facility] Comment on above: Order Comment: Speci men Type: BLOOD SPECIMENOrdering Facility: [facility] Address: [address] [place] [address] Performed By: #### 5 7021-8 ####[facility] LABCLIA [id number] [place] [address] [place] Eosinophils (Bld) [#/Vol] 0.45 10*3/uL Normal <0.46 [facility] Comment on above: Order Comment: Speci men Type: BLOOD SPECIMENOrdering Facility: [facility] Address: [address] [place] [address] Performed By: #### 5 7021-8 ####[facility] LABCLIA [id number] [place] [address] [place] Eosinophils/100 WBC (Bld) 4.3 % Normal [facility] Comment on above: Order Comment: Speci men Type: BLOOD SPECIMENOrdering Facility: [facility] Address: [address] [place] [address] Performed By: #### 5 7021-8 ####[facility] LABCLIA [id number] [place] [address] [place] Erythrocyte distribution width (RBC) [Ratio] 14.6 % Normal 11.5-15.0 [facility] Comment on above: Order Comment: Speci men Type: BLOOD SPECIMENOrdering Facility: [facility] Address: [address] [place] [address] Performed By: #### 5 7021-8 ####[facility] LABCLIA [id number] [place] [address] [place] Hematocrit (Bld) [Volume fraction] 45.7 % Normal 39.0-51.0 [facility] Comment on above: Order Comment: Speci men Type: BLOOD SPECIMENOrdering Facility: [facility] Address: [address] [place] [address] Performed By: #### 5 7021-8 ####[facility] LABIA [id number] [place] [address] [place] Hemoglobin (Bld) [Mass/Vol] 15.3 g/dL Normal 13.0-17.0 [facility] Comment on above: Order Comment: Speci men Type: BLOOD SPECIMENOrdering Facility: [facility] Address: [address] [place] [address] Performed By: #### 5 7021-8 ####[facility] LABIA [id number] [place] [address] [place] Immature granulocytes (Bld) [#/Vol] 0.05 10*3/uL Normal <0.10 [facility] Comment on above: Order Comment: Speci men Type: BLOOD SPECIMENOrdering Facility: [facility] Address: [address] [place] [address] Performed By: #### 5 7021-8 ####[facility] LABCLIA [id number] [place] [address] [place] Immature granulocytes/100 WBC (Bld) 0.5 % Normal [facility] Comment on above: Order Comment: Speci men Type: BLOOD SPECIMENOrdering Facility: [facility] Address: [address] [place] [address] Performed By: #### 5 7021-8 ####[facility] LABCLIA [id number] [place] [address] [place] Lymphocytes (Bld) [#/Vol] 2.18 10*3/uL Normal 1.00-4.00 [facility] Comment on above: Order Comment: Speci men Type: BLOOD SPECIMENOrdering Facility: [facility] Address: [address] [place] [address] Performed By: #### 5 7021-8 ####[facility] LABCLIA [id number] [place] [address] [place] Lymphocytes/100 WBC (Bld) 21.0 % Normal [facility] Comment on above: Order Comment: Speci men Type: BLOOD SPECIMENOrdering Facility: [facility] Address: [address] [place] [address] Performed By: #### 5 7021-8 ####[facility] LABCLIA [id number] [place] [address] [place] MCH (RBC) [Entitic mass] 27.1 pg Normal 26.0-34.0 [facility] Comment on above: Order Comment: Speci men Type: BLOOD SPECIMENOrdering Facility: [facility] Address: [address] [place] [address] Performed By: #### 5 7021-8 ####[facility] LABCLIA [id number] [place], [place] [address] [place] MCHC (RBC) [Mass/Vol] 33.5 g/dL Normal 30.5-36.0 [facility] Comment on above: Order Comment: Speci men Type: BLOOD SPECIMENOrdering Facility: [facility] Address: [address] [place] [address] Performed By: #### 5 7021-8 ####[facility] LABCLIA [id number] [place] [address] [place] MCV (RBC) [Entitic vol] 80.9 fL Normal 80.0-100.0 [facility] Comment on above: Order Comment: Speci men Type: BLOOD SPECIMENOrdering Facility: [facility] Address: [address] [place] [address] Performed By: #### 5 7021-8 ####[facility] LABCLIA [id number] [place] [address] [place] Monocytes (Bld) [#/Vol] 0.88 10*3/uL High <0.87 [facility] Comment on above: Order Comment: Speci men Type: BLOOD SPECIMENOrdering Facility: [facility] Address: [address] [place] [address] Performed By: #### 5 7021-8 ####[facility] LABCLIA [id number] [place] [address] [place] Monocytes/100 WBC (Bld) 8.5 % Normal C [facility] Comment on above: Order Comment: Speci men Type: BLOOD SPECIMENOrdering Facility: [facility] Address: [address] [place] [address] Performed By: #### 5 7021-8 ####[facility] LABCLIA [id number] [place] [address] [place] Neutrophils (Bld) [#/Vol] 6.71 10*3/uL Normal 1.45-7.50 [facility] Comment on above: Order Comment: Speci men Type: BLOOD SPECIMENOrdering Facility: [facility] Address: [address] [place] [address] Performed By: #### 5 7021-8 ####[facility] LABCLIA [id number] [place] [address] [place] Neutrophils/100 WBC (Bld) 64.7 % Normal [facility] Comment on above: Order Comment: Speci men Type: BLOOD SPECIMENOrdering Facility: [facility] Address: [address] [place] [address] Performed By: #### 5 7021-8 ####[facility] LABCLIA [id number] [place] [address] [place] Nucleated RBC (Bld) [#/Vol] 10*3/uL Normal <0.01 [facility] Comment on above: Order Comment: Speci men Type: BLOOD SPECIMENOrdering Facility: [facility] Address: [address] [place] [address] Performed By: #### 5 7021-8 ####[facility] LABCLIA [id number] [place] [address] [place] Nucleated RBC/100 WBC (Bld) [Ratio] 0.0 /100 WBC Normal [facility] Comment on above: Order Comment: Speci men Type: BLOOD SPECIMENOrdering Facility: [facility] Address: [address] [place] [address] Performed By: #### 5 7021-8 ####[facility] LABIA [id number] [place] [address] [place] Platelet mean volume (Bld) [Entitic vol] 9.5 fL Normal 9.0-12.7 [facility] Comment on above: Order Comment: Speci men Type: BLOOD SPECIMENOrdering Facility: [facility] Address: [address] [place] [address] Performed By: #### 5 7021-8 ####[facility] LABIA [id number] [place] [address] [place] Platelets (Bld) [#/Vol] 286 10*3/uL Normal 150-400 [facility] Comment on above: Order Comment: Speci men Type: BLOOD SPECIMENOrdering Facility: [facility] Address: [address] [place] [address] Performed By: #### 5 7021-8 ####[facility] LABCLIA [id number] [place] [address] [place] RBC (Bld) [#/Vol] 5.65 10*6/uL Normal 4.20-6.00 [facility] Comment on above: Order Comment: Speci men Type: BLOOD SPECIMENOrdering Facility: [facility] Address: [address] [place] [address] Performed By: #### 5 7021-8 ####[facility] LABCLIA [id number] [place] [address] [place] WBC (Bld) [#/Vol] 10.37 10*3/uL Normal 3.70-11.00 [facility] Comment on above: Order Comment: Speci men Type: BLOOD SPECIMENOrdering Facility: [facility] Address: [address] [place] [address] Performed By: #### 5 7021-8 ####[facility] LABCLIA [id number] [place] [address] [place] Comprehensive metabolic 2000 panelon 06-19-2023 Albumin [Mass/Vol] 4.3 g/dL Normal 3.9-4.9 [facility] Comment on above: Order Comment: Speci men Type: BLOOD SPECIMENOrdering Facility: [facility] Address: [address] [place] [address] Performed By: #### 3 016-3, 10616-6 ####[facility] LABCLIA [id number] [place] [address] [place] ALP [Catalytic activity/Vol] 74 U/L Normal 38-113 [facility] Comment on above: Order Comment: Speci men Type: BLOOD SPECIMENOrdering Facility: [facility] Address: [address] [place] [address] Performed By: #### 3 016-3, 28243-9 ####[facility] LABCLIA [id number] [place] [id number] [place] ALT [Catalytic activity/Vol] 16 U/L Normal 10-54 [facility] Comment on above: Order Comment: Speci men Type: BLOOD SPECIMENOrdering Facility: [facility] Address: [address] [place] [address] Performed By: #### 3 016-3, 84129-3 ####[facility] LABCLIA [id number] [place] [address] [place] Anion gap [Moles/Vol] 12 mmol/L Normal 9-18 [facility] Comment on above: Order Comment: Speci men Type: BLOOD SPECIMENOrdering Facility: [facility] Address: [address] [place] [address] Performed By: #### 3 -3, ####[facility] LABCLIA [id number] [place] [address] [place] AST [Catalytic activity/Vol] 18 U/L Normal 14-40 [facility] Comment on above: Order Comment: Speci men Type: BLOOD SPECIMENOrdering Facility: [facility] Address: [address] [place] [address] Performed By: #### 3 3, ####[facility] LABCLIA [id number] [place] [address] [place] Bilirubin [Mass/Vol] 0.6 mg/dL Normal 0.2-1.3 [facility] Comment on above: Order Comment: Speci men Type: BLOOD SPECIMENOrdering Facility: [facility] Address: [address] [place] [address] Performed By: #### 3 016-3, ####[facility] LABCLIA [id number] [place] [address] [place] Calcium [Mass/Vol] 10.0 mg/dL Normal 8.5-10.2 [facility] Comment on above: Order Comment: Speci men Type: BLOOD SPECIMENOrdering Facility: [facility] Address: [address] [place] [address] Performed By: #### 3 016-3, 27393-4 ####[facility] LABCLIA [id number] [place] [address] [place] Chloride [Moles/Vol] 104 mmol/L Normal 97-105 [facility] Comment on above: Order Comment: Speci men Type: BLOOD SPECIMENOrdering Facility: [facility] Address: [address] [place] [address] Performed By: #### 3 016-3, 28582-5 ####[facility] LABCLIA [id number] [place] [address] [place] CO2 [Moles/Vol] 23 mmol/L Normal 22-30 [facility] Comment on above: Order Comment: Speci men Type: BLOOD SPECIMENOrdering Facility: [facility] Address: [address] [place] [address] Performed By: #### 3 016-3, 86019-0 ####[facility] LABCLIA [id number] [place] [address] [place] Creatinine [Mass/Vol] 1.07 mg/dL Normal 0.73-1.22 [facility] Comment on above: Order Comment: Speci men Type: BLOOD SPECIMENOrdering Facility: [facility] Address: [address] [place] [address] Performed By: #### 3 016-3, 63336-4 ####[facility] LABCLIA [id number] [place] [address] [place] Creatinine and Glomerular filtration rate.predicted panel (S/P/Bld) 84 mL/min/1.73m??? Normal >=60 [facility] Comment on above: Order Comment: Speci men Type: BLOOD SPECIMENOrdering Facility: [facility] Address: [address] [place] [address] Result Comment: Shira mated Glomerular Filtration Rate (eGFR) is calculated using the 2020 CKD-EPI creatinine equation. This equation utilizes serum creatinine, sex, and age as parameters. The creatinine assay has traceable calibration to isotope dilution-mass spectrometry. Refer to KDIGO guidelines for clinical interpretation. In patients with unstable renal function, e.g. those with acute kidney injury, the eGFR may not accurately reflect actual GFR. Performed By: #### 3 016-3, 76112-3 ####[facility] LABCLIA [id number] [place] [address] [place] Glucose [Mass/Vol] 103 mg/dL High 74-99 [facility] Comment on above: Order Comment: Toro jolly Type: BLOOD SPECIMENOrdering Facility: [facility] Address: [address] [place] [address] Result Comment: The [place] [employer] (ADA) provides guidance for cutoff values for fasting glucose and random glucose. The ADA defines fasting as no caloric intake for at least 8 hours. Fasting plasma glucose results between 100 to 125 mg/dL indicate increased risk for diabetes (prediabetes). Fasting plasma glucose results greater than or equal to 126 mg/dL meet the criteria for diagnosis of diabetes. In the absence of unequivocal hyperglycemia, results should be confirmed by repeat testing. In a patient with classic symptoms of hyperglycemia or hyperglycemic crisis, random plasma glucose results greater than or equal to 200 mg/dL meet the criteria for diagnosis of diabetes. Reference: Standards of Medical Care in Diabetes 2016, [place] [employer]. Diabetes Care. 2016.39(Suppl 1). Performed By: #### 3 016-3, 09133-1 ####[facility] LABCLIA [id number] [place] [address] [place] Potassium [Moles/Vol] 4.6 mmol/L Normal 3.7-5.1 [facility] Comment on above: Order Comment: Toro jolly Type: BLOOD SPECIMENOrdering Facility: [facility] Address: [address] [place] [address] Performed By: #### 3 016-3, 50404-6 ####[facility] LABIA [id number] [place] [address] [place] Protein [Mass/Vol] 7.3 g/dL Normal 6.3-8.0 [facility] Comment on above: Order Comment: Toro jolly Type: BLOOD SPECIMENOrdering Facility: [facility] Address: [address] [place] [address] Performed By: #### 3 016-3, 67072-9 ####[facility] LABCLIA [id number] [place] [address] [place] Sodium [Moles/Vol] 139 mmol/L Normal 136-144 [facility] Comment on above: Order Comment: Speci men Type: BLOOD SPECIMENOrdering Facility: [facility] Address: [address] [place] [address] Performed By: #### 3 016-3, 18753-0 ####[facility] LABCLIA [id number] [place] [address] [place] Urea nitrogen [Mass/Vol] 16 mg/dL Normal 9-24 [facility] Comment on above: Order Comment: Speci men Type: BLOOD SPECIMENOrdering Facility: [facility] Address: [address] [place] [address] Performed By: #### 3 016-3, 20224-5 ####[facility] LABCLIA [id number] [place] [address] [place] TSH SerPl-aCncon 06-19-2023 TSH Qn 2.130 m[IU]/L Normal 0.270-4.200 [facility] Comment on above: Order Comment: Speci men Type: BLOOD SPECIMENOrdering Facility: [facility] Address: [address] [place] [address] Performed By: #### 3 016-3, 36535-2 ####[facility] LABCLIA [id number] [place] [id number] [place] Basophil percentageOrdered B y: Janay Luis on 02-27-2023 Cholesterol [Mass/Vol] 146 mg/dL <200 [facility] Comment on above: <200 mg/dL Desirable 200-240 mg/dL Borderline >240 mg/dL High Risk Triglyceride [Mass/Vol] 230 mg/dL <199 [facility] Comment on above: The drugs N-Acetylcy steine and Metamizole may falsely depress this assay.Serum Triglycerides Reference Interval Normal <150 mg/dL Borderline high 150 - 199 mg/dL High 200 - 499 mg/dL Very High > or = 500 mg/dL Serum or plasma cholesterol in HDL measurement (mass/volume)Ordered By: Janay Luis on 02-27-2023 Cholesterol in HDL [Mass/Vol] 25 mg/dL >40 [facility] Comment on above: The drugs N-Acetylcy steine and Metamizole may falsely depress this assay. Reference Range HDL <40 mg/dL Low HDL Cholesterol HDL >or= 60 mg/dL High HDL Cholesterol Serum or plasma cholesterol in VLDL measurement (mass/volume)Ordered By: Janay Luis on 02-27-2023 Cholesterol in VLDL [Mass/Vol] 46 mg/dL 5-40 [facility] Serum or plasma low density lipoprotein (LDL) cholesterol measurement (mass/volume)Ordered By: Janay Luis on 02-27-2023 Cholesterol in LDL [Mass/Vol] 75 mg/dL 0-130 [facility] Basophil percentageOrdered B y: Janay Luis on 01-15-2023 Bilirubin [Mass/Vol] 0.50 mg/dL 0.20-1.00 [facility] Comment on above: For patients on eltr ombopag therapy, use of Dimension [place] TBIL is not recommended. Chloride [Moles/Vol] 108 mmol/L 98-107 [facility] Glucose [Mass/Vol] 88 mg/dL 74-106 [facility] Potassium [Moles/Vol] 4.1 mmol/L 3.5-5.1 [facility] Protein [Mass/Vol] 7.3 g/dL 6.4-8.2 [facility] Sodium [Moles/Vol] 136 mmol/L 136-145 [facility] Laboratory - Chemistry and C hemistry - challengeOrdered By: Janay Luis on 01-15-2023 ALP [Catalytic activity/Vol] 71 U/L 45-117 [facility] ALT [Catalytic activity/Vol] 27 U/L 16-61 [facility] CO2 [Moles/Vol] 23.0 mmol/L 21.0-32.0 [facility] Globulin (S) [Mass/Vol] 3.8 g/dL 2.2-4.2 [facility] Urea nitrogen/Creatinine [Mass ratio] 14.9 mg/mg 10-20 [facility] No Panel InformationOrdered By: Janay Luis on 01-15-2023 Estimated GFR (MDRD) Amer 87 mL/min >60 [facility] Comment on above: GFR Calc Estimated GFR (MDRD) Non-Af Amer 72 mL/min >60 [facility] Comment on above: Non- GFR Calc Prostate Specific Antigen Screen 0.83 ng/mL 0.00-4.00 [facility] Comment on above: This test was perfor med using the TPSA assay method for [employer] chemistry system. Values obtained with differentassay methods cannot be used interchangably.When changing PSA assays in the course of monitoring apatient, additional sequential testing should be carriedout to confirm baseline values. Vitamin D 25-Hydroxy 32.7 ng/mL [facility] Comment on above: Vitamin D 25(OH) Sta tus Range Deficiency <20 ng/mL (50nmol/L) Insufficiency 20 - 30 ng/mL (50 - 75 nmol/L) Sufficiency 30 - 100 ng/mL (75 - 250 nmol/L) Toxicity >100 ng/mL (>250 nmol/L) Serum or plasma albumin maryann urement (mass/volume)Ordered By: Janay Luis on 01-15-2023 Albumin [Mass/Vol] 3.5 g/dL 3.2-5.0 [facility] Serum or plasma albumin/glob ulin mass ratioOrdered By: Janay Luis on 01-15-2023 Albumin/Globulin [Mass ratio] 0.9 {ratio} 0.9-2.4 [facility] Serum or plasma calcium maryann urement (mass/volume)Ordered By: Janay Luis on 01-15-2023 Calcium [Mass/Vol] 8.5 mg/dL 8.5-10.1 [facility] Serum or plasma creatinine m easurement (mass/volume)Ordered By: Janay Luis on 01-15-2023 Creatinine [Mass/Vol] 1.14 mg/dL 0.70-1.30 [facility] Comment on above: The validity of the calculated GFR & GFRAA in patients over 70 years has not been determined. Clinical correlation is essential. Serum or plasma urea nitroge n measurement (mass/volume)Ordered By: Janay Luis on 01-15-2023 Urea nitrogen [Mass/Vol] 17 mg/dL 7-18 [facility] Thin prep Papanicolaou smear with manual screeningOrdered By: Jnaay Luis on 01-15-2023 Thin prep Papanicolaou smear with manual screening 20 U/L 15-37 [facility] Thin prep Papanicolaou smear with manual screening 5 5-15 [facility] Absolute lymphocyte countOrd ered By: Dr. Luis on 07-10-2022 Lymphocytes Auto (Unsp spec) [#/Vol] 2.51 10*3/uL 0.83-4.51 [facility] Basophil percentageOrdered B y: Dr. Luis on 07-10-2022 Basophils/100 WBC (Bld) 0.8 % 0-1 [facility] Bilirubin [Mass/Vol] 0.80 mg/dL 0.20-1.00 [facility] Comment on above: For patients on eltr ombopag therapy, use of Dimension [place] TBIL is not recommended. Chloride [Moles/Vol] 104 mmol/L 98-107 [facility] Cholesterol [Mass/Vol] 190 mg/dL <200 [facility] Comment on above: <200 mg/dL Desirable 200-240 mg/dL Borderline >240 mg/dL High Risk Eosinophils/100 WBC (Bld) 2.1 % 0-5 [facility] Glucose [Mass/Vol] 79 mg/dL 74-106 [facility] Neutrophils (Bld) [#/Vol] 9.0 10*3/uL 2.0-7.7 [facility] Neutrophils/100 WBC (Bld) 69.4 % 47-70 [facility] Potassium [Moles/Vol] 4.3 mmol/L 3.5-5.1 [facility] Protein [Mass/Vol] 7.5 g/dL 6.4-8.2 [facility] Sodium [Moles/Vol] 139 mmol/L 136-145 [facility] Triglyceride [Mass/Vol] 249 mg/dL <199 [facility] Comment on above: The drugs N-Acetylcy steine and Metamizole may falsely depress this assay.Serum Triglycerides Reference Interval Normal <150 mg/dL Borderline high 150 - 199 mg/dL High 200 - 499 mg/dL Very High > or = 500 mg/dL WBC (Bld) [#/Vol] 13.0 10*3/uL 4.4-11.0 [facility] Blood erythrocytes count (nu mber/volume)Ordered By: Dr. Luis on 07-10-2022 RBC (Bld) [#/Vol] 5.69 10*6/uL 4.6-6.2 [facility] Blood hemoglobin measurement (mass/volume)Ordered By: Dr. Luis on 07-10-2022 Hemoglobin (Bld) [Mass/Vol] 15.4 g/dL 13.0-16.5 [facility] Blood lymphocytes/100 leukoc ytesOrdered By: Dr. Luis on 07-10-2022 Lymphocytes/100 WBC (Bld) 19.3 % 19-41 [facility] Blood monocytes/100 leukocyt esOrdered By: Dr. Luis on 07-10-2022 Monocytes/100 WBC (Bld) 7.5 % 0-10 [facility] Blood platelet mean volumeOr dered By: Dr. Luis on 07-10-2022 Platelet mean volume (Bld) [Entitic vol] 9.9 fL 6.2-12.0 [facility] Determination of erythrocyte mean corpuscular volume (MCV)Ordered By: Dr. Luis on 07-10-2022 MCV (RBC) [Entitic vol] 82.6 fL 80-94 [facility] Hematocrit Auto (Bld) [Volum e fraction]Ordered By: Dr. Luis on 07-10-2022 Hematocrit (Bld) [Volume fraction] 47.0 % 40-54 [facility] Laboratory - Chemistry and C hemistry - challengeOrdered By: Dr. Luis on 07-10-2022 ALP [Catalytic activity/Vol] 73 U/L 45-117 [facility] ALT [Catalytic activity/Vol] 24 U/L 16-61 [facility] CO2 [Moles/Vol] 26.0 mmol/L 21.0-32.0 [facility] Globulin (S) [Mass/Vol] 3.5 g/dL 2.2-4.2 [facility] Urea nitrogen/Creatinine [Mass ratio] 17.1 mg/mg 10-20 [facility] Laboratory - Hematology and Cell countsOrdered By: Dr. Luis on 07-10-2022 Erythrocyte distribution width (RBC) [Entitic vol] 43.2 fL 35.1-43.9 [facility] Erythrocyte distribution width (RBC) [Ratio] 14.6 % 11.6-14.6 [facility] Immature granulocytes/100 WBC (Bld) 0.900 % 0.0-0.9 [facility] Comment on above: IG% - Immature Granu locytes (promyelocytes, myelocytes and metamyelocytes) > 1% indicates that a LEFT SHIFT is Present. MCH (RBC) [Entitic mass] 27.1 pg 27.0-32.0 [facility] Nucleated RBC/100 WBC (Bld) [Ratio] 0 % 0-5 [facility] MCHC Auto (RBC) [Mass/Vol]Or dered By: Dr. Luis on 07-10-2022 MCHC (RBC) [Mass/Vol] 32.8 g/dL 32-36 [facility] No Panel InformationOrdered By: Dr. Luis on 07-10-2022 Estimated GFR (MDRD) Amer 85 mL/min >60 [facility] Comment on above: GFR Calc Estimated GFR (MDRD) Non-Af Amer 70 mL/min >60 [facility] Comment on above: Non- GFR Calc Vitamin D 25-Hydroxy 23.2 ng/mL [facility] Comment on above: Vitamin D 25(OH) Sta tus Range Deficiency <20 ng/mL (50nmol/L) Insufficiency 20 - 30 ng/mL (50 - 75 nmol/L) Sufficiency 30 - 100 ng/mL (75 - 250 nmol/L) Toxicity >100 ng/mL (>250 nmol/L) Platelets bldOrdered By: Dr. Luis on 07-10-2022 Platelets (Bld) [#/Vol] 334 10*3/uL 150-450 [facility] Serum or plasma albumin maryann urement (mass/volume)Ordered By: Dr. Luis on 07-10-2022 Albumin [Mass/Vol] 4.0 g/dL 3.2-5.0 [facility] Serum or plasma albumin/glob ulin mass ratioOrdered By: Dr. Luis on 07-10-2022 Albumin/Globulin [Mass ratio] 1.1 {ratio} 0.9-2.4 [facility] Serum or plasma calcium maryann urement (mass/volume)Ordered By: Dr. Luis on 07-10-2022 Calcium [Mass/Vol] 9.1 mg/dL 8.5-10.1 [facility] Serum or plasma cholesterol in HDL measurement (mass/volume)Ordered By: Dr. Luis on 07-10-2022 Cholesterol in HDL [Mass/Vol] 36 mg/dL >40 [facility] Comment on above: The drugs N-Acetylcy steine and Metamizole may falsely depress this assay. Reference Range HDL <40 mg/dL Low HDL Cholesterol HDL >or= 60 mg/dL High HDL Cholesterol Serum or plasma cholesterol in VLDL measurement (mass/volume)Ordered By: Dr. Luis on 07-10-2022 Cholesterol in VLDL [Mass/Vol] 50 mg/dL 5-40 [facility] Serum or plasma creatinine m easurement (mass/volume)Ordered By: Dr. Luis on 07-10-2022 Creatinine [Mass/Vol] 1.17 mg/dL 0.70-1.30 [facility] Comment on above: The validity of the calculated GFR & GFRAA in patients over 70 years has not been determined. Clinical correlation is essential. Serum or plasma low density lipoprotein (LDL) cholesterol measurement (mass/volume)Ordered By: Dr. Luis on 07-10-2022 Cholesterol in LDL [Mass/Vol] 104 mg/dL 0-130 [facility] Serum or plasma urea nitroge n measurement (mass/volume)Ordered By: Dr. Luis on 07-10-2022 Urea nitrogen [Mass/Vol] 20 mg/dL 7-18 [facility] Thin prep Papanicolaou smear with manual screeningOrdered By: Dr. Luis on 07-10-2022 Thin prep Papanicolaou smear with manual screening 12 U/L 15-37 [facility] Thin prep Papanicolaou smear with manual screening 9 5-15 [facility] Office Visiton 05-23-2022 Follow-up visit [id number] Aram Carlton 1970 M Date Provider Department Center 05/23/2022 [facility]T None No family history on file Level of Service:57206 [place] OFFICE/OUTPATIENT NEW MODERATE MDM 45-59 MINUTES Reason for Visit and Comments: New Patient [542] Back Pain [12] Leg Pain [517349] Normal [facility] Progress Noteon 05-23-2022 Progress Note [facility] [address] [facility] [address] Dept: [phone] Aram Consuelo 1970 [id number] 05/23/2022 Problem List: Axial lower back pain Lumbar facet arthropathy Recent bilateral hernia surgery (back pain subsequent to this) Chief Complaint Patient presents with New Patient Back Pain Leg Pain HPI: Aram is a 51 y.o. male who is here today for evaluation of his lumbar pain. 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 No Current symptoms: Pain is located in the low back that is radiating to both hips and down both legs. Numbness tingling: legs - feet feel cold Weakness: denies Inciting Event/Trauma: Hernia sx 05/2021 Duration of Symptoms: about a year - worsening Symptoms are severely affecting their quality of life. Associated neurologic complaints: Gait/balance difficulty: denies Use of ambulatory aid?: no device Bowel/bladder dysfunction: denies Fine motor task difficulty: reports dropping things Able to walk a city block: No Aggravating factors: Walking/standing Any activity/movement Alleviating Factors: rest Medication injections Do the patient's symptoms improve while lying down or sleeping?: Yes Previous Treatment: PT: No NSAIDS: mobic Injections: Yes What Type: L4-S1 block When: getting second round soon How much relief: ~90% Opiod medications: tramadol Muscle relaxers: cyclobenzaprine (Flexeril) Oral steroids: methylprednisolone (MEDROL) Nerve medications (gabapentin/Lyrica): none Pain management: Yes Where: [place] [facility] Still going: Yes Chiropractor: Yes Smoking status: never smoked History of DVT/PE or hypercoagulable state (including history of relative): No Blood thinning medications: none Has the patient had spine surgery and/or consulted with another spine surgeon?: No Review of Systems Musculoskeletal: Positive for arthralgias, back pain and myalgias. Neurological: Positive for numbness. Allergies Allergen Reactions Escitalopram Other reaction(s): Other: See Comments Worsened anxiety Current Outpatient Medications Medication Sig Dispense Refill albuterol 108 (90 Base) MCG/ACT inhaler inhale 2 puffs by mouth and INTO THE LUNGS every 4 hours if neede... (REFER TO PRESCRIPTION NOTES). traMADol (Ultram) 50 MG tablet TAKE 1 TABLET BY MOUTH UP TO 3 TIMES DAY NEEDED FOR PAIN No current facility-administered medications for this visit. No past medical history on file. No past surgical history on file. Social History Socioeconomic History Marital status: Unknown Spouse name: Not on file Number of children: Not on file Years of education: Not on file Highest education level: Not on file Occupational History Not on file Tobacco Use Smoking status: Never Smokeless tobacco: Never Substance and Sexual Activity Alcohol use: Not on file Drug use: Not on file Sexual activity: Not on file Other Topics Concern Not on file Social History Narrative Not on file Social Determinants of Health Financial Resource Strain: Not on file Food Insecurity: Not on file Transportation Needs: Not on file Physical Activity: Not on file Stress: Not on file Social Connections: Not on file Intimate Partner Violence: Not on file Housing Stability: Not on file No family history on file. Physical Exam: Ht 1.905 m (6' 3") Wt (!) 147 kg (324 lb) BMI 40.50 kg/m? SPINE/EXTREMITY: General: No issues walking on heels and tiptoes Lower Extremity Motor: HF Q TA EHL Peroneals GSC Right 5 5 5 5 5 5 Left 5 5 5 5 5 5 Lower extremity sensation to light touch: L2 L3 L4 L5 S1 Right Intact Intact Intact Intact Intact Left Intact Intact Intact Intact Intact Lower extremity reflexes: Patellar Achilles Right 2+ 2+ Left 2+ 2+ Straight leg raise: Right Negative Left Negative Misc: Clonus Babinski Right None Absent Left None Absent Hip exam: Bilateral hip range of motion is full and symmetric without pain. -Lumbar pain worse with extension compared to flexion Radiographic findings: Radiographs: Lumbar Spine: Date of Exam: 05/23/22 Views: 4 views of the lumbar spine (AP, lateral, flexion and extension) Findings: Please see radiology report for full interpretation. Mild degenerative's disease and facet arthropathy throughout. No instability with flexion and extension. Lumbar MRI: on disc Date of exam: 03/21/22 Findings: Numbering: The most inferior fully formed disc space is designated L5-S1. Alignment: Normal. Vertebral Body Height: Normal. Bone Marrow and Discs: Mild multilevel degenerative marrow signal changes with disc dessication and height loss. Conus: Normal position and signal intensity. Paraspinal Soft Tissues: Oval T2 hyperintensity in the right kidney is m (more content not included)... Normal [facility] 36on 05-17-2022 36 Name of caller: Deon Contact phone number: [phone] Relationship to Patient: patient Provider: Lissa Practice: Ortho Chief Complaint/Reason for Call: Patient called in stating he spoke to his Pain Management office about having his records sent over and they advised him they would send them to ortho directly. Patient stated he would like a call letting him know the records are received, or if they have not been received closer to his appt so he can make sure ortho has the records needed. Patient states his spouse works close to the pain management office and will pick them up if they are not faxed to ortho in a timely manner. Best time of day caller can be reached: AM Patient advised that office/PCP has 24-48 business hours to return their call: Yes Normal [facility] Absolute lymphocyte countOrd ered By: Dr. Moore on 05-03-2022 Lymphocytes Auto (Unsp spec) [#/Vol] 2.16 10*3/uL 0.83-4.51 [facility] Basophil percentageOrdered B y: Dr. Moore on 05-03-2022 Basophils/100 WBC (Bld) 0.4 % 0-1 [facility] Chloride [Moles/Vol] 105 mmol/L 98-107 [facility] Eosinophils/100 WBC (Bld) 1.3 % 0-5 [facility] Glucose [Mass/Vol] 102 mg/dL 74-106 [facility] Comment on above: Fasting Glucose resu lt from 100 to 125 mg/dL suggests IMPAIRED HOMEOSTASIS per A.D.A. criteria. Neutrophils (Bld) [#/Vol] 12.8 10*3/uL 2.0-7.7 [facility] Neutrophils/100 WBC (Bld) 75.6 % 47-70 [facility] Potassium [Moles/Vol] 4.3 mmol/L 3.5-5.1 [facility] Sodium [Moles/Vol] 138 mmol/L 136-145 [facility] WBC (Bld) [#/Vol] 17.0 10*3/uL 4.4-11.0 [facility] Blood erythrocytes count (nu mber/volume)Ordered By: Dr. Moore on 05-03-2022 RBC (Bld) [#/Vol] 5.68 10*6/uL 4.6-6.2 [facility] Blood hemoglobin measurement (mass/volume)Ordered By: Dr. Moore on 05-03-2022 Hemoglobin (Bld) [Mass/Vol] 15.7 g/dL 13.0-16.5 [facility] Blood lymphocytes/100 leukoc ytesOrdered By: Dr. Moore on 05-03-2022 Lymphocytes/100 WBC (Bld) 12.7 % 19-41 [facility] Blood monocytes/100 leukocyt esOrdered By: Dr. Moore on 05-03-2022 Monocytes/100 WBC (Bld) 8.5 % 0-10 [facility] Blood platelet mean volumeOr dered By: Dr. Moore on 05-03-2022 Platelet mean volume (Bld) [Entitic vol] 9.5 fL 6.2-12.0 [facility] Determination of erythrocyte mean corpuscular volume (MCV)Ordered By: Dr. Moore on 05-03-2022 MCV (RBC) [Entitic vol] 82.6 fL 80-94 [facility] Hematocrit Auto (Bld) [Volum e fraction]Ordered By: Dr. Moore on 05-03-2022 Hematocrit (Bld) [Volume fraction] 46.9 % 40-54 [facility] Laboratory - Chemistry and C hemistry - challengeOrdered By: Dr. Moore on 05-03-2022 CO2 [Moles/Vol] 25.0 mmol/L 21.0-32.0 [facility] Urea nitrogen/Creatinine [Mass ratio] 20.9 mg/mg 10-20 [facility] Laboratory - Hematology and Cell countsOrdered By: Dr. Moore on 05-03-2022 Erythrocyte distribution width (RBC) [Entitic vol] 43.2 fL 35.1-43.9 [facility] Erythrocyte distribution width (RBC) [Ratio] 14.4 % 11.6-14.6 [facility] Immature granulocytes/100 WBC (Bld) 1.500 % 0.0-0.9 [facility] Comment on above: IG% - Immature Granu locytes (promyelocytes, myelocytes and metamyelocytes) > 1% indicates that a LEFT SHIFT is Present. MCH (RBC) [Entitic mass] 27.6 pg 27.0-32.0 [facility] Nucleated RBC/100 WBC (Bld) [Ratio] 0 % 0-5 [facility] MCHC Auto (RBC) [Mass/Vol]Or dered By: Dr. Moore on 05-03-2022 MCHC (RBC) [Mass/Vol] 33.5 g/dL 32-36 [facility] No Panel InformationOrdered By: Dr. Moore on 05-03-2022 Estimated Creatinine Clearance Calc 81.88 ml/min [facility] Estimated GFR (MDRD) Amer 76 mL/min >60 [facility] Comment on above: GFR Calc Estimated GFR (MDRD) Non-Af Amer 63 mL/min >60 [facility] Comment on above: Non- GFR Calc Troponin I High Sensitivity 6 pg/mL 3.0-78.0 [facility] Comment on above: Please Note: New [place] t Units and Gender Specific Reference Ranges. For more information see Policy Stat Procedure [place] High Sensitivity Troponin (TNIH) and attachments. Platelets bldOrdered By: Dr. Moore on 05-03-2022 Platelets (Bld) [#/Vol] 307 10*3/uL 150-450 [facility] Serum or plasma calcium maryann urement (mass/volume)Ordered By: Dr. Moore on 05-03-2022 Calcium [Mass/Vol] 9.2 mg/dL 8.5-10.1 [facility] Serum or plasma creatinine m easurement (mass/volume)Ordered By: Dr. Moore on 05-03-2022 Creatinine [Mass/Vol] 1.29 mg/dL 0.70-1.30 [facility] Comment on above: The validity of the calculated GFR & GFRAA in patients over 70 years has not been determined. Clinical correlation is essential. Serum or plasma urea nitroge n measurement (mass/volume)Ordered By: Dr. Moore on 05-03-2022 Urea nitrogen [Mass/Vol] 27 mg/dL 7-18 [facility] Thin prep Papanicolaou smear with manual screeningOrdered By: Dr. Moore on 05-03-2022 Thin prep Papanicolaou smear with manual screening 8 5-15 [facility] MR L-SPINE W/Oon 03-21-2022 MR L-SPINE W/O EXAMINATION: MR L-SPINE W/O 03/21/2022 03:35 PM CLINICAL HISTORY: Reason for Exam: Lumbar disc degeneration ASSOCIATED DIAGNOSIS: Segmental and somatic dysfunction of lumbar region Segmental and somatic dysfunction of sacral region Other intervertebral disc degeneration, lumbosacral region ORDERING PROVIDER: AREN [employer] NOTE: COMPARISON: None TECHNIQUE: Patient questionnaire was completed and was reviewed by MRI personnel prior to the patient entering the scanner. Multiplanar, multisequence MR imaging of the lumbar spine was performed without intravenous contrast. FINDINGS: Numbering: The most inferior fully formed disc space is designated L5-S1. Alignment: Normal. Vertebral Body Height: Normal. Bone Marrow and Discs: Mild multilevel degenerative marrow signal changes with disc dessication and height loss. Conus: Normal position and signal intensity. Paraspinal Soft Tissues: Oval T2 hyperintensity in the right kidney is most consistent with a renal cyst. T12-L1: No significant stenosis. L1-L2: Tiny disc bulge without canal or foraminal stenosis. L2-L3: No significant stenosis. L3-L4: Patent canal with mild bilateral foraminal stenosis. L4-L5: Mild right and guym-dg-yxjhmnst left neural foraminal stenosis with mild mass effect of the exiting left L4 nerve root. L5-S1: Mild diffuse disc bulge with superimposed small inferior extrusion without canal stenosis. Mild left and mild to moderate right neural foraminal stenosis with abutment upon the undersurface of the exiting right L5 nerve root. Sacrum: Within normal limits. IMPRESSION: Mild spondylosis without significant spinal canal stenosis. Mild degrees of foraminal nerve root abutment without critical narrowing. MACRO: None Normal [facility] No Panel Informationon 01-12 Prostate Specific Antigen Screen 0.67 ng/mL 0.00-4.00 [facility] Work Phone: Comment on above: This test was perfor med using the TPSA assay method [facility]. Values obtained with differentassay methods cannot be used interchangably.When changing PSA assays in the course of monitoring apatient, additional sequential testing should be carriedout to confirm baseline values. Absolute lymphocyte counton 09-12-2021 Lymphocytes Auto (Unsp spec) [#/Vol] 2.07 10*3/uL 0.83-4.51 [facility] Work Phone: Basophil percentageon 2021 Basophils/100 WBC (Bld) 0.7 % 0-1 [facility] Work Phone: Bilirubin [Mass/Vol] 0.50 mg/dL 0.20-1.00 [facility] Work Phone: Comment on above: For patients on eltr ombopag therapy, use of Dimension [place] TBIL is not recommended. Chloride [Moles/Vol] 107 mmol/L 98-107 [facility] Work Phone: Cholesterol [Mass/Vol] 167 mg/dL <200 [facility] Work Phone: Comment on above: <200 mg/dL Desirable 200-240 mg/dL Borderline >240 mg/dL High Risk Eosinophils/100 WBC (Bld) 1.8 % 0-5 [facility] Work Phone: Glucose [Mass/Vol] 89 mg/dL 74-106 [facility] Work Phone: Neutrophils (Bld) [#/Vol] 7.7 10*3/uL 2.0-7.7 [facility] Work Phone: Neutrophils/100 WBC (Bld) 69.6 % 47-70 [facility] Work Phone: Potassium [Moles/Vol] 4.0 mmol/L 3.5-5.1 [facility] Work Phone: Protein [Mass/Vol] 7.6 g/dL 6.4-8.2 [facility] Work Phone: Sodium [Moles/Vol] 138 mmol/L 136-145 [facility] Work Phone: Triglyceride [Mass/Vol] 246 mg/dL <199 [facility] Work Phone: Comment on above: The drugs N-Acetylcy steine and Metamizole may falsely depress this assay.Serum Triglycerides Reference Interval Normal <150 mg/dL Borderline high 150 - 199 mg/dL High 200 - 499 mg/dL Very High > or = 500 mg/dL WBC (Bld) [#/Vol] 11.0 10*3/uL 4.4-11.0 [facility] Work Phone: Blood erythrocytes count (nu mber/volume)on 09-12-2021 RBC (Bld) [#/Vol] 5.24 10*6/uL 4.6-6.2 [facility] Work Phone: Blood hemoglobin measurement (mass/volume)on 09-12-2021 Hemoglobin (Bld) [Mass/Vol] 14.7 g/dL 13.0-16.5 [facility] Work Phone: Blood lymphocytes/100 leukoc yteson 09-12-2021 Lymphocytes/100 WBC (Bld) 18.8 % 19-41 [facility] Work Phone: Blood monocytes/100 leukocyt eson 09-12-2021 Monocytes/100 WBC (Bld) 8.0 % 0-10 [facility] Work Phone: Blood platelet mean volumeon 09-12-2021 Platelet mean volume (Bld) [Entitic vol] 9.6 fL 6.2-12.0 [facility] Work Phone: Determination of erythrocyte mean corpuscular volume (MCV)on 09-12-2021 MCV (RBC) [Entitic vol] 83.2 fL 80-94 [facility] Work Phone: Hematocrit Auto (Bld) [Volum e fraction]on 09-12-2021 Hematocrit (Bld) [Volume fraction] 43.6 % 40-54 [facility] Work Phone: Laboratory - Chemistry and C hemistry - challengeon 09-12-2021 ALP [Catalytic activity/Vol] 73 U/L 45-117 [facility] Work Phone: ALT [Catalytic activity/Vol] 29 U/L 16-61 [facility] Work Phone: CO2 [Moles/Vol] 26.0 mmol/L 21.0-32.0 [facility] Work Phone: Globulin (S) [Mass/Vol] 3.8 g/dL 2.2-4.2 [facility] Work Phone: Urea nitrogen/Creatinine [Mass ratio] 17.7 mg/mg 10-20 [facility] Work Phone: Laboratory - Hematology and Cell countson 09-12-2021 Erythrocyte distribution width (RBC) [Entitic vol] 46.7 fL 35.1-43.9 [facility] Work Phone: Erythrocyte distribution width (RBC) [Ratio] 15.6 % 11.6-14.6 [facility] Work Phone: Immature granulocytes/100 WBC (Bld) 1.100 % 0.0-0.9 [facility] Work Phone: Comment on above: IG% - Immature Granu locytes (promyelocytes, myelocytes and metamyelocytes) > 1% indicates that a LEFT SHIFT is Present. MCH (RBC) [Entitic mass] 28.1 pg 27.0-32.0 [facility] Work Phone: Nucleated RBC/100 WBC (Bld) [Ratio] 0 % 0-5 [facility] Work Phone: MCHC Auto (RBC) [Mass/Vol]on 09-12-2021 MCHC (RBC) [Mass/Vol] 33.7 g/dL 32-36 [facility] Work [facility]: No Panel Informationon 09-12 Estimated GFR (MDRD) Amer 88 mL/min >60 [facility] Work Phone: Comment on above: GFR Calc Estimated GFR (MDRD) Non-Af Amer 73 mL/min >60 [facility] Work Phone: Comment on above: Non- GFR Calc Vitamin D 25-Hydroxy 34.3 ng/mL [facility] Work Phone: Comment on above: Vitamin D 25(OH) Sta tus Range Deficiency <20 ng/mL (50nmol/L) Insufficiency 20 - 30 ng/mL (50 - 75 nmol/L) Sufficiency 30 - 100 ng/mL (75 - 250 nmol/L) Toxicity >100 ng/mL (>250 nmol/L) Platelets bldon 09-12-2021 Platelets (Bld) [#/Vol] 293 10*3/uL 150-450 [facility] Work Phone: Serum or plasma albumin maryann urement (mass/volume)on 09-12-2021 Albumin [Mass/Vol] 3.8 g/dL 3.2-5.0 [facility] Work Phone: Serum or plasma albumin/glob ulin mass ratioon 09-12-2021 Albumin/Globulin [Mass ratio] 1.0 {ratio} 0.9-2.4 [facility] Work Phone: Serum or plasma calcium maryann urement (mass/volume)on 09-12-2021 Calcium [Mass/Vol] 8.8 mg/dL 8.5-10.1 [facility] Work Phone: Serum or plasma cholesterol in HDL measurement (mass/volume)on 09-12-2021 Cholesterol in HDL [Mass/Vol] 30 mg/dL >40 [facility] Work Phone: Comment on above: The drugs N-Acetylcy steine and Metamizole may falsely depress this assay. Reference Range HDL <40 mg/dL Low HDL Cholesterol HDL >or= 60 mg/dL High HDL Cholesterol Serum or plasma cholesterol in VLDL measurement (mass/volume)on 09-12-2021 Cholesterol in VLDL [Mass/Vol] 49 mg/dL 5-40 [facility] Work Phone: Serum or plasma creatinine m easurement (mass/volume)on 09-12-2021 Creatinine [Mass/Vol] 1.13 mg/dL 0.70-1.30 [facility] Work Phone: Comment on above: The validity of the calculated GFR & GFRAA in patients over 70 years has not been determined. Clinical correlation is essential. Serum or plasma low density lipoprotein (LDL) cholesterol measurement (mass/volume)on 09-12-2021 Cholesterol in LDL [Mass/Vol] 88 mg/dL 0-130 [facility] Work Phone: Serum or plasma urea nitroge n measurement (mass/volume)on 09-12-2021 Urea nitrogen [Mass/Vol] 20 mg/dL 7-18 [facility] Work Phone: Thin prep Papanicolaou smear with manual screeningon 09-12-2021 Thin prep Papanicolaou smear with manual screening 20 U/L 15-37 [facility] Work Phone: Thin prep Papanicolaou smear with manual screening 5 5-15 [facility] Work Phone: Basophil percentageon 2021 Cholesterol [Mass/Vol] 154 mg/dL <200 [facility] Work Phone: Comment on above: <200 mg/dL Desirable 200-240 mg/dL Borderline >240 mg/dL High Risk Triglyceride [Mass/Vol] 368 mg/dL [facility] Work Phone: Comment on above: The drugs N-Acetylcy steine and Metamizole may falsely depress this assay.Serum Triglycerides Reference Interval Normal <150 mg/dL Borderline high 150 - 199 mg/dL High 200 - 499 mg/dL Very High > or = 500 mg/dL Serum or plasma cholesterol in HDL measurement (mass/volume)on 07-11-2021 Cholesterol in HDL [Mass/Vol] 28 mg/dL [facility] Work Phone: Comment on above: The drugs N-Acetylcy steine and Metamizole may falsely depress this assay. Reference Range HDL <40 mg/dL Low HDL Cholesterol HDL >or= 60 mg/dL High HDL Cholesterol Serum or plasma cholesterol in VLDL measurement (mass/volume)on 07-11-2021 Cholesterol in VLDL [Mass/Vol] 74 mg/dL 5-40 [facility] Work Phone: Serum or plasma low density lipoprotein (LDL) cholesterol measurement (mass/volume)on 07-11-2021 Cholesterol in LDL [Mass/Vol] 52 mg/dL 0-130 [facility] Work Phone: Whole blood hemoglobin A1c/t otal hemoglobin ratio (mass fraction)on 07-11-2021 HbA1c (Bld) [Mass fraction] 5.3 % 3.8-5.6 [facility] Work Phone: Comment on above: Normal < 5.7 % Predi abetic 5.7 - 6.4 % Diabetic >or= 6.5 % Please note range changes. Absolute lymphocyte counton 07-04-2021 Lymphocytes Auto (Unsp spec) [#/Vol] 2.33 10*3/uL 0.83-4.51 [facility] Work Phone: Basophil percentageon 2021 Basophils/100 WBC (Bld) 1.0 % 0-1 [facility] Work Phone: Bilirubin [Mass/Vol] 0.30 mg/dL 0.20-1.00 [facility] Work Phone: Comment on above: For patients on eltr ombopag therapy, use of Dimension [place] TBIL is not recommended. Chloride [Moles/Vol] 103 mmol/L 98-107 [facility] Work Phone: Cholesterol [Mass/Vol] 146 mg/dL <200 [facility] Work Phone: Comment on above: <200 mg/dL Desirable 200-240 mg/dL Borderline >240 mg/dL High Risk Eosinophils/100 WBC (Bld) 3.2 % 0-5 [facility] Work Phone: Glucose [Mass/Vol] 116 mg/dL 74-106 [facility] Work Phone: Comment on above: Fasting Glucose resu lt from 100 to 125 mg/dL suggests IMPAIRED HOMEOSTASIS per A.D.A. criteria. Neutrophils (Bld) [#/Vol] 7.1 10*3/uL 2.0-7.7 [facility] Work Phone: Neutrophils/100 WBC (Bld) 64.7 % 47-70 [facility] Work Phone: Potassium [Moles/Vol] 3.8 mmol/L 3.5-5.1 [facility] Work Phone: Protein [Mass/Vol] 7.5 g/dL 6.4-8.2 [facility] Work Phone: Sodium [Moles/Vol] 137 mmol/L 136-145 [facility] Work Phone: Triglyceride [Mass/Vol] 640 mg/dL [facility] Work Phone: Comment on above: The drugs N-Acetylcy steine and Metamizole may falsely depress this assay. TRIGLYCERIDE IS GREATER THAN 400 mg/dL. LDL RESULT IS INVALID AND WILL NOT BE REPORTED.Serum Triglycerides Reference Interval Normal <150 mg/dL Borderline high 150 - 199 mg/dL High 200 - 499 mg/dL Very High > or = 500 mg/dL WBC (Bld) [#/Vol] 11.0 10*3/uL 4.4-11.0 [facility] Work Phone: Blood erythrocytes count (nu mber/volume)on 07-04-2021 RBC (Bld) [#/Vol] 5.12 10*6/uL 4.6-6.2 [facility] Work Phone: Blood hemoglobin measurement (mass/volume)on 07-04-2021 Hemoglobin (Bld) [Mass/Vol] 14.2 g/dL 13.0-16.5 [facility] Work Phone: Blood lymphocytes/100 leukoc yteson 07-04-2021 Lymphocytes/100 WBC (Bld) 21.3 % 19-41 [facility] Work Phone: Blood monocytes/100 leukocyt eson 07-04-2021 Monocytes/100 WBC (Bld) 8.5 % 0-10 [facility] Work Phone: Blood platelet mean volumeon 07-04-2021 Platelet mean volume (Bld) [Entitic vol] 9.9 fL 6.2-12.0 [facility] Work Phone: Determination of erythrocyte mean corpuscular volume (MCV)on 07-04-2021 MCV (RBC) [Entitic vol] 80.1 fL 80-94 [facility] Work Phone: Hematocrit Auto (Bld) [Volum e fraction]on 07-04-2021 Hematocrit (Bld) [Volume fraction] 41.0 % 40-54 [facility] Work Phone: Laboratory - Chemistry and C hemistry - challengeon 07-04-2021 ALP [Catalytic activity/Vol] 72 U/L 45-117 [facility] Work Phone: ALT [Catalytic activity/Vol] 30 U/L 16-61 [facility] Work Phone: CO2 [Moles/Vol] 27.0 mmol/L 21.0-32.0 [facility] Work Phone: Globulin (S) [Mass/Vol] 3.8 g/dL 2.2-4.2 [facility] Work Phone: Urea nitrogen/Creatinine [Mass ratio] 19.5 mg/mg 10-20 [facility] Work Phone: Laboratory - Hematology and Cell countson 07-04-2021 Erythrocyte distribution width (RBC) [Entitic vol] 40.6 fL 35.1-43.9 [facility] Work Phone: Erythrocyte distribution width (RBC) [Ratio] 14.2 % 11.6-14.6 [facility] Work Phone: Immature granulocytes/100 WBC (Bld) 1.300 % 0.0-0.9 [facility] Work Phone: Comment on above: IG% - Immature Granu locytes (promyelocytes, myelocytes and metamyelocytes) > 1% indicates that a LEFT SHIFT is Present. MCH (RBC) [Entitic mass] 27.7 pg 27.0-32.0 [facility] Work Phone: Nucleated RBC/100 WBC (Bld) [Ratio] 0 % 0-5 [facility] Work Phone: MCHC Auto (RBC) [Mass/Vol]on 07-04-2021 MCHC (RBC) [Mass/Vol] 34.6 g/dL 32-36 [facility] Work Phone: No Panel Informationon 07-04 Estimated GFR (MDRD) Amer 89 mL/min >60 [facility] Work Phone: Comment on above: GFR Calc Estimated GFR (MDRD) Non-Af Amer 73 mL/min >60 [facility] Work Phone: Comment on above: Non- GFR Calc Vitamin D 25-Hydroxy 24.4 ng/mL [facility] Work Phone: Comment on above: Vitamin D 25(OH) Sta tus Range Deficiency <20 ng/mL (50nmol/L) Insufficiency 20 - 30 ng/mL (50 - 75 nmol/L) Sufficiency 30 - 100 ng/mL (75 - 250 nmol/L) Toxicity >100 ng/mL (>250 nmol/L) Platelets bldon 07-04-2021 Platelets (Bld) [#/Vol] 321 10*3/uL 150-450 [facility] Work Phone: Serum or plasma albumin maryann urement (mass/volume)on 07-04-2021 Albumin [Mass/Vol] 3.7 g/dL 3.2-5.0 [facility] Work Phone: Serum or plasma albumin/glob ulin mass ratioon 07-04-2021 Albumin/Globulin [Mass ratio] 1.0 {ratio} 0.9-2.4 [facility] Work Phone: Serum or plasma calcium maryann urement (mass/volume)on 07-04-2021 Calcium [Mass/Vol] 8.9 mg/dL 8.5-10.1 [facility] Work Phone: Serum or plasma cholesterol in HDL measurement (mass/volume)on 07-04-2021 Cholesterol in HDL [Mass/Vol] 23 mg/dL [facility] Work Phone: Comment on above: The drugs N-Acetylcy steine and Metamizole may falsely depress this assay. Reference Range HDL <40 mg/dL Low HDL Cholesterol HDL >or= 60 mg/dL High HDL Cholesterol Serum or plasma cholesterol in VLDL measurement (mass/volume)on 07-04-2021 Cholesterol in VLDL [Mass/Vol] [facility] Work Phone: Comment on above: Test not performed Serum or plasma creatinine m easurement (mass/volume)on 07-04-2021 Creatinine [Mass/Vol] 1.13 mg/dL 0.70-1.30 [facility] Work Phone: Comment on above: The validity of the calculated GFR & GFRAA in patients over 70 years has not been determined. Clinical correlation is essential. Serum or plasma low density lipoprotein (LDL) cholesterol measurement (mass/volume)on 07-04-2021 Cholesterol in LDL [Mass/Vol] [facility] Work Phone: Comment on above: Test not performed Serum or plasma urea nitroge n measurement (mass/volume)on 07-04-2021 Urea nitrogen [Mass/Vol] 22 mg/dL 01-01 [facility] Work Phone: Thin prep Papanicolaou smear with manual screeningon 07-04-2021 Thin prep Papanicolaou smear with manual screening 15 U/L 15-37 [facility] Work Phone: Thin prep Papanicolaou smear with manual screening 7 5-15 [facility] Work Phone: No Panel Informationon 06-14 SARS-CoV-2 Antigen (Rapid) [facility] Work Phone: Vital Signs Date Time Vital Sign Value Performing Clinician Facility 11-20-2024 09:10-0400 Body height 187.[address] Janay Luis MD Work Phone: [facility] 11-20-2024 09:10-0400 Body mass index (BMI) [Ratio] 41.1 kg/m2 Dr. Janay Luis MD Work Phone: [facility] 11-20-2024 09:10-0400 Body weight 145.[address] Janay Luis MD Work Phone: [facility] 11-20-2024 09:10-0400 Diastolic blood pressure 84 mm[Hg] Dr. Janay Luis MD Work Phone: [facility] 11-20-2024 09:10-0400 Heart rate 84 /min Dr. Janay Luis MD Work Phone: [phone] [place] [address] 11-20-2024 09:10-0400 Respiratory rate 18 /min Dr. Janay Luis MD Work Phone: [facility] 11-20-2024 09:10-0400 SaO2% (BldA) [Mass fraction] 96 % Dr. Janay Luis MD Work Phone: [facility] 11-20-2024 09:10-0400 Systolic blood pressure 145 mm[Hg] Dr. Janay Luis MD Work Phone: [facility] 04-02-2024 16:29-0400 Body height 188 cm Huma Patricia APRN-TERESITA Work Phone: [facility] 04-02-2024 16:29-0400 Body mass index (BMI) [Ratio] 41.09 kg/m2 Huma Patricia APRN-TERESITA Work Phone: [facility] 04-02-2024 16:29-0400 Body temperature 98.4 [degF] Huma Patricia APRN-TERESITA Work Phone: [facility] 04-02-2024 16:29-0400 Body weight 145.15 kg Huma Cervantesta PARTY DIRECTOR-PUBLIC TRANSPORTATION INSPECTOR Work Phone: [facility] 04-02-2024 16:29-0400 Diastolic blood pressure 82 mm[Hg] Huma Cervantesta PARTY DIRECTOR-PUBLIC TRANSPORTATION INSPECTOR Work Phone: [facility] 04-02-2024 16:29-0400 Heart rate 65 /min Huma Cervantesta PARTY DIRECTOR-PUBLIC TRANSPORTATION INSPECTOR Work Phone: [facility] 04-02-2024 16:29-0400 Respiratory rate 16 /min Huma Terry PARTY DIRECTOR-PUBLIC TRANSPORTATION INSPECTOR Work Phone: [facility] 04-02-2024 16:29-0400 SaO2% (BldA) [Mass fraction] 95 % Huma Cervantesta PARTY DIRECTOR-PUBLIC TRANSPORTATION INSPECTOR Work Phone: [facility] 04-02-2024 16:29-0400 Systolic blood pressure 121 mm[Hg] Huma Cervantesta PARTY DIRECTOR-PUBLIC TRANSPORTATION INSPECTOR Work Phone: [facility] 03-19-2024 15:31-0400 Body height 190.5 cm Matilde Kate PA-C Work Phone: [facility] 03-19-2024 15:31-0400 Body mass index (BMI) [Ratio] 40 kg/m2 Matilde Kate PA-C Work Phone: [facility] 03-19-2024 15:31-0400 Body temperature 97.81 [degF] Matilde Kate PA-C Work Phone: [facility] 03-19-2024 15:31-0400 Body weight 145.15 kg Matilde Kate PA-C Work Phone: [facility] 03-19-2024 15:31-0400 Diastolic blood pressure 81 mm[Hg] Matilde Kate PA-C Work Phone: [facility] 03-19-2024 15:31-0400 Heart rate 58 /min Matilde Kate PA-C Work Phone: [facility] 03-19-2024 15:31-0400 Respiratory rate 16 /min Matilde Kate PA-C Work Phone: [facility] 03-19-2024 15:31-0400 SaO2% (BldA) [Mass fraction] 98 % Matilde Kate PA-C Work Phone: [facility] 03-19-2024 15:31-0400 Systolic blood pressure 151 mm[Hg] Matilde Kate PA-C Work Phone: [facility] 02-28-2024 08:30-0400 Diastolic blood pressure 88 mm[Hg] Jaswinder Ugalde MD Work Phone: [facility] 02-28-2024 08:30-0400 Heart rate 64 /min Jaswinder Ugalde MD Work Phone: [facility] 02-28-2024 08:30-0400 Respiratory rate 16 /min Jaswinder Ugalde MD Work Phone: [facility] 02-28-2024 08:30-0400 SaO2% (BldA) [Mass fraction] 96 % Jaswinder Ugalde MD Work Phone: [facility] 02-28-2024 08:30-0400 Systolic blood pressure 141 mm[Hg] Jaswinder Ugalde MD Work Phone: [facility] 02-28-2024 08:02-0400 Body temperature 97 [degF] Jaswinder Ugalde MD Work Phone: [facility] 02-28-2024 07:26-0400 Body height 190.5 cm Jaswinder Ugalde MD Work Phone: [facility] 02-28-2024 07:26-0400 Body mass index (BMI) [Ratio] 40 kg/m2 Jaswinder Ugalde MD Work Phone: [facility] 02-28-2024 07:26-0400 Body weight 145.15 kg Jaswinder Ugalde MD Work Phone: [facility] 09-06-2023 10:10-0400 Diastolic blood pressure 81 mm[Hg] Jaswinder Ugalde MD Work Phone: [facility] 09-06-2023 10:10-0400 Heart rate 71 /min Jaswinder Ugalde MD Work Phone: [facility] 09-06-2023 10:10-0400 Respiratory rate 16 /min Jaswinder Ugalde MD Work Phone: [facility] 09-06-2023 10:10-0400 SaO2% (BldA) [Mass fraction] 97 % Jaswinder Ugalde MD Work Phone: [facility] 09-06-2023 10:10-0400 Systolic blood pressure 132 mm[Hg] Jaswinder Ugalde MD Work Phone: [facility] 09-06-2023 09:52-0400 Body temperature 97.5 [degF] Jaswinder Ugalde MD Work Phone: [facility] 09-06-2023 09:06-0400 Body height 189.9 cm Jaswinder Ugalde MD Work Phone: [facility] 09-06-2023 09:06-0400 Body weight 144.7 kg Jaswinder Ugalde MD Work Phone: [facility] 08-16-2023 11:10-0500 Body temperature 96.9 [degF] [facility] 08-16-2023 11:10-0500 Diastolic blood pressure 83 mm[Hg] [facility] 08-16-2023 11:10-0500 Heart rate 63 /min [facility] 08-16-2023 11:10-0500 Respiratory rate 12 /min [facility] 08-16-2023 11:10-0500 SaO2% (BldA) [Mass fraction] 99 % [facility] 08-16-2023 11:10-0500 Systolic blood pressure 142 mm[Hg] [facility] 08-16-2023 08:32-0500 Body height 190.5 cm [facility] 08-16-2023 08:32-0500 Body mass index (BMI) [Ratio] 39.9 kg/m2 [facility] 08-16-2023 08:32-0500 Body weight 144.7 kg [facility] 04-30-2023 08:20-0500 Body height 188 cm Helen Paul MD Work Phone: [facility] 04-30-2023 08:20-0500 Body temperature 96.91 [degF] Helen Paul MD Work Phone: [facility] 04-30-2023 08:20-0500 Body weight 139.25 kg Helen Paul MD Work Phone: [facility] 04-30-2023 08:20-0500 Diastolic blood pressure 90 mm[Hg] Helen Paul MD Work Phone: [facility] 04-30-2023 08:20-0500 Heart rate 82 /min Helen Paul MD Work Phone: [facility] 04-30-2023 08:20-0500 SaO2% (BldA) [Mass fraction] 95 % Helen Paul MD Work Phone: [facility] 04-30-2023 08:20-0500 Systolic blood pressure 132 mm[Hg] Helen Paul MD Work Phone: [facility] 05-03-2022 15:36-0500 Diastolic blood pressure 85 mm[Hg] Dr. Janay Luis Work Phone: [facility] 05-03-2022 15:36-0500 Heart rate 63 /min Dr. Janay Luis Work Phone: [facility] 05-03-2022 15:36-0500 Respiratory rate 14 /min Dr. Janay Luis Work Phone: [facility] 05-03-2022 15:36-0500 SaO2% (BldA) [Mass fraction] 97 % Dr. Janay Luis Work Phone: [facility] 05-03-2022 15:36-0500 Systolic blood pressure 128 mm[Hg] Dr. Janay Luis Work Phone: [facility] 05-03-2022 14:10-0500 Body height 190.[address] Janay Luis Work Phone: [facility] 05-03-2022 14:10-0500 Body mass index (BMI) [Ratio] 41 kg/m2 Dr. Janay Luis Work Phone: [facility] 05-03-2022 14:10-0500 Body temperature 97.5 [degF] Dr. Janay Luis Work Phone: [facility] 05-03-2022 14:10-0500 Body weight 148.[address] Janay Luis Work Phone: [facility] 12-15-2021 10:11-0400 Body height 187.96 cm [facility] Work Phone: 12-15-2021 10:11-0400 Body mass index (BMI) [Ratio] 42 kg/m2 [facility] Work Phone: 12-15-2021 10:11-0400 Body temperature 97.1 [degF] [facility] Work Phone: 12-15-2021 10:11-0400 Body weight 148.32 kg [facility] Work Phone: 12-15-2021 10:11-0400 Diastolic blood pressure 89 mm[Hg] [facility] Work Phone: 12-15-2021 10:11-0400 Heart rate 90 /min [facility] Work Phone: 12-15-2021 10:11-0400 Respiratory rate 18 /min [facility] Work Phone: 12-15-2021 10:11-0400 SaO2% (BldA) [Mass fraction] 96 % [facility] Work Phone: 12-15-2021 10:11-0400 Systolic blood pressure 148 mm[Hg] [facility] Work Phone: 07-24-2021 10:55-0500 Body height 187.[address] Janay Luis Work Phone: [facility] Work Phone: 07-24-2021 10:55-0500 Body mass index (BMI) [Ratio] 41.8 kg/m2 Dr. Janay Luis Work Phone: [facility] Work Phone: 07-24-2021 10:55-0500 Body temperature 96.2 [degF] Dr. Janay Luis Work Phone: [facility] Work Phone: 07-24-2021 10:55-0500 Body weight 147.[address] Janay Luis Work Phone: [facility] Work Phone: 07-24-2021 10:55-0500 Diastolic blood pressure 74 mm[Hg] Dr. Janay Luis Work Phone: [facility] Work Phone: 07-24-2021 10:55-0500 Heart rate 86 /min Dr. Janay Luis Work Phone: [facility] Work Phone: 07-24-2021 10:55-0500 Respiratory rate 18 /min Dr. Janay Luis Work Phone: [facility] Work Phone: 07-24-2021 10:55-0500 SaO2% (BldA) [Mass fraction] 96 % Dr. Janay Luis Work Phone: [facility] Work Phone: 07-24-2021 10:55-0500 Systolic blood pressure 150 mm[Hg] Dr. Janay Luis Work Phone: [facility] Work Phone: 06-14-2021 15:00-0500 Body temperature 98 [degF] Dr. Janay Luis Work Phone: [facility] Work Phone: 06-14-2021 15:00-0500 Diastolic blood pressure 72 mm[Hg] Dr. Janay Luis Work Phone: [facility] Work Phone: 06-14-2021 15:00-0500 Heart rate 72 /min Dr. Janay Luis Work Phone: [facility] Work Phone: 06-14-2021 15:00-0500 Respiratory rate 16 /min Dr. Janay Luis Work Phone: [facility] Work Phone: 06-14-2021 15:00-0500 SaO2% (BldA) [Mass fraction] 92 % Dr. Janay Luis Work Phone: [facility] Work Phone: 06-14-2021 15:00-0500 Systolic blood pressure 108 mm[Hg] Dr. Janay Luis Work Phone: [facility] Work Phone: 06-14-2021 07:55-0500 Body mass index (BMI) [Ratio] 39 kg/m2 Dr. Janay Luis Work Phone: [facility] Work Phone: 06-14-2021 07:55-05[address] Body weight [address] Janay Luis Work Phone: [facility] Work Phone: Encounters Encounter Date Encounter Type Care Provider Facility Start: 04-15-2025 End: 04-15-2025 ambulatory Janay Luis Facility:[facility] Start: 03-11-2025 End: 03-11-[address] Janay Luis MD Work Phone: -Cardiovascular Services Start: 03-11-2025 End: 03-11-[address] Janay Luis MD -Cardiovascular Services Work Phone: Start: 03-11-2025 End: 03-11-2025 ambulatory Janay Luis Facility:[facility] Start: 11-20-2024 End: 11-20-[address] Aren Victor MD -[facility] Work Phone: Start: 11-20-2024 End: 11-20-[address] Janay Luis MD Work Phone: [facility] Work Phone: Start: 11-16-2024 End: 11-16-[address] Janay Luis MD Work Phone: [facility] Work Phone: Start: 11-16-2024 End: 11-16-[address] Surjit Cervantes MD -Radiology [facility] Work Phone: Start: 11-16-2024 End: 11-16-2024 ambulatory Janay Luis Facility:[facility] Start: 10-13-2024 End: 10-13-[address] Janay Luis MD -Laboratory [facility] Start: 10-13-2024 End: 10-13-2024 ambulatory Janay Luis Facility:[facility] Start: 07-17-2024 End: 07-17-2024 ambulatory Janay Luis Facility:[facility] Start: 06-29-2024 End: 06-29-2024 ambulatory Devika Balderas NP Facility:[facility] Start: 04-02-2024 End: 04-02-2024 Patient encounter procedure Huma Patricia APRN-PUBLIC TRANSPORTATION INSPECTOR Work Phone: [facility] Comment on above: Visit for suture rem oval (Primary Dx); Cellulitis, unspecified cellulitis site Start: 04-02-2024 End: 04-02-2024 [facility] Start: 03-19-2024 End: 03-19-2024 Office outpatient new 20 minutes Matilde Love PA-C Work Phone: [facility] Comment on above: Laceration of right index finger without foreign body without damage to nail, initial encounter (Primary Dx) Start: 03-19-2024 End: 03-19-2024 ambulatory MATILDE LOVE [facility] Start: 03-14-2024 End: 06-19-2024 Telephone encounter Jaswinder Ugalde MD Work Phone: Gastroenterology Start: 02-28-2024 End: 02-28-2024 ambulatory Jaswinder Ugalde Facility:[facility] Start: 02-28-2024 End: 02-28-2024 Subsequent hospital visit by physician Jaswinder Ugalde MD Work Phone: Gastroenterology Comment on above: Ulceration of colon [K63.3] Start: 02-21-2024 End: 02-21-2024 Telephone encounter Saray Vasquez RNasset specialist Comment on above: Appointment Start: 12-18-2023 End: 06-19-2024 Telephone encounter Jaswinder Ugalde MD Work Phone: Gastroenterology Start: 12-17-2023 End: 12-17-2023 ambulatory Jaswinder Ugalde MD Work Phone: Gastroenterology Comment on above: Constipation, unspec ified constipation type (Primary Dx); History of colonic polyps Start: 12-17-2023 End: 12-17-2023 Telemedicine consultation with patient Jaswinder Ugalde MD Work Phone: Gastroenterology Start: 09-10-2023 End: 06-19-2024 Telephone encounter Jaswinder Ugalde MD Work Phone: Gastroenterology Start: 09-06-2023 End: 09-06-2023 ambulatory Jaswinder Ugalde Facility:[facility] Start: 09-06-2023 End: 09-06-2023 Subsequent hospital visit by physician Jaswinder Ugalde MD Work Phone: Gastroenterology Comment on above: Inflammatory bowel d isease [K52.9] Start: 08-30-2023 Telephone encounter Santa beasley RN Gastroenterology Comment on above: Appointment Start: 08-28-2023 End: 08-28-2023 ambulatory [facility] Work Phone: Start: 08-28-2023 End: 08-28-2023 Patient encounter procedure [facility] Start: 08-16-2023 End: 08-16-2023 Emergency department patient visit [facility] Work Phone: Start: 06-29-2023 End: 05-06-2024 Telephone encounter Jaswinder Ugalde MD Work Phone: Gastroenterology Start: 06-25-2023 End: 05-06-2024 Telephone encounter Jaswinder Ugalde MD Work Phone: Gastroenterology Start: 06-25-2023 End: 06-25-2023 ambulatory [facility] Facility:[facility] Start: 06-25-2023 End: 06-25-2023 Subsequent hospital visit by physician [facility] Comment on above: Inflammatory bowel d isease [K52.9] Start: 06-19-2023 End: 06-19-2023 [facility] Facility:[facility] Start: 06-19-2023 End: 06-19-2023 ambulatory BLADEN Aaron [facility] Facility:[facility] Start: 04-30-2023 End: 04-30-2023 Patient encounter procedure Helen Paul MD Work Phone: General Surgery Comment on above: Constipation, unspec ified constipation type (Primary Dx) Start: 02-27-2023 End: 02-27-2023 ambulatory [facility] Work Phone: Start: 02-27-2023 End: 02-27-2023 Patient encounter procedure [facility] Start: 01-15-2023 End: 01-15-2023 ambulatory [facility] Work Phone: Start: 01-15-2023 End: 01-15-2023 Patient encounter procedure [facility] Start: 08-16-2022 End: 08-16-[address] Janay Luis Work Phone: [facility] Work Phone: Start: 08-16-2022 End: 08-16-[address] [facility] Start: 07-10-2022 End: 07-10-[address] Janay Luis Work Phone: [facility] Work Phone: Start: 07-10-2022 End: 07-10-[address] Janay Luis Work Phone: [facility] Start: 06-06-2022 Non-patient / Non-visit Dr. Janay Luis Work Phone: [facility] Start: 06-06-2022 End: 06-06-[address] Janay Luis Work Phone: [facility] Work Phone: Start: 06-06-2022 End: 06-06-[address] [facility] Start: 06-05-2022 End: 06-05-[address] Janay Luis Work Phone: [facility] Start: 05-23-2022 End: 05-24-2022 ambulatory [facility] Start: 05-03-2022 End: 05-03-2022 Emergency department patient visit Dr. Janay Luis Work Phone: [facility]Emergency Department Start: 04-26-2022 End: 04-26-[address] Janay Luis Work Phone: [facility] Start: 04-12-2022 End: 04-12-[address] Janay Luis Work Phone: [facility] Work Phone: Start: 04-12-2022 End: 04-12-[address] Janay Luis Work Phone: [facility] Start: 04-06-2022 End: 04-06-[address] Janay Luis Work Phone: [facility] Work Phone: Start: 04-06-2022 End: 04-06-[address] Janay Luis Work Phone: [facility] Start: 03-29-2022 End: 03-29-[address] Janay Luis Work Phone: [facility] Start: 03-23-2022 End: 03-23-[address] Janay Luis Work Phone: [facility] Work Phone: Start: 03-23-2022 End: 03-23-[address] Janay Luis Work Phone: [facility] Start: 03-21-2022 End: 03-22-2022 ambulatory [facility] Facility:[facility] Start: 03-08-2022 End: 03-08-[address] Janay Luis Work Phone: [facility] Start: 01-12-2022 End: 01-12-[address] Janay Luis Work Phone: [facility] Start: 12-26-2021 Non-patient / Non-visit Dr. Janay Luis Work Phone: [facility] Start: 12-26-2021 End: 12-26-[address] Janay Luis Work Phone: [facility] Start: 12-15-2021 End: 12-15-2021 Emergency department patient visit [facility] Start: 11-28-2021 End: 11-28-2021 Patient encounter procedure [facility] Start: 09-12-2021 End: 09-12-[address] Janay Luis Work Phone: [facility] Start: 07-24-2021 End: 07-24-[address] Janay Luis Work Phone: [facility] Start: 07-17-2021 End: 07-17-[address] Janay Luis Work Phone: [facility]Outpatient Breast Imaging Start: 07-11-2021 End: 07-11-[address] Janay Luis Work Phone: [facility] Start: 07-10-2021 End: 07-10-[address] Janay Luis Work Phone: [facility] Start: 07-04-2021 End: 07-04-[address] Janay Luis Work Phone: [facility] Start: 06-26-2021 End: 06-26-[address] Janay Luis Work Phone: [facility] Start: 06-14-2021 Non-patient / Non-visit Dr. Janay Luis Work Phone: [facility] Start: 06-14-2021 End: 06-14-2021 Admission to same day surgery center Dr. Janay Luis Work Phone: [facility] Day [facility] Procedures Date Procedure Procedure Detail Performing Clinician Start: 03-11-2025 Radex ankle complete minimum [address] Janay Luis MD Work Phone: Start: 11-16-2024 X-ray of lumbar spin e, two or three views Dr. Janay Luis MD Work Phone: Start: 10-13-2024 Vitamin D, 25-hydrox y measurement Dr. Janay Luis MD Work Phone: Comment on above: Vitamin D StatusDefi ciency: <20 ng/mL (50nmol/L)Insufficiency: 20-30 ng/mL (50-75 nmol/L)Sufficiency: 30-100 ng/mL (75-250 nmol/L)Toxicity: >100 ng/mL (>250 nmol/L) Start: 02-28-2024 Sigmoidoscopy flx dx w/collj spec br/wa if pfrmd Jaswinder Ugalde MD Work Phone: Start: 09-06-2023 Colonoscopy flx dx w /collj spec when pfrmd Jaswinder Ugalde MD Work Phone: Start: 09-06-2023 Colonoscopy Jaswinder lynn MD Work Phone: Start: 08-16-2023 Plain chest X-ray Start: 06-25-2023 Ct abdomen & pelvis w/contrast material Jaswinder Ugalde MD Work Phone: Start: 06-05-2022 Plain chest X-ray Dr. Yanira Luis Work Phone: Start: 05-03-2022 Plain chest X-ray Dr. Yanira Luis Work Phone: Start: 04-26-2022 Computed tomography of abdomen and pelvis with contrast Dr. Janay Luis Work Phone: Start: 04-12-2022 Ultrasound of scrotu m with Doppler and color flow imaging Dr. Janay Luis Work Phone: Start: 04-06-2022 CT of pelvis with contrast Dr. Janay Luis Work Phone: Start: 03-29-2022 Plain chest X-ray Dr. Yanira Luis Work Phone: Start: 03-23-[address] Janay Luis Work Phone: Start: 11-28-2021 Complete x-ray serie s of lumbar spine with bending views Start: 07-17-2021 Bilateral mammography D ping Luis Work Phone: Start: 07-17-[address] Janay Luis Work Phone: Start: 07-11-2021 X-ray of lumbar spin e, two or three views Dr. Janay Luis Work Phone: Start: 06-14-2021 SARS-CoV-2 Antigen (Rapid) Dr. Janay Luis Work Phone: Start: 03-29-2020 Colonoscopy Helen Paul MD Work Phone: Start: 06-18-2017 Lipid 1996 panel - S david or Plasma Helen Paul MD Work Phone: H/O: surgery History of recta l surgery Dr. Janay Luis Work Phone: Plan of Treatment Date Care Activity Detail Author Start: 03-19-2034 DTaP/Tdap/Td Vaccines (3 - Td or Tdap) DTaP/Tdap/Td Vaccines (3 - Td or Tdap) [facility] Start: 07-10-2032 Urine microalbumin profile DTaP,Tdap,Td Vaccine (2 - Td or Tdap) [facility] Start: 02-27-2029 Screening for malignant neoplasm of colon Sigmoidoscopy [facility] Start: 09-05-2028 Screening for malignant neoplasm of colon [facility] Start: 06-19-2026 Diabetes Screening Diabetes Screening [facility] Start: 03-29-2025 Colonoscopy Colonoscopy [facility] Start: 03-29-2025 Colorectal Cancer Screening Colorectal Cancer Screening [facility] Start: 03-29-2025 Screening for malignant neoplasm of colon [facility] Start: 03-19-2024 End: 03-19-2025 Laceration repair of hands, feet, genit Laceration repair of hands, feet, genit Procedures Routine Laceration of right index finger without foreign body without damage to nail, initial encounter Expected: 03/19/2024 (Approximate), Expires: 03/19/2025 [facility] Service Area Work Phone: Comment on above: Expected: 03/19/2024 (Approximate), Expi res: 03/19/2025 Start: 02-28-2024 End: 02-28-2024 Patient encounter procedure 02/28/2024 8:30 AM EDT Appointment Gastroenterology [address] [place] [address] Jaswinder Ugalde MD [address] [place], [place] [id number] Sigmoidoscopy Gastroenterology Comment on above: Sigmoidoscopy Start: 02-16-2024 COVID-19 Vaccine ( season) COVID-19 Vaccine () [facility] Start: 02-16-2024 Covid-19 Vaccine () Covid-19 Vaccine ( season) [facility] Start: 02-16-2024 COVID-19 Vaccine () COVID-19 Vaccine () [facility] Start: 02-16-2024 Influenza vaccination Influenza Vaccine (#1) [facility] Start: 08-16-2023 [facility] Start: 08-16-2023 [facility] Start: 06-17-2023 Behavioral Health Screening Behavioral Health Screening [facility] Start: 06-17-2023 Depression Assessment Depression Assessment [facility] Start: 02-15-2023 Covid-19 Vaccine () Covid-19 Vaccine () [facility] Start: 09-01-2023 Influenza vaccination Influenza Vaccine (#1) [facility] Start: 01-19-2023 Diabetes Screening Diabetes Screening [facility] Start: 09-04-2022 Shingrix Vaccine (2 of 2) Shingrix Vaccine (2 of 2) [facility] Start: 09-04-2022 Zoster Vaccines (2 of 2) Zoster Vaccines (2 of 2) [facility] Start: 06-18-2022 Lipid 1996 panel - Serum or Plasma Lipid Screening [facility] Start: 06-18-2022 Lipid panel Lipid Screening [facility] Start: 06-17-2022 Depression Assessment Depression Assessment [facility] Start: 05-03-2022 [facility] Start: 12-09-2021 Pneumococcal Vaccine: 50+ (1 of 1 - PCV) Pneumococcal Vaccine: 50+ (1 of 1 - PCV) [facility] Start: 12-09-2021 Zoster Vaccines (1 of 2) Zoster Vaccines (1 of 2) [facility] Start: 06-14-2021 Anesthesia intraperitoneal lower abd w/laps nos ANESTH SURG LOWER ABDOMEN [facility] Work Phone: Start: 06-14-2021 Laparoscopy surg rpr initial inguinal hernia LAP ING HERNIA REPAIR INIT [facility] Work Phone: Start: 06-14-2021 Rpr umbilical hrna 5 yrs/> reducible RPR UMBIL ANA LUISA REDUC > 5 YR [facility] Work Phone: Start: 01-19-2021 Fecal Occult Blood Fecal Occult Blood [facility] Start: 01-19-2021 Screening for malignant neoplasm of colon Fecal Occult Blood [facility] Start: 12-09-2016 Cologuard (FIT-DNA) Cologuard (FIT-DNA) [facility] Start: 12-09-[address] Colonography [facility] Start: 12-09-2016 Screening for malignant neoplasm of colon [facility] Start: 12-09-2016 Sigmoidoscopy Sigmoidoscopy [facility] Start: 12-09-1993 DTaP/Tdap/Td Vaccines (1 - Tdap) DTaP/Tdap/Td Vaccines (1 - Tdap) [facility] Start: 12-09-1990 Hepatitis B Vaccine (1 of 3 - 19+ 3-dose series) Hepatitis B Vaccine (1 of 3 - 19+ 3-dose series) [facility] Start: 12-09-1990 Hepatitis B Vaccines (1 of 3 - 19+ 3-dose series) Hepatitis B Vaccines (1 of 3 - 19+ 3-dose series) [facility] Start: 12-09-1989 Depression Screening Depression Screening [facility] Start: 12-09-1989 Hepatitis C Screening Hepatitis C Screening [facility] Start: 12-09-1989 Hepatitis C screening Hepatitis C Screening [facility] Start: 12-09-1989 HIV Screening HIV Screening [facility] Start: 12-09-1989 HIV screening HIV Screening [facility] Start: 12-09-1972 MMR Vaccines (1 of 1 - Standard series) MMR Vaccines (1 of 1 - Standard series) [facility] Start: 1971 Hepatitis B Vaccine (1 of 3 - 3-dose series) Hepatitis B Vaccine (1 of 3 - 3-dose series) [facility] Start: 1971 HIV screening HIV Screening [facility] Start: 1971 Lipid panel Lipid Panel [facility] Start: 1971 Screening for malignant neoplasm of colon [facility] Start: 1971 Yearly Adult Physical Yearly Adult Physical [facility] End: 04-30-2024 COLONOSCOPY DIAGNOSTIC COLONOSCOPY DIAGNOSTIC Endoscopy Routine Constipation, unspecified constipation type 1 Occurrences starting 04/30/2023 until 04/30/2024 [facility] Work Phone: Comment on above: 1 Occurrences starting 04/30/2023 until 04/30/2024 Patient Education [facility] Work Phone: Patient referral [facility] Work Phone: SURGICAL PATHOLOGY [facility] Work Phone: Comment on above: Release Upon Ordering for 1 Occurrences starting 09/06/2023, 1 completed SURGICAL PATHOLOGY [facility] Work Phone: Comment on above: Release Upon Ordering for 1 Occurrences starting 02/28/2024, 1 completed [facility] Immunizations Immunization Date Immunization Notes Care Provider Mariela baron 03-19-2024 tetanus toxoid, redu richy diphtheria toxoid, and acellular pertussis vaccine, adsorbed Matilde Love PA-C Work Phone: [facility] Work Phone: 06-18-2017 influenza virus vaccine, unspecified formulation Helen Paul MD Work Phone: [facility] Payers Date Payer Category Payer Self-pay [id number] 2024 Self-pay [id number] 2024 Unknown [id number] 2024 Worker's Compensation [facility] [id number] 2024 Unknown [id number] 2024 Unknown [id number] 2023 Unknown [id number] 2023 Unknown [id number] 2021 Unknown [id number] 1971 Unknown [id number] 32 1971 Unknown [id number] 1971 Unknown [id number] 243 Unknown [id number] 62 Unknown [id number] 62 Unknown [id number] 62 Unknown [id number] 62 Unknown [id number] 62 Unknown [id number] 62 Unknown [id number] 62 Social History Date Type Detail Facility Start: 07-24-2021 End: 08-16-2023 Tobacco smoking status TNIS Unknown if ever smoked [facility] Start: 07-12-2019 Spouse/ Significant Other [facility] Start: 1970 Sex Assigned At Male [facility] Start: 06-18-2017 End: 02-15-2024 Tobacco smoking status TNIS Never smoked tobacco [facility] Start: 06-18-2017 End: 06-19-2023 Tobacco use and exposure Smokeless tobacco non-user [facility] Start: 04-30-2023 End: 06-19-2023 Alcohol intake Current drinker of alcohol (finding) [facility] Start: 04-30-2023 End: 02-28-2024 History of Social function [facility] Start: 04-30-2023 End: 02-28-2024 Tobacco use panel [facility] National Score (1-10 0), lower number is lower risk 99 [facility] Start: 06-18-2017 Alcohol Comment rarely [facility] Start: 1970 Sex Assigned At Not on file [facility] Start: 01-25-2020 Gender identity Identifies as male gender (finding) [facility] Start: 01-25-2020 Sexual orientation Heterosexual (finding) [facility] Start: 09-06-2023 End: 02-28-2024 Alcohol intake Ex-drinker (finding) [facility] Start: 03-09-2024 End: 04-02-2024 Exposure to SARS-CoV-2 (event) Not sure [facility] Medical Equipment Procedure Code Equipment Code Equipment Original Text Equipment Identifier Dates Total cholecystectomy with exploration of common bile duct DRESSING,FIBRILLA R 1X1960 FDA Start: 05-09-2021 Total cholecystectomy with exploration of common bile duct Ligation clip, synthetic polymer, non-bioabsorbable [id number] FDA Start: 05-09-2021 Total cholecystectomy with exploration of common bile duct Ligation clip, synthetic polymer, non-bioabsorbable ()[id number] FDA Start: 05-09-2021 Total cholecystectomy with exploration of common bile duct DRESSING,FIBRILLA R 1X1960 FDA Start: 05-09-2021 Total cholecystectomy with exploration of common bile duct DRESSING,FIBRILLA R 1X2 1960 FDA Start: 05-09-2021 Total cholecystectomy with exploration of common bile duct DRESSING,FIBRILLA R 1X2 1960 FDA Start: 05-09-2021 Total cholecystectomy with exploration of common bile duct DRESSING,FIBRILLA R 1X2 1960 FDA Start: 05-09-2021 Total cholecystectomy with exploration of common bile duct DRESSING,FIBRILLA R 1X2 1960 FDA Start: 05-09-2021 Total cholecystectomy with exploration of common bile duct DRESSING,FIBRILLA R 1X2 1960 FDA Start: 05-09-2021 Total cholecystectomy with exploration of common bile duct DRESSING,FIBRILLA R 1X2 1960 FDA Start: 05-09-2021 Total cholecystectomy with exploration of common bile duct DRESSING,FIBRILLA R 1X2 1960 FDA Start: 05-09-2021 Total cholecystectomy with exploration of common bile duct DRESSING,FIBRILLA R 1X2 1960 FDA Start: 05-09-2021 Total cholecystectomy with exploration of common bile duct DRESSING,FIBRILLA R 1X2 1960 FDA Start: 05-09-2021 Total cholecystectomy with exploration of common bile duct DRESSING,FIBRILLA R 1X2 1960 FDA Start: 05-09-2021 Total cholecystectomy with exploration of common bile duct DRESSING,FIBRILLA R 1X2 1960 FDA Start: 05-09-2021 Total cholecystectomy with exploration of common bile duct DRESSING,FIBRILLA R 1X2 1960 FDA Start: 05-09-2021 Total cholecystectomy with exploration of common bile duct DRESSING,FIBRILLA R 1X2 1960 FDA Start: 05-09-2021 Total cholecystectomy with exploration of common bile duct DRESSING,FIBRILLA R 1X1960 FDA Start: 05-09-2021 Total cholecystectomy with exploration of common bile duct DRESSING,FIBRILLA R 1X1960 FDA Start: 05-09-2021 Total cholecystectomy with exploration of common bile duct DRESSING,FIBRILLA R 1X1960 FDA Start: 05-09-2021 MESH,3DMAX RIGHT XL [id number] FDA Start: 06-14-2021 MESH,VENTLEX ST MED 6.4CM FDA Start: 06-14-2021 TACKER,SECURE STRAP FDA Start: 06-14-2021 Ligation clip, synthetic polymer, non-bioabsorbable [id number] FDA Start: 06-14-2021 MESH,3DMAX RIGHT XL [id number] FDA Start: 06-14-2021 MESH,VENTLEX ST MED 6.4CM FDA Start: 06-14-2021 TACKER,SECURE STRAP FDA Start: 06-14-2021 MESH,3DMAX RIGHT XL [id number] FDA Start: 06-14-2021 MESH,VENTLEX ST MED 6.4CM FDA Start: 06-14-2021 TACKER,SECURE STRAP FDA Start: 06-14-2021 MESH,3DMAX RIGHT XL [id number] FDA Start: 06-14-2021 MESH,VENTLEX ST MED 6.4CM FDA Start: 06-14-2021 TACKER,SECURE STRAP FDA Start: 06-14-2021 MESH,3DMAX RIGHT XL [id number] FDA Start: 06-14-2021 MESH,VENTLEX ST MED 6.4CM FDA Start: 06-14-2021 TACKER,SECURE STRAP FDA Start: 06-14-2021 MESH,3DMAX RIGHT XL [id number] FDA Start: 06-14-2021 MESH,VENTLEX ST MED 6.4CM FDA Start: 06-14-2021 TACKER,SECURE STRAP FDA Start: 06-14-2021 MESH,3DMAX RIGHT XL [id number] FDA Start: 06-14-2021 MESH,VENTLEX ST MED 6.4CM FDA Start: 06-14-2021 TACKER,SECURE STRAP FDA Start: 06-14-2021 MESH,3DMAX RIGHT XL [id number] FDA Start: 06-14-2021 MESH,VENTLEX ST MED 6.4CM FDA Start: 06-14-2021 TACKER,SECURE STRAP FDA Start: 06-14-2021 MESH,3DMAX RIGHT XL [id number] FDA Start: 06-14-2021 MESH,VENTLEX ST MED 6.4CM FDA Start: 06-14-2021 TACKER,SECURE STRAP FDA Start: 06-14-2021 MESH,3DMAX RIGHT XL [id number] FDA Start: 06-14-2021 MESH,VENTLEX ST MED 6.4CM FDA Start: 06-14-2021 TACKER,SECURE STRAP FDA Start: 06-14-2021 MESH,3DMAX RIGHT XL [id number] FDA Start: 06-14-2021 MESH,VENTLEX ST MED 6.4CM FDA Start: 06-14-2021 TACKER,SECURE STRAP FDA Start: 06-14-2021 MESH,3DMAX RIGHT XL [id number] FDA Start: 06-14-2021 MESH,VENTLEX ST MED 6.4CM FDA Start: 06-14-2021 TACKER,SECURE STRAP FDA Start: 06-14-2021 MESH,3DMAX RIGHT XL [id number] FDA Start: 06-14-2021 MESH,VENTLEX ST MED 6.4CM FDA Start: 06-14-2021 TACKER,SECURE STRAP FDA Start: 06-14-2021 MESH,3DMAX RIGHT XL [id number] FDA Start: 06-14-2021 MESH,VENTLEX ST MED 6.4CM FDA Start: 06-14-2021 TACKER,SECURE STRAP FDA Start: 06-14-2021 MESH,3DMAX RIGHT XL [id number] FDA Start: 06-14-2021 MESH,VENTLEX ST MED 6.4CM FDA Start: 06-14-2021 TACKER,SECURE STRAP FDA Start: 06-14-2021 MESH,3DMAX RIGHT XL [id number] FDA Start: 06-14-2021 MESH,VENTLEX ST MED 6.4CM FDA Start: 06-14-2021 TACKER,SECURE STRAP FDA Start: 06-14-2021 MESH,3DMAX RIGHT XL [id number] FDA Start: 06-14-2021 MESH,VENTLEX ST MED 6.4CM FDA Start: 06-14-2021 TACKER,SECURE STRAP FDA Start: 06-14-2021 MESH,3DMAX RIGHT XL [id number] FDA Start: 06-14-2021 MESH,VENTLEX ST MED 6.4CM FDA Start: 06-14-2021 TACKER,SECURE STRAP FDA Start: 06-14-2021 Functional Status Date Assessment Result Facility 06-14-2021 Functional status Ambulates [facility] Work Phone: Mental Status Date Assessment Result Facility 08-16-2023 Cognitive function Level Of Cons ciousness Awake;Alert;Appropriate [facility] Work Phone: 06-14-2021 Cognitive function Voice/Name [facility] Work Phone: Clinical Notes 05-21-2022 to 03-12-2025 Note Date & Type Note Facility 03-12-2025 Radiology Diagnostic study note [facility] Imaging Services [address] [place], [place] [id number] Ankle min 3 Views MR#: [id number] Acct: [id number] Name: ARAM CARLTON Rep #: [id number] : 1970 M 54 From: Henrik Alfaro MD PCP: Dr. Janay Luis MD Status: RE G CLI Study:Ankle min 3 Views Date of Exam: Exam# [id number] Ordering Dr: Janay Luis MD PROCEDURE: ANKLE MIN 3 VIEWS 03/11/2025 REASON FOR EXAM: PAIN TECHNIQUE: Procedure Code: RADANK Modality: DX Procedure: ANKLE MIN 3 VIEWS Laterality: Right COMPARISON: Right foot series of 01/10/2024. RAD/Ankle min 3 Views IMPRESSION: Stable inferior and posterior calcaneal spurring. Normal contour of the Achilles tendon is seen in the lateral view. No ankle joint effusion is noted. Mature nonunited ossicle seen of the tip of the medial malleolus. Satisfactory alignment of the ankle mortise. No evidence of talar dome osteonecrosis or osteochondral fracture. No acute fracture or dislocation is seen. Reading Location: [id number] CC: Dr. Janay Luis MD ~ Combination Technician: Signed [facility] 11-20-2024 Evaluation note Diagnosis Onset Date Resolution Xanthelasma of eyelid, bilateral acute November 20, 2024 8 :20am [facility] Work Phone: 1(938) 467-796106-02-2025 Radiology Diagnostic study note [facility] Imaging Services [address] [place], [place] [address] Lumbar Spine 2 or 3 Views MR#: [id number] Acct: [id number] Name: ARAM CARLTON Rep #: [id number] : 1970 M 53 From: Jennifer Melendrez MD PCP: Dr. Janay Luis MD Status: RE G CLI Study:Lumbar Spine 2 or 3 Views Date of Exam: 11/16/24 Exam# [id number] Ordering Dr: Cynthia Cervantes MD PROCEDURE: LUMBAR SPINE 2 OR 3 VIEWS 11/16/2024 REASON FOR EXAM: SPONDYLOSIS WITHOUT MYELOPATHY OR RADICULOPATHY, LUMBAR REGION TECHNIQUE: 3 view(s) of the lumbar spine COMPARISON: Lumbar spine radiographs on 07/11/2021 FINDINGS: There are 5 [id number] lumbar-type vertebral bodies. Lumbar vertebral bodyheights and alignment are maintained. There is anterior calcification at the L1-2 disc space with mild disc space narrowing at this level. Mild facet arthrosis which is worst in the lower lumbar spine. Visualized bowel gas pattern is nonobstructive. RAD/Lumbar Spine 2 or 3 Views IMPRESSION: Mild degenerative changes of the lumbar spine are worst at L1-2 and L5-S1. Reading Location: [facility] CC: Dr. Surjit Cervantes MD; Dr. Janay Luis MD ~ Combination Technician: Signed [facility]10-17-2024 History of Present illness Narrative* Huma PatriciaZACKARY-PUBLIC TRANSPORTATION INSPECTOR - 04/02/2024 4:00 PM EDT [facility] Huma PatriciaZACKARY-PUBLIC TRANSPORTATION INSPECTOR Visit Note - 04/02/2024 4:56 PM This note was generated with voice recognition software and may contain errors including spelling, grammar, syntax, and misrecognization of what was dictated. Patient: Aram Carlton, , 53 y.o., male PCP: Janay Luis MD ALLERGIES: Allergies Allergen Reactions Escitalopram Other CURRENT MEDICATIONS: Current Outpatient Medications Medication Instructions cefadroxil (Duricef) 500 mg capsule Take 2 cap(s) orally to start, then 1 capsule 2 times a day x 10 days. Take with a meal. PAST MEDICAL HX: No known health issues. SURGICAL HX: History reviewed. No pertinent surgical history. FAMILY HX: No pertinent history. SOCIAL HX: reports that he has never smoked. He has never used smokeless tobacco. CHIEF COMPLAINT: Chief Complaint Patient presents with Suture / Staple Removal HISTORY OF PRESENT ILLNESS: The history was obtained from patientSeven Chiu is a 53 y.o. male, who presents with a chief complaint of need for suture removal - had 5 sutures placed in his R 2nd fingerafter cutting it on on a circular blade at [employer] [facility]24[facility] reports he returned ~1 week later for suture removal, but he had been apply ing ointment and a bandage to the site, and the provider encouraged him to wait a few more days forsuture removal. He reports his schedule did not permit him to return until today. Reports the finger is still sore and swollen, but he denies any drainage from the area, and he denies any numbness, tingling, fevers/chills, or other constitutional c/o. Has been cleansing the area with peroxide. Is up to date with tetanus vaccine. REVIEW OF SYSTEMS: 10 systems reviewed negative with exception of history of present illness as listed above. TODAY'S VITALS: BP 121/82 (BP Location: Right arm, Patient Position: Sitting, BP Cuff Size: Large adult) Pulse 65 Temp 36.9 C (98.4 F) (Temporal) Resp 16 Ht 1.88 m (6' 2") Wt 145 kg (320 lb) SpO2 95% BMI 41.09 kg/m PHYSICAL EXAMINATION: General: Pleasant male, alert and oriented, in no acute distress. Neck: Supple; no palpable lymphadenopathy Respiratory: Lungs are clear to auscultation, Respirations are non-labored, Breath sounds are equal, Symmetrical chest wall expansion. Cardiovascular: Normal rate, Regular rhythm. Normal S1S2. No m/r/g. Musculoskeletal: Ambulates and moves all extremities easily and without discomfort. Integumentary: [place], warm, dry. Dorsal aspect of R index finger with healing, sutured, linear lacerated area (approx 2.5 cm x 1mm) - very slight surrounding erythema and generalized edema noted, but wound edges well approximated. Has tiny visible areas of pus noted under suture sites. No active drainage, but finger is tender to palpation. N/v intact. Neurologic: Alert, Oriented, Normal sensory, Normal motor function. Cognition and Speech: Oriented, Speech clear and coherent. Psychiatric: Cooperative, Appropriate mood & affect. PROCEDURE NOTE: Healing laceration on lateral aspect of R index finger well- approximated, but does have signs of infection. Site cleansed, and 5sutures were removed without complication. Laceration remained well approximated throughout procedure. DSD applied. Pt tolerated procedure well. Medical Decision Making LABORATORY or RADIOLOGICAL IMAGING ORDERS/RESULTS: None IMPRESSION/PLAN: Course: Worsening; stable 1. Visit for suture removal (Primary) 2. Cellulitis, unspecified cellulitis site - cefadroxil (Duricef) 500 mg capsule; Take 2 cap(s) orally to start, then 1 capsule 2 times a day x 10 days. Take with a meal. Dispense: 21 capsule; Refill: 0 No red flags or evidence of significant complication, but does have continued tenderness, edema, and concern for infection. Sutures removed in office without difficulty. Patient will be discharged home with rx for Cefadroxil to help denis off any infection. Encouraged to keep site clean/dry (cleansewith soap and water), to monitor closely for any s/sxs of worsening infection, and encouraged follow-up with with Occupational Medicine if not improving over the next 2-3 days. Patient agreed with plan of care; questions were encouraged and answered. ELLIOTT Isaac Advanced Practice Provider [facility] Work Phone: 1(994) 847-472310-03-2024 History of Present illness Narrative* Matilde Love PA-C - 03/19/2024 3:35 PM EDT ERROR * Matilde Love PA-C - 03/19/2024 3:35 PM EDT Images from the original note were not included. [facility] FELISHA NOTE: Name: Aram Carlton, 53 y.o. CSN:[id number] PCP: Janay Luis MD ALL: No Known Allergies History: Chief Complaint: Laceration (Right hand 2nd finger laceration. ) Encounter Date: 03/19/2024 16:30 HPI: The history was obtained from the patient. Aram is a 53 y.o. male, who presents with a chief complaint of Laceration (Right hand 2nd finger laceration. ) [place] [employer] when he sustained laceration approximately 30 minutes prior to arrival. Denies retained foreign body, paresthesias, and numbness to affected thumb. Pt does not remember date of last tetanus shot. PMHx: No past medical history on file. No current outpatient medications on file. No current facility-administered medications for this visit. PMSx: No past surgical history on file. Fam Hx: No family history on file. SOC. Hx: Social History Socioeconomic History Marital status: Spouse name: Not on file Number of children: Not on file Years of education: Not on file Highest education level: Not on file Occupational History Not on file Tobacco Use Smoking status: Not on file Smokeless tobacco: Not on file Substance and Sexual Activity Alcohol use: Not on file Drug use: Not on file Sexual activity: Not on file Other Topics Concern Not on file Social History Narrative Not on file Social Determinants of Health Financial Resource Strain: Not on file Food Insecurity: Not on file Transportation Needs: Not on file Physical Activity: Not on file Stress: Not on file Social Connections: Not on file Intimate Partner Violence: Not on file Housing Stability: Not on file Vitals: 03/19/24 1531 BP: 151/81 Pulse: 58 Resp: 16 Temp: 36.6 C (97.8 F) SpO2: 98% 145 kg (320 lb) Physical Exam HENT: Head: Normocephalic and atraumatic. Cardiovascular: Rate and Rhythm: Normal rate. Pulses: Radial pulses are 2+ on the right side. Pulmonary: Effort: Pulmonary effort is normal. Musculoskeletal: Right hand: Laceration present. No swelling or deformity. Normal range of motion. Normal strength. Normal sensation. Normal capillary refill. Arms: Hands: Neurological: Mental Status: He is alert. Patient ID: Aram Carlton is a 53 y.o. male. 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 The dorsal aspect of the proximal phalanx was cleansed. Then using a sterile 27g needle, Tavares and DEWAYNE Santiago [facility] carefully injected about 12mls of the anesthetic into both sides of the phalanx, on the volar aspect. He tolerated the procedure well and had a very good analgesic effect with this procedure. 2nd procedure: Laceration Repair Laceration Total length = 2cm. After evaluation, I decided that Aram's laceration did need to be repaired. Once the digital block had taken full affect, I then fully cleansed and irrigated the wound with cleanser & normal saline solution. I then placed sterile drapes to establish a sterile field. Maintaining sterile technique, I then evaluated and explored his wound for any abnormalities, such as foreign body, infection, tendon, nerve, or joint involvement. Seeing none, I then proceeded to repair the laceration, utilizing a 5-0 Ethilon suture, and placed a total of 5 sutures simple interrupted. Aram tolerated the procedure well. A dressing as applied (done by the RN/MA). Aram was informed to have a wound check in about 2 days, and his sutures cut out in about 7days. He is to return to our ER, at any point if he has any concerns, including infection, or any other issues that we discussed. I did personally review Aram's past medical history, surgical history, social history, as well as family history (when relevant). In this case, I also oversaw the his drug management by reviewing his medication list, allergy list, as well as the medications that I prescribed during the UC courseand/or recommended as an out-patient (including possible OTC medications such as acetaminophen, NSAIDs , etc). After reviewing the items above, I did look at previous medical documentation, such as recent hospitalizations, office visits, and/or recent consultations with PCP/specialist. SDOH: Another factor that I considered in Aram's care was his Social Determinants of Health (SDOH). During this UC encounter, he did not have social determinants of health. Those SDOH influencing Aram's care are: none UC COURSE/MEDICAL DECISION MAKING: Aram is a 53 y.o., who presents with a working diagnosis of 1. Laceration of right index finger without foreign body without damage to nail, initial encounter Plan: 1. Laceration repair completed in office. 2. Tdap vaccination provided right shoulder, no reaction after shot time. I, Rox Hung, [employer] student, helped prepare the medical record for my supervising clinician, Matilde Love. DEWAYNE Carrera, [facility] Supervised by Matilde Love PA-C Advanced Practice Provider [facility] I was present with the WADE student who participated in the documentation of this note. I have personally seen and re-examined the patient and performed the medical decision-making components (assessment and plan of care). I have reviewed the WADE student documentation and verified the findings in the note as written with additions or exceptions as stated in the body of this note. Matilde Love PA-C [facility] Work Phone: [phone]) 102-294009-30-2024 Telephone encounter Note* Telephone Encounter - Mae Gibson RN - 03/16/2024 9:56 AM EDT Notified via labs [facility]09-30-2024 Miscellaneous Notes* Telephone Encounter - Mae Gibson RN - 03/16/2024 9:56 AM EDT Notified via labs * Telephone Encounter - Jaswinder Ugalde MD - 03/14/2024 8:32 PM EDT Pleased inform that the polyp is a benign inflammatory polyp. Please miguel a routine V V with me to discuss. documented in this encounterUniversity [facility]09-28-2024 Telephone encounter Note * Telephone Encounter - Jaswinder Ugalde MD - 03/14/2024 8:32 PM EDT Pleased inform that the polyp is a benign inflammatory polyp. Please miguel a routine V V with me to discuss. [facility] Work Phone: [phone] Nurse Note* Janay White RN - 02/28/2024 8:12 AM EDT AMBULATORY PATIENT EDUCATION NOTE TOPIC: GI PROCEDURES: sigmoidoscopy READINESS TO LEARN INSTRUCTION PROVIDED TO: Patient and family member COGNITIVE ABILITY: Alert and oriented PTED MOTIVATION TO LEARN: Interested FAMILY SUPPORT: High - Very involved in pt care IPATIENT LEARNS BEST BY: Individual Instruction Written Instruction - Hand-outs Verbal Instruction FACTORS AFFECTING LEARNING: None PHYSICAL LIMITATIONS AFFECTING LEARNING: None LEARNING RESPONSE METHOD OF INSTRUCTION: Individual instruction PATIENT / FAMILY RESPONSE: Verbalizes understanding of: WORSENING CONDITION- Signs and symptoms of aworsening condition that warrant a call to the physician FOLLOW-UP PLAN: Patient instructed to call with any further issues SUPPLEMENTAL MATERIAL: Procedure Discharge Instructions REFERRAL (RECOMMENDATION): None [facility]09-13-2024 Nurse Note* Janay White RN - 02/28/2024 8:12 AM EDT AMBULATORY PATIENT EDUCATION NOTE TOPIC: GI PROCEDURES: sigmoidoscopy READINESS TO LEARN INSTRUCTION PROVIDED TO: Patient and family member COGNITIVE ABILITY: Alert and oriented PTED MOTIVATION TO LEARN: Interested FAMILY SUPPORT: High - Very involved in pt care IPATIENT LEARNS BEST BY: Individual Instruction Written Instruction - Hand-outs Verbal Instruction FACTORS AFFECTING LEARNING: None PHYSICAL LIMITATIONS AFFECTING LEARNING: None LEARNING RESPONSE METHOD OF INSTRUCTION: Individual instruction PATIENT / FAMILY RESPONSE: Verbalizes understanding of: WORSENING CONDITION- Signs and symptoms of aworsening condition that warrant a call to the physician FOLLOW-UP PLAN: Patient instructed to call with any further issues SUPPLEMENTAL MATERIAL: Procedure Discharge Instructions REFERRAL (RECOMMENDATION): None * Amanda Mendez RN - 02/28/2024 7:20 AM EDT PRE OP LEARNING ASSESSMENT PROCEDURE/SURGERY: GI PROCEDURES: Flex Sigmoidoscopy READINESS TO LEARN COGNITIVE ABILITY: Alert and oriented MOTIVATION TO LEARN: Interested FAMILY SUPPORT: None - Unavailable/disinterested PATIENT LEARNS BEST BY: Individual Instruction FACTORS AFFECTING LEARNING: None PHYSICAL LIMITATIONS AFFECTING LEARNING: None Electronically Signed By: Amanda Mendez RN In Department: GASTROENTEROLOGY documented in this encounterUniversity [facility]09-13-2024 Nurse Note* Amanda Mendez RN - 02/28/2024 7:20 AM EDT PRE OP LEARNING ASSESSMENT PROCEDURE/SURGERY: GI PROCEDURES: Flex Sigmoidoscopy READINESS TO LEARN COGNITIVE ABILITY: Alert and oriented MOTIVATION TO LEARN: Interested FAMILY SUPPORT: None - Unavailable/disinterested PATIENT LEARNS BEST BY: Individual Instruction FACTORS AFFECTING LEARNING: None PHYSICAL LIMITATIONS AFFECTING LEARNING: None Electronically Signed By: Amanda Mendez RN In Department: GASTROENTEROLOGY [facility]09-06-2024 Telephone encounter Note* Telephone Encounter - Saray Vasquez RN - 02/21/2024 12:20 PM EDT GI Pre-Procedure Spoke with patient: Yes Confirmed date scheduled and patient report time: Yes Procedure Planned:Percutaneous procedures traversing into an organ or cavity around an organ Is the patient on blood thinners?no Procedure Instructions given to patient: Yes, and they verbalized their understanding of instructions given Patient instructed to take prescribed preparation prior to procedure:Yes, and they verbalized theirunderstanding of instructions given Patient instructed to have family/friend present for procedure 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 and They verbalized their understanding and agree to have a responsible adult accompany the patient to their procedure and remain in the endoscopy area. Any barriers to Patient learning: Patient/Patient Manager Pool responded appropriately on phone. Type of instruction given: Verbal by telephone contact. Saray Vasquez RN [facility]09-06-2024 Miscellaneous Notes* Telephone Encounter - Saray Vasquez RN - 02/21/2024 12:20 PM EDT GI Pre-Procedure Spoke with patient: Yes Confirmed date scheduled and patient report time: Yes Procedure Planned:Percutaneous procedures traversing into an organ or cavity around an organ Is the patient on blood thinners?no Procedure Instructions given to patient: Yes, and they verbalized their understanding of instructions given Patient instructed to take prescribed preparation prior to procedure:Yes, and they verbalized theirunderstanding of instructions given Patient instructed to have family/friend present for procedure 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 and They verbalized their understanding and agree to have a responsible adult accompany the patient to their procedure and remain in the endoscopy area. Any barriers to Patient learning: Patient/Patient Manager Pool responded appropriately on phone. Type of instruction given: Verbal by telephone contact. Saray Vasquez RN documented in this encounterUniversity [facility]als [facility]07-03-2024 Telephone encounter Note * Telephone Encounter - Jaswinder Ugalde MD - 12/18/2023 7:01 AM EDT Please be sure the sigmoidoscopy is ordered on this patient in the next 3 months. If not let me know. [facility] Work Phone: 1(121) 851-213607-03-2024 Miscellaneous Notes* Telephone Encounter - Jaswinder Ugalde MD - 12/18/2023 7:01 AM EDT Please be sure the sigmoidoscopy is ordered on this patient in the next 3 months. If not let me know. documented in this encounterUniversity [facility]als [facility]07-03-2024 Instructions* Patient Instructions* Jaswinder Ugalde MD - 12/18/2023 6:59 AM EDT Please schedule a sigmoidoscopy 3 months from now. Orders have been placed. documented in this encounterUniversity [facility]als [facility]07-02-2024 History of Present illness Narrative* Jaswinder Ugalde MD - 12/17/2023 10:30 AM EDT VIRTUAL VISIT FOLLOW UP I have communicated my name and active licensure. The patient's identity and physical location wereverified at the time of this visit. Either the patient or their legal farm loan representative has been informed of the risks and benefits of -- and alternatives to -- treatment through a remote evaluation andconsents to proceed with the evaluation remotely. I had a virtual visit with Mr. Carlton today for follow up of constipation. UPDATED HISTORY: See impression PAST MEDICAL HISTORY Diagnosis Date Abnormal colonoscopy 2014 Anxiety Family history of prostate cancer Hypertriglyceridemia Obesity (BMI 30-39.9) PAST SURGICAL HISTORY Procedure Laterality Date COLONOSCOPY 2014 COLONOSCOPY FLX DX W/COLLJ SPEC WHEN PFRMD 03/29/2020 Colonoscopy HEMORRHOID;BAND LIGAT, SNGL/MUL 2011 PAST SURGICAL HISTORY OF Left ACL replair, meniscus repair REMOVAL GALLBLADDER 2020 REPAIR INCISIONAL HERNIA,REDUCIBLE 2020 FAMILY HISTORY Problem Relation Age of Onset Breast Cancer Mother uterine as well Prostate Cancer Father age 50s Hypertension Father Prostate Cancer Brother 46 Prostate Cancer Paternal Grandfather Social History Tobacco Use Smoking status: Never Smokeless tobacco: Never Vaping Use Vaping Use: Never used Substance Use Topics Alcohol use: Not Currently Comment: rarely Drug use: No Current Outpatient Medications Medication Sig Dispense Refill famotidine (PEPCID) 20 mg tablet Take 20 mg by mouth two times a day. polyethylene glycol 3350 (MIRALAX) 17 gram/dose powder Take by mouth once daily. Dissolve dose in 4- 8 ounces of liquid and take as [...] Lexapro [Escitalopr* Other: See Comments Worsened anxiety REVIEW OF SYSTEMS: PAIN ASSESSMENT: Negative for pain, history of chronic pain, or current treatment for a chronic pain condition. GENERAL: No weight loss, malaise or fevers PHYSICAL FINDINGS OF NOTE: General - Normal, healthy, cooperative, in no acute distress Able to interact verbally by video conference Latest Ref Rn 06/19/2023 WBC 3.70 - 11.00 k/uL 10.37 RBC 4.20 - 6.00 m/uL 5.65 Hemoglobin 13.0 - 17.0 g/dL 15.3 Hematocrit 39.0 - 51.0 % 45.7 MCV 80.0 - 100.0 fL 80.9 MCH 26.0 - 34.0 pg 27.1 MCHC 30.5 - 36.0 g/dL 33.5 RDW-CV 11.5 - 15.0 % 14.6 Platelet Count 150 - 400 k/uL 286 MPV 9.0 - 12.7 fL 9.5 Neut% % 64.7 Abs Neut (ANC) 1.45 - 7.50 k/uL 6.71 Lymph% % 21.0 Abs Lymph 1.00 - 4.00 k/uL 2.18 [place]% % 8.5 Abs [place] <0.87 k/uL 0.88 (H) Eosin% % 4.3 Abs Eosin <0.46 k/uL 0.45 Baso% % 1.0 Abs Baso <0.11 k/uL 0.10 Immature Gran % % 0.5 IMMATURE GRANS (ABS) <0.10 k/uL 0.05 NRBC /100 WBC 0.0 Absolute nRBC <0.01 k/uL <0.01 DTYPE Auto Protein, Total 6.3 - 8.0 g/dL 7.3 Albumin 3.9 - 4.9 g/dL 4.3 Calcium 8.5 - 10.2 mg/dL 10.0 Bilirubin, Total 0.2 - 1.3 mg/dL 0.6 Alkaline Phosphatase 38 - 113 U/L 74 AST 14 - 40 U/L 18 ALT 10 - 54 U/L 16 Glucose 74 - 99 mg/dL 103 (H) BUN 9 - 24 mg/dL 16 Creatinine 0.73 - 1.22 mg/dL 1.07 Sodium 136 - 144 mmol/L 139 Potassium 3.7 - 5.1 mmol/L 4.6 Chloride 97 - 105 mmol/L 104 CO2 22 - 30 mmol/L 23 Anion Gap 9 - 18 mmol/L 12 eGFR >=60 mL/min/1.73m 84 Legend: (H) High IMAGING CT ENTEROGRAPHY Jun 25 2023 PROCEDURE REASON: Inflammatory bowel disease IMPRESSION: No evidence of active inflammatory changes in the small bowel. Mild colonic wall thickening with submucosal fat deposition in the RIGHT and transverse segments, which could represent sequelae of colitis in the appropriate clinical setting. Colonic diverticulosis. RESULT: ... GI Tract: Small bowel: No mural hyperenhancement or wall thickening. Colon and Rectum: Mild wall thickening of the RIGHT and transverse segments of the colon, with mild submucosal fat deposition. No significant hyperemia or pericolonic fat stranding. Mild colonic diverticulosis. Strictures: None Fistulae/Sinus tracts: None Abscess: None Ancillary Findings related to chronic disease: None Abdomen: Liver: No mass. Biliary: No bile duct dilation. Cholecystectomy. Spleen: No mass. No splenomegaly. Pancreas: No mass or duct dilation. Adrenals: No mass. Kidneys: Subcentimeter lesions that are too small to characterize but likely benign. No hydronephrosis. Lymph nodes: No abdominal or pelvic lymphadenopathy. Mesentery/Peritoneum: No ascites or mass. Vasculature: The celiac axis and SMA are patent. The portal vein and branches, splenic vein, SMV, and hepatic veins are patent. No aortic or iliac artery aneurysm. Pelvis: No mass, ascites or fluid collection. Status post RIGHT inguinal hernia repair with mesh. Bones/Soft Tissues: Degenerative changes. Lung Bases: Unremarkable. Impression: The patient is a 53-year-old male. He was last seen by me on 06/19/2023 with the following impression: 52-year-old male seeking second opinion for constipation. The patient has had a difficult history over the last few years. He states that he was told that his gallbladder was not working via HIDA scan. He had this removed and felt well for approximately 3 months but then the pain came back. He had an interesting timeline of the surgery. He had his gallbladder removed in April 2021 followed by an inguinal and umbilical hernia with mesh repair in May 2021. However coming out of that surgery he had developed terrible debilitating back pain. He eventually was diagnosed with the disc disease and was treated by chiropractor. Symptoms partially resolved but he continued having intermittent attacks of debilitating low back pain. He underwent 2 procedures for disc destruction and after that had severe constipation. He states that he never had constipation symptoms prior in his life. He has tried Dulcolax and mag citrate. He states that he has had impaction approximately 7 times in the past year. This is usually treated by taking mag citrate. On GI review of systems he denies nausea vomiting dysphagia. He has mild reflux for which Pepcid helps. He has had no history of hepatic or pancreatic abnormalities. He has been told of fatty liver in the past. He had the above- mentioned gallbladder resection. He states that after his second disc procedure he has only had constipation. He had rectal bleeding x 1 and no family history of colon disease in the form of colitis polyps or colon cancer. On behavioral health intake he does not smoke or drink. He uses 3 Advil approximately 3 times per week. He does not use marijuana or CBD. He does have a history of anxiety and depression. He was on sertraline and stopped that approximately 4 years ago. 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 His weight is usually between 303 125pounds. At this time I would suggest we check a TSH, obtain a colonoscopy, initiate MiraLAX with senna rescue, and obtain a CTE. Of note on his last colonoscopy which was in [place] in 2019 he did have a solitary ulcer in the TI. In addition he had 2 tubular adenomas. Update 12/17/2023: Since that time the patient had a colonoscopy on 09/06/2023 to the terminal ileum with a BBPS of 6. He did have a 10 mm descending polyp 3 mm ascending polyp and a lesion at 25 cm that was biopsied and returned as an inflammatory polyp. The descending polyp was a tubular adenoma as well as the ascending polyp. The patient is doing well having 2 bowel movements per day taking prunejuice. He did not do the MiraLAX and senna but it is having excellent results simply with prune juice. At this time we will plan on repeating a sigmoidoscopy in the next few months to reassess the polyp that was at 25 cm. RECOMMENDATION: 1. above I spent more than 20 minutes [id number] with the patient and over half the time was devoted to counseling and/or coordination of care. Jaswinder Ugalde MD Answers submitted by the patient for this visit: Review of Systems Gastroenterology (Submitted on 12/11/2023) Fever: No Chills: No Night Sweats: No Unitentional Weight Change: No A Cough: No Difficulty Breathing: No Chest Pain: No Belly pain: Yes Problems with straining while having bowel movements , hard or lumpy stools, or feel unfinished (that you have not passed all your stool): Yes documented in this encounterUniversity [facility]als [facility]07-02-2024 NoteHNO ID: [id number] Author: JASWINDER UGALDE MD Service: ? Author Type: Physician Type: Progress Notes Filed: 12/18/2023 07:00 Note Text: VIRTUAL VISIT FOLLOW UP I have communicated my name and active licensure. The patient's identity and physical location were verified at the time of this visit. Either the patient or their legal farm loan representative has been informed of the risks and benefits of -- and alternatives to -- treatment through a remote evaluation and consents to proceed with the evaluation remotely. I had a virtual visit with Mr. Carlton today for follow up of constipation. UPDATED HISTORY: See impression PAST MEDICAL HISTORY Diagnosis Date Abnormal colonoscopy 2014 Anxiety Family history of prostate cancer Hypertriglyceridemia Obesity (BMI 30-39.9) PAST SURGICAL HISTORY Procedure Laterality Date COLONOSCOPY 2015 COLONOSCOPY FLX DX W/COLLJ SPEC WHEN PFRMD 03/29/2020 Colonoscopy HEMORRHOID;BAND LIGAT, SNGL/MUL 2011 PAST SURGICAL HISTORY OF Left ACL replair, meniscus repair REMOVAL GALLBLADDER 2020 REPAIR INCISIONAL HERNIA,REDUCIBLE 2020 FAMILY HISTORY Problem Relation Age of Onset Breast Cancer Mother uterine as well Prostate Cancer Father age 50s Hypertension Father Prostate Cancer Brother 46 Prostate Cancer Paternal Grandfather Social History Tobacco Use Smoking status: Never Smokeless tobacco: Never Vaping Use Vaping Use: Never used Substance Use Topics Alcohol use: Not Currently Comment: rarely Drug use: No Current Outpatient Medications Medication Sig Dispense Refill famotidine (PEPCID) 20 mg tablet Take 20 mg by mouth two times a day. polyethylene glycol 3350 (MIRALAX) 17 gram/dose powder [...] Lexapro [Escitalopr* Other: See Comments Worsened anxiety REVIEW OF SYSTEMS: PAIN ASSESSMENT: Negative for pain, history of chronic pain, or current treatment for a chronic pain condition. GENERAL: No weight loss, malaise or fevers PHYSICAL FINDINGS OF NOTE: General - Normal, healthy, cooperative, in no acute distress Able to interact verbally by video conference Latest Ref Rng 06/19/2023 WBC 3.70 - 11.00 k/uL 10.37 RBC 4.20 - 6.00 m/uL 5.65 Hemoglobin 13.0 - 17.0 g/dL 15.3 Hematocrit 39.0 - 51.0 % 45.7 MCV 80.0 - 100.0 fL 80.9 MCH 26.0 - 34.0 pg 27.1 MCHC 30.5 - 36.0 g/dL 33.5 RDW-CV 11.5 - 15.0 % 14.6 Platelet Count 150 - 400 k/uL 286 MPV 9.0 - 12.7 fL 9.5 Neut% % 64.7 Abs Neut (ANC) 1.45 - 7.50 k/uL 6.71 Lymph% % 21.0 Abs Lymph 1.00 - 4.00 k/uL 2.18 [place]% % 8.5 Abs [place] <0.87 k/uL 0.88 (H) Eosin% % 4.3 Abs Eosin <0.46 k/uL 0.45 Baso% % 1.0 Abs Baso <0.11 k/uL 0.10 Immature Gran % % 0.5 IMMATURE GRANS (ABS) <0.10 k/uL 0.05 NRBC /100 WBC 0.0 Absolute nRBC <0.01 k/uL <0.01 DTYPE Auto Protein, Total 6.3 - 8.0 g/dL 7.3 Albumin 3.9 - 4.9 g/dL 4.3 Calcium 8.5 - 10.2 mg/dL 10.0 Bilirubin, Total 0.2 - 1.3 mg/dL 0.6 Alkaline Phosphatase 38 - 113 U/L 74 AST 14 - 40 U/L 18 ALT 10 - 54 U/L 16 Glucose 74 - 99 mg/dL 103 (H) BUN 9 - 24 mg/dL 16 Creatinine 0.73 - 1.22 mg/dL 1.07 Sodium 136 - 144 mmol/L 139 Potassium 3.7 - 5.1 mmol/L 4.6 Chloride 97 - 105 mmol/L 104 CO2 22 - 30 mmol/L 23 Anion Gap 9 - 18 mmol/L 12 eGFR >=60 mL/min/1.73m? 84 Legend: (H) High IMAGING CT ENTEROGRAPHY Jun 25 2023 PROCEDURE REASON: Inflammatory bowel disease IMPRESSION: No evidence of active inflammatory changes in the small bowel. Mild colonic wall thickening with submucosal fat deposition in the RIGHT and transverse segments, which could represent sequelae of colitis in the appropriate clinical setting. Colonic diverticulosis. RESULT: ... GI Tract: Small bowel: No mural hyperenhancement or wall thickening. Colon and Rectum: Mild wall thickening of the RIGHT and transverse segments of the colon, with mild submucosal fat deposition. No significant hyperemia or pericolonic fat stranding. Mild colonic diverticulosis. Strictures: None Fistulae/Sinus tracts: None Abscess: None Ancillary Findings related to chronic disease: None Abdomen: Liver: No mass. Biliary: No bile duct dilation. Cholecystectomy. Spleen: No mass. No splenomegaly. Pancreas: No mass or duct dilation. Adrenals: No mass. Kidneys: Subcentimeter lesions that are too small to characterize but likely benign. No hydronephrosis. Lymph nodes: No abdominal or pelvic lymphadenopathy. Mesentery (more content not included)...[facility]04-03-2024 Telephone encounter Note* Telephone Encounter - Mae Gibson RN - 09/18/2023 9:01 AM EDT notified [facility]04-03-2024 Miscellaneous Notes* Telephone Encounter - Mae Gibson RN - 09/18/2023 9:01 AM EDT notified * Telephone Encounter - Jaswinder Ugalde MD - 09/17/2023 2:56 PM EDT November is fine. * Telephone Encounter - Mey Dykes RN - 09/11/2023 8:23 AM EDT Order pended. First available virtual visit is in November - would you like me to add on during fellows clinic in thenext few weeks? * Telephone Encounter - Jaswinder Ugalde MD - 09/10/2023 4:33 PM EDT Please inform the colon polyps were benign premalignant. One of the polyps of concern was an inflammatory polyp. The biopsies of the terminal ileum which did show ulcers were unremarkable. Please schedule virtual visit so we can discuss this further. He should have a sigmoidoscopy to evaluate the area at 25 to 30 cm in 1 year. Please put in the order for that. documented in this encounterUniversity [facility]04-02-2024 Telephone encounter Note * Telephone Encounter - Jaswinder Ugalde MD - 09/17/2023 2:56 PM EDT November is fine. [facility] Work Phone: [phone] Telephone encounter Note* Telephone Encounter - Mey Dykes RN - 09/11/2023 8:23 AM EDT Order pended. First available virtual visit is in November - would you like me to add on during fellows clinic in thenext few weeks? [facility]03-26-2024 Telephone encounter Note* Telephone Encounter - Jaswinder Ugalde MD - 09/10/2023 4:33 PM EDT Please inform the colon polyps were benign premalignant. One of the polyps of concern was an inflammatory polyp. The biopsies of the terminal ileum which did show ulcers were unremarkable. Please schedule virtual visit so we can discuss this further. He should have a sigmoidoscopy to evaluate the area at 25 to 30 cm in 1 year. Please put in the order for that. [facility]03-22-2024 Nurse Note* Rosie Swift RN - 09/06/2023 10:06 AM EDT AMBULATORY PATIENT EDUCATION NOTE TOPIC: GI PROCEDURES: Colonoscopy with or without biopsies based on clinical findings READINESS TO LEARN INSTRUCTION PROVIDED TO: Patient, readness to learn accessed prior to procedure COGNITIVE ABILITY: Alert and oriented PTED MOTIVATION TO LEARN: Eager FAMILY SUPPORT: High - Very involved in pt care IPATIENT LEARNS BEST BY: Individual Instruction FACTORS AFFECTING LEARNING: None PHYSICAL LIMITATIONS AFFECTING LEARNING: None LEARNING RESPONSE METHOD OF INSTRUCTION: Individual instruction PATIENT / FAMILY RESPONSE: Verbalizes understanding of: WORSENING CONDITION- Signs and symptoms of aworsening condition that warrant a call to the physician FOLLOW-UP PLAN: Complete - No need for follow-up SUPPLEMENTAL MATERIAL: Procedure Discharge Instructions REFERRAL (RECOMMENDATION): None * Amanda Mendez RN - 09/06/2023 8:59 AM EDT PRE OP LEARNING ASSESSMENT PROCEDURE/SURGERY: GI PROCEDURES: Colonoscopy READINESS TO LEARN COGNITIVE ABILITY: Alert and oriented MOTIVATION TO LEARN: Interested FAMILY SUPPORT: None - Unavailable/disinterested PATIENT LEARNS BEST BY: Individual Instruction FACTORS AFFECTING LEARNING: None PHYSICAL LIMITATIONS AFFECTING LEARNING: None Electronically Signed By: Amanda Mendez RN In Department: GASTROENTEROLOGY documented in this encounterUniversity Hospitals [facility]03-15-2024 Miscellaneous Notes* Telephone Encounter - Santa Recinos RN - 08/30/2023 4:19 PM EDT GI Pre-Procedure Spoke with patient: Yes Confirmed date scheduled and patient report time: Yes Procedure Planned:Colonoscopy with or without biopsies based on clinical findings Is the patient on blood thinners?no Procedure Instructions given to patient: Yes, and they verbalized their understanding of instructions given Patient instructed to take prescribed preparation prior to procedure:Yes, and they verbalized theirunderstanding of instructions given Patient instructed to have family/friend present for procedure 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 Any barriers to Patient learning: Patient/Patient Manager Pool responded appropriately on phone. Type of instruction given: Verbal by telephone contact. Santa Recinos RN documented in this encounterUniversity Hospitals [facility]03-01-2024 Discharge summary Author Reagan Cabrera [facility] August 16, 2023 10:21am Note Date/Time August 16, 2023 8:[address] [facility] Medical Records Department [address] [place] [address] Emergency Department Summary 08/16/23 MR#: [id number] Acct: [id number] Name: ARAM CARLTON Rep #:[id number] : 1970 52 From: Reagan Cabrera MD PCP: Dr. Janay Luis MD Status:RE G ER Location: ED HPI History of Present Illness Chief Complaint: Chest Pain Informant: patient Onset/Context/Timing Onset: Yesterday Quality: Positive for Dull Location: Left Chest Current Severity: Mild Maximum Severity: Mild Worsened By: Nothing Relieved By: Nothing Associated Symptoms: Negative for Nausea, Vomiting, Diaphoresis, Dyspnea, Cough,Fever, Lightheadedness, Acid Reflux or Palpitations Narrative Narrative: 52-year-old male no prior cardiac history. States yesterday while seated at work at his desk he got dull left-sided chest discomfort. Denies any nausea, diaphoresis or shortness of breath. It did radiate Into his left shoulder bladearea. He has had no recent exertional dyspnea nor any exertional shortness of breath. No pleuritic pain. No hemoptysis. No recent travel, surgery or immobilization. He had a negative stress test little over a year ago. In 2021. Prior Similar Symptoms: Yes Recent Illness/Hospitalization: No CVD Risk Factors: Negative for Hypertension, Diabetes, Hypercholesterolemia, Family History 1' </=55 or Smoking PE Risk Factors: Negative for Recent Travel/Surgery, Recent Immobilization, Prior DVT or PE, Cancer or OCP + Smoking + >/=35 TAD Risk Factors: Negative for Marfan's Syndrome, Hypertension or [facility] Acute right-sided back pain with sciatica Alcohol use Anxiety Back pain Bilateral leg pain Biliary dyskinesia BMI 39.0-39.9,adult Clot COVID-19 CPAP (continuous positive airway pressure) dependence Depression History of echocardiogram History of pain when walking History of ulceration Inguinal hernia of right side without obstruction or gangrene Migraines Non-smoker Restless legs Shortness of breath on exertion Umbilical hernia without obstruction or gangrene Wears glasses Home Medications djmhiro-dzyrphfihvjbf-hjlhuurw 250 mg-250 mg-65 mg tablet (Excedrin Migraine) 1 tab PO PRN PRN Headache 03/09/21 [History Last Taken Unknown] aspirin 81 mg capsule 81 mg PO DAILY 05/03/22 [History Last Taken Unknown] naproxen sodium BID 05/03/22 [History Last Taken Unknown] Allergy/AdvReac Type Severity Reaction Status Date / Time escitalopram [From Lexapro] AdvReac Intermediate Other Verified 08/16/23 08:32 Family History Mother Breast cancer Thyroid disorder Father Diabetes Cancer Surgical History History of hernia repair History of laparoscopic cholecystectomy History of lateral meniscus repair of left knee History of left breast biopsy (~07/2021) History of rectal surgery Hx of hemorrhoidectomy Hx of thumb surgery S/P ACL surgery Social History Smoking Status: Never smoker alcohol intake: never ROS ROS ED ROS Narrative Denies recent illness. Review of Systems ROS Unobtainable: Denies due to encephalopathy Constitutional Constitutional ED: Reports fever(s); Denies chills Eyes Eyes: Reports none ENT ENT ED: Denies ear pain Cardiovascular Cardiovascular: Reports as per HPI and chest pain; Denies palpitations or racingheartbeat Respiratory/Chest Respiratory/Chest: Denies cough or dyspnea Gastrointestinal Gastrointestinal: Denies abdominal pain, constipation, diarrhea, melena, nausea or vomiting Genitourinary Genitourinary ED: Denies dysuria or hematuria Musculoskeletal Musculoskeletal: Denies arthralgias Integumentary Denies abscess Neurologic Neurologic: Denies headache(s) Psychiatric Psychiatric: Denies anxiety or depression Endocrine Endocrinology: Denies cold intolerance Hematologic/Lymphatic Hematologic/Lymphatic: Denies easy bleeding, easy bruising or lymphadenopathy Allergic/Immunologic Allergic/Immunologic ED: Denies mouth swelling, tongue swelling or urticaria EXAM Physical Exam Narrative Exam Narrative: Well-appearing 52-year-old male. Vital signs are stable afebrile. Pulse ox 96%on room air no signs hypoxia. HEENT exam normal. Neck nontender no lymphadenopathy. Lungs clear to auscultation bilaterally. Heart regular rhythmno murmur. Chest wall nontender. No reproducible pain. Abdomen soft nontender. Patient is moving all 4 extremities. Calves are nontender without edema or cords. Is equal symmetrical radial pulses. 5 out of 5 speech lang path strength bilaterally. Dorsi plantarflexion intact. Back nontender. Neurologically is awake and alert with no focal motor deficits. Const Vital Signs: 08/16/23 08:32 08/16/23 08:44 08/16/23 08:44 Temperature 97.2 F L Temperature Source Temporal Pulse Rate 74 70 Respiratory Rate 14 16 Respiratory Effort Normal Respiratory Pattern Normal Blood Pressure 169/106 H 150/105 H Blood Pressure Mean 127 120 Pulse Ox 96 97 Oxygen Delivery Method Room Air Room Air 08/16/23 08:45 Temperature Temperature Source Pulse Rate Respiratory Rate Respiratory Effort Respiratory Pattern Blood Pressure Blood Pressure Mean Pulse Ox 97 Oxygen Delivery Method Room Air Positive well nourished and well developed; Negative for cachectic, contracturesor unkempt General Appearance ED: well developed and NAD; Negative for unkempt, cachectic, contractures or pallor Nutritional Appearance: Negative for cachectic HEENT Reports moist mucous membranes normocephalic and atraumatic; Negative for trauma or tenderness Eyes PERRL General Eye ED: Negative for pale conjunctiva or scleral icterus Neck no lymphadenopathy, supple and no JVD General: Negative for tenderness Chest Wall inspection of chest normal and palpation of chest normal Chest: Negative for tenderness Resp normal respiratory effort and clear to auscultation bilaterally Effort and Inspection: Negative for respiratory distress Auscultation: Negative for rales, rhonchi or wheezes Cardio regular rate, regular rhythm, S1 normal heart sound, S2 normal heart sound and no murmurs Rate: Negative for bradycardia Rhythm: Negative for abnormal rhythm Peripheral Pulses: Negative for radial pulses present GI normal to inspection, nondistended, normoactive bowel sounds, soft to palpation,non-tender, non-distended and no masses Back/Spine no CVA tenderness and no thoracic nor lumbar tenderness General Back: Negative for CVA tenderness Cervical Spine: Negative for cervical spine tenderness Extremity normal to inspection General Extremety ED: Negative for edema, pulses abnormal or tenderness General Extremity: Negative for edema or pulses abnormal Neuro oriented x3, CN's II-XII intact bilaterally, no sensory deficits noted and gait normal Sensorium / Orientation: awake, alert, oriented to person, oriented to place andoriented to time; Negative for confused, lethargic or stuporous Motor Exam: strength 5/5 throughout Psych mental status grossly normal Appearance: Negative for unkempt Attitude: No agitated Mood & Affect: Negative for depressed, anxious or tearful Skin no rashes or lesions noted and no wounds General Skin Exam: Negative for jaundice or pallor Rashes: No rashes noted Trauma: Negative for abrasion, laceration or puncture Heart Score History: Slightly/Non-Suspicious ECG: Normal Age: >45 - <65 years Risk Factors: No Risk Factors Troponin: </= Normal Limit Score: 1 MDM MDM MDM Narrative Medical decision making narrative: 52-year-old male with atypical chest discomfort. He has a completely normal exam. EKG and is unremarkable. Patient had a stress test in late 2021 that wasnormal. Repeat exam patient is doing well at 10:12 AM. We discussed all his test results. He is not having any back pain. No interscapular pain. He is comfortable being discharged home with outpatient follow-up. Patient is comfortable being discharged home. History & Record Review Discussion w/independent historian: Patient Additional record(s) reviewed:: Prior inpatient record, Prior outpatient record,Prior ED visit and Prior labs Lab Data Attestation: I reviewed the patient's lab results. Lab results narrative: CBC normal. White count 8. H&H of 15 and 45. Chemistries normal gap 3. Normal BUN and creatinine. Glucose 105. Troponin is5. Patient's had this pain since yesterday at noon. I do not think he needs a second troponin. Chest x-ray normal. Normal mediastinum. Labs: Laboratory Results - last 24 hr 08/16/23 08:55 WBC 8.3 RBC 5.60 Hgb 15.6 Hct 45.4 MCV 81.1 MCH 27.9 MCHC 34.4 RDW Std Deviation 42.1 RDW Coeff of Brock 14.6 Plt Count 265 MPV 9.5 Immature Gran % (Auto) 0.500 Neut % (Auto) 63.5 Lymph % (Auto) 23.5 [place] % (Auto) 8.3 Eos % (Auto) 3.2 Baso % (Auto) 1.0 Absolute Neuts (auto) 5.3 Absolute Lymphs (auto) 1.96 Nucleated RBC % 0 Sodium 138 Potassium 4.1 Chloride 107 Carbon Dioxide 28.0 Anion Gap 3 L BUN 16 Creatinine 1.13 Estim Creat Clear Calc 118.78 Est GFR (MDRD) Af Amer 88 Est GFR (MDRD) Non-Af 73 BUN/Creatinine Ratio 14.2 Glucose 105 Calcium 8.9 Troponin I High Sens 5 Radiography Chest X-Ray - ED: 1 View, Read by ED Physician, Read by Radiologist, Heart, Lungs, Mediastinum, Bony Structures, No Acute Disease and Chronic Changes Diagnostic Testing: Clinical Impression(s) from Imaging Studies Chest X-Ray 08/16/23 08:45 IMPRESSION: No acute abnormality is seen. Electronically Signed: Shaheen Garcia MD at 8:57 EST , Rhythm Strip Rhythm Strip: Sinus Rhythm Rate: 71 Ectopy: None EKG Initial EKG: Attestation: I personally reviewed and interpreted this EKG as follows: Interpretation: Sinus Rhythm and No Acute Injury Pattern Comments: Normal sinus rhythm rate of 71 no acute signs of [place] nor ischemia. No S1Q3T3. Discharge Plan Triage Chief Complaint: Chest Pain ED Provider: Reagan Cabrera Dx/Rx/DC Orders Clinical Impression: Chest pain Instructions: ED Chest Pain, Uncertain Cause Prescriptions: No Action Excedrin Migraine 250-250-65 mg tablet 1 tab PO PRN PRN (Reason: Headache) aspirin 81 mg Capsule 81 mg PO DAILY naproxen sodium BID Primary Care Provider: Janay Luis Referrals: Janay Luis MD [Primary Care Provider] - 3-5 Days if not improving Activity Restrictions/Additional Instructions: Follow-up with your primary care physician. All your labs, EKG and chest x-ray were unremarkable today. Return to the ER if you are feeling a lot worse. Disposition Disposition: Home, Self Care What to do if you have Problems For any increased pain, shortness of breath, bleeding, nausea or vomiting, chestpain, or any unexpected problems, contact your Primary Care Provider. Call [facility] ([phone]) or report to the closest Emergency Room. Call 911 if necessary. 08/16/23 1021 <Electronically signed by Reagan Cabrera MD> Cosigner Signature (if applicable): CC: Dr. Janay Luis MD ~ Signed [facility] Work Phone: 1(302) 335-419101-15-2024 Telephone encounter Note* Telephone Encounter - Mae Gibson RN - 07/01/2023 2:55 PM EST Notified via [facility]01-15-2024 Miscellaneous Notes* Telephone Encounter - Mae Gibson RN - 07/01/2023 2:55 PM EST Notified via * Telephone Encounter - Jaswinder Ugalde MD - 06/29/2023 10:21 AM EST Please inform that the CT does not show any inflammation in the small bowel. There is mild inflammation in the right side of the colon. It will be important to get the ordered colonoscopy. documented in this encounterUniversity Hospitals [facility]01-13-2024 Telephone encounter Note * Telephone Encounter - Jaswinder Ugalde MD - 06/29/2023 10:21 AM EST Please inform that the CT does not show any inflammation in the small bowel. There is mild inflammation in the right side of the colon. It will be important to get the ordered colonoscopy. [facility] Work Phone: [phone] Telephone encounter Note* Telephone Encounter - Mae Gibson RN - 06/27/2023 10:50 AM EST Notified via [facility]01-11-2024 Miscellaneous Notes* Telephone Encounter - Mae Gibson RN - 06/27/2023 10:50 AM EST Notified via * Telephone Encounter - Jaswinder Ugalde MD - 06/25/2023 6:10 AM EST Blood work looks good. documented in this encounterUniversity Hospitals [facility]01-09-2024 History of Present illness Narrative* Mando Rivera RN - 06/25/2023 9:30 AM EST Radiology Service Progress Note DATE OF SERVICE: [...] Value Ref Range Status 06/19/2023 84 >=60 mL/min/1.73m Final Comment: Estimated Glomerular Filtration Rate (eGFR) is calculated using the 2020 CKD-EPI creatinine equation. This equation utilizes serum creatinine, sex, and age as parameters. The creatinine assay has traceable calibration to isotope dilution- mass spectrometry. Refer to KDIGO guidelines for clinical interpretation. In patients with unstable renal function, e.g. those with acute kidney injury, the eGFRmay not accurately reflect actual GFR. eGFR- Date [...] DATE: June 25, 2023 TIME: 8:15 AM * Bakari Robledo RT(R) - 06/25/2023 9:30 AM EST Radiology Service Progress Note PATIENT NAME: Aram Carlton DATE OF SERVICE: June 25, 2023 TIME: 9:52 AM PATIENT IDENTITY VERIFICATION COMPLETED USING TWO (2) IDENTIFIERS: Name and Date of confirmedby patient verbally. FALL SCREENING: Has the patient [...] RT Valentina(R) June 25, 2023 9:52 AM documented in this encounterUniversity Hospitals Lake [facility] Center01-09-2024 NoteHNO ID: [id number] Author: MANDO RIVERA RN Service: Nursing Author [...] Carlton DATE: June 25, 2023 TIME: 8:15 [facility]01-09-2024 NoteHNO ID: [id number] Author: BAKARI ROBLEDO RT(R) Service: ? Author Type: Aquatic Ecologist Type: Progress Notes Filed: 06/25/2023 09:53 Note [...] BY: RT Valentina(R) June 25, 2023 9:52 [facility]01-09-2024 Telephone encounter Note* Telephone Encounter - Jaswinder Ugalde MD - 06/25/2023 6:10 AM EST Blood work looks good. [facility] Work Phone: [phone]) 961-862301-03-2024 NoteHNO ID: [id number] Author: Jaswinder Ugalde MD Service: ? Author Type: Physician [...] gallbladder was not work (more content not included)...[facility]11-14-2023 Instructions* Patient Instructions* Helen Paul MD - 04/30/2023 8:30 AM EST Images from the original note were not included. Bowel Preparation Instructions for: Golytely, Nulytely, Trilyte or Colyte (polyethylene glycol 3350and electrolytes) IF YOU DO NOT FOLLOW THESE [...] If you do not have a responsible wheat combine driver (family member or friend) with you to take you home, your exam cannot be done with sedation and will be cancelled. Please bring a list of all of your current medications, including any Over-the Counter medications with you. Medications If you take insulin, diabetic medications or blood thinners such as Coumadin (warfarin), Plavix (clopidogrel), Ticlid (ticlopidine hydrochloride), Agrylin (anagrelide), Xarelto (Rivaroxaban), Pradaxa(Dabigatran), Eliquis (Apixaban), and Effient (Prasugrel). You MUST [...] Golytely, Nulytely, Trilyte or Colyte (polyethylene glycol 3350and electrolytes) Three (3) Days Before Your Colonoscopy [...] your exam. 2 05/2019 documented in this encounterUniversity Hospitals Lake [facility] Center11-14-2023 History of Present illness Narrative* Helen Paul MD - 04/30/2023 8:18 AM EST Aram Carlton 1970 REFERRING PHYSICIAN: No ref. [...] he tried to get an appointment in [place] and was unable to. PAST MEDICAL HISTORY [...] by mouth once daily. Dissolve dose in 4- 8 ounces of liquid and take as [...] C (96.9 F), height 188 cm (6' 2"), weight(!) 139.3 kg (307 lb), SpO2 95 %. [...] is best to be seen by a certified court interpreter for this. He has [employer] insurance, he will contact his health laboratory animal caretaker for gastroenterology evaluation. I have counseled patient [...] Straightforward Helen Paul MD documented in this encounterUniversity Hospitals Lake [facility] Center11-14-2023 Nurse Note* Constance Garcia RN - 04/30/2023 8:18 AM EST REVIEW OF SYSTEMS: General: The patient denies [...] 03/29/2020 Constance Garcia RN documented in this encounterUniversity Hospitals Lake West [facility] Center12-05-2022 NoteCalled patient and informed them that we received [facility] SHSEvaluation note* Diagnosis Onset Date Resolution Status Inguinal hernia of right jh e without obstruction or gangrene acute Umbilical hernia without obstruction or gangrene acute Inguinal hernia of right jh e without obstruction or gangrene acute Umbilical hernia without obstruction or gangrene acute Inguinal hernia of right jh e without obstruction or gangrene acute Umbilical hernia without obstruction or gangrene acute Inguinal hernia of right jh e without obstruction or gangrene acute Umbilical hernia without obstruction or gangrene acute Lipoma of breast acute Neuralgia acute [facility] Work Phone: Evaluation noteNo assessment information available [facility] Work Phone: Evaluation note* Diagnosis Onset Date Resolution Status Neuralgia acute Right groin pain acute [facility] Work Phone: Evaluation note* Diagnosis Constipation, unspecified constipation type- Primary documented in this encounter [facility]* Diagnosis Screening for malignant neoplasm of colon- Primary Inflammatory bowel disease Other and unspecified noninfectious gastroenteritis and colitis documented in this encounter [facility] note* Diagnosis Constipation, unspecified constipation type- Primary History of colonic polyps Personal history of colonic polyps documented in this encounter [facility] note* Diagnosis Diarrhea, unspecified type- Primary Ulceration of colon Ulceration of intestine documented in this encounter [facility] note* Diagnosis Inflammatory bowel disease Other and unspecified noninfectious gastroenteritis and colitis documented in this encounter [facility] note* Diagnosis Laceration of right index finger without foreign body without damage to nail, initial encounter- Primary documented in this encounter [facility] Work Phone: Evaluation note* Diagnosis Visit for suture removal- Primary Cellulitis, unspecified cellulitis site documented in this encounter [facility] Work Phone: evaluation note* Diagnosis Ulceration of colon- Primary Ulceration of intestine Diarrhea, unspecified type- Primary Ulceration of colon Ulceration of intestine documented in this encounter [facility] Discharge instructions Additional Instructions Follow-up with your primary care physician. All your labs, EKG and chest x-ray were unremarkable today. Return to the ER if you are feeling a lot worse.[facility] Work Phone: Reason for referral (narrative)* Outpatient Procedure (Routine) - Closed Specialty Diagnoses / Procedures Referred By Nadya shah Referred To Contact [facility] Diagnoses Inflammatory bowel disease Procedures COLONOSCOPY DIAGNOSTIC COLONOSCOPY FLX DX W/COLLJ SPEC WHEN Jaswinder Sexton MD [address] [place] [address] [facility] [place] [address] Referral ID Status Reason Start Date Expiration Date V isits Requested Visits Authorized [id number] Closed Auto-Generate d Referral 07/19/2023 06/16/2024 1 1 [facility] for referral (narrative)* Outpatient Procedure (Routine) - Closed Specialty Diagnoses / Procedures Referred By Nadya shah Referred To Contact [facility] Diagnoses Ulceration of colon Procedures SIGMOIDOSCOPY SIGMOIDOSCOPY FLX DX W/COLLJ SPEC BR/WA IF Jaswinder Sexton MD [address] [place] [address] [address] Referral ID Status Reason Start Date Expiration Date V isits Requested Visits Authorized [id number] Closed Auto-Generate d Referral 02/17/2024 09/10/2024 1 1 [facility] for referral (narrative)* Outpatient Procedure (Routine) - Closed Specialty Diagnoses / Procedures Referred By Contac t Referred To Contact [facility] Diagnoses Ulceration of colon Procedures SIGMOIDOSCOPY SIGMOIDOSCOPY FLX DX W/COLLJ SPEC BR/WA IF Jaswinder Sexton MD [address] [place] [address] [address] Referral ID Status Reason Start Date Expiration Date V isits Requested Visits Authorized [id number] Closed Auto-Generate d Referral 02/17/2024 09/10/2024 1 1 [facility] for referral (narrative)No reason for referral information availableWFlower Hospital Work Phone: Reason for visit Narrative* Outpatient Procedure (Routine) - Closed Specialty Diagnoses / Procedures Referred By Contac t Referred To Contact [facility] Diagnoses Inflammatory bowel disease Procedures COLONOSCOPY DIAGNOSTIC COLONOSCOPY FLX DX W/COLLJ SPEC WHEN Jaswinder Sexton MD [address] [place] [address] [facility] Disease [address] [address] Referral ID Status Reason Start Date Expiration Date V isits Requested Visits Authorized [id number] Closed Auto-Generate d Referral 07/19/2023 06/16/2024 1 1 [facility] [place] for visit Narrative* Outpatient Procedure (Routine) - Closed Specialty Diagnoses / Procedures Referred By Contac t Referred To Contact [facility] Diagnoses Ulceration of colon Procedures SIGMOIDOSCOPY SIGMOIDOSCOPY FLX DX W/COLLJ SPEC BR/WA IF PFRMD Jaswinder Ugalde MD [address] [place] [address] [facility] [address] [place] [address] Referral ID Status Reason Start Date Expiration Date V isits Requested Visits Authorized [id number] Closed Auto-Generate d Referral 02/17/2024 09/10/2024 1 1 [facility] Chief Complaint and Reason for Visit Chief Complaint LAP RT ING HERNIA ME SH LAP RT ING HERNIA MESH INGUINAL HERNIA 06/14 RC POST OP HERNIA 06/14 EORDER LABS AND XRAY PHONE/ 2 weeks post op BREAST MASS Birads 4 L Breast Mammo & U/S 07/17 Reason for Visit Inguinal hernia of r ight side without obstruction or gangrene Umbilical hernia without obstruction or gangrene Inguinal hernia of right side without obstruction or gangrene Umbilical hernia without obstruction or gangrene Inguinal hernia of right side without obstruction or gangrene Umbilical hernia without obstruction or gangrene Inguinal hernia of right side without obstruction or gangrene Umbilical hernia without obstruction or gangrene Lipoma of breast Neuralgia Chief Complaint BACK Chief Complaint BACK RIGHT LEG PAIN Chief Complaint BACK RIGHT LEG PAIN R groin pain RIGHT GROIN PAIN Reason for Visit Neuralgia Right groin pain Chief Complaint BACK RIGHT LEG PAIN R groin pain RIGHT GROIN PAIN Acute bronchitis RIGHT GROIN PAIN, S/P HERNIA REPAIR VARIOCELES Reason for Visit Neuralgia Right groin pain Chief Complaint RIGHT LEG PAIN R groin pain RIGHT GROIN PAIN Acute bronchitis RIGHT GROIN PAIN, S/P HERNIA REPAIR VARIOCELES Reason for Visit Neuralgia Right groin pain Chief Complaint R groin pain RIGHT GROIN PAIN Acute bronchitis RIGHT GROIN PAIN, S/P HERNIA REPAIR VARIOCELES HX HERNIA REPAIR shortness of breath Reason for Visit Neuralgia Right groin pain Chief Complaint R groin pain RIGHT GROIN PAIN Acute bronchitis RIGHT GROIN PAIN, S/P HERNIA REPAIR VARIOCELES HX HERNIA REPAIR shortness of breath SHORT OF BREATH CHEST PRESSURE CHEST PRESSURE Reason for Visit Neuralgia Right groin pain Chief Complaint Acute bronchitis RIGHT GROIN PAIN, S/P HERNIA REPAIR VARIOCELES HX HERNIA REPAIR shortness of breath SHORT OF BREATH CHEST PRESSURE CHEST PRESSURE Chief Complaint HX HERNIA REPAIR shortness of breath SHORT OF BREATH CHEST PRESSURE CHEST PRESSURE HX OF DVT BILAT LOWER Chief Complaint CP Chief Complaint Admit Date EYE LESIONS November 20, 2024 8:20a m Chief Complaint Admit Date EYE LESIONS November 20, 2024 8:20a m Other specified soft tissue disorders Se ptember 2024 8:49am Reason for Visit Admit Date Xanthelasma of eyelid, bilateral November 8:20am Family History No Family History Records Found Relationship Condition Age at Onset Recorded Date/T judy mother Malignant neoplasm of breast Unknown Disorder of thyroid Unknown father Diabetes mellitus Unknown Malignant neoplasm Unknown Advance Directives No Advanced Directives Records Found Advance Directive Response Recorded Date/ Time Living Will No June 07 9:52am Power of Supervisor Filling And Packing No June 07, 2021 9:52am Advance Directive Response Recorded Date/ Time Living Will No December 15, 2021 1 0:21am Power of Supervisor Filling And Packing No December 15, 2021 10:21am Advance Directive Response Recorded Date/ Time Living Will No May 03, 2 022 2:28pm Power of Supervisor Filling And Packing No May 03, 2022 2:28pm Advance Directive Response Recorded Date/ Time Living Will No May 03, 022 3:28pm Power of Supervisor Filling And Packing No May 03, 2022 3:28pm Advance Directive Response Recorded Date/ Time Living Will No August 16, 2023 8:47am Power of Supervisor Filling And Packing No August 15 8:47am Advance Directive Response Recorded Date/ Time Living Will No August 16, 2023 9:47am Power of Supervisor Filling And Packing No August 15 4 9:47am Summary Purpose Reason for Referral Specialty Diagnoses / Procedures Referred By Nadya shah Referred To Contact Gastroenterology Diagnoses Constipation, unspecified constipation type Procedures CONSULT TO GASTROENTEROLOGY OFFICE/OUTPATIENT [facility] 60-74 MINUTES Helen Paul MD [address] [place] [address] Referral ID Status Reason Start Date Expiration Date Visits Requested Visits Authorized [id number] Authorized PCP Requested Referral 3 04/29/2024 1 1 Specialty Diagnoses / Procedures Referred By Nadya shah Referred To Contact [facility] Diagnoses Constipation, unspecified constipation type Procedures COLONOSCOPY DIAGNOSTIC COLONOSCOPY FLX DX W/COLLJ SPEC WHEN PFRMD Helen Paul MD [address] [place] [address] [facility] [address] [place] [address] Referral ID Status Reason Start Date Expiration Date Visits Requested Visits Authorized [id number] Pending Review Auto-Generat ed Referral 3 04/30/2024 1 1 Specialty Diagnoses / Procedures Referred By Contac t Referred To Contact CT IMAGING Diagnoses Inflammatory bowel disease Procedures CT ENTEROGRAPHY W IVCON CT ABD & PELVIS W/CONTRAST Jaswinder Ugalde MD [address] [place] [address] [place] [address] Referral ID Status Reason Start Date Expiration Date V isits Requested Visits Authorized [id number] Closed Auto-Generate d Referral 06/19/2023 08/18/2023 1 1 Additional Source Comments Goals (unrecognized section and content) Goals may be documented in a n alternate sectionGoals may be documented in an alternate sectionGoals may be documented in an alternate sectionGoals may be documented in an alternate sectionGoals may be documented in an alternate sectionGoals may be documented in an alternate sectionGoals may be documented in an alternate sectionGoals may be documented in an alternate sectionGoals may be documented in an alternate sectionGoals may be documented in an alternate sectionGoals may be documented in an alternate sectionGoals may be documented in an alternate sectionGoals may be documented in an alternate sectionGoals may be documented in an alternate sectionGoals may be documented in an alternate sectionGoals may be documented in an alternate sectionGoals may be documented in an alternate sectionGoals may be documented in an alternate section (unrecognized sect ion and content) No Status Records FoundNo Status Records FoundNo Status Records FoundNo Status Records FoundNo Status Records Found INFORMATION SOURCE (unrecogn ized section and content) DATE CREATED AUTHOR 03/22/2022 [employer] DATE CREATED AUTHOR AUTHOR'S ORGANIZ ATION 05/25/2022 [facility] DATE CREATED AUTHOR AUTHOR'S ORGANIZ ATION 04/05/2024 [facility] DATE CREATED AUTHOR AUTHOR'S ORGANIZ ATION 05/09/2024 [facility] DATE CREATED AUTHOR AUTHOR'S ORGANIZ ATION 04/25/2025 [facility] Care Teams (unrecognized sec tion and content) Team Status: Active Member Role Status Dates Dr. Janay Luis MD Primary Care Provider Active Team Status: Inactive Member Role Status Dates Dr. Janay Luis MD Primary Care Provider, Attend ing Provider Active Team Status: Active Member Role Status Dates Dr. Janay Luis MD Primary Care Provider, Other Provider Active Dr. Vinicius Oconnell MD Attending Provider Active Team Status: Inactive Member Role Status Dates Dr. Janay Luis MD Primary Care Provider Active Dr. Aren Salamanca MD Attending Provider, Referring Provider Active Team Status: Inactive Member Role Status Dates Dr. Janay Luis MD Primary Care Pr ovider, Attending Provider, Referring Provider Active Team Status: Inactive Member Role Status Dates Dr. Janay Luis MD Primary Care Provider Active Dr. Aren Salamanca MD Attending Provider Active Team Status: Inactive Member Role Status Dates Dr. Janay Luis MD Primary Care Provider Active Dr. Scot Moore DO Attending Provider, Emergency Provider Active Team Status: Inactive Member Role Status Dates Dr. Janay Luis MD Primary Care Provider Active Dr. Aren Witt MD Attending Provider Active Pipeline Controller Relationship Specialty Start Date End Date Andrey Guan MD [address] [place], [place] [address] PCP - General Family Medicine 06/18/17 Team Status: Inactive Member Role Status Dates Dr. Janay Luis MD Primary Care Provider Active Dr. Reagan Cabrera MD Emergency Provider Active Pipeline Controller Relationship Specialty Start Date End Date Andrey Guan MD [address] [place], [place] [id number] PCP - General Family Medicine 06/18/17 Team Status: Inactive Member Role Status Dates Dr. Janay Luis MD Primary Care Provider Active Dr. Reagan Cabrera MD Attending Provider, Emergency Pro vider Active Pipeline Controller Relationship Specialty Start Date End Date Andrey Guan MD [address] [facility] [place] [address] PCP - General Family Medicine 06/18/17 Pipeline Controller Relationship Specialty Start Date End Date Andrey Guan MD [address] [facility] [place] [address] PCP - General Family Medicine 06/18/17 Pipeline Controller Relationship Specialty Start Date End Date Andrey Guan MD [address] [place] [address] PCP - General Family Medicine 06/18/17 Pipeline Controller Relationship Specialty Start Date End Date Andrey Guan MD [address] [facility] [place] [address] PCP - General Family Medicine 06/18/17 Pipeline Controller Relationship Specialty Start Date End Date Andrey Guan MD [address] [facility] [place] [address] PCP - General Family Medicine 06/18/17 Pipeline Controller Relationship Specialty Start Date End Date Janay Luis MD Kar Dave [address] [place] [address] PCP - General Family Medicine 03/19/24 Pipeline Controller Relationship Specialty Start Date End Date Andrey Guan MD [address] [place] [address] PCP - General Family Medicine 06/18/17 Pipeline Controller Relationship Specialty Start Date End Date Andrey Guan MD [address] [facility] [place] [address] PCP - General Family Medicine 06/18/17 Podlogar, Sophia, PARTY DIRECTOR.PUBLIC TRANSPORTATION INSPECTOR [address] [place], [place] [address] [facility] Pipeline Controller Relationship Specialty Start Date End Date Andrey Guan MD [address] [place], [place] [address] PCP - General Family Medicine 06/18/17 Podlogar, Sophia, PARTY DIRECTOR.PUBLIC TRANSPORTATION INSPECTOR [address] [place], [place] [id number] [facility] 05/23/24 Pipeline Controller Relationship Specialty Start Date End Date Andrey Guan MD [address] [place] [address] PCP - General Family Medicine 06/18/17 Podlogar, Sophia, PARTY DIRECTOR.PUBLIC TRANSPORTATION INSPECTOR [address] [place], [place] [id number] [facility] 05/[facility]/24 Team Status: Inactive Member Role Status Dates Dr. Janay Luis MD Primary Care Provider Active Start: October 13, 2024 End: October 13, 2024 Dr. Janay Luis MD Attending Provider Active Start: October 13, 2024 End: October 13, 2024 Dr. Janay Luis MD Referring Provider Active Start: October 13, 2024 End: October 13, 2024 Team Status: Inactive Member Role Status Dates Dr. Janay Luis MD Primary Care Provider Active Start: November 16, 2024 End: November 16, 2024 Dr. Surjit Cervantes MD Attending Provider Active Start: November 16, 2024 End: November 16, 2024 Dr. Surjit Cervantes MD Referring Provider Active Start: November 16, 2024 End: November 16, 2024 Team Status: Inactive Member Role Status Dates Dr. Janay Luis MD Primary Care Provider Active Start: November 20, 2024 End: November 20, 2024 Dr. Janay Luis MD Referring Provider Active Start: November 20, 2024 End: November 20, 2024 Dr. Aren Victor MD Attending Provider Active Start: November 20, 2024 End: November 20, 2024 Team Status: Active Member Role/Relationship Status Dates Dr. Janay Luis MD Primary care physician Active Team Status: Inactive Member Role/Relationship Status Dates Dr. Janay Luis MD Primary care physician Active Start: November 20, 2024 End: November 20, 2024 Dr. Aren Victor MD Attending physician Active Start: November 20, 2024 End: November 20, 2024 Dr. Veronika Villanueva MD Referring Provider Active S tart: November 20, 2024 End: November 20, 2024 Team Status: Inactive Member Role/Relationship Status Dates Dr. Janay Luis MD Primary care physician Active Start: March 11, 2025 End: March 11, 2025 Dr. Janay Luis MD Attending physician Active Start: March 11, 2025 End: March 11, 2025 Dr. Janay Luis MD Referring Provider Active Start: March 11, 2025 End: March 11, 2025 Source Comments (unrecognize d section and content) In the event this informatio n is protected by the Federal Confidentiality of Alcohol and Drug Abuse Patient Records regulations: The Federal rules restrict any use of the information to criminally investigate or prosecute any alcohol or drug abuse patient.[facility] the event this information is protected by the Federal Confidentiality of Alcohol and Drug Abuse Patient Records regulations: The Federal rules restrict any use of the information to criminally investigate or prosecute any alcohol or drug abuse patient.[facility] CenterIn the event this information is protected by the Federal Confidentiality of Alcohol and Drug Abuse Patient Records regulations: The Federal rules restrict any use of the information to criminally investigate or prosecute any alcohol or drug abuse patient.[facility] Center[facility] the event this information is protected by the Federal Confidentiality of Alcohol and Drug Abuse Patient Records regulations: The Federal rules restrict any use of the information to criminally investigate or prosecute any alcohol or drug abuse patient.[facility] CenterIn the event this information is protected by the Federal Confidentiality of Alcohol and Drug Abuse Patient Records regulations: The Federal rules restrict any use of the information to criminally investigate or prosecute any alcohol or drug abuse patient.[facility] CenterIn the event this information is protected by the Federal Confidentiality of Alcohol and Drug Abuse Patient Records regulations: The Federal rules restrict any use of the information to criminally investigate or prosecute any alcohol or drug abuse patient.[facility] CenterIn the event this information is protected by the Federal Confidentiality of Alcohol and Drug Abuse Patient Records regulations: The Federal rules restrict any use of the information to criminally investigate or prosecute any alcohol or drug abuse patient.[facility] CenterIn the event this information is protected by the Federal Confidentiality of Alcohol and Drug Abuse Patient Records regulations: The Federal rules restrict any use of the information to criminally investigate or prosecute any alcohol or drug abuse patient.[facility] CenterIn the event this information is protected by the Federal Confidentiality of Alcohol and Drug Abuse Patient Records regulations: The Federal rules restrict any use of the information to criminally investigate or prosecute any alcohol or drug abuse patient.[facility] CenterIn the event this information is protected by the Federal Confidentiality of Alcohol and Drug Abuse Patient Records regulations: The Federal rules restrict any use of the information to criminally investigate or prosecute any alcohol or drug abuse patient.[facility] CenterIn the event this information is protected by the Federal Confidentiality of Alcohol and Drug Abuse Patient Records regulations: The Federal rules restrict any use of the information to criminally investigate or prosecute any alcohol or drug abuse patient.[facility] CenterIn the event this information is protected by the Federal Confidentiality of Alcohol and Drug Abuse Patient Records regulations: The Federal rules restrict any use of the information to criminally investigate or prosecute any alcohol or drug abuse patient.[facility] CenterIn the event this information is protected by the Federal Confidentiality of Alcohol and Drug Abuse Patient Records regulations: The Federal rules restrict any use of the information to criminally investigate or prosecute any alcohol or drug abuse patient.[facility] Reason for Visit (unrecogniz ed section and content) Reason Comments Consult constipation Reason Comments Appointment Reason Comments Constipation Reason Comments Radiology CT Specialty Diagnoses / Procedures Referred By Contac t Referred To Contact CT IMAGING Diagnoses Inflammatory bowel disease Procedures CT ENTEROGRAPHY W IVCON CT ABD & PELVIS W/CONTRAST Jaswinder Ugalde MD [address] [place] [address] [place] [address] Referral ID Status Reason Start Date Expiration Date V isits Requested Visits Authorized [id number] Closed Auto-Generate d Referral 06/19/2023 08/18/2023 1 1 Reason Comments Laceration Right hand 2nd finge r laceration. Reason Comments Suture / Staple Removal Inactive Administered Medications - up to 3 most recent administrations Administered Medications (un recognized section and content) Medication Order MAR Action Action Date Dose Rate Site dextrose 5% in NaCl 0.9% iv infusion 30 mL/hr, INTRAVENOUS, CONTINUOUS, Starting on 09/06/23 at 0900, Until 09/07/23 at 0441, Preprocedure New Bag/Syringe/Bottle 09/06/2023 9:11 AM EDT Continued by Anesthesia 09/06/2023 9:10 AM EDT 30 mL/hr New Bag/Syringe/Bottle 09/06/2023 9:00 AM EDT 30 mL/hr 3 0 mL/hr FOR RECORDS PERTAINING TO PATIENTS WHO ARE [...] BE BASED ON THE PRIMARY CLINICAL RECORDS. [email or web address] provides no warranty or guarantee of the accuracy or completeness of information in this document.
[2025-04-28 21:00] VITALS: BP 121/76; PULSE 66; RESP 15; O2SAT 96
[2025-04-28 21:15] LABS: Troponin T High Sens 2 HR 14 ng/L (<=22)
[2025-04-28 21:57] VITALS: BP 145/78; PULSE 66; RESP 16; TEMP 36.6; O2SAT 99
== END 2025-04-28 21:58 | disposition home or self-care (01) ==
PROVIDERS: Emergency Provider Emergency Medicine; PCP Family Medicine; Visit Provider Emergency Medicine
DX: R07.89 Other chest pain (principal); M79.602 Pain in left arm; M54.2 Cervicalgia
CPT/HCPCS: 71046; 80048; 84484; 85025; 85379; 93005; 99283; A4216

== ENCOUNTER → 2025-05-26 | Outpatient (CLI) | payer OTHER, SELFPAY ==
--- NOTE | 2025-05-26 10:33 | RAD_ITS ---
PROCEDURE: CHEST PA AND LATERAL 05/26/2025 REASON FOR EXAM: HBP TECHNIQUE: Procedure Code: RADCXR Modality: DX Procedure: CHEST PA AND LATERAL COMPARISON: 04/28/2025 FINDINGS: Hardware: None. Heart: The heart size is normal. Mediastinum: The mediastinal contour is unremarkable. Lungs: The lungs are clear. No pneumothorax or pleural effusion. Bones: The bones are unremarkable. RAD/Chest PA and Lateral IMPRESSION: NO ACUTE FINDINGS. Reading [facility]
[2025-05-26 11:38] LABS: Hematocrit 46.6 % (40-54); Hemoglobin 15.7 g/dL (13.0-16.5); Immature Granulocytes Count 0.090 X10^3/uL (0.0-0.0); Mean Corp Hgb Conc 33.7 g/dL (32-36); Mean Corpuscular Volume 81.5 fL (80-94); Mean Platelet Vol. 9.5 fl (6.2-12.0); NRBC Flagged by Analyzer 0 % (0-5); Platelet Count 296 K/mm3 (150-450); RBC Distribution Width CV 15.0 % (11.6-14.6); RBC Distribution Width SD 43.7 fl (35.1-43.9); Red Blood Count 5.72 M/mm3 (4.6-6.2); White Blood Count 11.5 K/mm3 (4.4-11.0)
[2025-05-26 12:11] LABS: Anion Gap 13 (5-15); BUN 21 mg/dL (4-19); BUN/Creat Ratio 17.1 RATIO (10-20); Calcium,Total 9.4 mg/dL (7.6-11.0); Carbon Dioxide 22.4 mmol/L (21.0-32.0); Chloride 103 mmol/L (98-108); Glucose 103 mg/dL (70-99); Potassium 4.3 mmol/L (3.3-5.1)
== END | disposition home or self-care (01) ==
PROVIDERS: PCP Family Medicine; Referring Provider Internal Medicine Cardiovascular Disease; Visit Provider Internal Medicine Cardiovascular Disease
DX: R07.9 Chest pain, unspecified (principal); I10 Essential (primary) hypertension
CPT/HCPCS: 36415; 71046; 80048; 85025

== ENCOUNTER → 2025-06-15 | Outpatient (CLI) | payer OTHER, SELFPAY | END | disposition home or self-care (01) | LOC: CVS 10:40 | PROVIDERS: PCP Family Medicine; Referring Provider Internal Medicine Cardiovascular Disease; Visit Provider Internal Medicine Cardiovascular Disease | DX: R07.9 Chest pain, unspecified (principal) | CPT/HCPCS: 93306; Q9957; A4216; C8929 ==